=== PATIENT | female | born 1950 | race Caucasian/White ===

== ENCOUNTER 2017-08-22 16:30 | Emergency (ER) | payer MEDICARE, OTHER, SELFPAY ==
[2017-08-22] VITALS (8 sets, daily range): BP systolic 130–193; BP diastolic 72–91; PULSE 68–92; RESP 15–20; TEMP 36.9; O2SAT 98–100; BMI 25.0
--- NOTE | 2017-08-22 17:03 | EKG12_ITS ---
Test Reason : REPEAT Blood Pressure : / mmHG Vent. Rate : 064 BPM Atrial Rate : 064 BPM P-R Int : 148 ms QRS Dur : 086 ms QT Int : 412 ms P-R-T Axes : 031 -45 044 degrees QTc Int : 425 ms Normal sinus rhythm Left axis deviation Low voltage QRS Inferior infarct , age undetermined Abnormal ECG Confirmed by JAIMIE BARRERA ([id number]), managing editor DILEEP LION ([id number]) on 08/26/2017 3:59:19 PM Referred By: COREEN Confirmed By:JAIMIE BARRERA
--- NOTE | 2017-08-22 17:45 | RAD_ITS ---
STUDY: X-RAY CHEST REASON FOR EXAM: Female, 67 years old. Chest tightness TECHNIQUE: Frontal and lateral views of the chest. COMPARISON: 04/15/2006. FINDINGS: There is hyperinflation of the lungs consistent with chronic obstructive lung disease (COPD). No infiltrates or effusions. There is no demonstrated pleural abnormality. Normal size heart. Normal mediastinum and nimo. Normal visualized pulmonary arteries. Normal visualized aortic arch and descending thoracic aorta. Normal visualized thoracic spine. Normal visualized ribs, clavicles, and shoulders. There is no demonstrated abnormality of the visualized soft tissue structures of the upper abdomen. RAD/Chest PA and Lateral IMPRESSION: There are findings consistent with COPD. There is no evidence of acute chest disease. Electronically Signed: Andrew Lucas MD at 18:25 EDT , Service support ,
[2017-08-22 17:58] LABS: Absolute Lymphocyte Count 1.67 X10^3/ul (0.83-4.51); Absolute Neutrophil Count 3.1 X10^3/uL (2.0-7.7); Basophil# 0.02 X10^3/uL; Basophil% 0.4 % (0-1); Eosinophil# 0.05 X10^3/uL; Eosinophils% 0.9 % (0-5); Hematocrit 39.8 % (37-47); Hemoglobin 12.9 g/dl (12.0-15.0); Lymphocyte # 1.67 X10^3/ul (4.0); Lymphocyte % 31.4 % (19-41); Mean Corp Hgb Conc 32.4 g/gl (32-36); Mean Corpuscular Hgb 31.9 pg (27.0-32.0); Mean Corpuscular Volume 98.3 fL (81-99); Mean Platelet Vol. 10.3 fl (6.2-12.0); Monocyte# 0.52 X10^3/uL; Monocyte% 9.8 % (0-10); Neutrophil # 3.05 X10^3/uL (2.7-7.7); Neutrophil % 57.3 % (47-70); Platelet Count 262 K/mm3 (150-450); RBC Distribution Width CV 12.7 % (11.6-14.6); RBC Distribution Width SD 45.9 fl (35.1-43.9); Red Blood Count 4.05 M/mm3 (4.2-5.4); White Blood Count 5.3 K/mm3 (4.4-11.0)
[2017-08-22] MEDS: Aspirin 81 MG TAB.CHEW 324 MG PO (17:59)
[2017-08-22 18:04] LABS: POSITIVE COUNT NO; POSITIVE DIFFERENTIAL NO; POSITIVE MORPHOLOGY NO
[2017-08-22 18:20] LABS: Anion Gap 9 (5-15); BUN 13 mg/dL (7-18); BUN/Creat Ratio 9.7 RATIO (10-20); Chloride 104 mmol/L (98-107); Creatinine, Serum 1.34 mg/dL (0.55-1.02); EST Glomerular Filtration Rate 42 mL/min (>60); Est Glom Filt Rate - Afr Amer 51 mL/min (>60); Estimated Creatinine Clearance 36.16 ml/min; Glucose 192 mg/dL (74-106); Potassium 3.4 mmol/L (3.5-5.1); Sodium Level 136 mmol/L (136-145)
--- NOTE | 2017-08-22 19:10 | EKG12_ITS ---
Test Reason : CHEST PAIN Blood Pressure : / mmHG Vent. Rate : 074 BPM Atrial Rate : 074 BPM P-R Int : 160 ms QRS Dur : 088 ms QT Int : 384 ms P-R-T Axes : 073 -44 059 degrees QTc Int : 426 ms Normal sinus rhythm Left axis deviation Septal infarct , age undetermined Inferior infarct , age undetermined Abnormal ECG Confirmed by JAIMIE BARRERA ([id number]), video editor DILEEP LION ([id number]) on 08/26/2017 3:59:43 PM Referred By: CD Confirmed By:JAIMIE BARRERA
--- NOTE | 2017-08-22 20:29 | ED.DCSUM_ITS ---
- ER Visit Summary Date of Service: 08/22/17 Chief Complaint: Chest pain History of Present Illness: The patient is a 67 F who presents with chest pain that began approximate 1 hour prior to arrival. Patient describes the pain as squeezing. Patient states that her pain is over the lower sternal area. Patient denies any radiation of the pain. Patient admits to some diaphoresis. Patient also admits to some lightheadedness and dizziness. Patient states she was having some palpitations earlier in the day. Patient denies any shortness of breath. Patient denies any nausea or vomiting. Physical Examination: Vital signs are stable. Patient is afebrile. Patient is in no acute distress. Pupils are equal, round, reactive to light bilaterally. Extraocular muscles are intact. Conjunctiva is clear. Oral mucosa is pink and moist. Neck is supple. Trachea is midline. There is no JVD or lymphadenopathy. Heart was regular rate and rhythm. Lungs are clear and equal bilateral. There is good respiratory effort noted. Abdomen is soft nontender. Cranial nerves II through XII are intact. There are no focal motor or sensory deficits noted. Test Results: EKG showed normal sinus rhythm with a rate of 74. There are no acute ST or T-wave changes. Repeat EKG 2 hours later does not show any acute changes. Chest x-ray shows evidence of COPD but no acute cardiopulmonary process. CBC was within normal limits. Basic metabolic profile showed a slightly elevated creatinine of 1.34. Glucose is 192. Troponin was normal at 0.02. Emergency Department Course and Treatment: Patient states her pain has resolved here in the emergency department. A 2 hour delta troponin was obtained since her symptoms only began 1 hour prior to arrival. This repeat troponin and repeat EKG were unchanged. Patient has a HEART score of 3. Patient is low risk for acute cardiac event. Patient was instructed to follow-up with her primary care physician in 5-7 days. Patient understood and was agreeable with the plan. All questions were answered. Disposition: Charge home Impression: Chest pain This note was generated with [employer] dictation software. It may contain incorrect words, spelling, and punctuation that were not noted in review of the chart prior to signing ED Disposition - Plan for ED Patient: Disposition: Home or Assisted Living Chief Complaint: Chest Pain Diagnosis: Chest pain Instructions: ED Chest Pain Atypical Unkn Cause Referrals: Scarlet Deleon DO [Primary Care Provider] -
--- NOTE | 2017-08-22 20:42 | ED.RN ---
REVIEWED D/C INSTRUCTIONS, FOLLOW UP CARE, AND S/S THAT WOULD WARRANT A RETURN TO THE ED WITH PT. PT VERBALIZED AN UNDERSTANDING AND DENIES FURTHER QUESTIONS FOR THIS RN. PT SKIN P/W/D, RESP EVEN AND UNLABORED, PT A&O X 3, NO DISTRESS NOTED. PT AMBULATED OUT OF ED, GAIT STEADY.
== END 2017-08-22 20:45 | disposition home or self-care (01) ==
PROVIDERS: Emergency Provider Emergency Medicine; Family Provider Family Medicine; PCP Family Medicine
DX: R07.89 Other chest pain (principal); R61 Generalized hyperhidrosis; R42 Dizziness and giddiness; R00.2 Palpitations; Z85.828 Personal history of other malignant neoplasm of skin; Z90.710 Acquired absence of both cervix and uterus; Z79.899 Other long term (current) drug therapy
CPT/HCPCS: 71046; 80048; 84484; 85025; 93005; 99285; A4216

== ENCOUNTER → 2017-08-29 07:59 | Outpatient (CLI) | payer MEDICARE, OTHER, SELFPAY ==
[2017-08-29 12:51] LABS: Anion Gap 5 (5-15); BUN 17 mg/dL (7-18); BUN/Creat Ratio 20.4 RATIO (10-20); Calcium,Total 8.8 mg/dL (8.5-10.1); Chloride 108 mmol/L (98-107); Creatinine, Serum 0.83 mg/dL (0.55-1.02); EST Glomerular Filtration Rate 72 mL/min (>60); Est Glom Filt Rate - Afr Amer 88 mL/min (>60); Glucose 89 mg/dL (74-106); Potassium 4.6 mmol/L (3.5-5.1); Sodium Level 141 mmol/L (136-145); Thyroid Stim Hormone (TSH) 1.33 uIU/mL (0.358-3.74)
[2017-09-05 11:27] LABS: Aldosterone, Serum 8.8 ng/dL (0.0-30.0); Renin, Plasma < 0.167 ng/mL/hr (0.167-5.380)
== END ==
PROVIDERS: Family Provider Family Medicine; PCP Family Medicine; Visit Provider Family Medicine
DX: I10 Essential (primary) hypertension (principal)
CPT/HCPCS: 36415; 80048; 82088; 84244; 84443

== ENCOUNTER → 2017-10-09 09:35 | Outpatient (CLI) | payer MEDICARE, OTHER, SELFPAY ==
--- NOTE | 2017-10-09 09:43 | RDU_ITS ---
Reason For Study: HYPERTENSION Right Renal Artery Left Renal Artery Right renal artery ostium Left renal artery ostium 90.3/27.6 119.0/26.4 RSV/EDV. PSV/EDV. Right renal artery proximal Left renal artery proximal PSV/EDV 115.0/30.2 PSV/EDV. 104.0/28.1 . Right renal artery mid 105.0/33.3 Left renal artery mid 95.1/25.2 PSV/EDV. PSV/EDV . Right renal artery distal Left renal artery distal 97.2/35.4 129.0/45.7 PSV/EDV. PSV/EDV. Right Renal Parenchyma Left Renal Parenchyma Upper Pole Medula 42.9/17.3 Left upper pole medulla 42.2/14.1 PSV/EDV. PSV/EDV . Right upper pole medulla EDR .40 . Left upper pole medulla EDR .33 . Right upper pole medulla R.I. .60 . Left upper pole medulla R.I. .67 . Upper [place] Cortx 24.6/7.3 PSV/EDV. UP Cortex 26.3/6.7 PSV/EDV. Right upper pole cortex EDR .30 . Left upper pole cortex EDR .25 . Right upper pole cortex R.I. .70 . Left upper pole cortex R.I. .74 . Right lower Pole medulla 27.5/9.2 Left lower Pole medulla 23.5/7.9 PSV/EDV . PSV/EDV . Right lower pole medulla EDR .33 . Left lower pole medulla EDR .34 . Right lower pole medulla R.I. .67 . Left lower pole medulla R.I. .66 . Lower Pole Cortex 22.9/8.3 PSV/EDV. Lower Pole Cortx 21.4/7.9 PSV/EDV. Right lower pole cortex EDR .36 . Left lower pole cortex EDR .37 . Right lower pole cortex R.I. .64 . Left lower pole cortex R.I. .63 . Right Renal Hilar Left Renal Hilar Right Hilar avg 79.4/25.7 PSV/EDV. LT Hilar avg 47.1/16.2 PSV/EDV . Right hilar acceleration time 51 Left hilar acceleration time 37 m/sec. m/sec. Right Renal Dimensions Left Renal Dimensions Right kidney size 10.8 cm . Left kidney size 10.7 cm . Right cortical dimension 1.5 cm . Left cortical dimension 1.5 cm . Aorta Proximal abdominal aorta 1.7 X 1.7 cm . Distal abdominal aorta 1.5 X 1.5 cm . Proximal abdominal aorta peak systolic velocity is 123.0 cm/sec . Distal abdominal aorta peak systolic velocity is 93.0 cm/sec . Interpretation Summary Dimensions of the intra-abdominal aorta appear normal, without evidence of aneurysmal dilatation. Renal artery velocities are bilaterally normal. Acceleration times are normal bilaterally. There is no evidence of hemodynamically significant renal artery stenosis on either side. Renovascular resistance appears to be bilaterally normal . Cortical dimensions are bilaterally normal. Kidneys appear normal in size bilaterally. Ordering Physician: Scarlet Deleon Referring Physician: Scarlet Deleon Performed By: Aubree Chavira RVT
[2017-10-09 11:03] LABS: Color, Urine Yellow (Yellow); Glucose, Dipstick Normal (Normal); Ketone-Dipstick Negative (Negative); Leukocyte Esterase-Dipstick 100 /ul (Negative); Nitrite-Dipstick Negative (Negative); Occult Blood-Urine 10 /ul (Negative); Protein-Dipstick Negative (Negative); Urine Bilirubin Dipstick Negative (Negative); Urine Clarity Clear (Clear); Urine Urobilinogen Normal (Normal)
[2017-10-09 11:36] LABS: Microalbumin:Creatinine Ratio 11.3 mg/g CRE (<30 mg/g CRE)
== END ==
PROVIDERS: Family Provider Family Medicine; PCP Family Medicine; Visit Provider Family Medicine
DX: I10 Essential (primary) hypertension (principal)
CPT/HCPCS: 81002; 82043; 82570; 93975

== ENCOUNTER → 2017-11-14 17:39 | Outpatient (CLI) | payer MEDICARE, OTHER, SELFPAY ==
--- NOTE | 2017-11-14 11:30 | LES_PTH ---
PATIENT: JS FOX LOC: [facility] U#:[id number] AGE/SX: 74/F ROOM: RE11/14/[address]: Dr. Dave Larios MD : 1950 BED: DIS: SPEC #: [id number] RECD: 11/14/17 17:20 STATUS: CECILIA THOMAS #: [id number] CHRISTINE: 11/14/17 11:[address]: Dave Larios DEPT: SURGICAL PATHOLOGY RECD BY: Vinita Downey ENTERED: 11/17/17 11:47 SP TYPE: Lesion OTHR DR: Dr. Scarlet Deleon, DO Tissues: Skin of eyelid, NOS Procedures: Surgery Specimen Level III HEADER OPERATION: Left lateral canthus lesion PRE-OP DIAGNOSIS: Small, likely inclusion cyst TISSUE SUBMITTED: Left lateral canthus lesion MICROSCOPIC DIAGNOSIS Left lateral canthus lesion, biopsy: Epidermal inclusion cyst. SJ:russell 11/18/17 MICROSCOPIC DESCRIPTION Slides are reviewed. GROSS DESCRIPTION Received in fixative is one container labeled with the patient's name and designated ANN. The specimen consists of one irregular fragment of arauz-white soft tissue measuring 0.1 cm in greatest dimension. The specimen is totally submitted in one cassette. / SJ:russell 11/17/17 TC:5 CPT: 83989
== END ==
PROVIDERS: Family Provider Family Medicine; PCP Family Medicine; Visit Provider Ophthalmology
DX: L72.0 Epidermal cyst (principal)
CPT/HCPCS: 88304; 88305

== ENCOUNTER → 2018-02-25 10:43 | Outpatient (CLI) | payer MEDICARE, OTHER, SELFPAY | PROVIDERS: Family Provider Family Medicine; PCP Family Medicine; Referring Provider Family Medicine; Visit Provider Family Medicine | DX: R07.9 Chest pain, unspecified (principal); R00.2 Palpitations; I34.1 Nonrheumatic mitral (valve) prolapse | CPT/HCPCS: 93225; 93226 ==

== ENCOUNTER → 2018-02-27 15:13 | Outpatient (CLI) | payer MEDICARE, OTHER, SELFPAY ==
--- NOTE | 2018-02-27 15:17 | BI_ITS ---
MAMMOGRAPHY - BILATERAL SCREENING REASON FOR EXAM: Female, 67 years old. Routine annual screening examination. PERTINENT HISTORY: Remote bilateral excisional breast biopsies. TECHNIQUE: Digital bilateral breast annita (3D mammographic acquisition) in the CC and MLO projections. 2-D mediolateral oblique (MLO) and craniocaudad (CC) views of both breasts were obtained. CAD: Full Field Digital Mammography with Computer Added Detection was performed. COMPARISON: Comparison is made with prior study dated January 23, 2017 and January 22, 2016. FINDINGS: Breast Composition: The breasts are heterogeneously dense, which may obscure small masses. There are no dominant masses or suspicious calcifications. There is a stable 4.6 mm densely calcified nodule in the deep upper lateral portion of the left breast. No other significant abnormalities are identified. There has been no significant change since the prior study. BI/SCREENING MAMM (CAD), BILAT IMPRESSION: Stable bilateral screening mammogram. Yearly follow-up mammogram recommended. (A) ASSESSMENT CATEGORY: BIRADS Category 2: Benign. A letter regarding these results will be sent to the patient by the facility within 30 days. Approximately 10% of breast cancers are not detected by mammography. A normal mammogram should not delay biopsy of a clinically suspicious abnormality. [id number] Electronically Signed: Taras Lowery MD at 9:15 EST Tel [phone], Service support ,
== END ==
PROVIDERS: Family Provider Family Medicine; PCP Family Medicine; Referring Provider Family Medicine; Visit Provider Family Medicine
DX: Z12.31 Encounter for screening mammogram for malignant neoplasm of breast (principal)
CPT/HCPCS: 77063; 77067

== ENCOUNTER → 2018-03-02 09:24 | Outpatient (CLI) | payer MEDICARE, OTHER, SELFPAY ==
--- NOTE | 2018-03-02 09:26 | STE_ITS ---
Reason For Study: HTN, Chest Pain Stress Results Protocol: Jonatan Protocol Maximum Predicted HR: 152 bpm Target HR: 129 bpm % Maximum Predicted HR: 116 % Heart Stage Duration Rate BP Comment (mm:ss) (bpm) Baseline 80 128/84No Chest Pain Jonatan Protocol Stage I 3:00 129 130/80No Chest Pain Jonatan Protocol Stage II 3:00 176 140/78No Chest Pain Mild Chest Pressure, Resolved 4 Minutes Into Recovery 93 136/86Recovery Stress Duration: 6:00 mm:ss Maximum Stress HR: 176 bpm METS: 7 Baseline Echocardiogram Findings Stress Echo Wall motion Data Resting WM Intermediate WM Stress WM Resting Wall Motion Wall Motion Stress No regional wall motion No regional wall motion abnormalities noted. abnormalities noted. Ejection Fraction 55 %. Ejection Fraction 65 %. Interpretation Summary Exercise stress echo. Stress protocol: Resting EKG demonstrates normal sinus rhythm with a rate of 72 bpm normal intervals and noted resting blood pressure 128/82 mmHg. The patient exercised according to regular Jonatan protocol for a total duration of 6 minutes. The maximum heart rate attained was 176 bpm which was 115% of maximum predicted heart rate the maximum workload attained was 7 metabolic equivalents. The patient maintained sinus rhythm throughout the recording with occasional premature ventricular complexes noted. 3 episodes of ventricular couplet activity were noted which were asymptomatic. No clinical angina was noted the test was terminated due to fatigue. The resting blood pressure 128/84 with a peak blood pressure of 176/98 mmHg. Stress echocardiogram. Resting echocardiographic images demonstrated an ejection fraction of 55-60%. At peak exercise there was thickening of all reyes and improvement in left ventricular systolic function estimated ejection fraction of 65-70%. No wall motion abnormalities were noted. Conclusion: Normal exercise stress test with no EKG criteria for ischemia at a moderate workload. No clinical angina noted. Normal resting and stress echocardiographic images. Ordering Physician: Scarlet Deleon Referring Physician: Rashad Schmitz Performed By: Brenna Vargas, RDCS, RVT
== END ==
PROVIDERS: Family Provider Family Medicine; PCP Family Medicine; Referring Provider Family Medicine; Visit Provider Family Medicine
DX: R07.9 Chest pain, unspecified (principal); R00.2 Palpitations; I34.1 Nonrheumatic mitral (valve) prolapse
CPT/HCPCS: 93017; 93350

== ENCOUNTER → 2018-03-10 12:35 | Outpatient (CLI) | payer MEDICARE, OTHER, SELFPAY ==
--- NOTE | 2018-03-10 12:45 | RAD_ITS ---
STUDY: X-RAY CHEST REASON FOR EXAM: Female, 67 years old. Chest tightness. Hypertension. TECHNIQUE: PA and lateral views of the chest. COMPARISON: August 22, 2017. FINDINGS: There is hyperinflation of the lungs consistent with chronic obstructive lung disease (COPD). No new mass or infiltrate. There is no demonstrated pleural abnormality. Normal size heart. Normal mediastinum and nimo. Normal visualized pulmonary arteries. Normal visualized aortic arch and descending thoracic aorta. There is demineralization and minimal degenerative changes of the thoracic spine. There is degenerative osteoarthritis of the bilateral shoulders. There is no demonstrated abnormality of the visualized soft tissue structures of the upper abdomen. RAD/Chest PA and Lateral IMPRESSION: COPD without acute cardiopulmonary disease or interval change. Electronically Signed: Mathew Mir DO at 20:58 EST Tel [phone], Service support ,
== END ==
PROVIDERS: Family Provider Family Medicine; PCP Family Medicine; Referring Provider Internal Medicine Cardiovascular Disease; Visit Provider Internal Medicine Cardiovascular Disease
DX: R07.9 Chest pain, unspecified (principal)
CPT/HCPCS: 71046

== ENCOUNTER 2018-03-17 06:48 | Day surgery (SDC) | payer MEDICARE, OTHER, SELFPAY ==
[2018-03-10 11:25] VITALS: BMI 23.7
[2018-03-10 13:37] LABS: Hematocrit 42.5 % (37-47); Hemoglobin 13.7 g/dl (12.0-15.0); Mean Corp Hgb Conc 32.2 g/gl (32-36); Mean Corpuscular Hgb 31.5 pg (27.0-32.0); Mean Corpuscular Volume 97.7 fL (81-99); Mean Platelet Vol. 10.2 fl (6.2-12.0); Platelet Count 303 K/mm3 (150-450); RBC Distribution Width CV 12.6 % (11.6-14.6); RBC Distribution Width SD 45.2 fl (35.1-43.9); Red Blood Count 4.35 M/mm3 (4.2-5.4)
[2018-03-10 13:38] LABS: Scan Indicated on CBC? Y/N NO
[2018-03-10 13:43] LABS: Prothrombin Time (Protime)PT. 12.8 SECONDS (11.7-14.9)
[2018-03-10 13:44] LABS: Partial Thromboplast Time 32.3 Seconds (24.1-36.2)
[2018-03-10 14:07] LABS: Anion Gap 5 (5-15); BUN 17 mg/dL (7-18); BUN/Creat Ratio 19.8 RATIO (10-20); Calcium,Total 9.8 mg/dL (8.5-10.1); Chloride 103 mmol/L (98-107); Creatinine, Serum 0.86 mg/dL (0.55-1.02); EST Glomerular Filtration Rate 70 mL/min (>60); Est Glom Filt Rate - Afr Amer 84 mL/min (>60); Glucose 98 mg/dL (74-106); Potassium 4.2 mmol/L (3.5-5.1); Sodium Level 140 mmol/L (136-145)
[2018-03-11 08:16] LABS: AST(SGOT) 25 U/L (15-37); Alanine Aminotransfer ALT/SGPT 43 U/L (13-56); Alkaline Phosphatase 77 U/L (45-117); Bilirubin, Direct 0.12 mg/dL (0.00-0.30); Cholesterol 244 mg/dL (200); Globulin 4.1 g/dL (2.2-4.2); High Density Lipoprotein 80 mg/dL; Protein, Total 8.1 g/dL (6.4-8.2); Triglycerides 115 mg/dL; Very Low Density Lipoprotein 23 mg/dL (5-40)
[2018-03-16 14:09] VITALS: BMI 23.7
--- NOTE | 2018-03-17 09:33 | CL.I_ITS ---
Patient Name: JS FOX Study Date: 03/17/2018 Performing: Onur Bill MD Ht: 66.14 inches 168 cm : 1950 Wt: 147.71 lbs 67 kg Age: 67 Gender: female BSA: 1.76 PROCEDURE(S) PERFORMED XA32-OIB/COR/LV CLINICAL PROFILE AND CO-MORBIDITIES Indications: New Onset Angina <= 2 months, Suspected CAD, Cardiac Arrythmia Heart Failure: None Stress/Imaging Stress Echocardiogram: Yes Result: Negative Stress Echocardiogram: Negative Angina Classification Anginal Classification w/in 2 Weeks: CCS IV CAD Presentations: Unstable angina. 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 Wire an d guide removed. pt is too thin for Mynx closure. RECOMMENDATIONS Referred for immediate PCI D/c plavix, start IMDUR 30 mg po daily if pt's migraines tolerate, otherwise amlodipine 10mg po qd. 24 hour urine for VMA and metanephrines. Manual sheath removal once ACT<150 sec. Follow up with Dr. Bill DESCRIPTION OF PROCEDURE The patient arrived to the procedure lab. The risks and benefits of the procedure as well as a full d escription of our services here and lack of surgical backup were fully explained to the patient and/o r their significant other prior to the catheterization. The Timeout was completed, verifying the sima ect patient and procedure. The patient's procedural site was prepped and draped in the usual fashion. Local anesthetic was given subcutaneously to right groin region with Lidocaine 2%. Using a modified Seldinger technique, arterial access was obtained via the right femoral artery, a 4Fr sheath was inse rted. Left Coronary Artery selective angiography was performed in multiple views using a 4 Fr. JL5 c atheter. Right Coronary Artery selective angiography was then performed in multiple views using a 4 F r. 3DRC catheter. Left Ventriculography was performed in POWELL projection using a 4 Fr. Pigtail cathete r. LV to AO pullback pressures were then recordedThe images were reviewed and options discussed. A decision was then made to proceed with an Intervention, IVUS or other adjunct procedure. Arterial sheath was exchanged for a 6 Fr Sheath. EBU 3.5 Guide catheter was inserted and engaged into the LCA. BMW Guide wire was advanced to the LAD. Angiogram performed post NTG. The arterial sh eath was sutured in place and capped CORONARY ANGIOGRAPHY DOMINANCE: Right Dominant LEFT HEART ASSESSMENT Left Ventricular Ejection Fraction: by LV Gram 65 % Normal Left Ventricular systolic function Normal LV wall motion LEFT MAIN: Angiographically normal LEFT ANTERIOR DECENDING ARTERY: MID LAD: 75 % Stenosis CIRCUMFLEX ARTERY: Angiographically normal RIGHT CORONARY ARTERY: Angiographically normal INTERVENTION INFORMATION LESION SITE: LAD (Mid) Lesion Complexity: Non-High/Non-C Pre Stenosis: 75 % Pre intervention MIRIAM flow: 3 PROCEDURE: Wire only passed; pt had coronary vasospasm of mid LAD, completely resolved with 2 doses of IC NTG. Post Stenosis: 0 % Post intervention MIRIAM flow: 3 Lesion Devices: [employer] 6 Fr EBU3.5 100cm Guide Catheter Avelar .014 [employer] [place] Straight 190cm COMPLICATIONS No Complications PROCEDURE MEDICATIONS Versed 1 mg IV Oxygen: 2 L/min via nasal cannula Heparin 6000 unit(s) IV 03/17/2018 09:00:37 Nitro 200 mcg IC 03/17/2018 08:50:11 Nitro 200. mcg IC 03/17/2018 09:02:23 SUMMARY OF HEMODYNAMIC DATA Time AIR REST ECG 07:08:32 AO 184/81 (123) SA 08:47:39 LV 175/-26, 6 08:54:56 LV 184/-25, 12 08:55:03 LVp 179/-15, 8 08:55:19 AOp 176/84 (125) 08:55:24 Signed By Onur Bill MD On 03/17/2018 09:32:58 Onur Bill MD
[2018-03-17 11:00] LABS: ACT Activated Clotting Time 191 sec (74-137)
[2018-03-17 11:00] LABS: ACT Activated Clotting Time 186 sec (74-137)
[2018-03-17 11:26] LABS: ACT Activated Clotting Time 158 sec (74-137)
--- NOTE | 2018-03-17 15:30 | NURSING ---
Report received from Anthony Metal Flow Coordinator RN. This RN assuming care at this time for patient.
[2018-03-17 15:36] VITALS: PULSE 76
[2018-03-17 16:20] VITALS: BP 138/82; PULSE 81; RESP 18; TEMP 36.7; O2SAT 97
[2018-03-17 17:20] VITALS: BP 133/71; PULSE 74; RESP 18; O2SAT 97
[2018-03-17 18:20] VITALS: BP 138/94; PULSE 75; RESP 18; O2SAT 98
--- NOTE | 2018-03-17 18:31 | NURSING ---
bedrest complete at this time. VSS. Ambulated pt in hallway. Site remains C/D/I. No hematoma noted. Reviewed d/c paperwork with patient and .
== END 2018-03-17 18:30 | disposition home or self-care (01) ==
LOC: CLSP 06:50 → PCU 15:36
PROVIDERS: Family Provider Family Medicine; PCP Family Medicine; Referring Provider Internal Medicine Cardiovascular Disease; Visit Provider Internal Medicine Cardiovascular Disease
DX: I25.10 Atherosclerotic heart disease of native coronary artery without angina pectoris (principal); I10 Essential (primary) hypertension; E78.5 Hyperlipidemia, unspecified; I34.1 Nonrheumatic mitral (valve) prolapse; G43.909 Migraine, unspecified, not intractable, without status migrainosus; G56.00 Carpal tunnel syndrome, unspecified upper limb; F32.9 Major depressive disorder, single episode, unspecified; M81.0 Age-related osteoporosis without current pathological fracture; Z85.038 Personal history of other malignant neoplasm of large intestine; Z85.820 Personal history of malignant melanoma of skin; Z79.82 Long term (current) use of aspirin; Z79.899 Other long term (current) drug therapy
CPT/HCPCS: 36415; 80048; 80061; 80076; 85027; 85347; 85610; 85730; 93458; 99152; 99153; J7040; C1769; C1887; C1894; Q9967

== ENCOUNTER → 2018-03-21 06:59 | Outpatient (CLI) | payer MEDICARE, OTHER, SELFPAY ==
[2018-03-26 03:06] LABS: Dopamine, UR 185 ug/L (Undefined); Epinephrine, 24Ur 6 ug/24 hr (0-20); Epinephrine, Ur 4 ug/L (Undefined); Norepinephrine, 24Ur 30 ug/24 hr (0-135); Norepinephrine, Ur 22 ug/L (Undefined); VMA, UR 2.5 mg/L (Undefined)
[2018-03-26 08:57] LABS: Dopamine, 24Ur 254 ug/24 hr (0-510); VMA, 24UR 3.4 mg/24 hr (0.0-7.5)
== END ==
PROVIDERS: Visit Provider Internal Medicine Cardiovascular Disease
DX: I10 Essential (primary) hypertension (principal); R00.0 Tachycardia, unspecified
CPT/HCPCS: 81050; 82384; 84585

== ENCOUNTER → 2018-03-23 12:47 | Outpatient (CLI) | payer MEDICARE, OTHER, SELFPAY ==
--- NOTE | 2018-03-23 12:49 | ECHOD_ITS ---
Reason For Study: MVP, HTN Procedure This was a 2D Doppler, Color Flow transthoracic echocardiogram. Exam performed in department. Left Ventricle Normal size and thickness. The estimated ejection fraction is 65 %. Normal diastology for age. No regional wall motion abnormalities noted. Right Ventricle Normal size and thickness. Normal systolic function. Atria Normal left atrium. Normal right atrium. Normal atrial septum. Mitral Valve The mitral valve is structurally normal. No prolapse or stenosis seen. Tricuspid Valve Normal tricuspid valve. Trivial tricuspid valve insufficiency. Right ventricular systolic pressure estimated to be 25 mmHg. Aortic Valve Trisinus/trileaflet aortic valve. Mild diffuse aortic valve thickening. Trivial aortic valve insufficiency. Pulmonic Valve Normal pulmonic valve. Trivial pulmonic valve insufficiency. Great Vessels Normal aortic root. Normal arch. Normal inferior vena cava. Inferior vena cava collapse with sniff. Pericardium/Pleural No pericardial effusion. MMode/2D Measurements & Calculations LVIDd: 4.0 cm IVSd: 0.96 cm Ao root diam: 2.9 cm LVIDs: 2.5 cm LVPWd: 0.98 cm RVDd: 2.7 cm FS: 37.0 % LAV(MOD-bp): 25.4 ml LA A4 area: 11.2 cm2 LA dimension(2D): 2.3 cm LAV(MOD-bp) Indexed: 14.5 ml/m2 LAV(MOD-sp2): 24.6 ml LAV(MOD-sp4): 24.6 ml RA A4 area: 14.6 cm2 Time Measurements MV dec time: 0.29 sec Doppler Measurements & Calculations MV E max wayne: 60.6 cm/sec Lat Peak E' Wayne: 12.5 cm/sec Med Peak E' Wayne: 7.9 cm/sec MV A max wayne: 56.8 cm/sec E/E' lat: 4.9 E/E' med: 7.7 MV E/A: 1.1 Ao V2 max: 125.4 cm/sec AI max wayne: 455.9 cm/sec LV V1 max: 88.9 cm/sec Ao max P.3 mmHg AI max P.2 mmHg LV V1 max P.2 mmHg AI dec slope: 268.2 cm/sec2 AI P1/2t: 497.8 msec PA V2 max: 69.7 cm/sec TR max wayne: 220.0 cm/sec TR max P.4 mmHg Interpretation Summary The estimated ejection fraction is 65 %. Normal diastology for age. Trivial tricuspid valve insufficiency. Right ventricular systolic pressure estimated to be 25 mmHg. Trivial aortic valve insufficiency. There is no comparison study available. Ordering Physician: Onur Bill Referring Physician: Scarlet Deleon Performed By: Sam, Brenna, RDCS, RVT
== END ==
PROVIDERS: Family Provider Family Medicine; PCP Family Medicine; Referring Provider Internal Medicine Cardiovascular Disease; Visit Provider Internal Medicine Cardiovascular Disease
DX: I34.1 Nonrheumatic mitral (valve) prolapse (principal)
CPT/HCPCS: 93306

== ENCOUNTER → 2018-05-12 11:40 | Outpatient (CLI) | payer MEDICARE, OTHER, SELFPAY ==
[2018-04-29 13:16] VITALS: BMI 23.6
--- NOTE | 2018-05-12 12:54 | PCM.CR.HP2 ---
CR - History & Physical - General Arrival date:: 05/12/18 Arrival time:: 12:00 Date of Referral:: 04/29/18 Date of CR Evaluation:: 05/12/18 Referring Physician: Dr. Bill Primary Diagnosis: Angina Pectoris with spasm - History of Present Cardiac Event Onset Date: Enter Onset Date of cardiac illnesses in Comment field below Current stable Angina Pectoris:: Yes - 04/29/2018 Interventions with present event:: left heart cath; prepared to stent and vessel opened up Were there any complications?: none - Medications Home Medications: Ambulatory Orders Medication Instructions Recorded Calcium Carbonate [Calcium] 600 mg PO DAILY 04/14/15 Multivitamin [Daily Multiple 1 ea PO DAILY 04/14/15 Vitamin] [place]-3 Fatty Acids/Fish Oil [Fish 1 ea PO DAILY 04/14/15 Oil 1,000 mg Capsule] albuterol sulfate HFA 90 1 puff INHALATION Q6H PRN 03/09/18 mcg/actuation aerosol inhaler aspirin 81 mg tablet,delayed 81 mg PO DAILY #30 tab 03/10/18 release Diltiazem HCl [Diltiazem 24Hr ER] 240 mg PO DAILY 05/12/18 - Allergies Allergies/Adverse Reactions: Allergies fluoxetine [From Prozac] Adverse Reaction (Intermediate, Verified 04/29/18 13:17) blurred vision - Sleep Disorder Evaluation Hx of Sleep Apnea: No Do you snore loudly (louder than talking or can be heard through closed doors)?: Yes - Sleep Lab and test was negative Do you often feel tired/ fatigued/ sleepy during daytime?: Yes - 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 Has anyone observed you stop breathing during sleep?: No History of Hypertension (for STOP score): Yes - last August 2016 in ER for hypertension STOP Results: Positive Advanced Directives - Advanced Directives Power of Tariff Counsel: No Living Will: No Advance Directives Information Provided: Yes Advance Directives on File: No DNR Order?:: No - MOLST See MOLST form: No Past Medical History - Past Medical Illness Medical History: Past Medical History (Last Updated 03/27/18 @ 15:48 by Aleksandra Castaneda) Coronary vasospasm (Chronic) I20.1 Abnormal EKG (Acute) R94.31 Chest pain (Acute) R07.9 Hyperlipidemia (Chronic) E78.5 History of colon cancer (Chronic) Z85.038 History of melanoma (Chronic) Z85.820 Migraine (Chronic) G43.909 Hypertension (Chronic) I10 Carpal tunnel syndrome G56.00 Depression F32.9 GERD (gastroesophageal reflux disease) K21.9 History of skin cancer Z85.828 Osteoporosis M81.0 Right knee pain M25.561 - Past Surgical History Surgical History: Past Surgical History (Last Reviewed 04/14/18 @ 14:59 by Mone Brooke) History of left heart catheterization (Chronic) Onset Date: 03/17/18 Z98.890 Did for palpitations. Pt states had normal coronaries. 03/17/2018: Had coronary spasm in mid LAD which resolved with nitroglycerin, all other arteries normal per [facility], Dr. Bill. History of bladder repair surgery Z98.890 History of bowel resection Z98.890, Z90.49 History of carpal tunnel release of both wrists Z98.890 History of colonoscopy Onset Date: 05/[address] Orr: repeat q 5 years d/t colon cancer hx History of hysterectomy Z90.710 - Family History Summary Family History: Family History (Last Reviewed 04/14/18 @ 14:59 by Mone Brooke) Mother Diabetes Skin cancer Brother Hypertension Brother Hypertension Sister Hypertension Social History - Smoking History Smoking Status: Never smoker Hx Tobacco Use: No Hx Smoking Exposure: Yes - most of my life been exposed to secondary smoke - Alcohol Use Alcohol Usage: Yes - social drinker but hasn't had anything for two years. - Substance Abuse Hx Substance Use: No - Occupation Occupation (List type of work in comments):: Employed - employed until [employer] closed. 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 Recreational Activities: I am able to engage in most, but not all activities - most but it limited due to shortness of breath Social Environment - Status Marital Status: - Current Living Arrangements Living Environment:: Spouse - Children How many children do you have?: 3 - 9 grandchildren Do any of your children live nearby?: No - Safety Do you feel safe in your surroundings?: Yes - Assistance Do you need any assistance at home?: none Review of Systems - Review of Systems Hints: Right click = Denies (Slash). Left click = Reports ([place]) Review of Present Symptoms: Reports: Shortness of Breath with Exertion, Angina - really tight midsternal chest area associated with the dyspnea., Dizziness/Lightheadedness - When sitting and then getting up from sitting can get dizzy and lightheaded, Appetite - Normal, Appetite - Special Diet - been vewry heathy eater since daughter was diabetic. Alot of fruits and vegetables, low red meats., Sleep - Normal. 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 The left heart cath was being performed by Dr. Bill and was prepared to place stents when the vessels opened up. She was diagnosesd wiht angina pectoris w/spasm of the coronary vessels. Currently they are medically managing and monitoring the patient. - Vital Signs Temperature: 98.7 F Respiratory Rate: 14 Pulse Ox: 96 Blood Pressure: 118/62 - Pulse Pulse Rate: 72 Pulse Rhythm: Regular - Hypertension Blood Pressure Sitting - Left Arm: 118/62 - Stress Stress: Recent - Diabetes Nutrition Referral for Diabetes: No - Obesity Height: 5 ft 6 in Weight:: 146 lb Weight in Pounds: 146.0 lbs Weight Source: Estimated by Patient Body Mass Index (BMI): 23.6 Nutritional Referral for Obesity: No - Physical Inactivity Physical Inactivity: None - Risk Stratification Risk Guidelines: Lowest Risk: Risk Factor for Smoking, Risk Factor for Dyslipidemia, Risk Factor for Diabetes, Risk Factor for Obesity, Risk Factor for Hypertension, Risk Factor for Sedentary Lifestyle, Risk Factor for Depression - For Smoking Smoking Risk Guidelines: Smoking Low Risk: None or quit greater than 6 months ago. Smoking Moderate Risk: Smoker or quit 6 months or less ago. Smoking High Risk: Smoker - For Dyslipidemia Dyslipidemia Risk Guidelines: Low Risk: Moderate Risk: High Risk: 15-25% fat 25.1-29% fat >/= 30% fat. <7% sat fat 7-9% sat fat >9% sat fat. <150 mg chol 150-299 mg chol >/= 300 mg chol. LDL <100 LDL 100-129 LDL >/= 130. Chol/HDL ratio <5.0 Chol/HDL ratio 5.0-6.0 Chol/HDL ratio >6.0. Triglycerides <100 Triglycerides 100-149 Triglycerides >/= 150 - For Diabetes Mellitus Diabetes Risk Guidelines: Diabetes Low Risk: HgA1c <6.5% and/or FBG <120. Diabetes Moderate Risk: HgA1c 6.6-7.9% and/or FBG 120-180. Diabetes High Risk: HgA1c >/= 8% and/or FBG >180 - For Obesity/Overweight Obesity/Overweight Risk Guidelines: Obesity Low Risk: BMI <25.0. Obesity Moderate Risk: BMI 25-29.9. Obesity High Risk: BMI >/= 30.0 - For Hypertension Hypertension Risk Guidelines: Hypertension Low Risk: Systolic <120 and Diastolic <80. Hypertension Moderate Risk: Systolic 120-139 and Diastolic 80-89. Hypertension High Risk: Systolic >/= 140 and Diastolic >/= 90 - For Sedentary Lifestyle Sedentary Lifestyle Risk Guidelines: Sedentary Lifestyle Low Risk: >/= 1,500 kcal/week. Sedentary Lifestyle Moderate Risk: 700-1,499 kcal/week. Sedentary Lifestyle High Risk: < 700 kcal/week - For Depression Depression Risk Guidelines: Depression Low Risk: Not clinically depressed. Depression Moderate Risk: Mildly depressed. Depression High Risk: Clinically depressed - Family History Family History: Family History (Last Reviewed 04/14/18 @ 14:59 by Mone Brooke) Mother Diabetes Skin cancer Brother Hypertension Brother Hypertension Sister Hypertension Motivation - Motivation to Participate On a scale of 1 to 10, how prepared are you to commit to attending program?: 10 - 100% What do you see as barriers to successfully being able to complete the program?: none What do you see as the benefits of succesfully completing the program? In other words, what do you hope to get out of participating in the program?: feel good again, get back to feeling liek I did before Are there issues you are dealing with that will interfere with completing the program?: none Do you have a spouse or signficant other, family or friends who will help support you to complete the program?: yes.
--- NOTE | 2018-05-12 12:59 | CR.HP_ITS ---
CR - History & Physical - General Arrival date:: 05/12/18 Arrival time:: 12:00 Date of Referral:: 04/29/18 Date of CR Evaluation:: 05/12/18 Referring Physician: Dr. Bill Primary Diagnosis: Angina Pectoris with spasm - History of Present Cardiac Event Onset Date: Enter Onset Date of cardiac illnesses in Comment field below Current stable Angina Pectoris:: Yes - 04/29/2018 Interventions with present event:: left heart cath; prepared to stent and vessel opened up Were there any complications?: none - Medications Home Medications: Ambulatory Orders Medication Instructions Recorded Calcium Carbonate [Calcium] 600 mg PO DAILY 04/14/15 Multivitamin [Daily Multiple 1 ea PO DAILY 04/14/15 Vitamin] [place]-3 Fatty Acids/Fish Oil [Fish 1 ea PO DAILY 04/14/15 Oil 1,000 mg Capsule] albuterol sulfate HFA 90 1 puff INHALATION Q6H PRN 03/09/18 mcg/actuation aerosol inhaler aspirin 81 mg tablet,delayed 81 mg PO DAILY #30 tab 03/10/18 release Diltiazem HCl [Diltiazem 24Hr ER] 240 mg PO DAILY 05/12/18 - Allergies Allergies/Adverse Reactions: Allergies fluoxetine [From Prozac] Adverse Reaction (Intermediate, Verified 04/29/18 13:17) blurred vision - Sleep Disorder Evaluation Hx of Sleep Apnea: No Do you snore loudly (louder than talking or can be heard through closed doors)?: Yes - Sleep Lab and test was negative Do you often feel tired/ fatigued/ sleepy during daytime?: Yes - 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 Has anyone observed you stop breathing during sleep?: No History of Hypertension (for STOP score): Yes - last August 2016 in ER for hypertension STOP Results: Positive Advanced Directives - Advanced Directives Power of Pipeline Technician: No Living Will: No Advance Directives Information Provided: Yes Advance Directives on File: No DNR Order?:: No - MOLST See MOLST form: No Past Medical History - Past Medical Illness Medical History: Past Medical History (Last Updated 03/27/18 @ 15:48 by Aleksandra Castaneda) Coronary vasospasm (Chronic) I20.1 Abnormal EKG (Acute) R94.31 Chest pain (Acute) R07.9 Hyperlipidemia (Chronic) E78.5 History of colon cancer (Chronic) Z85.038 History of melanoma (Chronic) Z85.820 Migraine (Chronic) G43.909 Hypertension (Chronic) I10 Carpal tunnel syndrome G56.00 Depression F32.9 GERD (gastroesophageal reflux disease) K21.9 History of skin cancer Z85.828 Osteoporosis M81.0 Right knee pain M25.561 - Past Surgical History Surgical History: Past Surgical History (Last Reviewed 04/14/18 @ 14:59 by Mone Brooke) History of left heart catheterization (Chronic) Onset Date: 03/17/18 Z98.890 Did for palpitations. Pt states had normal coronaries. 03/17/2018: Had coronary spasm in mid LAD which resolved with nitroglycerin, all other arteries normal per [facility], Dr. Bill. History of bladder repair surgery Z98.890 History of bowel resection Z98.890, Z90.49 History of carpal tunnel release of both wrists Z98.890 History of colonoscopy Onset Date: 05/[address] Orr: repeat q 5 years d/t colon cancer hx History of hysterectomy Z90.710 - Family History Summary Family History: Family History (Last Reviewed 04/14/18 @ 14:59 by Mone Brooke) Mother Diabetes Skin cancer Brother Hypertension Brother Hypertension Sister Hypertension Social History - Smoking History Smoking Status: Never smoker Hx Tobacco Use: No Hx Smoking Exposure: Yes - most of my life been exposed to secondary smoke - Alcohol Use Alcohol Usage: Yes - social drinker but hasn't had anything for two years. - Substance Abuse Hx Substance Use: No - Occupation Occupation (List type of work in comments):: Employed - employed until [employer] closed. 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 Recreational Activities: I am able to engage in most, but not all activities - most but it limited due to shortness of breath Social Environment - Status Marital Status: - Current Living Arrangements Living Environment:: Spouse - Children How many children do you have?: 3 - 9 grandchildren Do any of your children live nearby?: No - Safety Do you feel safe in your surroundings?: Yes - Assistance Do you need any assistance at home?: none Review of Systems - Review of Systems Hints: Right click = Denies (Slash). Left click = Reports ([place]) Review of Present Symptoms: Reports: Shortness of Breath with Exertion, Angina - really tight midsternal chest area associated with the dyspnea., Dizziness/Lightheadedness - When sitting and then getting up from sitting can get dizzy and lightheaded, Appetite - Normal, Appetite - Special Diet - been vewry heathy eater since daughter was diabetic. Alot of fruits and vegetables, low red meats., Sleep - Normal. 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 The left heart cath was being performed by Dr. Bill and was prepared to place stents when the vessels opened up. She was diagnosesd wiht angina pectoris w/spasm of the coronary vessels. Currently they are medically managing and monitoring the patient. - Vital Signs Temperature: 98.7 F Respiratory Rate: 14 Pulse Ox: 96 Blood Pressure: 118/62 - Pulse Pulse Rate: 72 Pulse Rhythm: Regular - Hypertension Blood Pressure Sitting - Left Arm: 118/62 - Stress Stress: Recent - Diabetes Nutrition Referral for Diabetes: No - Obesity Height: 5 ft 6 in Weight:: 146 lb Weight in Pounds: 146.0 lbs Weight Source: Estimated by Patient Body Mass Index (BMI): 23.6 Nutritional Referral for Obesity: No - Physical Inactivity Physical Inactivity: None - Risk Stratification Risk Guidelines: Lowest Risk: Risk Factor for Smoking, Risk Factor for Dyslipidemia, Risk Factor for Diabetes, Risk Factor for Obesity, Risk Factor for Hypertension, Risk Factor for Sedentary Lifestyle, Risk Factor for Depression - For Smoking Smoking Risk Guidelines: Smoking Low Risk: None or quit greater than 6 months ago. Smoking Moderate Risk: Smoker or quit 6 months or less ago. Smoking High Risk: Smoker - For Dyslipidemia Dyslipidemia Risk Guidelines: Low Risk: Moderate Risk: High Risk: 15-25% fat 25.1-29% fat >/= 30% fat. <7% sat fat 7-9% sat fat >9% sat fat. <150 mg chol 150-299 mg chol >/= 300 mg chol. LDL <100 LDL 100-129 LDL >/= 130. Chol/HDL ratio <5.0 Chol/HDL ratio 5.0-6.0 Chol/HDL ratio >6.0. Triglycerides <100 Triglycerides 100-149 Triglycerides >/= 150 - For Diabetes Mellitus Diabetes Risk Guidelines: Diabetes Low Risk: HgA1c <6.5% and/or FBG <120. Diabetes Moderate Risk: HgA1c 6.6-7.9% and/or FBG 120-180. Diabetes High Risk: HgA1c >/= 8% and/or FBG >180 - For Obesity/Overweight Obesity/Overweight Risk Guidelines: Obesity Low Risk: BMI <25.0. Obesity Moderate Risk: BMI 25-29.9. Obesity High Risk: BMI >/= 30.0 - For Hypertension Hypertension Risk Guidelines: Hypertension Low Risk: Systolic <120 and Diastolic <80. Hypertension Moderate Risk: Systolic 120-139 and Diastolic 80-89. Hypertension High Risk: Systolic >/= 140 and Diastolic >/= 90 - For Sedentary Lifestyle Sedentary Lifestyle Risk Guidelines: Sedentary Lifestyle Low Risk: >/= 1,500 kcal/week. Sedentary Lifestyle Moderate Risk: 700-1,499 kcal/week. Sedentary Lifestyle High Risk: < 700 kcal/week - For Depression Depression Risk Guidelines: Depression Low Risk: Not clinically depressed. Depression Moderate Risk: Mildly depressed. Depression High Risk: Clinically depressed - Family History Family History: Family History (Last Reviewed 04/14/18 @ 14:59 by Mone Brooke) Mother Diabetes Skin cancer Brother Hypertension Brother Hypertension Sister Hypertension Motivation - Motivation to Participate On a scale of 1 to 10, how prepared are you to commit to attending program?: 10 - 100% What do you see as barriers to successfully being able to complete the program?: none What do you see as the benefits of succesfully completing the program? In other words, what do you hope to get out of participating in the program?: feel good again, get back to feeling liek I did before Are there issues you are dealing with that will interfere with completing the program?: none Do you have a spouse or signficant other, family or friends who will help support you to complete the program?: yes.
[2018-05-12 13:10] VITALS: BP 118/62; PULSE 72; RESP 14; TEMP 37.1; O2SAT 96; BMI 23.6
--- NOTE | 2018-05-12 14:20 | CR.ITP_ITS ---
General Information - General Information Admitting Diagnosis: STABLE ANGINA WITH OTHER FORMS OF ANGINA - Education/Goals Barriers to Learning: None Cardiac Rehabilitation Goals: 1. Maintain the individual as the primary focus of care. 2. To improve the patient's quality of life. 3. Identification of cardiac risk factors and provide cardiac risk factor management. 4. Enhance the psychosocial status of the patient. 5. Reconditioning enough to allow the patient to resume customary activities. 6. Control symptoms of cardiac disease Scale for measuring improvement of personal goals: Enter appropriate number in Comments. 2 = Unchanged. 3 = Slightly Better. 4 = Moderate Improvement. 5 = Met my Goal Personal Goals: Initial Assessment: Improve management of stress and emotions, Improve energy level, Get back to work, or to resume activities faster, Improve knowledge of cardiac disease, Improve muscle strength and endurance, Control risk factors (learn risk factor modification) Exercise - Initial Assessment - Visit Date of Eval: 05/12/18 - START 05/15/2018 Session #:: 0 - Stages of Change Stages of Change:: Action - Exercise Prescription Mode:: Treadmill, Rower, Airdyne Angina with exercise?: No Target Heart Rate:: 113-120 - Hypertension Do any of the following apply?: Yes Resting Blood Pressure:: 118/62 - Intervention Home Exercise/Activity Goal:: Moderate Exercise 30 min/day x 5 days/wk - Education Goals:: Warm-up, RPE JAYESH Scale, S/S, Safe Exercise, Self-Monitoring - Exercise Program Goals Exercise Program Goals: Aerobic Activity >30 min Nutrition - Initial Assessment - Program Goals Nutrition Program Goals: LDL <70. Total Cholesterol <200. HDL >45. Triglycerides <150. HgbA1C <7%. BMI <25 - Visit Date of Assessment:: 05/12/18 - Stages of Change Stages of Change:: Action - Diabetes Diabetes:: No Insulin: No Non-Insulin Dependent?: No Do you monitor your blood sugar at home?: No - Weight Management Height: 5 ft 6 in Weight:: 146 lb Body Fat %:: 23.6 - Intervention Referral to dietitian:: No Referral to Diabetic Clinic:: No Will attend diet classes:: Yes - Education Gave educational materials for:: Healthy eating Tobacco - Initial Assessment - Program Goals Tobacco Program Goals: Complete smoking cessation. Attend education classes. Improve Knowledge Test score - Stage of Change Stages of Change:: Action - Learning Barriers Learning Barriers: Ready to Learn - Family Support Do you have family support?: Yes - Tobacco Use Tobacco Use: Non-smoker Do you use smokeless tobacco?: No - Intervention Smoking Cessation Referral:: No Education Schedule Given:: Yes - Education Gave educational material for:: Coronary artery disease, Risk factors, Sexuality, Medical compliance, Cardiac A&P, Angina signs & symptoms Psychosocial - Initial Assess - Target Goals Target Goals: Assess presence or absence of depression. Using a valid screening tool, maximizes coping skills. Positive support system - Stages of Change Stages of Change:: Action - Psychosocial Test Tool Used:: HANDS Depression Questionnaire - Intervention PS - Interventions: Yes Attend Stress Management Classes, No Referral to Mental Health, No Referral to [facility] Case Management, No Referral to Physician, No Uses Stress Management Skills - Education Gave educational materials for:: Coping techniques, Signs & symptoms of depression, Stress management, Relaxation techniques - Patient/Program Goal Preventative Medication(s):: Aspirin, Statin/lipid - Assistive Devices Assistive Devices:: None Fall Risk Assessed:: Yes Patient Health Questionnaire Initial Assessment 1. Little interest or pleasure in doing things: Several days 2. Feeling down, depressed, or hopeless: Several days 3. Trouble falling or staying asleep, or sleeping too much: More than half the days 4. Feeling tired or having little energy: Several days 5. Poor appetite or overeating: Not at all 6. Feeling bad about yourself -- or that you are a failure or have let yourself or your family down: Not at all 7. Trouble concentrating on things, such as reading the newspaper or watching television: Not at all 8. Moving or speaking so slowly that other people could have noticed. Or the opposite - being so fidgety or restless that you have been moving around a lot more than usual: Not at all 9. Thoughts that you would be better off , or of hurting yourself in some way: Not at all Total Score: 5 TIFF-Q SV Test - Statements CAD is a disease of the arteries in the heart: False Examples of risk factors for heart disease: True Angina is chest pain or discomfort: I Don't Know The benefits of resistance training include: True Eating more meat and dairy products: False Anti-platelet medications such as aspirin are important: True The only effective way to manage stress: False An exercise warm-up slowly increases heart rate: I Don't Know Prepared, processed foods usually have high sodium: True Depression is common after a heart attack: True The statin medications lower cholesterol: True To control blood pressure, lower the amount of sodium: True If someone gets chest discomfort during walking: False Transfats are partially hydrogenated vegetable oils: True Sleep apnea that is not treated increases the risk: False To control cholesterol, one should become a vegetarian: False Someone knows if he/she is exercising at the right level: True Diabetes cannot be prevented with exercise & health eating: True Stress is a large risk for heart attack: True A diet that can help lower blood pressure is rich in: True - Total Score Total Correct Responses: 17 Self-Efficacy Initial Assessment We would like to know how confident you are in doing certain activities. Please select your confidence level for:: Select your confidence level for the following using the scale 1-10 where 1 is not at all confident and 10 is totally confident. Your score is the average of all 6 responses. Fatigue: How confident are you that you can keep the fatigue caused by your disease from interfering with the things you want to do? Select Number: 4 Physical Discomfort or Pain: How confident are you that you can keep the physical discomfort or pain of your disease from interfering with the things you want to do? Select Number: 4 Emotional Distress: How confident are you that you can keep the emotional distress caused by your disease from interfering with the things you want to do? Select Number: 3 Other Symptoms or Health Problems: How confident are you that you can keep other symptoms or health problems from interfering with the things you want to do? Select Number: 4 Different Tasks and Activities: How confident are you that you can do the different tasks and activities needed to manage your health condition so as to reduce your need to see a doctor? Select Number: 8 Medication: How confident are you that you can do things other than just taking medication to reduce how much your illness affects your everyday life? Select Number: 8 Total Score:: 5 Nutrition Survey - Nutrition Survey Instructions Scoring Instructions: Scoring is as follows: Yes = 1 points. No = 0 point. Patient score that is >/=12 is considered to be at potential nutritional risk and could benefit from a referral to a registered dietitian. - Nutrition Survey Initial Have you lost >10 lbs over the past 2 months without trying?: No Are you following a special diet at home for diabetes, low fat, or low salt?: Yes Are you interested in meeting with a dietitian for help understanding your diet ?: No Do you eat less than 3 meals a day?: No Do you eat fatty meats (lagunas, sausage, ribs, etc), fried foods, desserts, large amounts of salad dressings, margarine, butter, or cheese most days?: No Do you have food allergies? [Enter types in comment field]: No Do you eat in restaurants more than 3 times a week?: No Do you season food with salt, seasoning salt, or garlic salt?: No Do you used canned, boxed, frozen meals, or soups, seasoning packets?: No Total Score:: 1
[2018-05-12 14:24] VITALS: BP 118/62
== END ==
PROVIDERS: Family Provider Family Medicine; PCP Family Medicine; Referring Provider Internal Medicine Cardiovascular Disease; Visit Provider Internal Medicine Cardiovascular Disease
DX: I20.1 Angina pectoris with documented spasm (principal); R94.31 Abnormal electrocardiogram [ECG] [EKG]; E78.5 Hyperlipidemia, unspecified; G43.909 Migraine, unspecified, not intractable, without status migrainosus; I10 Essential (primary) hypertension; F32.9 Major depressive disorder, single episode, unspecified; K21.9 Gastro-esophageal reflux disease without esophagitis; M81.0 Age-related osteoporosis without current pathological fracture; Z85.038 Personal history of other malignant neoplasm of large intestine; Z85.820 Personal history of malignant melanoma of skin; Z79.82 Long term (current) use of aspirin; Z79.899 Other long term (current) drug therapy

== ENCOUNTER 2018-05-25 06:30 | Outpatient (RCR) | payer MEDICARE, OTHER, SELFPAY ==
[2018-05-12 13:10] VITALS: BMI 23.6
== END 2018-05-28 23:59 ==
LOC: CR 06:30
PROVIDERS: Family Provider Family Medicine; PCP Family Medicine; Referring Provider Internal Medicine Cardiovascular Disease; Visit Provider Internal Medicine Cardiovascular Disease
DX: I20.1 Angina pectoris with documented spasm (principal); I10 Essential (primary) hypertension; I20.8 Other forms of angina pectoris
CPT/HCPCS: 93798

== ENCOUNTER 2018-06-24 06:30 | Outpatient (RCR) | payer MEDICARE, OTHER, SELFPAY ==
[2018-05-12 13:10] VITALS: BMI 23.6
--- NOTE | 2018-06-10 08:30 | PCM.CR.ITP ---
General Information - General Information Admitting Diagnosis: stable angina pectoris - Education/Goals Cardiac Rehabilitation Goals: 1. Maintain the individual as the primary focus of care. 2. To improve the patient's quality of life. 3. Identification of cardiac risk factors and provide cardiac risk factor management. 4. Enhance the psychosocial status of the patient. 5. Reconditioning enough to allow the patient to resume customary activities. 6. Control symptoms of cardiac disease Scale for measuring improvement of personal goals: Enter appropriate number in Comments. 2 = Unchanged. 3 = Slightly Better. 4 = Moderate Improvement. 5 = Met my Goal Exercise - 30-day Assessment - Visit Date of Eval: 06/10/18 Session #:: 10 - Stages of Change Stages of Change:: Action - Exercise Prescription Mode:: Treadmill, Rower, NuStep Frequency (x/week): 3 Duration:: 30-45 METs - Progression: 0.5-1 MET as tolerated: 5 Target Heart Rate:: 113-120 Max HR 120 - Hypertension Resting Blood Pressure:: 112/60 Peak Exercise Blood Pressure:: 128/62 - Intervention Home Exercise/Activity Goal:: Sitting Time <3 hrs/day - Education Goals:: Warm-up, RPE JAYESH Scale, S/S, Safe Exercise, Self-Monitoring - Exercise Program Goals Exercise Program Goals: Aerobic Activity >30 min, B/P <130/80 Nutrition - Initial Assessment - Program Goals Nutrition Program Goals: LDL <70. Total Cholesterol <200. HDL >45. Triglycerides <150. HgbA1C <7%. BMI <25 - Diabetes Do you monitor your blood sugar at home?: No Nutrition - 30-Day Assessment - Program Goals Nutrition Program Goals: LDL <70. Total Cholesterol <200. HDL >45. Triglycerides <150. HgbA1C <7%. BMI <25 - Visit Date of Eval: 06/10/18 - Stages of Change Stages of Change:: Action - Diabetes Diabetes:: No - Weight Management Weight:: 66.678 kg - Intervention Referral to dietitian:: No Referral to Diabetic Clinic:: No Will attend diet classes:: Yes - Education Attended class for:: Signs & symptoms of hypoglycemia, Signs & symptoms of hyperglycemia, Relate diabetes to coronary artery disease, Healthy eating Tobacco - Initial Assessment - Program Goals Tobacco Program Goals: Complete smoking cessation. Attend education classes. Improve Knowledge Test score - Learning Barriers Learning Barriers: Ready to Learn Tobacco - 30-Day Assessment - Program Goals Tobacco Program Goals: Complete smoking cessation. Attend education classes. Improve Knowledge Test score - Stage of Change Stages of Change:: Action - Learning Barriers Learning Barriers: Participates in education - Family Support Do you have family support?: Yes - Tobacco Use Tobacco Use: Non-smoker Do you use smokeless tobacco?: No - Intervention Smoking Cessation Referral:: No Individual Education/Counseling:: No Education Schedule Given:: Yes - Education Attended class for:: Tobacco triggers, Coronary artery disease, Risk factors, Sexuality, Medical compliance, Cardiac A&P, Angina signs & symptoms Psychosocial - Initial Assess - Target Goals Target Goals: Assess presence or absence of depression. Using a valid screening tool, maximizes coping skills. Positive support system - Psychosocial Test Tool Used:: HANDS Depression Questionnaire - Assistive Devices Fall Risk Assessed:: Yes Psychosocial - 30-Day Assess - Target Goals Target Goals: Assess presence or absence of depression. Using a valid screening tool, maximizes coping skills. Positive support system - Stages of Change Stages of Change:: Action - Psychosocial Test Tool Used:: HANDS Depression Questionnaire - Intervention PS - Interventions: Yes Attend Stress Management Classes, Yes Uses Stress Management Skills, No Referral to Mental Health, No Referral to [facility] Case Management, No Referral to Physician - Education Attended classes for:: Coping techniques, Signs & symptoms of depression, Stress management, Relaxation techniques - Assistive Devices Assistive Devices:: None Fall Risk Assessed:: Yes Patient Health Questionnaire 30-Day Re-eval Assessment 1. Little interest or pleasure in doing things: Several days 2. Feeling down, depressed, or hopeless: Several days 3. Trouble falling or staying asleep, or sleeping too much: More than half the days 4. Feeling tired or having little energy: Several days 5. Poor appetite or overeating: Not at all 6. Feeling bad about yourself -- or that you are a failure or have let yourself or your family down: Not at all 7. Trouble concentrating on things, such as reading the newspaper or watching television: Not at all 8. Moving or speaking so slowly that other people could have noticed. Or the opposite - being so fidgety or restless that you have been moving around a lot more than usual: Not at all 9. Thoughts that you would be better off , or of hurting yourself in some way: Not at all How difficult have these problems made it for you to do your work, take care of things at home, or get along with other people?: Not difficult at all Total Score: 5 Self-Efficacy 30-Day Re-eval Assessment We would like to know how confident you are in doing certain activities. Please select your confidence level for:: Select your confidence level for the following using the scale 1-10 where 1 is not at all confident and 10 is totally confident. Your score is the average of all 6 responses. Fatigue: How confident are you that you can keep the fatigue caused by your disease from interfering with the things you want to do? Select Number: 4 Physical Discomfort or Pain: How confident are you that you can keep the physical discomfort or pain of your disease from interfering with the things you want to do? Select Number: 4 Emotional Distress: How confident are you that you can keep the emotional distress caused by your disease from interfering with the things you want to do? Select Number: 3 Other Symptoms or Health Problems: How confident are you that you can keep other symptoms or health problems from interfering with the things you want to do? Select Number: 4 Different Tasks and Activities: How confident are you that you can do the different tasks and activities needed to manage your health condition so as to reduce your need to see a doctor? Select Number: 8 Medication: How confident are you that you can do things other than just taking medication to reduce how much your illness affects your everyday life? Select Number: 8 Total Score:: 5
[2018-06-10 08:40] VITALS: BP 112/60; BP 128/62
== END 2018-06-25 23:59 ==
LOC: CR 06:30
PROVIDERS: Family Provider Family Medicine; PCP Family Medicine; Referring Provider Internal Medicine Cardiovascular Disease; Visit Provider Internal Medicine Cardiovascular Disease
DX: I20.1 Angina pectoris with documented spasm (principal); I10 Essential (primary) hypertension; I20.8 Other forms of angina pectoris
CPT/HCPCS: 93798

== ENCOUNTER 2018-07-24 06:30 | Outpatient (RCR) | payer MEDICARE, OTHER, SELFPAY ==
[2018-06-10 13:18] VITALS: BMI 23.6
[2018-06-26 01:23] VITALS: BP 112/60; BP 128/62
--- NOTE | 2018-07-08 10:10 | CR.ITP_ITS ---
General Information - General Information Admitting Diagnosis: stable angina pectoris - Education/Goals Barriers to Learning: None Cardiac Rehabilitation Goals: 1. Maintain the individual as the primary focus of care. 2. To improve the patient's quality of life. 3. Identification of cardiac risk factors and provide cardiac risk factor management. 4. Enhance the psychosocial status of the patient. 5. Reconditioning enough to allow the patient to resume customary activities. 6. Control symptoms of cardiac disease Scale for measuring improvement of personal goals: Enter appropriate number in Comments. 2 = Unchanged. 3 = Slightly Better. 4 = Moderate Improvement. 5 = Met my Goal Exercise - 60-Day Assessment - Visit Date of Eval: 07/08/18 Session #:: 22 - Stages of Change Stages of Change:: Action - Physician Prescribed Exercise Modalities: Treadmill, Rower, NuStep Frequency (days/week): 3 Duration (Minutes):: 30-45 Intensity: 60-80% age predicted maximum heart rate reserve METs - Progression: 0.5-1.0 MET, RPE 11-14 WEEK: 5.5 Target Heart Rate:: 113-120 Max HR 117 - Hypertension Resting Blood Pressure:: 106/70 Peak Exercise Blood Pressure:: 142/60 - Intervention Home Exercise/Activity Goal:: Sitting Time <3 hrs/day - Education Goals:: Warm-up, RPE JAYESH Scale, S/S, Safe Exercise, Self-Monitoring - Exercise Program Goals Exercise Program Goals: Aerobic Activity >30 min, B/P <130/80 Nutrition - Initial Assessment - Program Goals Nutrition Program Goals: LDL <70. Total Cholesterol <200. HDL >45. Triglycerides <150. HgbA1C <7%. BMI <25 - Diabetes Do you monitor your blood sugar at home?: No Nutrition - 60-Day Assessment - Program Goals Nutrition Program Goals: LDL <70. Total Cholesterol <200. HDL >45. Triglycerides <150. HgbA1C <7%. BMI <25 - Visit Date of Eval: 07/08/18 - Stages of Change Stages of Change:: Action - Weight Management Weight:: 67.132 kg - Intervention Referral to dietitian:: No Referral to Diabetic Clinic:: No Will attend diet classes:: Yes - Education Attended class for:: Signs & symptoms of hypoglycemia, Signs & symptoms of hyperglycemia, Relate diabetes to coronary artery disease, Healthy eating Tobacco - Initial Assessment - Program Goals Tobacco Program Goals: Complete smoking cessation. Attend education classes. Improve Knowledge Test score - Learning Barriers Learning Barriers: Ready to Learn Tobacco - 60-Day Assessment - Program Goals Tobacco Program Goals: Complete smoking cessation. Attend education classes. Improve Knowledge Test score - Stage of Change Stages of Change:: Action - Learning Barriers Learning Barriers: Participates in education - Family Support Do you have family support?: Yes - Tobacco Use Tobacco Use: Non-smoker Do you use smokeless tobacco?: No - Intervention Smoking Cessation Referral:: No Individual Education/Counseling:: No Education Schedule Given:: Yes - Education Attended class for:: Tobacco triggers, Coronary artery disease, Risk factors, Sexuality, Medical compliance, Cardiac A&P, Angina signs & symptoms Psychosocial - Initial Assess - Target Goals Target Goals: Assess presence or absence of depression. Using a valid screening tool, maximizes coping skills. Positive support system - Psychosocial Test Tool Used:: HANDS Depression Questionnaire - Assistive Devices Fall Risk Assessed:: Yes Psychosocial - 60-Day Assess - Target Goals Target Goals: Assess presence or absence of depression. Using a valid screening tool, maximizes coping skills. Positive support system - Stages of Change Stages of Change:: Action - Psychosocial Test Tool Used:: HANDS Depression Questionnaire - Intervention PS - Interventions: Yes Attend Stress Management Classes, Yes Uses Stress Management Skills, No Referral to Mental Health, No Referral to [facility] Case Management, No Referral to Physician - Education Attended classes for:: Coping techniques, Signs & symptoms of depression, Stress management, Relaxation techniques - Assistive Devices Assistive Devices:: None Fall Risk Assessed:: Yes Patient Health Questionnaire 60-Day Re-eval Assessment 1. Little interest or pleasure in doing things: Several days 2. Feeling down, depressed, or hopeless: Several days 3. Trouble falling or staying asleep, or sleeping too much: More than half the days 4. Feeling tired or having little energy: Several days 5. Poor appetite or overeating: Not at all 6. Feeling bad about yourself -- or that you are a failure or have let yourself or your family down: Not at all 7. Trouble concentrating on things, such as reading the newspaper or watching television: Not at all 8. Moving or speaking so slowly that other people could have noticed. Or the opposite - being so fidgety or restless that you have been moving around a lot more than usual: Not at all 9. Thoughts that you would be better off , or of hurting yourself in some way: Not at all How difficult have these problems made it for you to do your work, take care of things at home, or get along with other people?: Not difficult at all Total Score: 5 Self-Efficacy 60-Day Re-eval Assessment We would like to know how confident you are in doing certain activities. Please select your confidence level for:: Select your confidence level for the following using the scale 1-10 where 1 is not at all confident and 10 is totally confident. Your score is the average of all 6 responses. Fatigue: How confident are you that you can keep the fatigue caused by your disease from interfering with the things you want to do? Select Number: 4 Physical Discomfort or Pain: How confident are you that you can keep the physical discomfort or pain of your disease from interfering with the things you want to do? Select Number: 4 Emotional Distress: How confident are you that you can keep the emotional distress caused by your disease from interfering with the things you want to do? Select Number: 3 Other Symptoms or Health Problems: How confident are you that you can keep other symptoms or health problems from interfering with the things you want to do? Select Number: 4 Different Tasks and Activities: How confident are you that you can do the different tasks and activities needed to manage your health condition so as to reduce your need to see a doctor? Select Number: 8 Medication: How confident are you that you can do things other than just taking medication to reduce how much your illness affects your everyday life? Select Number: 8 Total Score:: 5
[2018-07-08 10:12] VITALS: BP 106/70; BP 142/60
== END 2018-07-26 23:59 ==
LOC: CR 06:30
PROVIDERS: Family Provider Family Medicine; PCP Family Medicine; Referring Provider Internal Medicine Cardiovascular Disease; Visit Provider Internal Medicine Cardiovascular Disease
DX: I20.1 Angina pectoris with documented spasm (principal); I10 Essential (primary) hypertension; I20.8 Other forms of angina pectoris
CPT/HCPCS: 93798

== ENCOUNTER 2018-08-07 06:30 | Outpatient (RCR) | payer MEDICARE, OTHER, SELFPAY ==
[2018-06-10 13:18] VITALS: BMI 23.6
[2018-07-27 01:06] VITALS: BP 106/70; BP 142/60
--- NOTE | 2018-08-07 11:06 | CR.ITP_ITS ---
General Information - General Information Admitting Diagnosis: stable angina pectoris - Education/Goals Cardiac Rehabilitation Goals: 1. Maintain the individual as the primary focus of care. 2. To improve the patient's quality of life. 3. Identification of cardiac risk factors and provide cardiac risk factor management. 4. Enhance the psychosocial status of the patient. 5. Reconditioning enough to allow the patient to resume customary activities. 6. Control symptoms of cardiac disease Scale for measuring improvement of personal goals: Enter appropriate number in Comments. 2 = Unchanged. 3 = Slightly Better. 4 = Moderate Improvement. 5 = Met my Goal Exercise - 90-Day Assessment - Visit Date of Eval: 08/07/18 Session #:: 35 - Stages of Change Stages of Change:: Action - Physician Prescribed Exercise Modalities: Treadmill, Rower, NuStep Intensity: 60-80% age predicted maximum heart rate reserve METs - Progression: 0.5-1.0 MET, RPE 11-14 WEEK: 5.5 Target Heart Rate:: 113-120 Max HR 124 - Hypertension Resting Blood Pressure:: 104/62 Peak Exercise Blood Pressure:: 124/66 - Intervention Home Exercise/Activity Goal:: Sitting Time <3 hrs/day - Education Goals:: Warm-up, RPE JAYESH Scale, S/S, Safe Exercise, Self-Monitoring - Exercise Program Goals Exercise Program Goals: Aerobic Activity >30 min, B/P <130/80 Nutrition - Initial Assessment - Program Goals Nutrition Program Goals: LDL <70. Total Cholesterol <200. HDL >45. Triglycerides <150. HgbA1C <7%. BMI <25 - Diabetes Do you monitor your blood sugar at home?: No Nutrition - 90-Day Assessment - Program Goals Nutrition Program Goals: LDL <70. Total Cholesterol <200. HDL >45. Tr iglycerides <150. HgbA1C <7%. BMI <25 - Visit Date of Eval: 08/07/18 - Stages of Change Stages of Change:: Action - Weight Management Weight:: 67.132 kg - Education Attended class for:: Signs & symptoms of hypoglycemia, Signs & symptoms of hy perglycemia, Relate diabetes to coronary artery disease, Healthy eating Tobacco - Initial Assessment - Program Goals Tobacco Program Goals: Complete smoking cessation. Attend education classes. Improve Knowledge Test score - Learning Barriers Learning Barriers: Ready to Learn Tobacco - 90-Day Assessment - Program Goals Tobacco Program Goals: Complete smoking cessation. Attend education classes. Improve Knowledge Test score - Stage of Change Stages of Change:: Action - Learning Barriers Learning Barriers: Participates in education - Family Support Do you have family support?: Yes - Intervention Smoking Cessation Referral:: No Individual Education/Counseling:: No Education Schedule Given:: Yes - Education Attended class for:: Tobacco triggers, Coronary artery disease, Risk factors, Sexuality, Medical compliance, Cardiac A&P, Angina signs & symptoms Psychosocial - Initial Assess - Target Goals Target Goals: Assess presence or absence of depression. Using a valid screening tool, maximizes coping skills. Positive support system - Psychosocial Test Tool Used:: HANDS Depression Questionnaire - Assistive Devices Fall Risk Assessed:: Yes Psychosocial - 90-Day Assess - Target Goals Target Goals: Assess presence or absence of depression. Using a valid screening tool, maximizes coping skills. Positive support system - Stages of Change Stages of Change:: Action - Psychosocial Test Tool Used:: HANDS Depression Questionnaire - Intervention PS - Interventions: Yes Attend Stress Management Classes, Yes Uses Stress Management Skills, No Referral to Mental Health, No Referral to [facility] Case Management, No Referral to Physician - Education Attended classes for:: Coping techniques, Signs & symptoms of depression, Stress management, Relaxation techniques - Assistive Devices Assistive Devices:: None Fall Risk Assessed:: Yes Patient Health Questionnaire 90-Day Re-eval Assessment 1. Little interest or pleasure in doing things: Several days 2. Feeling down, depressed, or hopeless: Several days 3. Trouble falling or staying asleep, or sleeping too much: Several days 4. Feeling tired or having little energy: Several days 5. Poor appetite or overeating: Not at all 6. Feeling bad about yourself -- or that you are a failure or have let yourself or your family down: Not at all 7. Trouble concentrating on things, such as reading the newspaper or watching television: Several days 8. Moving or speaking so slowly that other people could have noticed. Or the opposite - being so fidgety or restless that you have been moving around a lot more than usual: Not at all 9. Thoughts that you would be better off , or of hurting yourself in some way: Not at all How difficult have these problems made it for you to do your work, take care of things at home, or get along with other people?: Not difficult at all Total Score: 5 Self-Efficacy 90-Day Re-eval Assessment We would like to know how confident you are in doing certain activities. Please select your confidence level for:: Select your confidence level for the following using the scale 1-10 where 1 is not at all confident and 10 is totally confident. Your score is the average of all 6 responses. Fatigue: How confident are you that you can keep the fatigue caused by your disease from interfering with the things you want to do? Select Number: 9 Physical Discomfort or Pain: How confident are you that you can keep the physical discomfort or pain of your disease from interfering with the things you want to do? Select Number: 9 Emotional Distress: How confident are you that you can keep the emotional distress caused by your disease from interfering with the things you want to do? Select Number: 7 Other Symptoms or Health Problems: How confident are you that you can keep other symptoms or health problems from interfering with the things you want to do? Select Number: 8 Different Tasks and Activities: How confident are you that you can do the different tasks and activities needed to manage your health condition so as to reduce your need to see a doctor? Select Number: 10 Medication: How confident are you that you can do things other than just taking medication to reduce how much your illness affects your everyday life? Select Number: 10 Total Score:: 8
[2018-08-07 11:07] VITALS: BP 104/62; BP 124/66
== END 2018-08-25 23:59 ==
LOC: CR 06:30
PROVIDERS: Family Provider Family Medicine; PCP Family Medicine; Referring Provider Internal Medicine Cardiovascular Disease; Visit Provider Internal Medicine Cardiovascular Disease
DX: I20.1 Angina pectoris with documented spasm (principal); I10 Essential (primary) hypertension; I20.8 Other forms of angina pectoris
CPT/HCPCS: 93798

== ENCOUNTER → 2018-09-10 | Outpatient (CLI) | payer MEDICARE, OTHER, SELFPAY ==
[2018-06-10 13:18] VITALS: BMI 23.6
[2018-09-10 07:47] LABS: AST(SGOT) 25 U/L (15-37); Alanine Aminotransfer ALT/SGPT 33 U/L (13-56); Alkaline Phosphatase 92 U/L (45-117); Bilirubin, Direct 0.15 mg/dL (0.00-0.30); Cholesterol 180 mg/dL (200); Globulin 3.8 g/dL (2.2-4.2); High Density Lipoprotein 84 mg/dL; Protein, Total 7.8 g/dL (6.4-8.2); Triglycerides 90 mg/dL; Very Low Density Lipoprotein 18 mg/dL (5-40)
== END | disposition home or self-care (01) ==
LOC: LAB 07:10
PROVIDERS: Family Provider Family Medicine; PCP Family Medicine; Referring Provider Physician Assistant Medical; Visit Provider Physician Assistant Medical
DX: I10 Essential (primary) hypertension (principal); E78.00 Pure hypercholesterolemia, unspecified; I20.1 Angina pectoris with documented spasm
CPT/HCPCS: 36415; 80061; 80076

== ENCOUNTER → 2018-10-02 | Outpatient (CLI) | payer MEDICARE, OTHER, SELFPAY ==
[2018-10-02 13:51] VITALS: BMI 24.0
[2018-10-02 15:29] LABS: Anion Gap 8 (5-15); BUN 18 mg/dL (7-18); BUN/Creat Ratio 22.1 RATIO (10-20); Calcium,Total 9.4 mg/dL (8.5-10.1); Chloride 107 mmol/L (98-107); Creatinine, Serum 0.82 mg/dL (0.55-1.02); EST Glomerular Filtration Rate 74 mL/min (>60); Est Glom Filt Rate - Afr Amer 89 mL/min (>60); Glucose 97 mg/dL (74-106); Magnesium 2.3 mg/dL (1.6-2.6); Potassium 3.8 mmol/L (3.5-5.1); Sodium Level 145 mmol/L (136-145)
== END | disposition home or self-care (01) ==
LOC: LAB 14:36
PROVIDERS: Family Provider Family Medicine; PCP Family Medicine; Referring Provider Physician Assistant Medical; Visit Provider Physician Assistant Medical
DX: R00.2 Palpitations (principal)
CPT/HCPCS: 36415; 80048; 83735

== ENCOUNTER → 2019-03-10 08:09 | Outpatient (CLI) | payer MEDICARE, OTHER, SELFPAY ==
[2018-11-16 10:22] VITALS: BMI 23.8
--- NOTE | 2019-03-10 08:11 | BI_ITS ---
MAMMOGRAPHY - BILATERAL SCREENING REASON FOR EXAM: Female, 68 years old. Routine annual screening examination. PERTINENT HISTORY: Non-contributory. Remote bilateral excisional breast biopsies. TECHNIQUE: Digital bilateral breast nadine (3D mammographic acquisition) in the CC and MLO projections. 2-D mediolateral oblique (MLO) and craniocaudad (CC) views of both breasts were obtained. CAD: Full Field Digital Mammography with Computer Added Detection was performed. COMPARISON: Comparison is made with prior mammogram dated February 27, 2018 and January 23, 2017. FINDINGS: Breast Composition: The breasts are heterogeneously dense, which may obscure small masses. There are no dominant masses or suspicious calcifications. Stable 4.6 mm densely calcified nodule in the deep upper lateral portion of the left breast. No other significant abnormalities are identified. There has been no significant change since the prior study. BI/SCREEN MAMM (CAD) W/NADINE BILAT IMPRESSION: Stable bilateral screening mammogram. Yearly follow-up mammogram recommended. (A) ASSESSMENT CATEGORY: BIRADS Category 2: Benign. A letter regarding these results will be sent to the patient by the facility within 30 days. Approximately 10% of breast cancers are not detected by mammography. A normal mammogram should not delay biopsy of a clinically suspicious abnormality. [id number] Electronically Signed: Taras Lowery, at 9:40 EST , Service support ,
== END ==
PROVIDERS: Family Provider Family Medicine; PCP Family Medicine; Referring Provider Family Medicine; Visit Provider Family Medicine
DX: Z12.31 Encounter for screening mammogram for malignant neoplasm of breast (principal)
CPT/HCPCS: 77063; 77067

== ENCOUNTER → 2019-11-08 07:05 | Outpatient (CLI) | payer MEDICARE, OTHER, SELFPAY ==
[2019-04-08 10:01] VITALS: BMI 23.7
[2019-11-08 08:07] LABS: AST(SGOT) 21 U/L (15-37); Alanine Aminotransfer ALT/SGPT 32 U/L (13-56); Albumin, Serum 3.9 g/dL (3.2-5.0); Alkaline Phosphatase 84 U/L (45-117); Bilirubin, Direct 0.15 mg/dL (0.00-0.30); Cholesterol 185 mg/dL (200); Globulin 3.9 g/dL (2.2-4.2); High Density Lipoprotein 85 mg/dL; Protein, Total 7.8 g/dL (6.4-8.2); Triglycerides 97 mg/dL; Very Low Density Lipoprotein 19 mg/dL (5-40)
== END ==
PROVIDERS: PCP Family Medicine; Referring Provider Internal Medicine Cardiovascular Disease; Visit Provider Internal Medicine Cardiovascular Disease
DX: E78.5 Hyperlipidemia, unspecified (principal)
CPT/HCPCS: 36415; 80061; 80076

== ENCOUNTER → 2020-10-26 06:59 | Outpatient (CLI) | payer MEDICARE, OTHER, SELFPAY ==
[2020-10-24 15:24] VITALS: BMI 24.1
[2020-10-26 08:00] LABS: AST(SGOT) 26 U/L (15-37); Alanine Aminotransfer ALT/SGPT 37 U/L (13-56); Albumin, Serum 4.2 g/dL (3.2-5.0); Alkaline Phosphatase 104 U/L (45-117); Anion Gap 1 (5-15); BUN 16 mg/dL (7-18); BUN/Creat Ratio 18.2 RATIO (10-20); Bilirubin, Direct 0.14 mg/dL (0.00-0.30); Chloride 109 mmol/L (98-107); Cholesterol 200 mg/dL (200); Creatinine, Serum 0.88 mg/dL (0.55-1.02); EST Glomerular Filtration Rate 67 mL/min (>60); Est Glom Filt Rate - Afr Amer 81 mL/min (>60); Globulin 3.8 g/dL (2.2-4.2); Glucose 117 mg/dL (74-106); High Density Lipoprotein 86 mg/dL; Potassium 4.3 mmol/L (3.5-5.1); Sodium Level 141 mmol/L (136-145); Triglycerides 82 mg/dL; Very Low Density Lipoprotein 16 mg/dL (5-40)
[2020-10-26 08:11] LABS: Digoxin Level 0.52 ng/mL (0.80-2.00)
== END ==
PROVIDERS: PCP Family Medicine; Referring Provider Internal Medicine Cardiovascular Disease; Visit Provider Internal Medicine Cardiovascular Disease
DX: E78.00 Pure hypercholesterolemia, unspecified (principal); I10 Essential (primary) hypertension; I20.1 Angina pectoris with documented spasm; I43 Cardiomyopathy in diseases classified elsewhere
CPT/HCPCS: 36415; 80048; 80061; 80076; 80162

== ENCOUNTER → 2020-11-16 15:43 | Outpatient (CLI) | payer MEDICARE, OTHER, SELFPAY ==
[2020-10-24 15:24] VITALS: BMI 24.1
--- NOTE | 2020-11-16 15:45 | BI_ITS ---
MAMMOGRAPHY - BILATERAL SCREENING REASON FOR EXAM: Female, 70 years old. Routine annual screening examination. PERTINENT HISTORY: Non-contributory. History of prior bilateral excisional breast biopsies. TECHNIQUE: Digital bilateral breast nadine (3D mammographic acquisition) in the CC and MLO projections. 2-D mediolateral oblique (MLO) and craniocaudad (CC) views of both breasts were obtained. CAD: Full Field Digital Mammography with Computer Added Detection was performed. COMPARISON: Comparison is made with prior study done 03/10/2019 and 02/27/2018. FINDINGS: Breast Composition: The breasts are heterogeneously dense, which may obscure small masses. There are no dominant masses or suspicious calcifications. Stable 4.6 mm calcified nodule in the deep upper lateral portion of the left breast. No other significant abnormalities are identified. There has been no significant change since the prior study. BI/SCRN MAMM (CAD)W/NADINE BILAT IMPRESSION: Stable bilateral screening mammogram. Yearly follow-up mammogram recommended. (A) ASSESSMENT CATEGORY: BIRADS Category 2: Benign. A letter regarding these results will be sent to the patient by the facility within 30 days. Approximately 10% of breast cancers are not detected by mammography. A normal mammogram should not delay biopsy of a clinically suspicious abnormality. [id number] Electronically Signed: Taras Lowery MD at 8:48 EDT , Service support ,
== END ==
PROVIDERS: PCP Family Medicine; Visit Provider Family Medicine
DX: Z12.31 Encounter for screening mammogram for malignant neoplasm of breast (principal)
CPT/HCPCS: 77063; 77067

== ENCOUNTER → 2020-12-02 08:06 | Outpatient (CLI) | payer MEDICARE, OTHER, SELFPAY ==
[2020-10-24 15:24] VITALS: BMI 24.1
--- NOTE | 2020-12-02 08:11 | MRI_ITS ---
ACR Level 3 findings have been noted. An addendum which confirms receipt of the report will follow. HISTORY: Radiculopathy, left foot numbness. TECHNIQUE: Multiplanar and multisequence MR images of the lumbar spine. IV Contrast dosage and agent: None. # of images incl. paperwork: 124. COMPARISON: CT 11/10/2014. FINDINGS: VERTEBRAE: For the purposes of this report, there are 6 [id number] lumbar vertebral bodies with L6 a transitional lumbosacral vertebra and the lowest intervertebral disc space designated as L6-S1. Vertebral body heights maintained. No significant bone marrow signal abnormality. ALIGNMENT: No significant anterior or posterior subluxation. CONUS: Conus tip at L1-2. 1 cm oval mildly hyperintense intradural lesion distal to the conus at the L2-3 level. SOFT TISSUES: Hepatomegaly. Small renal cyst. INTERVERTEBRAL DISCS: Multilevel degenerative changes with posterior disc bulge osteophyte complexes and facet arthropathy. T12-L1, L1-2: No significant posterior disc herniation, central canal stenosis, or foraminal narrowing based on the sagittal images. L2-3:No significant posterior disc herniation, central canal stenosis, or foraminal narrowing. L3-4, L4-5: Mild disc bulges with facet arthropathy. No significant canal stenosis or foraminal narrowing. L5-6: Mild disc bulge eccentric to the left with mild central canal stenosis, mild left foraminal narrowing, and probable left nerve root impingement. L6-S1: Mild posterior disc bulge osteophyte complex with facet arthropathy. No significant central canal stenosis or foraminal narrowing. MRI/Spine Lumbar (Routine) IMPRESSION: 1 cm lesion in the caudate equina at the L2-3 level, possible ependymoma or other neoplasm. Recommend contrast enhanced MRI. Multilevel degenerative disc disease as described above. at 1028 Reported and signed by: Gloria Hui MD Electronically Signed: Gloria Hui MD at 10:27 EDT Tel , Service support ,
== END ==
PROVIDERS: PCP Family Medicine; Referring Provider Family Medicine; Visit Provider Family Medicine
DX: M54.16 Radiculopathy, lumbar region (principal)
CPT/HCPCS: 72148

== ENCOUNTER → 2020-12-18 08:00 | Outpatient (CLI) | payer MEDICARE, OTHER, SELFPAY ==
[2020-10-24 15:24] VITALS: BMI 24.1
--- NOTE | 2020-12-18 08:11 | MRI_ITS ---
STUDY: MRI LUMBAR SPINE WITH CONTRAST REASON FOR EXAM: Female, 70 years old. ABNORMAL FINDING ON PRIOR MRI TECHNIQUE: Standardized fat and water weighted pulse sequences were obtained in the sagittal and axial following administration of IV 14cc dotarem. COMPARISON: 12/02/2020 FINDINGS: T12-L1: Normal endplates. Normal disc height, hydration and morphology. Normal bilateral facet joints. Normal central canal and bilateral lateral recesses. Normal bilateral intervertebral neural foramina. Normal lumbar lordosis. There is no substantial scoliosis. Normal conus medullaris that terminates at the T12/L1. At L2/L3, the previously described oval intradural mass demonstrates homogeneous contrast enhancement and is located within the center of the spinal canal surrounded by surrounding nerve roots. This likely represents an ependymoma or schwannoma. L1-2: Normal endplates. Normal disc height, hydration and morphology. Normal bilateral facet joints. Normal central canal and bilateral lateral recesses. Normal bilateral intervertebral neural foramina. L2-3: Normal endplates. Normal disc height, hydration and morphology. Normal bilateral facet joints. Normal central canal and bilateral lateral recesses. Normal bilateral intervertebral neural foramina. L3-4: Normal endplates. Normal disc height, hydration and morphology. Normal bilateral facet joints. Normal central canal and bilateral lateral recesses. Normal bilateral intervertebral neural foramina. L4-5: Normal endplates. Normal disc height, hydration and morphology. Normal bilateral facet joints. Normal central canal and bilateral lateral recesses. Normal bilateral intervertebral neural foramina. L5-L6: Mild broad disc protrusion with a central annular tear produces mild spinal stenosis and mild bilateral neural foraminal stenosis. L6-S1: Normal endplates. Normal disc height, hydration and morphology. Normal bilateral facet joints. Normal central canal and bilateral lateral recesses. Normal bilateral intervertebral neural foramina. Normal visualized sacral ala. Normal visualized paraspinous soft tissue structures. MRI/Spine Lumbar WITH Contrast IMPRESSION: Solid enhancement of mass near the conus medullaris most consistent with ependymoma or schwannoma. Electronically Signed: Josiah Meyer MD at 12:11 EDT Tel , Service support ,
[2020-12-18 08:35] LABS: CREATININE FINGERSTICK 0.8 mg/dL (0.55-1.02); EGFR FINGERSTICK > 60.0000 mL/min (>60)
== END ==
PROVIDERS: PCP Family Medicine; Referring Provider Family Medicine; Visit Provider Family Medicine
DX: R90.89 Other abnormal findings on diagnostic imaging of central nervous system (principal)
CPT/HCPCS: 72149; A9575

== ENCOUNTER → 2021-03-20 07:17 | Outpatient (CLI) | payer MEDICARE, OTHER, SELFPAY ==
--- NOTE | 2021-03-20 07:28 | MRI_ITS ---
STUDY: MRI LUMBAR SPINE WITH AND WITHOUT CONTRAST REASON FOR EXAM: Female, 70 years old. SPINAL EPENDYMOMA, POST RESECTION,STAGING TECHNIQUE: Standardized fat and water weighted pulse sequences were obtained in the sagittal and axial planes. IV 13ml Dotarem was administered for the contrast portion of the examination. COMPARISON: None FINDINGS: Preoperative images are not available for comparison and for evaluation of original resected lesion. If dose up provided an addendum can be generated. Lumbar spine intact and aligned with L2 laminectomy. There is surgical site inflammatory change and a 3.6 cm craniocaudad epidural dorsal fluid collection. Inflammation extends along the incision into the posterior epidural space. Intrathecal contents are normal. Conus terminates at T12-L1 with normal cauda equina. Configuration of cauda equina is normal. There are no mass or enhancing lesions. Canal and lateral recesses are patent. There is no moderate or high-grade foraminal stenosis. MRI/Spine Lumbar W/WO Contrast IMPRESSION: 1. Normal intrathecal contents. No intrathecal lesions. 2. L2 laminectomy and 3.6 cm epidural fluid collection, possibly abscess versus seroma. Surgical attention advised. 3. No neural compression. Electronically Signed: Lexie Archuleta MD at 22:26 EST Tel , Service support ,
[2021-03-20 07:46] LABS: CREATININE FINGERSTICK 0.7 mg/dL (0.55-1.02); EGFR FINGERSTICK > 60.0000 mL/min (>60)
== END ==
PROVIDERS: PCP Family Medicine; Referring Provider Neurological Surgery; Visit Provider Neurological Surgery
DX: C71.9 Malignant neoplasm of brain, unspecified (principal)
CPT/HCPCS: 72158; A9575

== ENCOUNTER 2021-04-12 07:00 | Outpatient (RCR) | payer MEDICARE, OTHER, SELFPAY ==
--- NOTE | 2021-03-15 08:26 | HP.PTEVAL ---
Patient's Visit Information JS FOX is a 70 year old F referred to Physical Therapy by Dr. 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 Date of Evaluation: 03/15/21 Physical Therapist: Yolanda Pruitt DPT - Visit Plan Frequency: 3x /Week Duration: 4 Weeks Plan: Focus on core strength/stabilization in neutral spine- PT to call surgeon for restrictions. HEP Given: Posture, TA Contraction, Hip adduction with ball, Hip abduction with GTB, glut sets - Subjective She had surgery on her back Feb 222020 by Dr. Shelley- ependyoma WHO Grade II. He could not get all of the tumor but he was unable to get it all out. She has a oncologist apt Mar 26- and another MRI on March 20. Apr 17 goes back to the surgeon. Limitations from the MD- no reaching over head, gallon milk, bending, twisting. She is still having muscle spasms when she is doing movement- pain is more on the left side. Eases: heat, recliner (more solid). Best: 0/10. Pain is located in the back close to the incision-no radiating pain- the top of her foot is numb- he told her it may come back but he is unsure if it will. Worst: 8/10 Agg: doing activity. Describes the pain in her back as sharp/shooting and the muscle spasm- She is not always in pain. No falls since surgery. She was fully I prior to surgery- dressing, driving, bathing, cooking and cleaning. Feels that she is 25% back to normal activities. Sleep: disturbed- chair or couch- normally a side sleeper- currently sleeping on her back or curling on her side. Wakes her up when she moves. [place]-comes to 3x a week to do TM, rowing machine- not very many weights. No loss or change in bowel or bladder. PMHx/Meds: see list in the cardiology note- no changes except back surgery. - Objective Posture: very rigid- guarded. Gait: no LE deviation- no arm swing or trunk rotation. Sit to Stand: requires UE A- slow to perform movement- guarded. Supine to Sit- log roll technique. Sensation: WNL in bilateral LE gross touch with the exception of dorsum on left foot. Reflex: 2+ patellar. ROM: Lumbar not tested due to unknown restrictions- Hip: left: flexion: 90 degrees then reports discomfort in her spine, Right: Flexion: 120 degrees. Strength: Core: fair minus, Hip: 4/5 throughout, Knee: 5/5, Ankle: 5/5. Flex: HS: left: severe, Right: moderate. Observation: incision healing well. Balance: weight shift but requires UE A. HR/TR: able with UE A - Balance/Special Test Scores Oswestry Low Back Score: 24 - Goals Goal 1:: Patient will be I with HEP and progression Goal Time Frame: 4-6 Weeks Goal 2:: Patient will maintain proper posture t/o tx session to demo increased core s/s Goal Time Frame: 4-6 Weeks Goal 3:: Patient will return to all normal ADL's without pain Goal Time Frame: 4-6 Weeks - Rehabilitation Potential Physical Therapy Diagnosis: Patient presents s/p back surgery with hypomobility- she has decreased ROM, LE and core strength/stabilization, flex and muscular endurance leading to poor posture and increased pain with ADL's. Rehabilitation Potential: Fair - Anticipated Interventions Patient/Client Instruction: Educate patient on: Benefits of Fitness Program Therapeutic Exercise to Include: Strength training, Endurance training, Balance training, Coordination, Agility training, Body mechanics, Postural training, Flexibilty training, Dynamic Lumbar Stabilization, Scapular Strength/Stabilization For the Purpose of:: To improve muscle performance and motor function TENS: Yes Cryotherapy (ice pack, ice massage): Yes Thermo therapy (hot pack): Yes Ultrasound (thermal/non thermal): No Thank you for the opportunity to evaluate your patient. For Medicare and Medicare HMO plans, please review the plan of care and approve it. It will need to be FAXED BACK to us at [phone] for Medicare purposes. For Medicare only, by signing this I certify the plan of care. Please let me know if there are questions or concerns regarding this plan of care. Physician Signature: Date:
--- NOTE | 2021-04-12 07:46 | HP.PTDCSUM ---
It has been my pleasure to treat JS FOX referred by Dr. Randy Hirsch MD, with the diagnosis of Ependymoma WHO Grade II- s/p Laminectomy for a total of 12 visit(s). Discharge Date: Please see the following information for a summary of their discharge status. Subjective: Patient reports that she is 90% better- knows what she can and can't do. She can't sit for long periods or time. She feels pretty sore due to doing more weights today. They plan to do scans at 3 months and 6 months-slow growing cancer- they will do her brain and spinal cord. Plans to come to 3x a week and resume her prior level of activity with slow modifications. LBP Pain Intensity (Out of 10): 2 % Improvement: 90 Objective/Function: Posture: good throughout Gait: no deviation noted- good arm swing and trunk rotation Sit to Stand: does not require UE Supine to Sit- log roll technique. Sensation: WNL in bilateral LE gross touch. Reflex: 2+ patellar. ROM: Lumbar WFL in all planes but guarded- Hip: WFL in all planes. Strength: Core: fair minus, Hip: 4+/5 throughout, Knee: 5/5, Ankle: 5/5. Flex: HS: left: mod, Right: moderate. Observation: incision healing well. Balance: SLS: 5 sec then LOB HR/TR: able with UE A Goal 1:: Patient will be I with HEP and progression Goal Progress: Goal Met Goal 2:: Patient will maintain proper posture t/o tx session to demo increased core s/s Goal Progress: Goal Met Goal 3:: Patient will return to all normal ADL's without pain Goal Progress: Progressing Plan: Discharge to I HEP and return slowly to [facility] If there are questions or concerns regarding this patient's physical therapy, please feel free to call me at [phone]. Thank you for the referral of this patient. Sincerely, Yolanda Pruitt DPT Balance/Gait/Functional tests - Balance/Special Test Scores Oswestry Low Back Score: 15
== END 2021-04-12 19:00 | disposition home or self-care (01) ==
LOC: PT 07:00
PROVIDERS: PCP Family Medicine; Referring Provider Neurological Surgery; Visit Provider Neurological Surgery
DX: C71.9 Malignant neoplasm of brain, unspecified (principal)
CPT/HCPCS: 97110; 97162; 97164

== ENCOUNTER → 2022-08-30 | Outpatient (CLI) | payer MEDICARE, OTHER, SELFPAY ==
[2022-08-30 08:06] LABS: AST(SGOT) 22 U/L (15-37); Alanine Aminotransfer ALT/SGPT 28 U/L (13-56); Albumin, Serum 3.8 g/dL (3.2-5.0); Alkaline Phosphatase 99 U/L (45-117); Bilirubin, Direct 0.15 mg/dL (0.00-0.30); Cholesterol 167 mg/dL (200); Globulin 3.8 g/dL (2.2-4.2); High Density Lipoprotein 87 mg/dL; Protein, Total 7.6 g/dL (6.4-8.2); Triglycerides 75 mg/dL; Very Low Density Lipoprotein 15 mg/dL (5-40)
== END | disposition home or self-care (01) ==
LOC: LAB 06:03
PROVIDERS: PCP Family Medicine; Referring Provider Nurse Practitioner Gerontology; Visit Provider Nurse Practitioner Gerontology
DX: E78.00 Pure hypercholesterolemia, unspecified (principal)
CPT/HCPCS: 36415; 80061; 80076

== ENCOUNTER → 2022-10-17 | Outpatient (CLI) | payer MEDICARE, OTHER, SELFPAY ==
[2022-10-17 10:51] LABS: ALB/GLOB Ratio 1.1 RATIO (0.9-2.4); AST(SGOT) 26 U/L (15-37); Alanine Aminotransfer ALT/SGPT 30 U/L (13-56); Albumin, Serum 3.8 g/dL (3.2-5.0); Alkaline Phosphatase 88 U/L (45-117); Anion Gap 4 (5-15); BUN 15 mg/dL (7-18); Calcium,Total 9.1 mg/dL (8.5-10.1); Chloride 110 mmol/L (98-107); Creatinine, Serum 0.72 mg/dL (0.55-1.02); EST Glomerular Filtration Rate 85 mL/min (>60); Est Glom Filt Rate - Afr Amer 103 mL/min (>60); Globulin 3.4 g/dL (2.2-4.2); Glucose 122 mg/dL (74-106); Potassium 4.3 mmol/L (3.5-5.1); Protein, Total 7.2 g/dL (6.4-8.2); Sodium Level 140 mmol/L (136-145)
== END | disposition home or self-care (01) ==
LOC: MTLAB 07:17
PROVIDERS: PCP Family Medicine; Referring Provider Family Medicine; Visit Provider Family Medicine
DX: Z51.81 Encounter for therapeutic drug level monitoring (principal)
CPT/HCPCS: 36415; 80053

== ENCOUNTER → 2022-11-04 | Outpatient (CLI) | payer MEDICARE, OTHER, SELFPAY ==
--- NOTE | 2022-11-04 07:18 | BI_ITS ---
MAMMOGRAPHY - BILATERAL SCREENING REASON FOR EXAM: Female, 72 years old. Routine annual screening examination. PERTINENT HISTORY: Non-contributory. History of remote bilateral excisional breast biopsies. TECHNIQUE: Digital bilateral breast nadine (3D mammographic acquisition) in the CC and MLO projections. 2-D mediolateral oblique (MLO) and craniocaudad (CC) views of both breasts were obtained. CAD: Full Field Digital Mammography with Computer Added Detection was performed. COMPARISON: Comparison is made with prior study dated November 16, 2020 and March 10, 2019. FINDINGS: Breast Composition: The breasts are heterogeneously dense, which may obscure small masses. There are no dominant masses or suspicious calcifications. Stable densely calcified nodule in the upper deep lateral aspect of the left breast. No other significant abnormalities are identified. There has been no significant change since the prior study. BI/SCRN MAMM (CAD)W/NADINE BILAT IMPRESSION: Stable bilateral screening mammogram. Yearly follow-up mammogram recommended. (A) ASSESSMENT CATEGORY: BIRADS Category 2: Benign. A letter regarding these results will be sent to the patient by the facility within 30 days. Approximately 10% of breast cancers are not detected by mammography. A normal mammogram should not delay biopsy of a clinically suspicious abnormality. [id number] Electronically Signed: Taras Lowery MD at 9:19 EDT ,
== END | disposition home or self-care (01) ==
LOC: OPBI 07:16
PROVIDERS: PCP Family Medicine; Referring Provider Family Medicine; Visit Provider Family Medicine
DX: Z12.31 Encounter for screening mammogram for malignant neoplasm of breast (principal)
CPT/HCPCS: 77063; 77067

== ENCOUNTER 2023-05-17 07:17 | Emergency (ER) | payer MEDICARE, OTHER, SELFPAY ==
[2023-05-17 07:17] VITALS: BP 145/74; PULSE 93; RESP 16; TEMP 35.3; O2SAT 100; BMI 23.1
--- NOTE | 2023-05-17 07:30 | EDS_ITS ---
HPI History of Present Illness Chief Complaint: Abd Pain [facility] Medical History Abnormal EKG Carpal tunnel syndrome Chest pain Coronary vasospasm Depression Essential hypertension GERD (gastroesophageal reflux disease) History of colon cancer History of melanoma History of skin cancer Migraine Osteoporosis Pure hypercholesterolemia Right knee pain Home Medications multivitamin 1 ea PO DAILY 04/14/15 [History Last Taken Unknown] ascorbic acid (vitamin C) 500 mg tablet 500 mg PO DAILY 07/24/20 [History Last Taken Unknown] aspirin 81 mg tablet,delayed release (Adult Aspirin Regimen) 81 mg PO QMWF 07/24/20 [History Last Taken Unknown] calcium carbonate 600 mg calcium (1,500 mg) tablet 1,200 mg PO DAILY 07/24/20 [History Last Taken Unknown] cholecalciferol (vitamin D3) 50 mcg (2,000 unit) tablet 50 mcg PO DAILY 07/24/20 [History Last Taken Unknown] nitroglycerin 0.4 mg sublingual tablet 0.4 mg sublingual Q5-15M PRN chest pain #25 tabs 10/24/20 [Rx Last Taken Unknown] atorvastatin 10 mg tablet (Lipitor) 10 mg PO DAILY #90 tabs 12/02/22 [Rx Last Taken Unknown] amlodipine 5 mg tablet (Norvasc) 5 mg PO DAILY #90 tabs 05/01/23 [Rx Last Taken Unknown] Allergy/AdvReac Type Severity Reaction Status Date / Time No Known Allergies Allergy Unverified 02/27/23 12:57 Family History Mother Skin cancer Brother Hypertension Brother Hypertension Sister Hypertension Daughter Diabetes Surgical History History of back surgery (02/22/21) History of bladder repair surgery History of bowel resection History of carpal tunnel release of both wrists History of colonoscopy (05/2016) History of hysterectomy History of left heart catheterization (03/17/18) Social History Smoking Status: Never smoker alcohol intake: never substance use type: does not use caffeine: Yes Type: coffee Number of servings: 1 EXAM Physical Exam Const Vital Signs: 05/17/23 07:17 Temperature 95.6 F L Temperature Source Temporal Pulse Rate 93 Respiratory Rate 16 Blood Pressure 145/74 H Blood Pressure Mean 97 Pulse Ox 100 Oxygen Delivery Method Room Air [facility] Narrative Medical decision making narrative: HISTORY OF PRESENT ILLNESS: 73 year old female presents with abdominal pain. The patient states she has pain that originates in her right upper quadrant radiates down across abdomen. He states this began 1/2 weeks ago. REVIEW OF SYSTEMS: All other systems reviewed and are negative except as noted in the history of present illness. At least 10 review of systems reviewed and are negative except as noted in history of present illness. PHYSICAL EXAM: Nursing triage notes reviewed, Vital signs reviewed Constitutional: please see [facility] HENT: MMM Eyes: Pupils equal round and reactive to light, Extraocular muscles intact Neck: No stridor, no JVD, full neck ROM Lungs: Clear to auscultation, No wheezing or rales. No increased work of breathing, no conversational dyspnea, no accessory muscle use, no nasal flaring. No respiratory distress noted Heart: Regular rate and rhythm, No murmurs, No rubs and No gallops, 2+ distal pulses (radial, femoral, posterior tibial) in all extremities Abdomen: Soft, no rigidity, rebound or guarding, no obvious peritoneal signs, no palpable pulsatile abdominal masses, no auscultated abdominal bruit : No CVAT Extremities: No edema Neuro: No focal neurological deficits, cranial nerves II through XII intact, 5/5 strength in all extremities. Intact sensation to light touch in all extremities, 2+ reflexes bilateral patella tendons. Normal gait. No ataxia. Skin: No rash or lesions noted MEDICAL DECISION MAKING: Chief Complaint: abdominal pain External records reviewed: Prior imaging reviewed, gallbladder ultrasound from 2015 shows normal right upper quadrant ultrasound, Factors affecting care: history of GERD, hysterectomy, hyperlipidemia, hypertension Social determinants of health:none History obtained from others: The patient's Consults: none [facility] Narrative: Patient was initially hemodynamically stable, afebrile, nontoxic-appearing. Abdominal exam with mild right upper quadrant tenderness, no peritoneal signs. Given the patient's age and location of pain is concerning for major diagnoses as listed below I considered the following differential diagnosis: AAA, small bowel obstruction, abdominal perforation, appendicitis, pancreatitis, hepatobiliary pathology (acute cholecystitis), mesenteric ischemia, abnormalities such as pyelonephritis, nephrolithiasis, ACS, arrhythmia ALL IMAGES (IF OBTAINED) HAVE BEEN PERSONALLY REVIEWED AND INTERPRETED BY CAROLE ORELLANA. CBC without leukocytosis, severe anemia, no thrombocytopenia. EKG with normal sinus rhythm, left axis deviation, normal intervals, no STEMI Urinalysis shows no evidence of urinary inflammation suggestive of UTI High-sensitivity troponin is negative, no evidence of myocardial ischemia Lipase is wnl indicating no pancreatic inflammation. LFTs show no evidence of hepatobiliary pathology. CT scan showed no evidence of mass obstruction or acute surgical pathology Right upper quad ultrasound showed no evidence hepatobiliary obstruction I see nothing that would suggest an acute abdomen at this time. Based on history physical exam, risk factors, I have a low for bowel obstruction, incarcerated hernia, acute pancreatitis, intra-abdominal abscess, perforated viscus, diverticulitis, cholecystitis, appendicitis is very low. There is no evidence of peritonitis sepsis or toxicity at this time. I feel the patient can be managed as an outpatient with follow-up with her primary physician in the next 24 to 48 hours or soon as possible. Instructions have been given for the patient to return to the ED for worsening pain, anorexia, high fevers, intractable vomiting or bleeding. The patient and/or family, caregivers express understanding. The patient and/or family, caregivers agrees with the plan. Total critical care time today provided was at least 0 minutes. This excludes separately billable procedures. Critical care time (if documented) is secondary to the patient having high probability of clinically significant/life threatening deterioration in the patient's condition which required my urgent intervention. Shared decision making: I will have a discussion with the patient and or visitors regarding risk/benefits of further testing or admission. They will be made aware of of the risk/benefits inherent in this decision they will be given the opportunity to voice understanding. Impression: 1. Right Upper quadrant abdominal pain 2. Fatty infiltration of the liver Disposition: Discharge home Jonathan Santiago DO Lab Data Labs: Laboratory Results - last 24 hr 05/17/23 05/17/23 07:55 08:10 WBC 4.6 RBC 4.04 L Hgb 13.3 Hct 39.3 MCV 97.3 MCH 32.9 H MCHC 33.8 RDW Std Deviation 44.0 H RDW Coeff of Ace 12.3 Plt Count 282 MPV 9.9 Immature Gran % (Auto) 0.200 Neut % (Auto) 69.9 Lymph % (Auto) 20.7 [place] % (Auto) 7.6 Eos % (Auto) 0.7 Baso % (Auto) 0.9 Absolute Neuts (auto) 3.2 Absolute Lymphs (auto) 0.95 Nucleated RBC % 0 Sodium 140 Potassium 4.5 Chloride 110 H Carbon Dioxide 27.0 Anion Gap 3 L BUN 14 Creatinine 0.70 Estim Creat Clear Calc 57.76 Est GFR (MDRD) Af Amer 105 Est GFR (MDRD) Non-Af 87 BUN/Creatinine Ratio 20.0 Glucose 122 H Calcium 9.6 Total Bilirubin 0.50 Direct Bilirubin 0.16 AST 20 ALT 31 Alkaline Phosphatase 87 Troponin I High Sens 5 Total Protein 7.3 Albumin 3.6 Globulin 3.7 Lipase 47 Urine Color Yellow Urine Clarity Clear Urine pH 7.0 Ur Specific [place] 1.005 Urine Protein Negative Urine Glucose (UA) Normal Urine Ketones Negative Urine Occult Blood 10 H Urine Nitrite Negative Urine Bilirubin Negative Urine Urobilinogen Normal Ur Leukocyte Esterase Negative Urine RBC 0 SEEN Urine WBC 0 SEEN Ur Squamous Epith Cells 0 SEEN Urine Bacteria 0 SEEN Urine Mucus 0 SEEN Radiography Diagnostic Testing: Clinical Impression(s) from Imaging Studies Abdomen/Pelvis CT 05/17/23 07:44 IMPRESSION: No mass or obstruction. Hepatomegaly. No biliary dilatation. Electronically Signed: Len Barajas MD at 9:11 EST , Gallbladder Ultrasound 05/17/23 07:44 IMPRESSION: Fatty infiltration of the liver. Mild prominence of the common bile duct. No gallstones. Electronically Signed: Len Barajas MD at 9:16 EST , Discharge Plan Triage Chief Complaint: Abd Pain ED Provider: Jonathan Santiago Dx/Rx/DC Orders Clinical Impression: Abdominal pain Instructions: NAFLD Prescriptions: No Action aspirin [Adult Aspirin Regimen] 81 mg tablet,delayed release (DR/EC) 81 mg PO QMWF cholecalciferol (vitamin D3) 50 mcg (2,000 unit) tablet 50 mcg PO DAILY ascorbic acid (vitamin C) 500 mg tablet 500 mg PO DAILY nitroglycerin 0.4 mg tablet, sublingual 0.4 mg SUBLINGUAL Q5-15M PRN (Reason: chest pain) Qty: 25 3RF Rx Instructions: until response; do not exceed 3 doses per episode multivitamin 1 EACH tablet 1 ea PO DAILY Patient Comments: supplement calcium carbonate 600 mg calcium (1,500 mg) tablet 1,200 mg PO DAILY Patient Comments: supplement atorvastatin [Lipitor] 10 mg tablet 10 mg PO DAILY Qty: 90 3RF amlodipine [Norvasc] 5 mg tablet 5 mg PO DAILY Qty: 90 3RF Primary Care Provider: Scarlet Deleon Referrals: Scarlet Deleon DO [Primary Care Provider] - Odell Dykes DO [Med Staff - Active Staff] - Activity Restrictions/Additional Instructions: Thank you for trusting us with your care today! Please take Tylenol (2 pills, 650 mg), ibuprofen (2 pills, 400 mg) every 6 hours as needed for pain and fever control. Please return to the emergency department if your symptoms change or worsen. Please follow with your primary care physician for further outpatient evaluation and management. Please also follow-up with outpatient Gastroenterology Dr. Dykes Disposition Disposition: Home, Self Care
--- NOTE | 2023-05-17 07:44 | CT_ITS ---
STUDY: CT ABDOMEN AND PELVIS WITH CONTRAST REASON FOR EXAM: Female, 73 years old. Upper abdominal pain hx of gastric ulcer RADIATION DOSAGE (If Supplied By Facility): CTDIvol = ( 10.71 ) mGy, DLP = ( 413.78 ) mGycm TECHNIQUE: Transaxial images were obtained from the dome of the diaphragm to the symphysis pubis without oral contrast. IV 100mL Isovue-370 was administered. Sagittal and coronal images were reconstructed. Individualized dose optimization techniques were used for this CT. COMPARISON: November 10, 2014 FINDINGS: The visualized lung bases are unremarkable. The visualized portions of the heart are within normal limits. There is hepatomegaly with diffuse hepatic enlargement. Normal gallbladder and extrahepatic biliary system. Normal spleen. Normal pancreas. Normal bilateral adrenal glands. Normal right kidney. Normal left kidney. Normal visualized stomach. Normal small intestine. There is postoperative change at the right colon. There is moderate stool. There is non-visualization of the appendix. There is atherosclerotic calcification of the abdominal aorta, without a demonstrated aneurysm. Normal inferior vena cava. Normal retroperitoneum. Normal urinary bladder. There is absence of the uterus consistent with a prior hysterectomy. There is no free fluid in the abdomen or pelvis. Normal abdominal wall. Normal osseous structures. CT/Abdomen/Pelvis W IV Cont ONLY IMPRESSION: No mass or obstruction. Hepatomegaly. No biliary dilatation. Electronically Signed: Len Barajas MD at 9:11 EST ,
--- NOTE | 2023-05-17 07:44 | US_ITS ---
STUDY: ABDOMINAL ULTRASOUND - RIGHT UPPER QUADRANT REASON FOR VISIT: Female, 73 years old RUQ pain, TTP r/o acute cholecystitis TECHNIQUE: Ultrasound evaluation of the right upper quadrant was performed with real-time and static keyes-scale imaging. TECHNICAL QUALITY: Adequate. COMPARISON: None. FINDINGS: Liver: The liver measures 18.0 cm. There is increased echogenicity consistent with fatty infiltration. The bile ducts are within normal limits. There is hepatic color flow. The direction of portal flow is hepatopetal. There is no demonstrated mass lesion. Gallbladder: Normal distended gallbladder. The gallbladder wall measures 2 mm. There is a negative sonographic Heredia''s sign. There is no pericholecystic fluid. There are no gallstones. Common Bile Duct (C.B.D.): The common bile duct measures 7 mm. Pancreas: Normal size of the head, body and tail of the pancreas. There is normal echogenicity of the pancreas. There is no demonstrated pancreatic mass or cyst. Right Kidney: Normal size of the right kidney. The right kidney measures 12.4 cm. Normal renal cortex. The right cortex measures 1.4 cm. There is no demonstrated renal mass or cyst. There is no right hydronephrosis. US/Gallbladder IMPRESSION: Fatty infiltration of the liver. Mild prominence of the common bile duct. No gallstones. Electronically Signed: Len Barajas MD at 9:16 EST ,
--- OUTSIDE RECORDS SUMMARY | 2023-05-17 08:01 | XMS RPT_ITS | CCD ---
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 Name Role Phone Malys DO, Scarlet A Primary Care Provider Rip ELENA MD, Lucina Unavailable ADI, FRANKIE Referring Unavailable MALYS, SCARLET A Primary Care Unavailable ADI I, FRANKIE Referring Unavailable MALYS, SCARLET A Primary Care Unavailable ADI I, FRANKIE Attending Unavailable MALYS, SCARLET A Referring Unavailable MALYS, SCARLET A Primary Care Unavailable ADI I, FRANKIE Attending Unavailable MALYS, SCARLET A Referring Unavailable MALYS, SCARLET A Primary Care Unavailable Malys DO, Scarlet A Primary Care Provider Rip ELENA MD, Lucina Unavailable Medications Current Medications Medication Drug Class(es) Dates Sig (Normalized) Sig (Original) iv contrast (will be provided with radiology test) (7 sources) Start: 02-11-2023 End: 02-12-2023 iv contrast (will be provided with radiology test) Indications: Schwannoma MRI LSP Inject, intravenously, once for 1 dose. No IV access, insert saline lock prior to the beginning of sedation, infusion, injection of imaging exam. Discontinue saline lock post exam. If Pt. has a central line or IVAD, may access for administration according to line specific nursing protocol. Once exam is complete flush line and de-access according to line specific nursing protocol in the MR contrast administration guidelines link. 1 Each 0 02/11/2023 02/12/2023 Active Completed/Discontinued Medications Medication Drug Class(es) Dates Sig (Normalized) Sig (Original) ascorbic acid 500 mg oral tablet (9 sources) Vitamin C Start: 07-24-2020 ascorbic acid, vitamin C, (VITAMIN C) 500 mg tablet Take by mouth. 0 07/24/2020 Active Problems Active Problems Problem Classification Problem Date Documented Da te Episodic/Chronic Cancer of brain and nervous system (20 sources) Ependymoma ; Translations: [Malignant neoplasm of brain, unspecified] Onset: 04-02-2021 Chronic Cardiac dysrhythmias (10 sources) Irregular heart beat; Translations: [Cardiac arrhythmia, unspecified] 02-08-2021 Chronic Coronary atherosclerosis and other heart disease (10 sources) Coronary artery spasm; Translations: [Angina pectoris with documented spasm] 02-08-2021 Chronic Neoplasms of unspecified nature or uncertain behavior (1 source) 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; 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 Other and unspecified benign neoplasm (9 sources) Schwannoma; Translations: [Benign neoplasm of peripheral nerves and autonomic nervous system, unspecified] Onset: 02-13-2022 Episodic Other connective tissue disease (1 source) Pain in left foot; Translations: [Pain in left foot] Episodic Residual codes; unclassified (1 source) History of operative procedure on lumbar spinal structure; Translations: [Other specified postprocedural states] Episodic Past or Other Problems Problem Classification Problem Date Documented Da te Episodic/Chronic Neoplasms of unspecified nature or uncertain behavior (10 sources) 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; Translations: [Neoplasm of unspecified behavior of endocrine glands and other parts of nervous system] Onset: 02-22-2021 02-22-2021 Episodic Other and unspecified benign neoplasm (10 sources) Polyp of colon; Translations: [Polyp of colon] Onset: 03-27-2015 03-27-2015 Episodic Other and unspecified benign neoplasm (1 source) Benign neoplasm of peripheral nerves and autonomic nervous system, unspecified; Translations: [Schwannoma] Onset: 02-13-2022 Episodic Results Test Name Value Interpretation Reference Range Facil ity Vital Signs Date Time Vital Sign Value Performing Clinician Dotty galloway 02-13-2022 08:32-0400 Body height 167.6 cm Frankie Reno MD Work Phone: [facility] 02-13-2022 08:32-0400 Body temperature 97.2 [degF] Frankie Reno MD Work Phone: [facility] 02-13-2022 08:32-0400 Body weight 69.9 kg Frankie Reno MD Work Phone: [facility] 02-13-2022 08:32-0400 Diastolic blood pressure 70 mm[Hg] Frankie Reno MD Work Phone: [facility] 02-13-2022 08:32-0400 Heart rate 80 /min Frankie Reno MD Work Phone: [facility] 02-13-2022 08:32-0400 SaO2% (BldA) [Mass fraction] 98 % Frankie Reno MD Work Phone: [facility] 02-13-2022 08:32-0400 Systolic blood pressure 107 mm[Hg] Frankie Reno MD Work Phone: [facility] 01-09-2022 08:33-0400 Body height 167.6 cm Frankie Reno MD Work Phone: [facility] 01-09-2022 08:33-0400 Body weight 68.9 kg Frankie Reno MD Work Phone: [facility] 01-09-2022 08:33-0400 Diastolic blood pressure 82 mm[Hg] Frankie Reno MD Work Phone: [facility] 01-09-2022 08:33-0400 Heart rate 74 /min Frankie Reno MD Work Phone: [facility] 01-09-2022 08:33-0400 SaO2% (BldA) [Mass fraction] 98 % Frankie Reno MD Work Phone: [facility] 01-09-2022 08:33-0400 Systolic blood pressure 136 mm[Hg] Frankie Reno MD Work Phone: [facility] 11-06-2021 09:04-0400 Body height 167.6 cm Sai Ruiz DO Work Phone: [facility] 11-06-2021 09:04-0400 Body temperature 98.1 [degF] Sai Joseph DO Work Phone: [facility] 11-06-2021 09:04-0400 Body weight 68.2 kg Sai Joseph DO Work Phone: [facility] 11-06-2021 09:04-0400 Diastolic blood pressure 68 mm[Hg] Sai Joseph DO Work Phone: [facility] 11-06-2021 09:04-0400 Heart rate 69 /min Sai Joseph DO Work Phone: [facility] 11-06-2021 09:04-0400 SaO2% (BldA) [Mass fraction] 99 % Sai Joseph DO Work Phone: [facility] 11-06-2021 09:04-0400 Systolic blood pressure 110 mm[Hg] Sai Joseph DO Work Phone: [facility] 08-16-2021 08:58-0400 Body height 167.6 cm Robin Bhatia MD Work Phone: [facility] 08-16-2021 08:58-0400 Body weight 68.49 kg Robin Bhatia MD Work Phone: [facility] 08-16-2021 08:58-0400 Diastolic blood pressure 68 mm[Hg] Robin Bhatia MD Work Phone: [facility] 08-16-2021 08:58-0400 Heart rate 72 /min Robin Bhatia MD Work Phone: [facility] 08-16-2021 08:58-0400 SaO2% (BldA) [Mass fraction] 98 % Robin Bhatia MD Work Phone: [facility] 08-16-2021 08:58-0400 Systolic blood pressure 128 mm[Hg] Robin Bhatia MD Work Phone: [facility] Encounters Encounter Date Encounter Type Care Provider Facility Start: 02-11-2023 Orders Only Frankie Lynn MD Work Phone: [facility] Procedures Date Procedure Procedure Detail Performing Clinician Start: 01-23-2023 Mri spinal canal lum bar w/o & w/contr matrl Frankie Lynn MD Work Phone: Start: 01-25-2022 Mri spinal canal lum bar w/o & w/contr matrl Frankie Lynn MD Work Phone: Start: 03-13-2015 Colonoscopy Robin lozano MD Work Phone: Plan of Treatment Date Care Activity Detail Author Start: 02-09-2024 DIABETES SCREEN DIABETES SCREEN [facility] Start: 02-09-2024 Diabetes Screening Diabetes Screening [facility] Start: 12-27-2022 Influenza vaccination Influenza Vaccine (#1) [facility] Start: 04-28-2022 ADVANCE DIRECTIVE DISCUSSION ADVANCE DIRECTIVE DISCUSSION [facility] Start: 04-28-2022 DEPRESSION ASSESSMENT DEPRESSION ASSESSMENT [facility] Start: 12-27-2021 Influenza vaccination [facility] Start: 04-28-2021 ADVANCE DIRECTIVE DISCUSSION ADVANCE DIRECTIVE DISCUSSION [facility] Start: 04-28-2021 DEPRESSION ASSESSMENT DEPRESSION ASSESSMENT [facility] Start: 03-13-2016 Colonoscopy COLONOSCOPY [facility] Start: 03-13-2016 COLORECTAL CANCER SCREENING COLORECTAL CANCER SCREENING [facility] Start: 2014 BONE DENSITY BONE DENSITY [facility] Start: 2014 Bone Density Screening Bone Density Screening [facility] Start: 2014 Pneumococcal Vaccine: 65+ (1 - PCV) Pneumococcal Vaccine: 65+ (1 - PCV) [facility] Start: 2014 PNEUMOCOCCAL: 65+ (1 - PCV) PNEUMOCOCCAL: 65+ (1 - PCV) [facility] Start: 2014 PNEUMOVAX AGE 65 AND OVER WITH 5YR LOOKBACK (#1) PNEUMOVAX AGE 65 AND OVER WITH 5YR LOOKBACK (#1) [facility] Start: 2009 RSV Vaccine (1 - 1-dose 60+ series) RSV Vaccine (1 - 1-dose 60+ series) [facility] Start: 1999 SHINGRIX VACCINE (1 of 2) SHINGRIX VACCINE (1 of 2) [facility] Start: 1994 COLOGUARD (FIT-DNA) COLOGUARD (FIT-DNA) [facility] Start: [address] COLONOGRAPHY [facility] Start: 1994 FECAL OCCULT BLOOD FECAL OCCULT BLOOD [facility] Start: 1994 Lipid 1996 panel - Serum or Plasma Lipid Screening [facility] Start: 1994 LIPID SCREEN LIPID SCREEN [facility] Start: 1994 SIGMOIDOSCOPY SIGMOIDOSCOPY [facility] Start: 1989 Mammography [facility] Start: 1968 Urine microalbumin profile [facility] Start: 1967 HEPATITIS C SCREENING HEPATITIS C SCREENING [facility] Start: 1961 Adult depression screening assessment DEPRESSION SCREENING [facility] Start: 1954 COVID-19 VACCINE (1) COVID-19 VACCINE (1) [facility] Start: 1949 COVID-19 VACCINE (#1) COVID-19 VACCINE (#1) [facility] End: 09-15-2022 Mri spinal canal lumbar w/o & w/contr matrl MRI LUMBAR SPINE WO/W IVCON Radiology Routine 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 Occurrences starting 08/16/2021 until 09/15/2022 [facility] Work Phone: Payers Date Payer Category Payer Medicare MEDICARE MEDICAR E A AND B [id number] 2015-Present [phone] [place] [address] Medicare [id number] 2015 Medicare MEDICARE MEDICAR E A AND B [id number] 2015-Present [phone] [place] [address] Medicare [id number] 2015 Medicare [id number] 2015 Medicare [id number] 2015 Private Health Insurance HUMANA HUMANA MEDICARE SUPPLEMENT [id number] 2015-Present [phone] [address] [address] [place] [address] Indemnity [id number] 2015 Private Health Insurance HUMANA HUMANA MEDICARE SUPPLEMENT [id number] 2015-Present [phone] [address] [address] [place] [address] Indemnity [id number] Social History Date Type Detail Facility Start: 03-27-2015 End: 01-09-2022 Tobacco smoking status NHIS Never smoked tobacco [facility] Start: 03-27-2015 End: 01-09-2022 Tobacco use and exposure Smokeless tobacco non-user [facility] Start: 08-16-2021 End: 02-13-2022 Alcohol intake Current drinker of alcohol (finding) [facility] Start: 02-07-2021 History SDOH Alcohol Comment rare [facility] Start: 1950 Sex Assigned At Not on file C [facility] Start: 08-06-2021 End: 02-13-2022 Exposure to SARS-CoV-2 (event) Not sure [facility] Start: 05-22-2022 End: 02-10-2023 History of Social function [facility] Start: 05-22-2022 End: 02-10-2023 Tobacco use panel [facility] National Score (1-10 0), lower number is lower risk 57 [facility] Clinical Notes 08-16-2021 to 02-10-2023 Scarlet Flaherty RT(R) - 01/23/2023 8:40 AM EDTTelephone Encounter - Kellie Cook RN - 06/26/2022 3:31 PM ESTTelephone Encounter - Ariana Mejia - 02/14/2022 8:38 AM EDT Note Date & Type Note Facility 02-10-2023 Note HNO ID: [id number] Author: Frankie Lynn I, MD Service: ? Author Type: Physician Type: Progress Notes Filed: 02/10/2023 9:47 AM Note Text: NEUROSURGERY FOLLOW UP OFFICE NOTE Chair, Clinical Neurosciences Director, Spinal Neurosurgery [facility] Date of visit: February 10, 2023 Patient Name: Ms.JoAnn Eric Ortega Date of : 1950 Current Age: [age] year old Sex: female MRN/E# [id number] Last Office Visit: Visit date not found Chief Complaint: Patient presents with: Established Patient Past Medical/Surgical History: Surgery: Lumbar 2-3 laminectomy with intradural exploration and microdissection for resection of tumor 02/22/[address] 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 Hirsch and Joseph on 02/22/2021. She followed up with rad/onc who recommended surveillance and MRI brain but no radiation treatments or chemotherapy. She denies smoking and rarely drinks alcohol. She is referred by Dr. Ruiz for neurosurgical evaluation. Smoking: no Alcohol Use: rare HISTORY OF PRESENT ILLNESS : Patient presented to the office on 05/22/[address] Ruiz for a 3 month post op visit. Overall she was doing great since surgery. Her pain in her left lower extremity had decreased. She still had some persistent numbness in the left lower extremity which was explained may continue to persist. She denied any fevers or drainage from the incision. It was recommended that she follow-up with neurosurgery due to the persistent numbness of the left lower extremity. The patient presented to the office 08/07/[address] Bhatia for a follow up visit. She followed up with rad/onc who recommended surveillance and MRI brain but no radiation treatments or chemotherapy. Her post op course was uncomplicated with an incisional seroma, since resolved, w/ continued numbness along the dorsum of her right foot. MRI of the lumbar spine showed normal intrathecal contents. No intrathecal lesions. L2 laminectomy and 3.6 cm epidural fluid collection, possibly abscess versus seroma. Surgical attention advised. No neural compression. She presented to the office 08/16/[address] Bhatia. She stated her symptoms were unchanged since her last visit. She noted numbness to her left foot. She described this as a sharp in nature that was exacerbated with physical activity. She noted low back pain that was localized. She denied any headaches, nausea, vomiting, or visual disturbances. She denied any bowel or bladder dysfunction. She denied any saddle paresthesia. MRI brain from 05/2021 demonstrated no intracranial pathologies or FLAIR signal changes concerning for primary source of ependymoma. MRI lumbar spine wwo from 05/2021 demonstrated lordotic lumbar spine, no recurrent or progressive ependymoma in lumbar spine or around L2/3. She presented 11/06/2021 for a follow up visit with Dr. Ruiz and noted she was still experiencing numbness to the top ofher left foot that radiated up the anterior aspect of her haddad stopping at her knee. She noted sharp pains at times. She noted her weakness to her left lower extremity had increased slightly. She denied any falls. She denied any bowel or bladder dysfunction. She completed a course of physical therapy, but continued with home exercises three times a week. Dr. Ruiz recommended follow-up with neurosurgery for further neurosurgical evaluation. She presented to the office 01/09/2022 for follow up and to establish care. She stated that her symptoms were unchanged. She continued with numbness in the dorsal aspect of left foot that was traveling into the inner aspect of left foot. She did note worsening pain in the foot. She denied any other symptoms. She denied any injury. She had participated in PT postoperatively that improved her back pain. In summary this lady was 1 year following her resection of a grade 2 ependymoma. She presented with worsening pain in the lower extremities. It was in an L4 type distribution. It did not sound dysesthetic but she described lightning shocks in the foot as well as persistent numbness there. The numbness had been there since surgery. The new electrical sensations started within the last couple months and were getting worse. She found them quite debilitating when she changed position from sitting to standing in particular. I was going to order a repeat MRI with her history of a tumor to ensure there had been no recurrence. That said I thought it was extremely unlikely that there would be at this point. We also planned to order some x-rays at her next visit. I recommended we start her on gabapenti (more content not included)... [facility] 09-28-2023 Note HNO ID: [id number] Author: Scarlet Flaherty RT(Alirio) Service: ? Author Type: Technologist Type: Progress Notes Filed: 01/23/2023 8:43 AM Note Text: Radiology Service Progress Note DATE OF SERVICE: January 23, 2023 TIME: 8:42 AM PATIENT IDENTITY VERIFICATION COMPLETED USING TWO (2) STANDARD IDENTIFIERS: Name and Date of confirmed by patient verbally. FALL SCREENING: Has the patient had 2 falls in the last year or 1 fall with injury or currently using an Ambulatory Assistive Device (Walker, Cane, Wheelchair, Crutches, etc.)? No PATIENT GENDER DATA: Female. status: : No status: NO. PATIENT RELEVANT IMPLANT DATA REVIEWED: Yes ALLERGIES: Reviewed and unchanged CONTRAST ALLERGY: NO. EXAM: MRI - CONTRAST TYPE: GROUP II PERIPHERAL IV DATA: Ambulatory: A peripheral IV was started in the Left antecubital site with a Angio cath: 22 gauge. RADIOLOGY DEPARTMENT: MR; Exam(s) Completed: Spine: Lumbar spine SIGNATURE: RT Octaviano(Alirio) PATIENT NAME: Beronica Ortega DATE: January 23, 2023 TIME: 8:42 AM [facility] 01-23-2023 History of Presen t illness Narrative Radiology Service Progress Note DATE OF SERVICE: January 23, 2023 TIME: 8:42 AM PATIENT IDENTITY VERIFICATION COMPLETED USING TWO (2) STANDARD IDENTIFIERS: Name and Date of confirmed by patient verbally. FALL SCREENING: Has the patient had 2 falls in the last year or 1 fall with injury or currently using an Ambulatory Assistive Device (Walker, Cane, Wheelchair, Crutches, etc.)? No PATIENT GENDER DATA: Female. status: : No status: NO. PATIENT RELEVANT IMPLANT DATA REVIEWED: Yes ALLERGIES: Reviewed and unchanged CONTRAST ALLERGY: NO. EXAM: MRI - CONTRAST TYPE: GROUP II PERIPHERAL IV DATA: Ambulatory: A peripheral IV was started in the Left antecubital site with a Angio cath: 22 gauge. RADIOLOGY DEPARTMENT: MR; Exam(s) Completed: Spine: Lumbar spine SIGNATURE: RT Octaviano(Alirio) PATIENT NAME: Beronica Ortega DATE: January 23, 2023 TIME: 8:42 AM documented in this encounter [facility] 06-26-2022 Miscellaneous Notes Called patient to clarify the reason for her visit in July. The patient was last seen by Dr. Lynn in January 2022 and was asked to follow up in 1 year with MRI imaging. The patient stated that she was not having any new symptoms. She did not know she was supposed to wait a year to see Dr. Lynn. I let her know this and let her know we could get her rescheduled to be seen closer to a year out. Patient was agreeable and appreciative. I let her know that if she were to begin experiencing any new symptoms such as new pain, weakness, incontinence, etc she should call our office to notify us. Patient verbalized understanding. Kellie Cook RN documented in this encounter [facility] 02-14-2022 Miscellaneous Notes Received a referral from Dr Lynn for patient to be seen for Left foot pain/ history of lumbar surgery Please call and get patient scheduled Ariana Mejia Business [facility] [address] [address] P: [phone] F: [phone] [email or web address] documented in this encounter [facility] 02-13-2022 Note HNO ID: [id number] Author: Frankie Lynn I, MD Service: ? Author Type: Physician Type: Progress Notes Filed: 02/13/2022 8:59 AM Note Text: NEUROSURGERY FOLLOW UP OFFICE NOTE Chair, Clinical Neurosciences Director, Spinal Neurosurgery [facility] Date of visit: February 13, 2022 Patient Name: Ms.JoAnn Eric Ortega Date of : 1950 Current Age: [age] year old Sex: female MRN/E# [id number] Last Office Visit: 01/09/2022 Chief Complaint: Patient presents with: Established Patient Past Medical/Surgical History: Surgery: Lumbar 2-3 laminectomy with intradural exploration and microdissection for resection of tumor 02/22/[address] 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 Hirsch and Joseph on 02/22/2021. She followed up with rad/onc who recommended surveillance and MRI brain but no radiation treatments or chemotherapy. She denies smoking and rarely drinks alcohol. She is referred by Dr. Ruiz for neurosurgical evaluation. Smoking: no Alcohol Use: rare HISTORY OF PRESENT ILLNESS : Patient presented to the office on 05/22/[address] Ruiz for a 3 month post op visit. Overall she was doing great since surgery. Her pain in her left lower extremity had decreased. She still had some persistent numbness in the left lower extremity which was explained may continue to persist. She denied any fevers or drainage from the incision. It was recommended that she follow-up with neurosurgery due to the persistent numbness of the left lower extremity. The patient presented to the office 08/07/[address] Bhatia for a follow up visit. She followed up with rad/onc who recommended surveillance and MRI brain but no radiation treatments or chemotherapy. Her post op course was uncomplicated with an incisional seroma, since resolved, w/ continued numbness along the dorsum of her right foot. MRI of the lumbar spine showed normal intrathecal contents. No intrathecal lesions. L2 laminectomy and 3.6 cm epidural fluid collection, possibly abscess versus seroma. Surgical attention advised. No neural compression. She presented to the office 08/16/[address] Bhatia. She stated her symptoms were unchanged since her last visit. She noted numbness to her left foot. She described this as a sharp in nature that was exacerbated with physical activity. She noted low back pain that was localized. She denied any headaches, nausea, vomiting, or visual disturbances. She denied any bowel or bladder dysfunction. She denied any saddle paresthesia. MRI brain from 05/2021 demonstrated no intracranial pathologies or FLAIR signal changes concerning for primary source of ependymoma. MRI lumbar spine wwo from 05/2021 demonstrated lordotic lumbar spine, no recurrent or progressive ependymoma in lumbar spine or around L2/3. She presented 11/06/2021 for a follow up visit with Dr. Ruiz and noted she was still experiencing numbness to the top ofher left foot that radiated up the anterior aspect of her haddad stopping at her knee. She noted sharp pains at times. She noted her weakness to her left lower extremity had increased slightly. She denied any falls. She denied any bowel or bladder dysfunction. She completed a course of physical therapy, but continued with home exercises three times a week. Dr. Ruiz recommended follow-up with neurosurgery for further neurosurgical evaluation. She presented to the office 01/09/2022 for follow up and to establish care. She stated that her symptoms were unchanged. She continued with numbness in the dorsal aspect of left foot that was traveling into the inner aspect of left foot. She did note worsening pain in the foot. She denied any other symptoms. She denied any injury. She had participated in PT postoperatively that improved her back pain. In summary this lady was 1 year following her resection of a grade 2 ependymoma. She presented with worsening pain in the lower extremities. It was in an L4 type distribution. It did not sound dysesthetic but she described lightning shocks in the foot as well as persistent numbness there. The numbness had been there since surgery. The new electrical sensations started within the last couple months and were getting worse. She found them quite debilitating when she changed position from sitting to standing in particular. I was going to order a repeat MRI with her history of a tumor to ensure there had been no recurrence. That said I thought it was extremely unlikely that there would be at this point. We also planned to order some x-rays at her next visit. I recommended we start her on gabapentin to help wit (more content not included)... [facility] 02-13-2022 History of Presen t illness Narrative NEUROSURGERY FOLLOW UP OFFICE NOTE Chair, Clinical Neurosciences Director, Spinal Neurosurgery [facility] Date of visit: February 13, 2022 Patient Name: Ms.JoAnn Eric Ortega Date of : 1950 Current Age: [age] year old Sex: female MRN/E# [id number] Last Office Visit: 01/09/2022 Chief Complaint: Patient presents with: Established Patient Past Medical/Surgical History: Surgery: Lumbar 2-3 laminectomy with intradural exploration and microdissection for resection of tumor 02/22/[address] 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 Hirsch and Joseph on 02/22/2021. She followed up with rad/onc who recommended surveillance and MRI brain but no radiation treatments or chemotherapy. She denies smoking and rarely drinks alcohol. She is referred by Dr. Ruiz for neurosurgical evaluation. Smoking: no Alcohol Use: rare HISTORY OF PRESENT ILLNESS : Patient presented to the office on 05/22/[address] Ruiz for a 3 month post op visit. Overall she was doing great since surgery. Her pain in her left lower extremity had decreased. She still had some persistent numbness in the left lower extremity which was explained may continue to persist. She denied any fevers or drainage from the incision. It was recommended that she follow-up with neurosurgery due to the persistent numbness of the left lower extremity. The patient presented to the office 08/07/[address] Bhatia for a follow up visit. She followed up with rad/onc who recommended surveillance and MRI brain but no radiation treatments or chemotherapy. Her post op course was uncomplicated with an incisional seroma, since resolved, w/ continued numbness along the dorsum of her right foot. MRI of the lumbar spine showed normal intrathecal contents. No intrathecal lesions. L2 laminectomy and 3.6 cm epidural fluid collection, possibly abscess versus seroma. Surgical attention advised. No neural compression. She presented to the office 08/16/[address] Bhatia. She stated her symptoms were unchanged since her last visit. She noted numbness to her left foot. She described this as a sharp in nature that was exacerbated with physical activity. She noted low back pain that was localized. She denied any headaches, nausea, vomiting, or visual disturbances. She denied any bowel or bladder dysfunction. She denied any saddle paresthesia. MRI brain from 05/2021 demonstrated no intracranial pathologies or FLAIR signal changes concerning for primary source of ependymoma. MRI lumbar spine wwo from 05/2021 demonstrated lordotic lumbar spine, no recurrent or progressive ependymoma in lumbar spine or around L2/3. She presented 11/06/2021 for a follow up visit with Dr. Ruiz and noted she was still experiencing numbness to the top ofher left foot that radiated up the anterior aspect of her haddad stopping at her knee. She noted sharp pains at times. She noted her weakness to her left lower extremity had increased slightly. She denied any falls. She denied any bowel or bladder dysfunction. She completed a course of physical therapy, but continued with home exercises three times a week. Dr. Ruiz recommended follow-up with neurosurgery for further neurosurgical evaluation. She presented to the office 01/09/2022 for follow up and to establish care. She stated that her symptoms were unchanged. She continued with numbness in the dorsal aspect of left foot that was traveling into the inner aspect of left foot. She did note worsening pain in the foot. She denied any other symptoms. She denied any injury. She had participated in PT postoperatively that improved her back pain. In summary this lady was 1 year following her resection of a grade 2 ependymoma. She presented with worsening pain in the lower extremities. It was in an L4 type distribution. It did not sound dysesthetic but she described lightning shocks in the foot as well as persistent numbness there. The numbness had been there since surgery. The new electrical sensations started within the last couple months and were getting worse. She found them quite debilitating when she changed position from sitting to standing in particular. I was going to order a repeat MRI with her history of a tumor to ensure there had been no recurrence. That said I thought it was extremely unlikely that there would be at this point. We also planned to order some x-rays at her next visit. I recommended we start her on gabapentin to help with some of the electrical sensations. I planned to start her on 300 mg in the evening and taper up from there. I planned to see her back with a new imaging. She presents to the office today for follow up and image review. She states that her symptoms have persisted since last visit and thinks that the numbness has spread throughout the entire foot as well as pain. She feels it is starting to extend into her ankle and mid left anterior haddad. She denies any back pain. She did not feel the gabapentin were helpful and had been taking 3 times a day. She presents for image review, evaluation and plan of care. Symptoms: numbness in the dorsal aspect of left foot that is now traveling into the inner aspect of left foot PREVIOUS CONSERVATIVE TREATMENTS: PT postoperatively PREVIOUS SURGERY: Lumbar 2-3 laminectomy with intradural exploration and microdissection for resection of tumor SURGICAL PATHOLOGY: Ependymoma, WHO grade 2 PAIN EVALUATION 02/13/2022 0831 Pain Level: 6 Pain Location: Back-Lower Description: Aching;Numbness;Shooting Duration Units: Months Frequency: Continuous Intervention/Comfort measure: Medication;Therapeutic techniques-CPRP PAST MEDICAL HISTORY Diagnosis Date Asthma Coronary artery vasospasm (HCC) Essential hypertension High cholesterol Irregular heart beat PONV (postoperative nausea and vomiting) Schwannoma of spinal cord (HCC) PAST SURGICAL HISTORY Procedure Laterality Date BIOPSY BREAST Bilateral 04/28/1969 benign CARPAL TUNNEL Bilateral COLONOSCOPY 03/13/2015 HYSTERECTOMY HX 04/28/1994 LAPAROSCOPY COLECTOMY PARTIAL W/ANASTOMOSIS 04/19/2015 right LOW BACK DISK SURGERY 02/22/2021 Lumbar 2-3 Laminectomy REMV CATARACT EXTRACAP,INSERT LENS 2019 SKIN LESION BIOPSY 04/28/2009 cancerous SLING OPER STRES INCONTINENCE 04/28/2009 FAMILY HISTORY Problem Relation Age of Onset Hypertension Mother Alcohol/Drug Father Hypertension Sister Hypertension Brother Hypertension Brother Kidney Disease Maternal Grandmother Heart Attack Paternal Grandfather Cancer Son testicular/thyroid ALLERGIES No Known Allergies Current Outpatient Medications Medication Sig Dispense Refill gabapentin (NEURONTIN) 300 mg capsule Take 1 capsule by mouth daily at bedtime for 7 days, THEN 1 capsule twice daily for 7 days, THEN 1 capsule three times daily for 30 days. 111 capsule 0 ascorbic acid, vitamin C, (VITAMIN C) 500 mg tablet Take by mouth. cholecalciferol (VITAMIN D3) 50 mcg (2,000 unit) tablet Take by mouth. dilTIAZem CD (CARDIZEM CD, CARTIA XT) 180 mg 24 hr capsule Take 180 mg by mouth twice daily. aspirin 81 mg cap Take 81 mg by mouth every other day. atorvastatin (LIPITOR) 10 mg tablet Take 10 mg by mouth once daily. digoxin (LANOXIN) 125 mcg (0.125 mg) tablet Take 125 mcg by mouth once daily. dilTIAZem CR (TIAZAC, TAZTIA XT) 180 mg 24 hr capsule Take 180 mg by mouth twice daily. (Patient not taking: Reported on 11/06/2021 ) No current facility-administered medications for this visit. REVIEW OF SYSTEMS Review of Systems Constitutional: Negative for chills, fatigue and fever. HENT: Negative for congestion, ear discharge and trouble swallowing. Eyes: Negative for discharge, itching and visual disturbance. Respiratory: Negative for cough, shortness of breath and wheezing. Cardiovascular: Negative for chest pain, palpitations and leg swelling. Gastrointestinal: Negative for constipation, diarrhea, nausea and vomiting. Endocrine: Negative for cold intolerance and heat intolerance. Genitourinary: Negative for difficulty urinating, frequency and urgency. Musculoskeletal: Positive for gait problem. Negative for back pain and neck pain. Skin: Negative for rash and wound. Allergic/Immunologic: Negative for environmental allergies and food allergies. Neurological: Positive for numbness. Negative for dizziness and weakness. Hematological: Does not bruise/bleed easily. Psychiatric/Behavioral: Negative for agitation. The patient is not nervous/anxious. OBJECTIVE: BP 107/70 Pulse 80 Temp (Src) 97.2 (Temporal) Ht 5' 6 (1.68m) Wt 154 lb 1.6 oz (69.9kg) SpO2 98% BMI 24.88 kg/(m^2). On examination today in clinic she remains neurologically intact. Data Review IMAGING STUDIES: In clinic today I did review an MRI taken the patient's lumbar spine. She has normal lumbar lordosis. There is no evidence of recurrent tumor at the L2 level. She does have evidence of mild multilevel degeneration that is worse at L4-5. This does result in some mild to moderate left-sided L4-5 foraminal stenosis although there is still the presence of epidural fat on lumbar imaging. I also reviewed upright flexion-extension films. There is no evidence of spinal listhesis. Assessment & Plan: In summary this lady presents status post ependymoma resection. There is no evidence of tumor recurrence although she is having worsening difficulties with her left foot and some pain and numbness that is predominantly in L4 distribution. There is some mild foraminal stenosis at that level but nothing that I would consider amenable to surgical intervention. We did try her on gabapentin with limited relief. We discussed referring her to our pain management team both to help with potential medical pain management as well as consideration for interventions. I would suggest a transforaminal injection on the left at L4-5 to see if it gives her some symptomatic relief. She would like to see one of our practitioners in [place]. We will place referral. From a tumor perspective I like to see her back in 1 years time with repeat lumbar MRI imaging with and without contrast to follow-up. The following portions of the patient's history were reviewed, confirmed, and updated as necessary: allergies, current medications, past family history, past medical history, past social history, past surgical history, problem list, HPI, and ROS obtained by others. Some elements may be copied from a previous office note and have been reviewed/updated where appropriate. All portions reflect current medical decision making from today. The clinical and radiographic findings as well as the risks, benefits and alternatives of treatment have been reviewed in detail with the patient. Advised to call the office if symptoms worsen or new symptoms develop. Patient expressed understanding and is in agreement with plan. Frankie Lynn MD Chair, Clinical Neurosciences Director, Spinal Neurosurgery [facility] This note was partially generated using [email or web address] voice recognition system, and there may be some incorrect words, spellings, and punctuation that were not noted in checking the note before saving. documented in this encounter [facility] 01-25-2022 History of Presen t illness Narrative Radiology Service Progress Note DATE OF SERVICE: January 25, 2022 TIME: 1:11 PM PATIENT IDENTITY VERIFICATION COMPLETED USING TWO (2) STANDARD IDENTIFIERS: Name and Date of confirmed by patient verbally. FALL SCREENING: Has the patient had 2 falls in the last year or 1 fall with injury or currently using an Ambulatory Assistive Device (Walker, Cane, Wheelchair, Crutches, etc.)? No PATIENT GENDER DATA: Female. status: : No status: NO. PATIENT RELEVANT IMPLANT DATA REVIEWED: Yes ALLERGIES: Reviewed and unchanged CONTRAST ALLERGY: NO. EXAM: MRI - CONTRAST TYPE: GROUP II PERIPHERAL IV DATA: Ambulatory: A peripheral IV was started in the Left antecubital site with a Angio cath: 22 gauge. RADIOLOGY DEPARTMENT: MR; Exam(s) Completed: Spine: Lumbar spine SIGNATURE: RT Octaviano(R) PATIENT NAME: Beronica Ortega DATE: January 25, 2022 TIME: 1:11 PM documented in this encounter [facility] 01-09-2022 History of Presen t illness Narrative NEUROSURGERY CONSULT NOTE Frankie Lynn MD Chair, Clinical Neurosciences Director, Spinal Neurosurgery [facility] Date of visit: January 09, 2022 Patient Name: Ms.Jo Anyi Ortega Date of : 1950 Current Age: [age] year old Sex: female MRN/E# [id number] Last Office Visit: 08/16/2021 Chief Complaint: Patient presents with: Established Patient Past Medical/Surgical History: Surgery: Lumbar 2-3 laminectomy with intradural exploration and microdissection for resection of tumor 02/22/[address] 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 Hirsch and Joseph on 02/22/2021. She followed up with rad/onc who recommended surveillance and MRI brain but no radiation treatments or chemotherapy. She denies smoking and rarely drinks alcohol. She is referred by Dr. Ruiz for neurosurgical evaluation. Smoking: no Alcohol Use: rare HISTORY OF PRESENT ILLNESS : Patient presented to the office on 05/22/[address] Ruiz for a 3 month post op visit. Overall she was doing great since surgery. Her pain in her left lower extremity had decreased. She still had some persistent numbness in the left lower extremity which was explained may continue to persist. She denied any fevers or drainage from the incision. It was recommended that she follow-up with neurosurgery due to the persistent numbness of the left lower extremity. The patient presented to the office 08/07/[address] Bhatia for a follow up visit. She followed up with rad/onc who recommended surveillance and MRI brain but no radiation treatments or chemotherapy. Her post op course was uncomplicated with an incisional seroma, since resolved, w/ continued numbness along the dorsum of her right foot. MRI of the lumbar spine showed normal intrathecal contents. No intrathecal lesions. L2 laminectomy and 3.6 cm epidural fluid collection, possibly abscess versus seroma. Surgical attention advised. No neural compression. She presented to the office 08/16/[address] Bhatia. She stated her symptoms were unchanged since her last visit. She noted numbness to her left foot. She described this as a sharp in nature that was exacerbated with physical activity. She noted low back pain that was localized. She denied any headaches, nausea, vomiting, or visual disturbances. She denied any bowel or bladder dysfunction. She denied any saddle paresthesia. MRI brain from 05/2021 demonstrated no intracranial pathologies or FLAIR signal changes concerning for primary source of ependymoma. MRI lumbar spine wwo from 05/2021 demonstrated lordotic lumbar spine, no recurrent or progressive ependymoma in lumbar spine or around L2/3. She presented 11/06/2021 for a follow up visit with Dr. Ruiz and noted she was still experiencing numbness to the top ofher left foot that radiated up the anterior aspect of her haddad stopping at her knee. She noted sharp pains at times. She noted her weakness to her left lower extremity had increased slightly. She denied any falls. She denied any bowel or bladder dysfunction. She completed a course of physical therapy, but continued with home exercises three times a week. Dr. Ruiz recommended follow-up with neurosurgery for further neurosurgical evaluation. She presents to the office for follow up and to establish care. She states that her symptoms are unchanged. She continues with numbness in the dorsal aspect of left foot that is now traveling into the inner aspect of left foot. She does note worsening pain in the foot. She denies any other symptoms. She denies any injury. She has participated in PT postoperatively that improved her back pain. She presents for evaluation and plan of care. Symptoms: numbness in the dorsal aspect of left foot that is now traveling into the inner aspect of left foot PREVIOUS CONSERVATIVE TREATMENTS: PT postoperatively PREVIOUS SURGERY: Lumbar 2-3 laminectomy with intradural exploration and microdissection for resection of tumor SURGICAL PATHOLOGY: Ependymoma, WHO grade 2 PAIN EVALUATION 01/09/2022 0832 Pain Level: 2 Pain Location: Foot-Left Description: Numbness;Tingling;Aching Duration Units: Years Frequency: Intermittent PAST MEDICAL HISTORY Diagnosis Date Asthma Coronary artery vasospasm (HCC) Essential hypertension High cholesterol Irregular heart beat PONV (postoperative nausea and vomiting) Schwannoma of spinal cord (HCC) PAST SURGICAL HISTORY Procedure Laterality Date BIOPSY BREAST Bilateral 04/28/1969 benign CARPAL TUNNEL Bilateral COLONOSCOPY 03/13/2015 HYSTERECTOMY HX 04/28/1994 LAPAROSCOPY COLECTOMY PARTIAL W/ANASTOMOSIS 04/19/2015 right LOW BACK DISK SURGERY 02/22/2021 Lumbar 2-3 Laminectomy REMV CATARACT EXTRACAP,INSERT LENS 2019 SKIN LESION BIOPSY 04/28/2009 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 cholecalciferol (VITAMIN D3) 50 mcg (2,000 unit) tablet Take by mouth. dilTIAZem CD (CARDIZEM CD, CARTIA XT) 180 mg 24 hr capsule Take 180 mg by mouth twice daily. aspirin 81 mg cap Take 81 mg by mouth every other day. digoxin (LANOXIN) 125 mcg (0.125 mg) tablet Take 125 mcg by mouth once daily. atorvastatin (LIPITOR) 10 mg tablet Take 10 mg by mouth once daily. dilTIAZem CR (TIAZAC, TAZTIA XT) 180 mg 24 hr capsule Take 180 mg by mouth twice daily. (Patient not taking: Reported on 11/06/2021 ) No current facility-administered medications for this visit. REVIEW OF SYSTEMS Review of Systems Constitutional: Negative for chills, fatigue and fever. HENT: Negative for congestion, ear discharge and trouble swallowing. Eyes: Negative for discharge, itching and visual disturbance. Respiratory: Negative for cough, shortness of breath and wheezing. Cardiovascular: Negative for chest pain, palpitations and leg swelling. Gastrointestinal: Negative for constipation, diarrhea, nausea and vomiting. Endocrine: Negative for cold intolerance and heat intolerance. Genitourinary: Negative for difficulty urinating, frequency and urgency. Musculoskeletal: Negative for back pain, gait problem and neck pain. Skin: Negative for rash and wound. Allergic/Immunologic: Negative for environmental allergies and food allergies. Neurological: Positive for numbness. Negative for dizziness and weakness. Hematological: Does not bruise/bleed easily. Psychiatric/Behavioral: Negative for agitation. The patient is not nervous/anxious. OBJECTIVE: BP 136/82 Pulse 74 Ht 5' 6 (1.68m) Wt 151 lb 14.4 oz (68.9kg) SpO2 98% BMI 24.53 kg/(m^2). On examination today in clinic she is neurologically intact with 5 out of 5 power throughout the lower extremities. She complains of some subjective numbness in an L4 type distribution at the foot. Data Review IMAGING STUDIES: She has no recent imaging. I did review her prior MRI lumbar spine taken in May which shows no evidence of recurrence of lesion. She does have a normal lumbar lordosis with multilevel degeneration. Despite that no evidence of significant central canal or foraminal stenosis. Assessment & Plan: In summary this lady is now 1 year following her resection of a grade 2 ependymoma. She is presenting with worsening pain in the lower extremities. It really is an L4 type distribution. It does not sound dysesthetic but she describes lightning shocks in the foot as well as persistent numbness there. The numbness has been there since surgery. The new electrical sensations started within the last couple months and are getting worse. She finds them quite debilitating when she changes position from sitting to standing in particular. I am going to order a repeat MRI with her history of a tumor to ensure there has been no recurrence. That said I think it is extremely unlikely that there would be at this point. We will also order some x-rays at her next visit. I recommended we start her on gabapentin to help with some of the electrical sensations. I will start her on 300 mg in the evening and taper up from there. I will see her back with a new imaging. The following portions of the patient's history were reviewed, confirmed, and updated as necessary: allergies, current medications, past family history, past medical history, past social history, past surgical history, problem list, HPI, and ROS obtained by others. Some elements may be copied from a previous office note and have been reviewed/updated where appropriate. All portions reflect current medical decision making from today. The clinical and radiographic findings as well as the risks, benefits and alternatives of treatment have been reviewed in detail with the patient. Advised to call the office if symptoms worsen or new symptoms develop. Patient expressed understanding and is in agreement with plan. Frankie Lynn MD Chair, Clinical Neurosciences Director, Spinal Neurosurgery [facility] This note was partially generated using [email or web address] voice recognition system, and there may be some incorrect words, spellings, and punctuation that were not noted in checking the note before saving. documented in this encounter [facility] 11-06-2021 History of Presen t illness Narrative Images from the original note were not included. Sai Ruiz DO [facility] Orthopedics - Orthopedic Spine Surgeon [address], [facility] [address] [place] [id number] Phone: [phone] FAX: [phone] SPINE SURGERY OUTPATIENT CONSULT SERVICE DATE: 11/06/2021 Last Office Visit: 07/03/2021 REFERRING PROVIDER: Scarlet Deleon DO [address] [place] [address] [place] [address] CHIEF COMPLAINT: Left leg numbness HISTORY OF PRESENT ILLNESS Magi Ortega is a 71 year old female presenting alone. She was last seen on 07/03/2021 status post lumbar 2-3 laminectomy with intradural exploration and microdissection for resection of tumor by Dr. Hirsch on 02/22/2021. At her last visit she stated overall she was doing well. She noted a pressure in the lumbar region when she was siting back into a chair. She also noted continues numbness in the left foot involving the top of the foot and great toe. She noted difficulty with sitting and standing for periods of time. She continued an at home exercise program. Recommendation was to work with physical therapy, continue to follow-up with Dr. Bhatia for her intradural tumor. On 08/16/2021 she was seen by doctor Bhatia for follow -up where he noted imaging of brain or lumbar spine was not concerning for new or recurrent ependymoma. She was asked to follow-up with MRI imaging in 1 year for continued surveillance. Today, she notes she is still experiencing numbness to the top ofher left foot that radiates up the anterior aspect of her haddad stopping at her knee. She notes sharp pains at times. She notes her weakness to her left lower extremity has increased slightly. She denies any falls. She denies any bowel or bladder dysfunction. She has completed a course of physical therapy, but continues with home exercises three times a week. She is here for image review, evaluation and plan of care. SYMPTOMS: low back pain, left foot numbness PREVIOUS CONSERVATIVE TREATMENTS: Home exercise program Tylenol as needed PREVIOUS SURGERY: None SURGERY DATE: 02/22/2021 SURGERY: Lumbar 2-3 laminectomy with intradural exploration and microdissection for resection of tumor by Dr. 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 PAST MEDICAL HISTORY Diagnosis Date Asthma Coronary artery vasospasm (HCC) Essential hypertension High cholesterol Irregular heart beat PONV (postoperative nausea and vomiting) Schwannoma of spinal cord (HCC) PAST SURGICAL HISTORY Procedure Laterality Date BIOPSY BREAST Bilateral 04/28/1969 benign CARPAL TUNNEL Bilateral COLONOSCOPY 03/13/2015 HYSTERECTOMY HX 04/28/1994 LAPAROSCOPY COLECTOMY PARTIAL W/ANASTOMOSIS 04/19/2015 right LOW BACK DISK SURGERY 02/22/2021 Lumbar 2-3 Laminectomy REMV CATARACT EXTRACAP,INSERT LENS 2019 SKIN LESION BIOPSY 04/28/2009 cancerous SLING OPER STRES INCONTINENCE 04/28/2009 FAMILY HISTORY Problem Relation Age of Onset Hypertension Mother Alcohol/Drug Father Hypertension Sister Hypertension Brother Hypertension Brother Kidney Disease Maternal Grandmother Heart Attack Paternal Grandfather Cancer Son testicular/thyroid Social History Tobacco Use Smoking status: Never Smoker Smokeless tobacco: Never Used Vaping Use Vaping Use: Never used Substance Use Topics Alcohol use: Yes Comment: rare Drug use: Never ALLERGIES No Known Allergies MEDICATIONS: ascorbic acid, vitamin C, (VITAMIN C) 500 mg tablet Take by mouth. cholecalciferol (VITAMIN D3) 50 mcg (2,000 unit) tablet Take by mouth. dilTIAZem CD (CARDIZEM CD, CARTIA XT) 180 mg 24 hr capsule aspirin 81 mg cap Take 81 mg by mouth every other day. digoxin (LANOXIN) 125 mcg (0.125 mg) tablet Take 125 mcg by mouth once daily. atorvastatin (LIPITOR) 10 mg tablet Take 10 mg by mouth once daily. dilTIAZem CR (TIAZAC, TAZTIA XT) 180 mg 24 hr capsule Take 180 mg by mouth twice daily. REVIEW OF SYSTEMS Review of Systems Constitutional: Negative for chills, fatigue and fever. HENT: Negative for congestion and sore throat. Eyes: Negative for discharge, itching and visual disturbance. Respiratory: Negative for cough and shortness of breath. Cardiovascular: Negative for chest pain and palpitations. Gastrointestinal: Negative for constipation, diarrhea, nausea and vomiting. Endocrine: Negative for cold intolerance and heat intolerance. Genitourinary: Negative for difficulty urinating, frequency and urgency. Musculoskeletal: Positive for gait problem. Negative for back pain, neck pain and neck stiffness. Skin: Negative for rash and wound. Allergic/Immunologic: Negative for environmental allergies and food allergies. Neurological: Positive for weakness. Negative for dizziness, light-headedness, numbness and headaches. Hematological: Does not bruise/bleed easily. Psychiatric/Behavioral: Negative for agitation. The patient is not nervous/anxious. OBJECTIVE: BP 110/68 (BP Site: Left Arm, BP Position: Sitting, BP Cuff Size: Large Adult) Pulse 69 Temp 36.7 C (98.1 F) Ht 5' 6 (1.676 m) Wt 150 lb 5.7 oz (68.2 kg) SpO2 99% BMI 24.27 kg/m PHYSICAL EXAM GENERAL APPEARANCE: Well nourished, well developed, and no apparent distress. NEURO PSYCH: Patient oriented to person, place, and time. Mood pleasant. Benign affect. CARDIOVASCULAR: Palpable pulses. No edema noted. No varicosities. SKIN: Head, neck, trunk, and extremities dry, intact and without lesions. LYMPHATICS: No palpable nodes in cervical or axillae areas. Groin exam deferred MUSCULOSKELETAL PALPATION: SPINOUS PROCESS: No pain. PARASPINALS: No pain. MUSCLE TONE and BULK: Symmetrical in the upper & lower extremities. MOTOR: Upper Extremity Left Right Deltoids 5/5 5/5 Biceps 5/5 5/5 Triceps 5/5 5/5 Pharmacy Resident 5/5 5/5 Interossei 5/5 5/5 Lower Extremity Hip Flexors 5/5 5/5 Quadriceps 5/5 5/5 Dorsiflexion 5/5 5/5 EHL/EDC 5/5 5/5 Plantar Flexion 5/5 5/5 SENSORY: Sensation intact to light touch C5-T1, L1-S1 GAIT: Able to perform toe and heel walk. Able to perform tandem gait. LONG TRACT SIGNS: No clonus. No Hoffmanns. REFLEXES: symmetric non-brisk DATA REVIEW No recent imaging ASSESSMENT/PLAN Magi Ortega is a 71-year-old female status post L2-3 laminectomy and ependymoma removal. -Patient is doing good since her surgery. She states today that she feels like her legs are getting little bit weaker. On my exam I do not see any weakness. States that the numbness is starting to ascend to the anterior haddad but does not go past the knee. Recommend follow-up with my partner Dr. Lynn for further neurosurgical evaluation. The following portions of the patient's history were reviewed, confirmed, and updated as necessary: allergies, current medications, past family history, past medical history, past social history, past surgical history, problem list, HPI, and ROS obtained by others. Some elements may be copied from a previous office note and have been reviewed/updated where appropriate. All portions reflect current medical decision making from today. The clinical and radiographic findings as well as the risks, benefits and alternatives of treatment have been reviewed in detail with the patient. Advised to call the office if symptoms worsen or new symptoms develop. Patient expressed understanding and is in agreement with plan. Sai Ruiz DO documented in this encounter [facility] 08-16-2021 History of Presen t illness Narrative Images from the original note were not included. 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 Hirsch and Joseph on 02/22/21 who followed up w/ rad/onc who recommended surveillance and MRI brain but no radiation treatments or chemotherapy. Her post op course was uncomplicated w/ an incisional seroma, since resolved, w/ continued numbness along the dorsum of her right foot. Denies weakness, new or worsening pain symptoms. Denies headaches, nausea, vomiting, confusion, vision changes, hearing loss, lethargy, vertigo, lightheadedness, dysmetria, gait instability. States she continues to do home pt, and is at baseline state of health. At her last visit on 05/24/2021, the patient was recommended to obtain an MRI brain with and without contrast. She was to also obtain an MRI of lumbar spine. She was to follow up in 3 months, prompting her visit today. Today she states her symptoms are unchanged since her last visit. She notes numbness to her left foot. She describes this as a sharp in nature that is exacerbated with physical activity. She notes low back pain that is localized. She denies any headaches, nausea, vomiting, or visual disturbances. She denies any bowel or bladder dysfunction. She denies any saddle paresthesia. MRI brain from 05/2021 demonstrated no intracranial pathologies or FLAIR signal changes concerning for primary source of ependymoma MRI lumbar spine wwo from 05/2021 demonstrated lordotic lumbar spine, no recurrent or progressive ependymoma in lumbar spine or around L2/3 PREVIOUS CONSERVATIVE TREATMENTS: None PREVIOUS SURGERY: Lumbar 2-3 laminectomy with intradural exploration and microdissection for resection of tumor by Dr. Hirsch Pathology Ependymoma, WHO grade 2 02/22/2021 PAIN EVALUATION 08/16/2021 0857 Pain Level: 2 Pain Location: Back-Lower left foot Description: Aching;Dull Duration Units: Months Frequency: Intermittent PAST MEDICAL HISTORY Diagnosis Date Asthma Coronary artery vasospasm (HCC) Essential hypertension High cholesterol Irregular heart beat PONV (postoperative nausea and vomiting) Schwannoma of spinal cord (HCC) PAST SURGICAL HISTORY Procedure Laterality Date BIOPSY BREAST Bilateral 04/28/1969 benign CARPAL TUNNEL Bilateral COLONOSCOPY 03/13/2015 HYSTERECTOMY HX 04/28/1994 LAPAROSCOPY COLECTOMY PARTIAL W/ANASTOMOSIS 04/19/2015 right LOW BACK DISK SURGERY 02/22/2021 Lumbar 2-3 Laminectomy REMV CATARACT EXTRACAP,INSERT LENS 2019 SKIN LESION BIOPSY 04/28/2009 cancerous SLING OPER STRES INCONTINENCE 04/28/2009 FAMILY HISTORY Problem Relation Age of Onset Hypertension Mother Alcohol/Drug Father Hypertension Sister Hypertension Brother Hypertension Brother Kidney Disease Maternal Grandmother Heart Attack Paternal Grandfather Cancer Son testicular/thyroid ALLERGIES No Known Allergies Current Outpatient Medications Medication Sig Dispense Refill aspirin 81 mg cap Take 81 mg by mouth every other day. digoxin (LANOXIN) 125 mcg (0.125 mg) tablet Take 125 mcg by mouth once daily. atorvastatin (LIPITOR) 10 mg tablet Take 10 mg by mouth once daily. dilTIAZem CR (TIAZAC, TAZTIA XT) 180 mg 24 hr capsule Take 180 mg by mouth twice daily. No current facility-administered medications for this visit. REVIEW OF SYSTEMS Review of Systems Constitutional: Negative for chills, fatigue and fever. HENT: Negative for congestion and sore throat. Eyes: Negative for discharge, itching and visual disturbance. Respiratory: Negative for cough and shortness of breath. Cardiovascular: Negative for chest pain and palpitations. Gastrointestinal: Negative for constipation, diarrhea, nausea and vomiting. Endocrine: Negative for cold intolerance and heat intolerance. Genitourinary: Negative for difficulty urinating, frequency and urgency. Musculoskeletal: Positive for back pain. Negative for gait problem, neck pain and neck stiffness. Skin: Negative for rash and wound. Allergic/Immunologic: Negative for environmental allergies and food allergies. Neurological: Negative for dizziness, weakness, light-headedness, numbness and headaches. Hematological: Does not bruise/bleed easily. Psychiatric/Behavioral: Negative for agitation. The patient is not nervous/anxious. OBJECTIVE: BP 128/68 Pulse 72 Ht 5' 6 (1.68m) Wt 151 lb (68.5kg) SpO2 98% BMI 24.38 kg/(m^2). Aaox3, nad, follows commands Naming, repetition intact PERRL, EOMI Sensation intact in V1/V2/V3 dermatomes FS, palate rise symmetric, hearing intact to finger rub bilaterally, TM No drift Strength 5/5 BUE/BLE SILT Incision healed Data Review IMAGING STUDIES: MRI brain from 05/2021 demonstrated no intracranial pathologies or FLAIR signal changes concerning for primary source of ependymoma MRI lumbar spine wwo from 05/2021 demonstrated lordotic lumbar spine, no recurrent or progressive ependymoma in lumbar spine or around L2/3 71 year old RHF w/ asthma, skin cancer, coronary artery vasospasms, HTN, HCL, irregular heart beat, PONV, 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 - no emergent neurosurgical intervention required - patient's imaging of brain or lumbar spine is not concerning for new or recurrent ependymoma - patient to follow up in 1 year for continued surveillance - will obtain MRI lumbar spine with and without contrast in 1 year prior to clinic visit to evaluate continued surveillance of resection and possible recurrent of disease - all questions answered The following portions of the patient's history were reviewed, confirmed, and updated as necessary: allergies, current medications, past family history, past medical history, past social history, past surgical history, problem list, HPI, and ROS obtained by others. Some elements may be copied from a previous office note and have been reviewed/updated where appropriate. All portions reflect current medical decision making from today. The clinical and radiographic findings as well as the risks, benefits and alternatives of treatment have been reviewed in detail with the patient. Advised to call the office if symptoms worsen or new symptoms develop. Patient expressed understanding and is in agreement with plan. Robin Bhatia MD, PhD Neurosurgery Pager: [phone] August 16, 2021 11:11 AM documented in this encounter [facility] Diagnosis Ependymoma of spinal cord (HCC)- Primary Malignant neoplasm of [facility] Diagnosis Ependymoma, WHO grade II (HCC)- Primary [facility]* Diagnosis Ependymoma, WHO grade II (HCC) [facility] Diagnosis Pain in left foot- Primary Pain in limb History of lumbar surgery Schwannoma Other benign neoplasm of connective and other soft tissue of unspecified site Ependymoma, WHO grade II (HCC) [facility] Diagnosis Schwannoma- Primary Other benign neoplasm of connective and other soft tissue of unspecified site [facility] Diagnosis Schwannoma Other benign neoplasm of connective and other soft tissue of unspecified site Ependymoma, WHO grade II (HCC) [facility] Diagnostic Procedure Only (Routine) - Pending Review Specialty Diagnoses / Procedures Referred By Contac t Referred To Contact XR IMAGING Diagnoses Ependymoma, WHO grade II (HCC) Procedures XR LUMBAR MOTION 4V AP/LAT/ FLEX/EXT RADEX SPINE LUMBOSACRAL MINIMUM 4 VIEWS Frankie Lynn I, MD [address] [place] [address] Xr Imaging Referral ID Status Reason Start Date Expiration Date Visits Requested Visits Authorized [id number] Pending Review Auto-Generat ed Referral 01/09/2022 02/08/2023 1 1 * MRI/CT (Routine) - Authorized Specialty Diagnoses / Procedures Referred By Contac t Referred To Contact MR IMAGING Diagnoses Ependymoma, WHO grade II (HCC) Procedures MRI LUMBAR SPINE WO/W IVCON MRI SPINAL CANAL LUMBAR W/O & W/CONTR MATRL Frankie Lynn I, MD [address] [place], [place] [address] [address] Mr Imaging Referral ID Status Reason Start Date Expiration Date Visits Requested Visits Authorized [id number] Authorized Auto-Generat ed Referral 01/09/2022 02/08/2023 1 1 * Diagnostic Procedure Only (Routine) - Authorized Specialty Diagnoses / Procedures Referred By Contac t Referred To Contact XR IMAGING Diagnoses Schwannoma of spinal cord (HCC) Procedures XR LUMBAR MOTION 4V AP/LAT/ FLEX/EXT RADEX SPINE LUMBOSACRAL MINIMUM 4 VIEWS Frankie Lynn I, MD [address] [place] [address] Xr Imaging Referral ID Status Reason Start Date Expiration Date Visits Requested Visits Authorized [id number] Authorized Auto-Generat ed Referral 12/20/2021 01/19/2023 1 1 [facility] for referral (narrative)* Diagnostic Procedure Only (Routine) - Closed Specialty Diagnoses / Procedures Referred By Contac t Referred To Contact XR IMAGING Diagnoses Schwannoma of spinal cord (HCC) Procedures XR LUMBAR MOTION 4V AP/LAT/ FLEX/EXT RADEX SPINE LUMBOSACRAL MINIMUM 4 VIEWS Frankie Lynn I, MD [address] [place] [address] Xr Imaging Referral ID Status Reason Start Date Expiration Date V isits Requested Visits Authorized [id number] Closed Auto-Generate d Referral 12/20/2021 01/19/2023 1 1 [facility] for visit Narrative* Diagnostic Procedure Only (Routine) - Closed Specialty Diagnoses / Procedures Referred By Contac t Referred To Contact XR IMAGING Diagnoses Schwannoma of spinal cord (HCC) Procedures XR LUMBAR MOTION 4V AP/LAT/ FLEX/EXT RADEX SPINE LUMBOSACRAL MINIMUM 4 VIEWS Frankie Lynn I, MD [address] [place] [address] Xr Imaging Referral ID Status Reason Start Date Expiration Date V isits Requested Visits Authorized [id number] Closed Auto-Generate d Referral 12/20/2021 01/19/2023 1 1 [facility] Reason for Referral Specialty Diagnoses / Procedures Referred By Contac t Referred To Contact MR IMAGING Diagnoses 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) Procedures MRI LUMBAR SPINE WO/W IVCON MRI SPINAL CANAL LUMBAR W/O & W/CONTR Robin Coronel MD [address] [place] [address] Mr Imaging Referral ID Status Reason Start Date Expiration Date Visits Requested Visits Authorized [id number] Pending Review Auto-Generat ed Referral 08/16/2021 09/15/2022 1 1 Specialty Diagnoses / Procedures Referred By Contac t Referred To Contact MR IMAGING Diagnoses Ependymoma, WHO grade II (HCC) Procedures MRI LUMBAR SPINE WO/W IVCON MRI SPINAL CANAL LUMBAR W/O & W/CONTR Frankie Buckley I, MD [address] [place] [address] Mr Imaging Referral ID Status Reason Start Date Expiration Date V isits Requested Visits Authorized [id number] Closed Auto-Generate d Referral 01/09/2022 02/08/2023 1 1 Specialty Diagnoses / Procedures Referred By Contac t Referred To Contact MR IMAGING Diagnoses Schwannoma Ependymoma, WHO grade II (HCC) Procedures MRI LUMBAR SPINE WO/W IVCON MRI SPINAL CANAL LUMBAR W/O & W/CONTR Frankie Buckley I, MD [address] [place] [address] Mr Imaging Referral ID Status Reason Start Date Expiration Date Visits Requested Visits Authorized [id number] Pending Review Auto-Generat ed Referral 2 03/15/2023 1 1 Specialty Diagnoses / Procedures Referred By Contac t Referred To Contact Pain Management Diagnoses Pain in left foot History of lumbar surgery Procedures CONSULT TO PAIN MGT Frankie Lynn I, MD [address] [place] [address] Referral ID Status Reason Start Date Expiration Date Visits Requested Visits Authorized [id number] Ref Not Required PCP Requested Referral 2 02/13/2023 1 1 Specialty Diagnoses / Procedures Referred By Contac t Referred To Contact MR IMAGING Diagnoses Schwannoma Procedures MRI LUMBAR SPINE WO/W IVCON MRI LUMBAR SPINE WO/W IVCON MRI SPINAL CANAL LUMBAR W/O & W/CONTR Frankie Buckley I, MD [address] [place] [address] [place] [address] Referral ID Status Reason Start Date Expiration Date Visits Requested Visits Authorized [id number] Pending Review Auto-Generat ed Referral 3 03/12/2024 1 1 Specialty Diagnoses / Procedures Referred By Contac t Referred To Contact MR IMAGING Diagnoses Schwannoma Ependymoma, WHO grade II (HCC) Procedures MRI LUMBAR SPINE WO/W IVCON MRI SPINAL CANAL LUMBAR W/O & W/CONTR Frankie Buckley I, MD [address] [place] [address] [place] [address] Referral ID Status Reason Start Date Expiration Date V isits Requested Visits Authorized [id number] Closed Auto-Generate d Referral 02/13/2022 03/15/2023 1 1 Advance Directives Documents on File Type Date Recorded 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 Advance Directive(s) 02/22/2021 8:22 AM Documents on File Type Date Recorded 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 Advance Directive(s) 02/22/2021 8:22 AM Summary Purpose Family History No Family History Records FoundNo Family History Records Found Additional Source Comments Source Comments (unrecognize d section and content) In the event this informatio n is protected by the Federal Confidentiality of Alcohol and Drug Abuse Patient Records regulations: The Federal rules restrict any use of the information to criminally investigate or prosecute any alcohol or drug abuse patient.[facility] the event this information is protected by the Federal Confidentiality of Alcohol and Drug Abuse Patient Records regulations: The Federal rules restrict any use of the information to criminally investigate or prosecute any alcohol or drug abuse patient.[facility] the event this information is protected by the Federal Confidentiality of Alcohol and Drug Abuse Patient Records regulations: The Federal rules restrict any use of the information to criminally investigate or prosecute any alcohol or drug abuse patient.[facility] the event this information is protected by the Federal Confidentiality of Alcohol and Drug Abuse Patient Records regulations: The Federal rules restrict any use of the information to criminally investigate or prosecute any alcohol or drug abuse patient.[facility] the event this information is protected by the Federal Confidentiality of Alcohol and Drug Abuse Patient Records regulations: The Federal rules restrict any use of the information to criminally investigate or prosecute any alcohol or drug abuse patient.[facility] the event this information is protected by the Federal Confidentiality of Alcohol and Drug Abuse Patient Records regulations: The Federal rules restrict any use of the information to criminally investigate or prosecute any alcohol or drug abuse patient.[facility] the event this information is protected by the Federal Confidentiality of Alcohol and Drug Abuse Patient Records regulations: The Federal rules restrict any use of the information to criminally investigate or prosecute any alcohol or drug abuse patient.[facility] the event this information is protected by the Federal Confidentiality of Alcohol and Drug Abuse Patient Records regulations: The Federal rules restrict any use of the information to criminally investigate or prosecute any alcohol or drug abuse patient.[facility] the event this information is protected by the Federal Confidentiality of Alcohol and Drug Abuse Patient Records regulations: The Federal rules restrict any use of the information to criminally investigate or prosecute any alcohol or drug abuse patient.[facility] the event this information is protected by the Federal Confidentiality of Alcohol and Drug Abuse Patient Records regulations: The Federal rules restrict any use of the information to criminally investigate or prosecute any alcohol or drug abuse patient.[facility] Reason for Visit (unrecogniz ed section and content) Reason Comments Established Patient Reason Comments Established Patient Specialty Diagnoses / Procedures Referred By Contac t Referred To Contact MR IMAGING Diagnoses Ependymoma, WHO grade II (HCC) Procedures MRI LUMBAR SPINE WO/W IVCON MRI SPINAL CANAL LUMBAR W/O & W/CONTR Frankie Buckley I, MD [address] [place] [address] Mr Imaging Referral ID Status Reason Start Date Expiration Date V isits Requested Visits Authorized [id number] Closed Auto-Generate d Referral 01/09/2022 02/08/2023 1 1 Reason Comments Established Patient Reason Comments New Patient Reason Comments Appointment Patient Question Specialty Diagnoses / Procedures Referred By Contac t Referred To Contact MR IMAGING Diagnoses Schwannoma Ependymoma, WHO grade II (HCC) Procedures MRI LUMBAR SPINE WO/W IVCON MRI SPINAL CANAL LUMBAR W/O & W/CONTR Frankie Buckley I, MD [address] [place] [address] [place] [address] Referral ID Status Reason Start Date Expiration Date V isits Requested Visits Authorized [id number] Closed Auto-Generate d Referral 02/13/2022 03/15/2023 1 1 Care Teams (unrecognized sec tion and content) Ball Thread Machine Tender Relationship Specialty Start Date End Date Scarlet Deleon DO [address] [place] [address] PCP - General Family Practice 12/20/20 Lucina Erwin MD, MD [address] [place], [place] [id number] Physician Radiation Oncology 04/02/21 Ball Thread Machine Tender Relationship Specialty Start Date End Date Scarlet Deleon DO [address] [place], [place] [id number] PCP - General Family Practice 12/20/20 Lucina Erwin MD, [address] [place] [address] Physician Radiation Oncology 04/02/21 Ball Thread Machine Tender Relationship Specialty Start Date End Date Scarlet Deleon DO [address] [place] [address] PCP - General Family Medicine 12/20/20 Lucina Erwin MD, [address] [place] [address] Physician Radiation Oncology 04/02/21 Ball Thread Machine Tender Relationship Specialty Start Date End Date Scarlet Deleon DO [address] [place] [address] PCP - General Family Medicine 12/20/20 Lucina Erwin MD, [address] [place] [address] Physician Radiation Oncology 04/02/21 Ball Thread Machine Tender Relationship Specialty Start Date End Date Scarlet Deleon DO [address] [place] [address] PCP - General Family Medicine 12/20/20 Lucina Erwin MD, [address] [place] [address] Physician Radiation Oncology 04/02/21 Ball Thread Machine Tender Relationship Specialty Start Date End Date Scarlet Deleon DO [address] [place] [address] PCP - General Family Medicine 12/20/20 Lucina Erwin MD, [address] [place] [address] Physician Radiation Oncology 04/02/21 Ball Thread Machine Tender Relationship Specialty Start Date End Date Scarlet Deleon DO [address] [place] [address] PCP - General Family Medicine 12/20/20 Lucina Erwin MD, [address] [place] [address] Physician Radiation Oncology 04/02/21 Ball Thread Machine Tender Relationship Specialty Start Date End Date Scarlet Deleon [address] [place] [address] PCP - General Family Medicine 12/20/20 Lucina Erwin MD, [address] [place] [address] Physician Radiation Oncology 04/02/21 INFORMATION SOURCE (unrecogn ized section and content) DATE CREATED AUTHOR AUTHOR'S WENDY ATION 02/10/2023 [facility] FOR RECORDS PERTAINING TO PATIENTS WHO ARE OR HAVE BEEN ENROLLED IN A CHEMICAL DEPENDENCY/SUBSTANCEABUSE PROGRAM, SOME INFORMATION MAY BE OMITTED. This clinical summary was aggregated from multiple sources. Caution should be exercised in using it in the provision of clinical care. This summary normalizes information from multiple sources, and as a consequence, information in this document may materially change the coding, format and clinical context of patient data. In addition, data may be omitted in some cases. CLINICAL DECISIONS SHOULD BE BASED ON THE PRIMARY CLINICAL RECORDS. [email or web address] provides no warranty or guarantee of the accuracy or completeness of information in this document.
[2023-05-17 08:09] LABS: Absolute Lymphocyte Count 0.95 X10^3/uL (0.83-4.51); Absolute Neutrophil Count 3.2 X10^3/uL (2.0-7.7); Basophil# 0.04 X10^3/uL; Basophil% 0.9 % (0-1); Eosinophil# 0.03 X10^3/uL; Eosinophils% 0.7 % (0-5); Hematocrit 39.3 % (37-47); Hemoglobin 13.3 g/dL (12.0-15.0); Lymphocyte # 0.95 X10^3/ul (0.83-4.51); Lymphocyte % 20.7 % (19-41); Mean Corp Hgb Conc 33.8 g/dL (32-36); Mean Corpuscular Hgb 32.9 pg (27.0-32.0); Mean Corpuscular Volume 97.3 fL (81-99); Mean Platelet Vol. 9.9 fl (6.2-12.0); Monocyte# 0.35 X10^3/uL; Monocyte% 7.6 % (0-10); NRBC Flagged by Analyzer 0 % (0-5); Neutrophil % 69.9 % (47-70); Platelet Count 282 K/mm3 (150-450); RBC Distribution Width CV 12.3 % (11.6-14.6); Red Blood Count 4.04 M/mm3 (4.2-5.4); White Blood Count 4.6 K/mm3 (4.4-11.0)
[2023-05-17 08:17] LABS: Bacteria 0 SEEN /hpf (None Seen); Mucous, Urine 0 SEEN /hpf (<or=2+); Red Blood Cells-Urine 0 SEEN /hpf (0-5); Squamous Epithelial Cells - UA 0 SEEN /hpf (5-10); White Blood Cells 0 SEEN /hpf (0-5)
[2023-05-17 08:26] LABS: Color, Urine Yellow (Yellow); Glucose, Dipstick Normal (Normal); Ketone-Dipstick Negative (Negative); Leukocyte Esterase-Dipstick Negative /ul (Negative); Nitrite-Dipstick Negative (Negative); Occult Blood-Urine 10 /ul (Negative); Protein-Dipstick Negative (Negative); Specific Gravity, Urine 1.005 (1.002-1.030); Urine Bilirubin Dipstick Negative (Negative); Urine Clarity Clear (Clear); Urine Urobilinogen Normal (Normal)
[2023-05-17 08:26] LABS: AST(SGOT) 20 U/L (15-37); Alanine Aminotransfer ALT/SGPT 31 U/L (13-56); Albumin, Serum 3.6 g/dL (3.2-5.0); Alkaline Phosphatase 87 U/L (45-117); Anion Gap 3 (5-15); BUN 14 mg/dL (7-18); Bilirubin, Direct 0.16 mg/dL (0.00-0.30); Calcium,Total 9.6 mg/dL (8.5-10.1); Chloride 110 mmol/L (98-107); EST Glomerular Filtration Rate 87 mL/min (>60); Est Glom Filt Rate - Afr Amer 105 mL/min (>60); Estimated Creatinine Clearance 57.76 ml/min; Globulin 3.7 g/dL (2.2-4.2); Glucose 122 mg/dL (74-106); Lipase 47 U/L (13-75); Potassium 4.5 mmol/L (3.5-5.1); Protein, Total 7.3 g/dL (6.4-8.2); Sodium Level 140 mmol/L (136-145); Troponin-I HS 5 pg/mL (3.0-54.0)
[2023-05-17 10:06] VITALS: BP 123/84; PULSE 76; RESP 14; O2SAT 99
== END 2023-05-17 10:20 | disposition home or self-care (01) ==
PROVIDERS: Emergency Provider Emergency Medicine; PCP Family Medicine; Visit Provider Emergency Medicine
DX: R10.11 Right upper quadrant pain (principal); E78.5 Hyperlipidemia, unspecified; I10 Essential (primary) hypertension; K76.0 Fatty (change of) liver, not elsewhere classified; Z85.038 Personal history of other malignant neoplasm of large intestine; Z85.828 Personal history of other malignant neoplasm of skin; Z79.82 Long term (current) use of aspirin; Z79.899 Other long term (current) drug therapy; Z90.710 Acquired absence of both cervix and uterus
CPT/HCPCS: 74177; 76705; 80048; 80076; 81001; 83690; 84484; 85025; 93005; 99283; Q9967; A4216

== ENCOUNTER → 2023-06-04 | Outpatient (CLI) | payer MEDICARE, OTHER, SELFPAY ==
--- OUTSIDE RECORDS SUMMARY | 2023-06-04 07:56 | XMS RPT_ITS | CCD ---
Author Name Unknown Address [address] [place] [address] Organization [facility] Care Team Providers Care Sports Doctor Name Role Phone Malys DO, Scarlet A [...] Care Provider Rip ELENA MD, Lucina Unavailable [phone] Medications Current Medications Medication Drug Class(es) Dates [...] 167.6 cm Frankie Reno MD Work Phone: [facility] 02-13-2022 08:32-0400 Body temperature 97.2 [degF] Frankie Reno MD Work Phone: [facility] 02-13-2022 08:32-0400 Body weight 69.9 kg Frankie Reno MD Work Phone: [facility] 02-13-2022 08:32-0400 Diastolic blood pressure 70 mm[Hg] Frankie Reno MD Work Phone: [facility] 02-13-2022 08:32-0400 Heart rate 80 /min Frankie Reno MD Work Phone: [facility] 02-13-2022 08:32-0400 SaO2% (BldA) [Mass fraction] 98 % Frankie Reno MD Work Phone: [facility] 02-13-2022 08:32-0400 Systolic blood pressure 107 mm[Hg] Frankie Reno MD Work Phone: [facility] 01-09-2022 08:33-0400 Body height 167.6 cm Frankie Reno MD Work Phone: [facility] 01-09-2022 08:33-0400 Body weight 68.9 kg Frankie Reno MD Work Phone: [facility] 01-09-2022 08:33-0400 Diastolic blood pressure 82 mm[Hg] Frankie Reno MD Work Phone: [facility] 01-09-2022 08:33-0400 Heart rate 74 /min Frankie Reno MD Work Phone: [facility] 01-09-2022 08:33-0400 SaO2% (BldA) [Mass fraction] 98 % Frankie Reno MD Work Phone: [facility] 01-09-2022 08:33-0400 Systolic blood pressure 136 mm[Hg] Frankie Reno MD Work Phone: [facility] 11-06-2021 09:04-0400 Body height 167.6 cm Sai Ruiz DO Work Phone: [facility] 11-06-2021 09:04-0400 Body temperature 98.1 [degF] Sai Joseph DO Work Phone: [facility] 11-06-2021 09:04-0400 Body weight 68.2 kg Sai Joseph DO Work Phone: [facility] 11-06-2021 09:04-0400 Diastolic blood pressure 68 mm[Hg] Sai Joseph DO Work Phone: [facility] 11-06-2021 09:04-0400 Heart rate 69 /min Sai Joseph DO Work Phone: [facility] 11-06-2021 09:04-0400 SaO2% (BldA) [Mass fraction] 99 % Sai Joseph DO Work Phone: [facility] 11-06-2021 09:04-0400 Systolic blood pressure 110 mm[Hg] Sai Joseph DO Work Phone: [facility] 08-16-2021 08:58-0400 Body height 167.6 cm Robin Bhatia MD Work Phone: [facility] 08-16-2021 08:58-0400 Body weight 68.49 kg Robin Bhatia MD Work Phone: [facility] 08-16-2021 08:58-0400 Diastolic blood pressure 68 mm[Hg] Robin Bhatia MD Work Phone: [facility] 08-16-2021 08:58-0400 Heart rate 72 /min Robin Bhatia MD Work Phone: [facility] 08-16-2021 08:58-0400 SaO2% (BldA) [Mass fraction] 98 % Robin Bhatia MD Work Phone: [facility] 08-16-2021 08:58-0400 Systolic blood pressure 128 mm[Hg] Robin Bhatia MD Work Phone: [facility] Encounters Encounter Date Encounter Type Care Provider Facility Start: 02-11-2023 Orders Only Frankie Lynn MD Work Phone: [facility] Procedures Date Procedure Procedure Detail Performing Clinician Start: 01-23-2023 Mri spinal canal lum bar w/o & w/contr matrl Frankie Lynn MD Work Phone: Start: 01-25-2022 Mri spinal canal lum bar w/o & w/contr matrl Frankie Lynn MD Work Phone: Start: 03-13-2015 Colonoscopy Robin lozano MD Work Phone: Plan of Treatment Date Care Activity Detail Author Start: 02-09-2024 DIABETES SCREEN DIABETES SCREEN [facility] Start: 02-09-2024 Diabetes Screening Diabetes Screening [facility] Start: 12-27-2022 Influenza vaccination Influenza Vaccine (#1) [facility] Start: 04-28-2022 ADVANCE DIRECTIVE DISCUSSION ADVANCE DIRECTIVE DISCUSSION [facility] Start: 04-28-2022 DEPRESSION ASSESSMENT DEPRESSION ASSESSMENT [facility] Start: 12-27-2021 Influenza vaccination [facility] Start: 04-28-2021 ADVANCE DIRECTIVE DISCUSSION ADVANCE DIRECTIVE DISCUSSION [facility] Start: 04-28-2021 DEPRESSION ASSESSMENT DEPRESSION ASSESSMENT [facility] Start: 03-13-2016 Colonoscopy COLONOSCOPY [facility] Start: 03-13-2016 COLORECTAL CANCER SCREENING COLORECTAL CANCER SCREENING [facility] Start: 2014 BONE DENSITY BONE DENSITY [facility] Start: 2014 Bone Density Screening Bone Density Screening [facility] Start: 2014 Pneumococcal Vaccine: 65+ (1 - PCV) Pneumococcal Vaccine: 65+ (1 - PCV) [facility] Start: 2014 PNEUMOCOCCAL: 65+ (1 - PCV) PNEUMOCOCCAL: 65+ (1 - PCV) [facility] Start: 2014 PNEUMOVAX AGE 65 AND OVER WITH 5YR LOOKBACK (#1) PNEUMOVAX AGE 65 AND OVER WITH 5YR LOOKBACK (#1) [facility] Start: 2009 RSV Vaccine (1 - 1-dose 60+ series) RSV Vaccine (1 - 1-dose 60+ series) [facility] Start: 1999 SHINGRIX VACCINE (1 of 2) SHINGRIX VACCINE (1 of 2) [facility] Start: 1994 COLOGUARD (FIT-DNA) COLOGUARD (FIT-DNA) [facility] Start: [address] COLONOGRAPHY [facility] Start: 1994 FECAL OCCULT BLOOD FECAL OCCULT BLOOD [facility] Start: 1994 Lipid 1996 panel - Serum or Plasma Lipid Screening [facility] Start: 1994 LIPID SCREEN LIPID SCREEN [facility] Start: 1994 SIGMOIDOSCOPY SIGMOIDOSCOPY [facility] Start: 1989 Mammography [facility] Start: 1968 Urine microalbumin profile [facility] Start: 1967 HEPATITIS C SCREENING HEPATITIS C SCREENING [facility] Start: 1961 Adult depression screening assessment DEPRESSION SCREENING [facility] Start: 1954 COVID-19 VACCINE (1) COVID-19 VACCINE (1) [facility] Start: 1949 COVID-19 VACCINE (#1) COVID-19 VACCINE (#1) [facility] End: 09-15-2022 Mri spinal canal lumbar w/o & w/contr matrl MRI LUMBAR SPINE WO/W IVCON Radiology Routine 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 Occurrences starting 08/16/2021 until 09/15/2022 [facility] Work Phone: Payers Date Payer Category Payer Medicare MEDICARE MEDICAR E A AND B [id number] 2015-Present [phone] [place] [address] Medicare [id number] 2015 Medicare MEDICARE MEDICAR E A AND B [id number] 2015-Present [phone] [place] [address] Medicare [id number] 2015 Medicare [id number] 2015 Medicare [id number] 2015 Private Health Insurance HUMANA HUMANA MEDICARE SUPPLEMENT [id number] 2015-Present [phone] [address] [address] [place] [address] Indemnity [id number] 2015 Private Health Insurance HUMANA HUMANA MEDICARE SUPPLEMENT [id number] 2015-Present [phone] [address] [address] [place] [address] Indemnity [id number] Social History Date Type Detail Facility Start: 03-27-2015 End: 01-09-2022 Tobacco smoking status NHIS Never smoked tobacco [facility] Start: 03-27-2015 End: 01-09-2022 Tobacco use and exposure Smokeless tobacco non-user [facility] Start: 08-16-2021 End: 02-13-2022 Alcohol intake Current drinker of alcohol (finding) [facility] Start: 02-07-2021 History SDOH Alcohol Comment rare [facility] Start: 1950 Sex Assigned At Not on file C [facility] Start: 08-06-2021 End: 02-13-2022 Exposure to SARS-CoV-2 (event) Not sure [facility] Start: 05-22-2022 End: 02-10-2023 History of Social function [facility] Start: 05-22-2022 End: 02-10-2023 Tobacco use panel [facility] National Score (1-10 0), lower number is lower risk 57 [facility] Clinical Notes 08-16-2021 to 02-10-2023 Scarlet Flaherty RT(R) - 01/23/2023 8:40 AM EDTTelephone Encounter - Kellie Cook RN - 06/26/2022 3:31 PM ESTTelephone Encounter - Ariana Mejia - 02/14/2022 8:38 AM EDT Note Date & Type Note Facility 02-10-2023 Note HNO ID: [id number] Author: Frankie Lynn I, MD Service: ? Author Type: Physician Type: Progress Notes Filed: 02/10/2023 9:47 AM Note Text: NEUROSURGERY FOLLOW UP OFFICE NOTE Chair, Clinical Neurosciences Director, Spinal Neurosurgery [facility] Date of visit: February 10, 2023 Patient Name: Ms.JoAnn Eric Ortega Date of : 1950 Current Age: [age] year old Sex: female MRN/E# [id number] Last Office Visit: Visit date not found [...] her on gabapenti (more content not included)... [facility] 09-28-2023 Note HNO ID: [id number] Author: Scarlet Flaherty RT(Alirio) Service: ? Author [...] DATE: January 23, 2023 TIME: 8:42 AM [facility] 01-23-2023 History of Presen t illness [...] TIME: 8:42 AM documented in this encounter [facility] 06-26-2022 Miscellaneous Notes Called patient to [...] Kellie Cook RN documented in this encounter [facility] 02-14-2022 Miscellaneous Notes Received a referral from Dr Lynn for patient to be seen for Left foot pain/ history of lumbar surgery Please call and get patient scheduled Ariana Mejia [facility] [address] [address] P: [phone] F: [phone] [email or web address] documented in this encounter [facility] 02-13-2022 Note HNO ID: [id number] Author: Frankie Lynn I, MD Service: ? Author Type: Physician Type: Progress Notes Filed: 02/13/2022 8:59 AM Note Text: NEUROSURGERY FOLLOW UP OFFICE NOTE Chair, Clinical Neurosciences Director, Spinal Neurosurgery [facility] Date of visit: February 13, 2022 Patient Name: Ms.JoAnn Eric Ortega Date of : 1950 Current Age: [age] year old Sex: female MRN/E# [id number] Last Office Visit: 01/09/2022 Chief Complaint: Patient [...] to help wit (more content not included)... [facility] 02-13-2022 History of Presen t illness Narrative NEUROSURGERY FOLLOW UP OFFICE NOTE Chair, Clinical Neurosciences Director, Spinal Neurosurgery [facility] Date of visit: February 13, 2022 Patient Name: Ms.JoAnn Eric Ortega Date of : 1950 Current Age: [age] year old Sex: female MRN/E# [id number] Last Office Visit: 01/09/2022 Chief Complaint: Patient [...] to see one of our practitioners in [place]. We will place referral. From a tumor [...] MD Chair, Clinical Neurosciences Director, Spinal Neurosurgery [facility] This note was partially generated using [employer] Point voice recognition system, and there may be some incorrect words, spellings, and punctuation that were not noted in checking the note before saving. documented in this encounter [facility] 01-25-2022 History of Presen t illness [...] TIME: 1:11 PM documented in this encounter [facility] 01-09-2022 History of Presen t illness Narrative NEUROSURGERY CONSULT NOTE Frankie Lynn MD Chair, Clinical Neurosciences Director, Spinal Neurosurgery [facility] Date of visit: January 09, 2022 Patient Name: Ms.Jo Anyi Ortega Date of : 1950 Current Age: [age] year old Sex: female MRN/E# [id number] Last Office Visit: 08/16/2021 Chief Complaint: Patient [...] MD Chair, Clinical Neurosciences Director, Spinal Neurosurgery [facility] This note was partially generated using [employer] Point voice recognition system, and there may be some incorrect words, spellings, and punctuation that were not noted in checking the note before saving. documented in this encounter [facility] 11-06-2021 History of Presen t illness Narrative Images from the original note were not included. Sai Ruiz DO [facility] Orthopedics - Orthopedic Spine Surgeon [address], [facility] [address] [place] [address] Phone: [phone] ([phone] FAX: [phone] SPINE SURGERY OUTPATIENT CONSULT SERVICE DATE: 11/06/2021 Last Office Visit: 07/03/2021 REFERRING [place]: [place] [address] [place] [address] [place] [address] CHIEF COMPLAINT: Left leg numbness HISTORY OF [...] 5/5 Biceps 5/5 5/5 Triceps 5/5 5/5 Switchman 5/5 5/5 Interossei 5/5 5/5 Lower Extremity [...] Sai Ruiz DO documented in this encounter [facility] 08-16-2021 History of Presen t illness Narrative Images from the original note were not included. NEUROSURGERY FOLLOW UP OFFICE NOTE Robin Bhatia MD PhD Date of visit: August 16, 2021 Patient Name: Ms.Jo Anyi Ortega Date of : 1950 Current Age: [age] year old Sex: female MRN/E# [id number] Last Office Visit: 07/05/2021 Chief Complaint: Patient [...] complaints This note was partially generated using [employer] Point voice recognition system, and there may be [...] plan. 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 [facility] Ependymoma, WHO grade II (HCC)- Primary [facility] Diagnosis Ependymoma, WHO grade II (HCC) [facility] Diagnosis Pain in left foot- Primary Pain in limb History of lumbar surgery Schwannoma Other benign neoplasm of connective and other soft tissue of unspecified site Ependymoma, WHO grade II (HCC) [facility] Diagnosis Schwannoma- Primary Other benign neoplasm of connective and other soft tissue of unspecified site [facility] Diagnosis Schwannoma Other benign neoplasm of connective and other soft tissue of unspecified site Ependymoma, WHO grade II (HCC) [facility] (narrative)* Diagnostic Procedure Only (Routine) - Pending Review Specialty Diagnoses / Procedures Referred By Contac t Referred To Contact XR IMAGING Diagnoses Ependymoma, WHO grade II (HCC) Procedures XR LUMBAR MOTION 4V AP/LAT/ FLEX/EXT RADEX SPINE LUMBOSACRAL MINIMUM 4 VIEWS Frankie Lynn I, MD [address] [facility] [facility] [place] [address] Xr Imaging Referral ID Status Reason Start Date Expiration Date Visits Requested Visits Authorized [id number] Pending Review Auto-Generat ed Referral 01/09/2022 02/08/2023 1 1 * MRI/CT (Routine) - Authorized Specialty Diagnoses / Procedures Referred By Contac t Referred To Contact MR IMAGING Diagnoses Ependymoma, WHO grade II (HCC) Procedures MRI LUMBAR SPINE WO/W IVCON MRI SPINAL CANAL LUMBAR W/O & W/CONTR MATRL Frankie Lynn I, MD [address] [place], [place] [address] [address] Mr Imaging Referral ID Status Reason Start Date Expiration Date Visits Requested Visits Authorized [id number] Authorized Auto-Generat ed Referral 01/09/2022 02/08/2023 1 1 * Diagnostic Procedure Only (Routine) - Authorized Specialty Diagnoses / Procedures Referred By Contac t Referred To Contact XR IMAGING Diagnoses Schwannoma of spinal cord (HCC) Procedures XR LUMBAR MOTION 4V AP/LAT/ FLEX/EXT RADEX SPINE LUMBOSACRAL MINIMUM 4 VIEWS Frankie Lynn I, MD [address] [facility] [place] [address] Xr Imaging Referral ID Status Reason Start Date Expiration Date Visits Requested Visits Authorized [id number] Authorized Auto-Generat ed Referral 12/20/2021 01/19/2023 1 1 [facility] for referral (narrative)* Diagnostic Procedure Only (Routine) - Closed Specialty Diagnoses / Procedures Referred By Contac t Referred To Contact XR IMAGING Diagnoses Schwannoma of spinal cord (HCC) Procedures XR LUMBAR MOTION 4V AP/LAT/ FLEX/EXT RADEX SPINE LUMBOSACRAL MINIMUM 4 VIEWS Frankie Lynn I, MD [address] [place] [address] Xr Imaging Referral ID Status Reason Start Date Expiration Date V isits Requested Visits Authorized [id number] Closed Auto-Generate d Referral 12/20/2021 01/19/2023 1 1 [facility] for visit Narrative* Diagnostic Procedure Only (Routine) - Closed Specialty Diagnoses / Procedures Referred By Contac t Referred To Contact XR IMAGING Diagnoses Schwannoma of spinal cord (HCC) Procedures XR LUMBAR MOTION 4V AP/LAT/ FLEX/EXT RADEX SPINE LUMBOSACRAL MINIMUM 4 VIEWS Frankie Lynn I, MD [address] [place] [address] Xr Imaging Referral ID Status Reason Start Date Expiration Date V isits Requested Visits Authorized [id number] Closed Auto-Generate d Referral 12/20/2021 01/19/2023 1 1 [facility] Reason for Referral Specialty Diagnoses / Procedures Referred By Contac t Referred To Contact MR IMAGING Diagnoses 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 [facility] [place] [address] Mr Imaging Referral ID Status Reason Start Date Expiration Date Visits Requested Visits Authorized [id number] Pending Review Auto-Generat ed Referral 08/16/2021 09/15/2022 1 1 Specialty Diagnoses / Procedures Referred By Contac t Referred To Contact MR IMAGING Diagnoses Ependymoma, WHO grade II (HCC) Procedures MRI LUMBAR SPINE WO/W IVCON MRI SPINAL CANAL LUMBAR W/O & W/CONTR Frankie Buckley I, MD [address] [facility] [facility] [place] [address] Mr Imaging Referral ID Status Reason Start Date Expiration Date V isits Requested Visits Authorized [id number] Closed Auto-Generate d Referral 01/09/2022 02/08/2023 1 1 Specialty Diagnoses / Procedures Referred By Contac t Referred To Contact MR IMAGING Diagnoses Schwannoma Ependymoma, WHO grade II (HCC) Procedures MRI LUMBAR SPINE WO/W IVCON MRI SPINAL CANAL LUMBAR W/O & W/CONTR Frankie Buckley I, MD [address] [facility] [facility] [place] [address] Mr Imaging Referral ID Status Reason Start Date Expiration Date Visits Requested Visits Authorized [id number] Pending Review Auto-Generat ed Referral 2 03/15/2023 1 1 Specialty Diagnoses / Procedures Referred By Contac t Referred To Contact Pain Management Diagnoses Pain in left foot History of lumbar surgery Procedures CONSULT TO PAIN MGT Frankie Lynn I, MD [address] [facility] [place] [address] Referral ID Status Reason Start Date Expiration Date Visits Requested Visits Authorized [id number] Ref Not Required PCP Requested Referral 2 02/13/2023 1 1 Specialty Diagnoses / Procedures Referred By Contac t Referred To Contact MR IMAGING Diagnoses Schwannoma Procedures MRI LUMBAR SPINE WO/W IVCON MRI LUMBAR SPINE WO/W IVCON MRI SPINAL CANAL LUMBAR W/O & W/CONTR Frankie Buckley I, MD [address] [place] [address] [place] [address] Referral ID Status Reason Start Date Expiration Date Visits Requested Visits Authorized [id number] Pending Review Auto-Generat ed Referral 3 03/12/2024 1 1 Specialty Diagnoses / Procedures Referred By Contac t Referred To Contact MR IMAGING Diagnoses Schwannoma Ependymoma, WHO grade II (HCC) Procedures MRI LUMBAR SPINE WO/W IVCON MRI SPINAL CANAL LUMBAR W/O & W/CONTR Frankie Buckley I, MD [address] [place] [address] [place] [address] Referral ID Status Reason Start Date Expiration Date V isits Requested Visits Authorized [id number] Closed Auto-Generate d Referral 02/13/2022 03/15/2023 1 1 Advance Directives Documents on File Type Date Recorded 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 Advance Directive(s) 02/22/2021 8:22 AM Documents on File Type Date Recorded 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 Advance Directive(s) 02/22/2021 8:22 AM [...] or prosecute any alcohol or drug abuse patient.[facility] the event this information is protected by the Federal Confidentiality of Alcohol and Drug Abuse Patient Records regulations: The Federal rules restrict any use of the information to criminally investigate or prosecute any alcohol or drug abuse patient.[facility] the event this information is protected by the Federal Confidentiality of Alcohol and Drug Abuse Patient Records regulations: The Federal rules restrict any use of the information to criminally investigate or prosecute any alcohol or drug abuse patient.[facility] the event this information is protected by the Federal Confidentiality of Alcohol and Drug Abuse Patient Records regulations: The Federal rules restrict any use of the information to criminally investigate or prosecute any alcohol or drug abuse patient.[facility] the event this information is protected by the Federal Confidentiality of Alcohol and Drug Abuse Patient Records regulations: The Federal rules restrict any use of the information to criminally investigate or prosecute any alcohol or drug abuse patient.[facility] the event this information is protected by the Federal Confidentiality of Alcohol and Drug Abuse Patient Records regulations: The Federal rules restrict any use of the information to criminally investigate or prosecute any alcohol or drug abuse patient.[facility] the event this information is protected by the Federal Confidentiality of Alcohol and Drug Abuse Patient Records regulations: The Federal rules restrict any use of the information to criminally investigate or prosecute any alcohol or drug abuse patient.[facility] the event this information is protected by the Federal Confidentiality of Alcohol and Drug Abuse Patient Records regulations: The Federal rules restrict any use of the information to criminally investigate or prosecute any alcohol or drug abuse patient.[facility] the event this information is protected by the Federal Confidentiality of Alcohol and Drug Abuse Patient Records regulations: The Federal rules restrict any use of the information to criminally investigate or prosecute any alcohol or drug abuse patient.[facility] the event this information is protected by the Federal Confidentiality of Alcohol and Drug Abuse Patient Records regulations: The Federal rules restrict any use of the information to criminally investigate or prosecute any alcohol or drug abuse patient.[facility] Reason for Visit (unrecogniz ed section and content) Reason Comments Established Patient Reason Comments Established Patient Specialty Diagnoses / Procedures Referred By Contac t Referred To Contact MR IMAGING Diagnoses Ependymoma, WHO grade II (HCC) Procedures MRI LUMBAR SPINE WO/W IVCON MRI SPINAL CANAL LUMBAR W/O & W/CONTR Frankie Buckley I, MD [address] [facility] [address] Mr Imaging Referral ID Status Reason Start Date Expiration Date V isits Requested Visits Authorized [id number] Closed Auto-Generate d Referral 01/09/2022 02/08/2023 1 1 Reason Comments Established Patient Reason Comments New Patient Reason Comments Appointment Patient Question Specialty Diagnoses / Procedures Referred By Contac t Referred To Contact MR IMAGING Diagnoses Schwannoma Ependymoma, WHO grade II (HCC) Procedures MRI LUMBAR SPINE WO/W IVCON MRI SPINAL CANAL LUMBAR W/O & W/CONTR Frankie Buckley I, MD [address] [facility] [place] [address] [place] [address] Referral ID Status Reason Start Date Expiration Date V isits Requested Visits Authorized [id number] Closed Auto-Generate d Referral 02/13/2022 03/15/2023 1 1 Care Teams (unrecognized sec tion and content) Sports Doctor Relationship Specialty Start Date End Date Scarlet Deleon DO [address] [place] [address] PCP - General Family Practice 12/20/20 Lucina Erwin MD, MD [address] [place], [place] [id number] Physician Radiation Oncology 04/02/21 Sports Doctor Relationship Specialty Start Date End Date Scarlet Deleon DO [address] [place], [place] [id number] PCP - General Family Practice 12/20/20 Lucina Erwin MD, [address] [place] [address] Physician Radiation Oncology 04/02/21 Sports Doctor Relationship Specialty Start Date End Date Scarlet Deleon DO [address] [place] [address] PCP - General Family Medicine 12/20/20 Lucina Erwin MD, [address] [place] [address] Physician Radiation Oncology 04/02/21 Sports Doctor Relationship Specialty Start Date End Date Scarlet Deleon DO [address] [place] [address] PCP - General Family Medicine 12/20/20 Lucina Erwin MD, [address] [place] [address] Physician Radiation Oncology 04/02/21 Sports Doctor Relationship Specialty Start Date End Date Scarlet Deleon DO [address] [place] [address] PCP - General Family Medicine 12/20/20 Lucina Erwin MD, [address] [place] [address] Physician Radiation Oncology 04/02/21 Sports Doctor Relationship Specialty Start Date End Date Scarlet Deleon DO [address] [place] [address] PCP - General Family Medicine 12/20/20 Lucina Erwin MD, [address] [place] [address] Physician Radiation Oncology 04/02/21 Sports Doctor Relationship Specialty Start Date End Date Scarlet Deleon DO [address] [place] [address] PCP - General Family Medicine 12/20/20 Lucina Erwin MD, [address] [place] [address] Physician Radiation Oncology 04/02/21 Sports Doctor Relationship Specialty Start Date End Date Scarlet Deleon [address] [place] [address] PCP - General Family Medicine 12/20/20 Lucina Erwin MD, [address] [place] [address] Physician Radiation Oncology 04/02/21 INFORMATION SOURCE (unrecogn ized section and content) DATE CREATED AUTHOR AUTHOR'S WENDY ATION 02/10/2023 [facility] FOR RECORDS PERTAINING TO PATIENTS WHO ARE [...] BE BASED ON THE PRIMARY CLINICAL RECORDS. [employer] provides no warranty or guarantee of the accuracy or completeness of information in this document.
[2023-06-05 08:12] LABS: AFP, Tumor Marker 3.6 ng/mL (0.0-9.2); Alpha Antitrypsin Serum 90 mg/dL (101-187)
== END | disposition home or self-care (01) ==
PROVIDERS: PCP Family Medicine; Referring Provider Family Medicine; Visit Provider Family Medicine
DX: K76.0 Fatty (change of) liver, not elsewhere classified (principal); K74.00 Hepatic fibrosis, unspecified
CPT/HCPCS: 36415; 82103; 82105

== ENCOUNTER → 2023-10-20 | Outpatient (CLI) | payer MEDICARE, OTHER, SELFPAY ==
[2023-10-20 12:15] LABS: Absolute Lymphocyte Count 1.35 X10^3/uL (0.83-4.51); Absolute Neutrophil Count 3.3 X10^3/uL (2.0-7.7); Basophil# 0.03 X10^3/uL; Basophil% 0.6 % (0-1); Eosinophil# 0.05 X10^3/uL; Hematocrit 39.8 % (37-47); Hemoglobin 13.1 g/dL (12.0-15.0); Lymphocyte # 1.35 X10^3/ul (0.83-4.51); Lymphocyte % 25.8 % (19-41); Mean Corp Hgb Conc 32.9 g/dL (32-36); Mean Corpuscular Hgb 32.6 pg (27.0-32.0); Mean Platelet Vol. 10.5 fl (6.2-12.0); Monocyte# 0.49 X10^3/uL; Monocyte% 9.4 % (0-10); NRBC Flagged by Analyzer 0 % (0-5); Platelet Count 294 K/mm3 (150-450); RBC Distribution Width CV 12.6 % (11.6-14.6); Red Blood Count 4.02 M/mm3 (4.2-5.4); White Blood Count 5.2 K/mm3 (4.4-11.0)
[2023-10-20 13:01] LABS: AST(SGOT) 30 U/L (15-37); Alanine Aminotransfer ALT/SGPT 35 U/L (13-56); Albumin, Serum 3.8 g/dL (3.2-5.0); Alkaline Phosphatase 82 U/L (45-117); Anion Gap 4 (5-15); BUN 17 mg/dL (7-18); BUN/Creat Ratio 21.6 RATIO (10-20); Calcium,Total 9.5 mg/dL (8.5-10.1); Chloride 108 mmol/L (98-107); Creatinine, Serum 0.79 mg/dL (0.55-1.02); EST Glomerular Filtration Rate 76 mL/min (>60); Est Glom Filt Rate - Afr Amer 92 mL/min (>60); Globulin 3.7 g/dL (2.2-4.2); Glucose 98 mg/dL (74-106); Potassium 4.6 mmol/L (3.5-5.1); Protein, Total 7.5 g/dL (6.4-8.2); Sodium Level 140 mmol/L (136-145)
== END | disposition home or self-care (01) ==
LOC: BFHLAB 09:58
PROVIDERS: PCP Family Medicine; Referring Provider Family Medicine; Visit Provider Family Medicine
DX: Z51.81 Encounter for therapeutic drug level monitoring (principal); K76.0 Fatty (change of) liver, not elsewhere classified
CPT/HCPCS: 36415; 80053; 85025

== ENCOUNTER → 2023-11-06 | Outpatient (CLI) | payer MEDICARE, OTHER, SELFPAY ==
--- NOTE | 2023-11-06 09:51 | RAD_ITS ---
STUDY: X-RAY - LUMBAR SPINE REASON FOR EXAM: Female, 73 years old. Right lumbar radiculopathy. TECHNIQUE: 4 view(s) of the lumbar spine, including lateral flexion and extension views, were obtained. COMPARISON: None FINDINGS: Osteopenia. Normal lordosis. No substantial scoliosis. Normal vertebral alignment. Diffuse mild lower thoracic and lumbosacral facet sclerosis. Limited flexion and extension with no abnormal motion. Diffuse mild intervertebral disc space narrowing with small osteophytes. Vascular calcification. RAD/L/S Spine Bending Flex/Ext IMPRESSION: Osteopenia with limited flexion and extension with no abnormal motion. Diffuse mild lower thoracic and lumbosacral spondylosis. Electronically Signed: Everette Madera MD at 12:37 EDT ,
--- NOTE | 2023-11-06 10:11 | RAD_ITS ---
STUDY: X-RAY - PELVIS AND RIGHT HIP REASON FOR EXAM: Female, 73 years old. Pain. TECHNIQUE: 3 views of the pelvis and hip. COMPARISON: None. FINDINGS: Normal bowel gas pattern with air seen to the rectum. Moderate amount of feces in the colon. Normal bilateral iliac wings, sacroiliac joints and visualized sacrum. Normal bilateral superior and inferior pubic rami. Normal pubic symphysis. Normal bilateral ischial tuberosities. Mild arthrosis of both hips. RAD/HIP, UNI W/ Pelvis 2-3 Views IMPRESSION: Osteopenia with mild arthrosis of both hips. No other abnormality. Electronically Signed: Everette Madera MD at 12:38 EDT ,
== END | disposition home or self-care (01) ==
LOC: MTRAD 09:50
PROVIDERS: PCP Family Medicine; Referring Provider Family Medicine; Visit Provider Family Medicine
DX: M54.16 Radiculopathy, lumbar region (principal); M70.61 Trochanteric bursitis, right hip
CPT/HCPCS: 72120; 73502

== ENCOUNTER → 2023-11-24 | Outpatient (CLI) | payer MEDICARE, OTHER, SELFPAY ==
--- NOTE | 2023-11-24 06:47 | MRI_ITS ---
STUDY: MRI LUMBAR SPINE WITH AND WITHOUT CONTRAST REASON FOR EXAM: Female, 73 years old. RADICULOPATHY TECHNIQUE: Standardized fat and water weighted pulse sequences were obtained in the sagittal and axial planes. 13 CC IV CLARISCAN was administered for the contrast portion of the examination. COMPARISON: 03/20/2021 FINDINGS: T12-L1: Normal endplates. Normal disc height, hydration and morphology. Normal bilateral facet joints. Normal central canal and bilateral lateral recesses. Normal bilateral intervertebral neural foramina. Normal lumbar lordosis. There is no substantial scoliosis. Normal conus medullaris that terminates at the T12/L1. L1-2: Status post posterior decompression with anatomic alignment with no spinal stenosis or neural foraminal stenosis. L2-3: Status post posterior decompression with anatomic alignment. No change in the mild bilobed disc protrusion produces mild spinal stenosis relieved by the posterior decompression and mild bilateral neural foraminal stenosis. L3-4: No change in the mild bilobed disc protrusion produces mild spinal stenosis and mild bilateral neural foraminal stenosis. L4-5: No change in the moderate broad disc protrusion which produces moderate spinal stenosis and mild bilateral neural foraminal stenosis. L5-S1: Normal endplates. Normal disc height, hydration and morphology. Normal bilateral facet joints. Normal central canal and bilateral lateral recesses. Normal bilateral intervertebral neural foramina. Normal visualized sacral ala. Normal visualized paraspinous soft tissue structures. There is no demonstrated abnormal enhancement. MRI/Spine Lumbar W/WO Contrast IMPRESSION: No change from 03/20/2021. Electronically Signed: Josiah Meyer MD at 13:54 EDT ,
== END | disposition home or self-care (01) ==
LOC: MRI 06:34
PROVIDERS: PCP Family Medicine; Referring Provider Family Medicine; Visit Provider Family Medicine
DX: M54.16 Radiculopathy, lumbar region (principal); C72.0 Malignant neoplasm of spinal cord
CPT/HCPCS: 72158; A9575

== ENCOUNTER → 2023-11-25 | Outpatient (CLI) | payer MEDICARE, OTHER, SELFPAY ==
--- NOTE | 2023-11-25 10:21 | BI_ITS ---
MAMMOGRAPHY - BILATERAL SCREENING REASON FOR EXAM: Female, 73 years old. Routine annual screening examination. PERTINENT HISTORY: Non-contributory. History of prior bilateral excisional breast biopsies. TECHNIQUE: Digital bilateral breast nadine (3D mammographic acquisition) in the CC and MLO projections. 2-D mediolateral oblique (MLO) and craniocaudad (CC) views of both breasts were obtained. CAD: Full Field Digital Mammography with Computer Added Detection was performed. COMPARISON: Comparison is made with prior study dated November 04, 2022 and November 16, 2020. FINDINGS: Breast Composition: The breasts are heterogeneously dense, which may obscure small masses. There are no dominant masses or suspicious calcifications. Stable calcified nodule in the deep upper lateral aspect of the left breast. No other significant abnormalities are identified. There has been no significant change since the prior study. BI/SCRN MAMM (CAD)W/NADINE BILAT IMPRESSION: Stable bilateral screening mammogram. Yearly follow-up mammogram recommended. (A) ASSESSMENT CATEGORY: BIRADS Category 2: Benign. A letter regarding these results will be sent to the patient by the facility within 30 days. Approximately 10% of breast cancers are not detected by mammography. A normal mammogram should not delay biopsy of a clinically suspicious abnormality. [id number] Electronically Signed: Taras Lowery MD at 11:18 EDT ,
--- NOTE | 2023-11-25 10:26 | BD_ITS ---
STUDY: DUAL ENERGY X-RAY ABSORPTIOMETRY / DXA REASON FOR EXAM: Female, 73 years old. M810 TECHNIQUE: Bone Mineral Density (BMD) measurements of lumbar spine and bilateral hips were obtained. COMPARISON: Comparison is made with prior study January 23, 2017. FINDINGS: Lumbar Spine (L1-L4): g/cm2 (0.642) / T-score (-3.7) / Z-score (-1.3) Findings are suggestive of osteoporosis with a high fracture risk. Left Femur Total: g/cm2 (0.625) / T-score (-2.6) / Z-score (-0.8) Left Femoral Neck: g/cm2 (0.566) / T-score (-2.6) / Z-score (-0.5) Right Femur Total: g/cm2 (0.681) / T-score (-2.1) / Z-score (-0.4) Right Femoral Neck: g/cm2 (0.616) / T-score (-2.1) / Z-score (0.0) The T-Scores on the most recent prior examination were: Lumbar Spine (L1-L4): There has been worsening of bone density since the previous examination. Left Femur Total: which represents a worsening of 6.7%. Right Femur Total: which represents an improvement of 2.2%. BD/Dexa Bone Density Study IMPRESSION: The patient is considered osteoporotic as outlined below according to World [place] Organization (WHO) criteria with a high fracture risk. There has been worsening of bone density since the previous examination. Reference Information: The T-score is the number of standard deviations above or below the standard which is normal for young adults at their peak bone mineral density. The World Health Organization (WHO) interprets the T-scores as follows: Above -1 Normal bone density Between -1 and -2.5 Osteopenia Equal to / or below -2.5 Osteoporosis As a practical clinical guideline, osteopenia may be graded as follows: Mild -1 through -1.5 Moderate -1.6 through -2.0 Severe -2.1 through -2.4 The Z-score is the number of standard deviations above or below age-matched controls. A Z-score of less than -1.5 would be considered abnormal. References: 1. NIH Osteoporosis and Related Bone Diseases www osteo.org 2. International Society for Clinical Densitometry www iscd.org 3. National Osteoporosis Foundation www nof.org Electronically Signed: Taras Lowery MD at 13:31 EDT ,
== END | disposition home or self-care (01) ==
LOC: OPBD 10:19
PROVIDERS: PCP Family Medicine; Referring Provider Family Medicine; Visit Provider Family Medicine
DX: M81.0 Age-related osteoporosis without current pathological fracture (principal); Z12.31 Encounter for screening mammogram for malignant neoplasm of breast
CPT/HCPCS: 77063; 77067; 77080

== ENCOUNTER → 2024-04-07 | Outpatient (CLI) | payer MEDICARE, OTHER, SELFPAY ==
[2024-04-07 10:29] LABS: AST(SGOT) 26 U/L (15-37); Alanine Aminotransfer ALT/SGPT 33 U/L (13-56); Alkaline Phosphatase 57 U/L (45-117); Bilirubin, Direct 0.22 mg/dL (0.00-0.30); Cholesterol 184 mg/dL (200); Globulin 3.4 g/dL (2.2-4.2); High Density Lipoprotein 92 mg/dL; Protein, Total 7.4 g/dL (6.4-8.2); Triglycerides 62 mg/dL; Very Low Density Lipoprotein 12 mg/dL (5-40)
== END | disposition home or self-care (01) ==
LOC: MTLAB 07:11
PROVIDERS: PCP Family Medicine; Referring Provider Nurse Practitioner Family; Visit Provider Nurse Practitioner Family
DX: E78.00 Pure hypercholesterolemia, unspecified (principal)
CPT/HCPCS: 36415; 80061; 80076

== ENCOUNTER → 2024-05-27 | Outpatient (CLI) | payer MEDICARE, OTHER, SELFPAY ==
--- NOTE | 2024-05-27 13:46 | ECHOD_ITS ---
Reason For Study: DYSPNEA Procedure This was a 2D Doppler, Color Flow transthoracic echocardiogram. Exam performed in department. Left Ventricle Normal LV size. Left ventricular systolic function is normal. The left ventricular ejection fraction is 55 %. No regional wall motion abnormalities noted. Right Ventricle Normal RV size. Normal systolic function. Atria Normal left atrium. Normal right atrium. Mitral Valve Normal mitral valve. Tricuspid Valve Normal tricuspid valve. Mild tricuspid valve insufficiency. Pulmonary artery systolic pressure is 32 mmHg. Aortic Valve Trisinus/trileaflet aortic valve. Mild (1+) aortic valve insufficiency. Pulmonic Valve Normal pulmonic valve. Great Vessels Normal aortic root. The pulmonary artery is normal size. Inferior vena cava collapse with respiration. Pericardium/Pleural No pericardial effusion. MMode/2D Measurements & Calculations LVIDd: 4.1 cm IVSd: 0.94 cm LAV(MOD- sp4): 20.3 ml LVIDs: 2.6 cm LVPWd: 0.86 cm RVDd: 3.7 cm FS: 36.7 % _ LVAd ap4: 21.8 cm2 SV(MOD-sp4): 23.8 ml SV(sp4-el): 26.4 ml LVLd ap4: 7.9 cm SI(MOD-sp4): 14.0 ml/m2 EDV(MOD-sp4): 49.5 ml EDV(sp4-el): 51.4 ml LVAs ap4: 14.4 cm2 LVLs ap4: 7.1 cm ESV(MOD-sp4): 25.7 ml ESV(sp4-el): 25.1 ml EF(MOD-sp4): 48.0 % EF(sp4-el): 51.3 % _ LA A4 area: 10.3 cm2 RA A4 area: 13.5 cm2 Time Measurements MV dec time: 0.21 sec Doppler Measurements & Calculations MV E max wayne: 77.6 cm/sec Lat Peak E' Wayne: 13.3 cm/sec Med Peak E' Wayne: 5.3 cm/sec MV A max wayne: 65.1 cm/sec E/E' lat: 5.8 E/E' med: 14.5 MV E/A: 1.2 _ MV V2 max: 76.2 cm/sec Ao V2 max: 109.0 cm/sec MV max P.3 mmHg MV dec slope: 362.1 cm/sec2 Ao max P.8 mmHg MV V2 mean: 46.9 cm/sec Ao V2 mean: 79.2 cm/sec MV mean P.0 mmHg Ao mean P.8 mmHg MV V2 VTI: 18.3 cm Ao V2 VTI: 21.3 cm AV (velocity ratio): 1.0 _ AI max wayne: 486.2 cm/sec LV V1 max: 105.8 cm/sec PA V2 max: 73.1 cm/sec AI max P.6 mmHg LV V1 max P.5 mmHg PA V2 mean: 61.7 cm/sec AI dec slope: 269.2 cm/sec2 LV V1 mean P.5 mmHg AI P1/2t: 529.0 msec LV V1 mean: 74.4 cm/sec LV V1 VTI: 22.3 cm _ TR max wayne: 264.6 cm/sec TR max P.0 mmHg ECHO/Echo Complete Interpretation Summary Normal LV size. Left ventricular systolic function is normal. The left ventricular ejection fraction is 55 %. Mild (1+) aortic valve insufficiency. Pulmonary artery systolic pressure is 32 mmHg. Ordering Physician: Renuka Holloway Referring Physician: Renuka Holloway Performed By: Cecile Sen RCS
== END | disposition home or self-care (01) ==
LOC: CVS 13:46
PROVIDERS: PCP Family Medicine; Referring Provider Physician Assistant Medical; Visit Provider Physician Assistant Medical
DX: R06.09 Other forms of dyspnea (principal)
CPT/HCPCS: 93306

== ENCOUNTER → 2024-10-25 | Outpatient (CLI) | payer MEDICARE, OTHER, SELFPAY ==
[2024-10-25 13:24] LABS: ALB/GLOB Ratio 1.6 RATIO (0.9-2.4); AST(SGOT) 35 U/L (<=31); Alanine Aminotransfer ALT/SGPT 36 U/L (<=34); Albumin, Serum 4.5 g/dL (3.4-4.8); Alkaline Phosphatase 64 U/L (35-104); Anion Gap 9 (5-15); BUN 18 mg/dL (4-19); BUN/Creat Ratio 26.3 RATIO (10-20); Calcium,Total 10.1 mg/dL (7.6-11.0); Carbon Dioxide 27.6 mmol/L (21.0-32.0); Chloride 104 mmol/L (98-108); Creatinine, Serum 0.69 mg/dL (0.70-1.20); EST Glomerular Filtration Rate 91 (>60); Ferritin 154 ng/mL (22-378); Globulin 2.8 g/dL (2.2-4.2); Glucose 103 mg/dL (70-99); Iron 109 ug/dL (50-170); Magnesium 2.5 mg/dL (1.5-2.2); Potassium 4.6 mmol/L (3.3-5.1); Protein, Total 7.3 g/dL (5.9-8.4); Sodium Level 140 mmol/L (133-145); Total Bilirubin 0.47 mg/dL (0.00-1.30); Vitamin B12 690 pg/mL (180-914)
== END | disposition home or self-care (01) ==
LOC: BFHLAB 10:50
PROVIDERS: PCP Family Medicine; Visit Provider Family Medicine
DX: E53.8 Deficiency of other specified B group vitamins (principal); E83.42 Hypomagnesemia; D64.9 Anemia, unspecified; R25.2 Cramp and spasm
CPT/HCPCS: 36415; 80053; 82607; 82728; 83540; 83735

== ENCOUNTER → 2024-12-29 | Outpatient (CLI) | payer MEDICARE, OTHER, SELFPAY ==
--- NOTE | 2024-12-29 08:16 | BI_ITS ---
EXAM: SCRN MAMM (CAD)W/NADINE BILAT DATE: 12/29/2024 CLINICAL HISTORY: F, Age 74 y/o , SCREENING No family history. History of prior bilateral excisional breast biopsies. TECHNIQUE: Procedure Code: [id number] Modality: MG Procedure: SCRN MAMM (CAD)W/NADINE BILAT COMPARISON: Prior exam(s) dated November 25, 2023.. FINDINGS: TISSUE DENSITY: The breasts are heterogeneously dense, which may obscure small masses. Bilateral Breast Mammographic Findings: No significant masses, calcifications or other abnormalities are identified. Stable calcified nodule in the deep upper lateral aspect of the left breast. No suspicious masses, areas of developing architectural distortion, or suspicious calcifications. There has been no significant interval change. BI/SCRN MAMM (CAD)W/NADINE BILAT IMPRESSION: Stable bilateral screening mammogram. OVERALL FINAL ASSESSMENT BI-RADS 2: BENIGN RECOMMENDATION: Routine annual follow-up in 1 Year A letter with findings and recommendations will be mailed to the patient. Reading Location: [place] [id number]
--- NOTE | 2024-12-29 11:06 | MRI_ITS ---
PROCEDURE: SPINE LUMBAR W/WO CONTRAST 12/29/2024 REASON FOR EXAM: H/O EPENDYMOMA LUMBAR SPINE, RADICULOPATHY RIGHT LEG TECHNIQUE: Procedure Code: [id number] Modality: MR Procedure: SPINE LUMBAR W/WO CONTRAST Multiplanar and multisequence images were obtained without and with intravenous gadolinium-based contrast administration. CONTRAST: Monet scan VOLUME: 14 mL COMPARISON: 11/24/2023 FINDINGS: There is normal lumbar vertebral body height and alignment. There is no subluxation or compression deformity. No intramedullary or extramedullary masses are identified. There is no enhancement after the administration of gadolinium. Dorsal decompression at L1-2 and L2-3 for prior resection. No retroperitoneal or paravertebral mass. Mild canal narrowing at L4-5. Facet and ligamentous hypertrophy present. MRI/Spine Lumbar W/WO Contrast IMPRESSION: Mild degenerative changes. No recurrent tumor Reading Location: [id number]
== END | disposition home or self-care (01) ==
PROVIDERS: PCP Family Medicine; Referring Provider Family Medicine; Visit Provider Family Medicine
DX: Z12.31 Encounter for screening mammogram for malignant neoplasm of breast (principal); M54.10 Radiculopathy, site unspecified
CPT/HCPCS: 72158; 77063; 77067; A9575; A4216

== ENCOUNTER 2025-02-14 11:57 | Emergency (ER) | payer MEDICARE, OTHER, SELFPAY ==
[2025-02-14 11:58] VITALS: BP 180/94; PULSE 92; RESP 18; TEMP 36.6; O2SAT 100; BMI 22.4
[2025-02-14 12:41] LABS: Hematocrit 39.5 % (37-47); Hemoglobin 13.2 g/dL (12.0-15.0); Immature Granulocytes Count 0.020 X10^3/uL (0.0-0.0); Mean Corp Hgb Conc 33.4 g/dL (32-36); Mean Corpuscular Volume 95.9 fL (81-99); Mean Platelet Vol. 9.3 fl (6.2-12.0); NRBC Flagged by Analyzer 0 % (0-5); Platelet Count 306 K/mm3 (150-450); RBC Distribution Width CV 12.3 % (11.6-14.6); RBC Distribution Width SD 43.8 fl (35.1-43.9); Red Blood Count 4.12 M/mm3 (4.2-5.4); White Blood Count 7.8 K/mm3 (4.4-11.0)
[2025-02-14 13:04] VITALS: BP 129/85; PULSE 80; RESP 20; O2SAT 100
[2025-02-14 13:09] LABS: Anion Gap 13 (5-15); BUN 13 mg/dL (4-19); BUN/Creat Ratio 19.4 RATIO (10-20); Calcium,Total 9.7 mg/dL (7.6-11.0); Carbon Dioxide 23.1 mmol/L (21.0-32.0); Chloride 102 mmol/L (98-108); Estimated Creatinine Clearance 56.88 ml/min (50-250); Glucose 113 mg/dL (70-99); Potassium 4.1 mmol/L (3.3-5.1); Troponin T High Sensitivity 6 ng/L (<=14)
[2025-02-14 14:00] VITALS: BP 133/79; PULSE 73; RESP 14; O2SAT 98
[2025-02-14 14:55] LABS: Troponin T High Sens 2 HR 12 ng/L (<=14)
[2025-02-14 15:00] VITALS: BP 154/83; PULSE 69; RESP 17; O2SAT 100
[2025-02-14 15:22] VITALS: BP 140/79; PULSE 73; RESP 16; TEMP 36.7; O2SAT 99
== END 2025-02-14 15:22 | disposition home or self-care (01) ==
PROVIDERS: Emergency Provider Emergency Medicine; PCP Family Medicine; Visit Provider Emergency Medicine
DX: I10 Essential (primary) hypertension (principal); R07.89 Other chest pain; R51.9 Headache, unspecified; E78.00 Pure hypercholesterolemia, unspecified; R42 Dizziness and giddiness; R29.898 Other symptoms and signs involving the musculoskeletal system; Z79.82 Long term (current) use of aspirin; Z79.899 Other long term (current) drug therapy
CPT/HCPCS: 71045; 80048; 84484; 85025; 93005; 99285; A4216

== ENCOUNTER → 2025-02-25 | Outpatient (CLI) | payer MEDICARE, OTHER, SELFPAY ==
--- NOTE | 2025-02-25 08:00 | MRI_ITS ---
PROCEDURE: MRI/Brain W/WO Contrast
== END | disposition home or self-care (01) ==
LOC: MRI 07:58
PROVIDERS: PCP Family Medicine; Referring Provider Family Medicine; Visit Provider Family Medicine
DX: C72.0 Malignant neoplasm of spinal cord (principal); R51.9 Headache, unspecified
CPT/HCPCS: 70553

== ENCOUNTER → 2025-03-17 | Outpatient (CLI) | payer MEDICARE, OTHER, SELFPAY ==
--- OUTSIDE RECORDS SUMMARY | 2025-03-17 07:04 | XMS RPT_ITS | CCD ---
Author Organization [facility] Care Team Providers Care Supervisor Properties Name Role Phone Scarlet Deleon DO Primary Care Provider Rip ELENA MD, Daesung Unavailable Dr. Scarlet Deleon Primary Care Provider [phone] Dr. Scarlet Deleon Referring Provider Aris BLOOD BANK CREDIT CLERK, BLOOD BANK CREDIT CLERK-C Shanta Attending Provider ADI, DONNA Referring Unavailable MALYS, SCARLET A Primary Care Unavailable ADI I, DONNA Referring Unavailable MALYS, SCARLET A Primary Care Unavailable ADI I, DONNA Attending Unavailable MALYS, SCARLET A Referring Unavailable MALYS, SCARLET A Primary Care Unavailable ADI I, DONNA Attending Unavailable MALYS, SCARLET A Referring Unavailable MALYS, SCARLET A Primary Care Unavailable Rosendoys DOScarlet Primary Care Provider [phone] Rip ELENA MD, Daesung Unavailable [phone] Scarlet Deleon Primary Care Provider [phone] Dr. Scarlet Deleon Referring Provider Antoinette BLOOD BANK CREDIT CLERK, BLOOD BANK CREDIT CLERK-Shaq Schilling Attending Provider Dr. Rashad Schmitz Attending Provider [phone] Antoinette BLOOD BANK CREDIT CLERK, BLOOD BANK CREDIT CLERK-C Zhou Schilling Referring Provider Dr. Scarlet Deleon DO Primary Care Provider Dr. Scarlet Deleon DO Attending Provider Dr. Scarlet Deleon DO Referring Provider [phone] Dr. Scarlet Deleon DO Primary Care Physician Adrienne MARLEY, Dr. Novak Attending Physician Adrienne MARLEY, Dr. Novak Referring Provider Brandyn ELENA, Dr. Harrington Attending Physician [phone] Brandyn ELENA, Dr. Harrington Emergency Department Phys ician Roof BLOOD BANK CREDIT CLERK-C, Zhou Schilling Attending Physician [phone] Malys, Scarlet Referring Unavailable Malys, Scarlet Primary Care Unavailable Malys, Scarlet Attending Unavailable Malys, Scarlet Referring Unavailable Malys, Scarlet Primary Care Unavailable Malys, Scarlet Attending Unavailable Malys, Scarlet Primary Care Unavailable Roof BLOOD BANK CREDIT CLERK, Zhou H Attending Unavailable Roof BLOOD BANK CREDIT CLERK, Zhou H Referring Unavailable mAie PA, Renuka M Attending Unavail able Amie PA, Renuka M Referring Unavail able Malys, Scarlet Primary Care Unavailable Len Ahumada Attending Unavailable Malys, Scarlet Primary Care Unavailable Malys, Scarlet Primary Care Unavailable Roof BLOOD BANK CREDIT CLERK, Zhou H Attending Unavailable Roof BLOOD BANK CREDIT CLERK, Zhou H Referring Unavailable Malys, Scarlet Referring Unavailable Malys, Scarlet Primary Care Unavailable Malys, Scarlet Attending Unavailable Malys, Scarlet Primary Care Unavailable Roof BLOOD BANK CREDIT CLERK, Zhou H Attending Unavailable Malys, Scarlet Referring Unavailable Amie PA, Renuka Reyes Attending Unavail able Malys, Scarlet Referring Unavailable Malys, Scarlet Primary Care Unavailable NadirFuadRashad Attending Unavailable Malys, Scarlet Primary Care Unavailable Malys, Scarlet Primary Care Unavailable Malys, Scarlet Attending Unavailable Medications Current Medications Medication Drug Class(es) Dates Sig (Normalized) Sig (Original) amLODIPine 5 mg oral tablet (20 sources) Dihydropyridine Calcium Channel Robyn Start: 04-03-2023 End: 02-07-2025 take 1 tablet by mouth once daily Start: 03-19-2023 End: 04-03-2023 take 1 tablet by mouth twice daily Amlodipine (Norvasc ) 5 mg tablet Discontinued 5 mg PO TWICE A DAY 60 March 19, 2023 2:27pm April 03, 2023 4:58pm Start: 03-13-2023 End: 03-19-2023 take 1 tablet by mouth once daily Amlodipine (Norvasc) 5 mg tablet Discontinued 5 mg PO DAILY 30 March 13, 2023 12:00am March 19, 2023 2:28pm Start: 03-27-2018 End: 03-31-2018 take 1 tablet by mouth once daily for hypertension Amlodipine 5 mg tablet Discontinued 5 mg PO DAILY 27 03March 27, 2018 12:00am March 31, 2018 10:31am for coronary vasospasm/hypertension aspirin 81 mg delayed release oral tablet (20 sources) Platelet Aggregation Inhibitor, Nonsteroidal Anti-inflammatory Drug Start: 07-24-2020 take 1 tablet by mouth once Start: 12-24-2018 End: 07-24-2020 take 1 tablet by mouth every other day Aspirin (Adult Aspirin Regimen) 81 mg tablet,delayed release (DR/EC) Discontinued 81 mg PO .qod 27 03December 24, 2018 3:14pm July 24, 2020 8:09am Start: 03-10-2018 End: 12-24-2018 take 1 tablet by mouth once daily Aspirin (Adult Aspirin Regimen) 81 mg tablet,delayed release (DR/EC) Discontinued 81 mg PO DAILY 27 03March 10, 2018 12:30pm December 24, 2018 3:14pm take 1 capsule by [facility] every other day aspirin 81 mg cap Take 81 mg by mouth every other day. 0 Active Comment on above: Take 81 mg by mouth every other day. calcium carbonate 1500 mg oral tablet (17 sources) Start: 02-21-2025 take 1 tablet by mouth once daily Start: 07-24-2020 End: 02-14-2025 take 1 tablet by mouth once daily Calcium Carbonate 600 mg calcium (1,500 mg) tablet Discontinued 1200 mg PO DAILY July 24, 2020 8:07am February 14, 2025 11:36am Start: 04-14-2015 End: 07-24-2020 take 1 tablet by mouth once daily Calcium Carbonate 600 MG tablet Discontinued 600 mg PO DAILY April 14, 2015 12:00am July 24, 2020 8:09am cholecalciferol 0.05 mg oral tablet (17 sources) Vitamin D Start: 07-24-2020 take 1 tablet by mouth once daily Comment on above: Take by mouth. 1 ml denosumab 60 mg/ml prefilled syringe (3 sources) RANK Ligand Inhibitor Start: 05-21-2024 iv contrast (will be provided with radiology [...] link. 1 Each 0 02/11/2023 02/12/2023 Active Start: 02-11-2023 End: 02-11-2023 iv contrast (will be provide d with radiology test) Indications: Schwannoma MRI LSP [...] administration guidelines link. 1 Each 0 02/11/2023 02/11/2023 Discontinued Start: 02-13-2022 End: 02-14-2022 iv contrast (will be provide d with radiology test) Indications: Ependymoma, WHO grade II (HCC) MRI LSP Inject, intravenously, once for 1 [...] contrast administration guidelines link. 1 Each 0 02/13/2022 02/14/2022 Active Start: 01-09-2022 End: 01-10-2022 iv contrast (will be provide d with radiology test) Indications: Ependymoma, WHO grade II (HCC) MRI LSP Inject, intravenously, once for 1 [...] contrast administration guidelines link. 1 Each 0 01/09/2022 01/10/2022 Active Start: 08-16-2021 End: 08-17-2021 iv contrast (will be provide d with radiology test) MRI LSP Inject, intravenously, once for 1 [...] contrast administration guidelines link. 1 Each 0 08/16/2021 08/17/2021 Active Comment on above: MRI LSP Inject, intr avenously, once for 1 dose. No IV access, [...] in the MR contrast administration guidelines link. Magnesium (1 source) Start: 02-14-2025 take 1 tablet by mouth at bedtime Multivitamin 1 EACH tablet (3 sources) Start: 04-14-2015 Start: 04-14-2015 Multivitamin 1 EACH tablet Active 1 NMA PO DAILY April 14, 2015 1:00am Multivitamin preparation (5 sources) Start: 04-14-2015 Multivitamin A ctive 1 EACH PO DAILY April 14, 2015 12:00am Start: 04-14-2015 Multivitamin A ctive 1 EACH PO DAILY April 14, 2015 1:00am Completed/Discontinued Medications Medication Drug Class(es) Dates Sig (Normalized) Sig (Original) [id number] actuat albuterol 0.09 mg/actuat metered dose inhaler (7 sources) beta2-Adrenergic Agonist Start: 03-09-2018 End: 11-16-2018 Albuterol Sulfate (Proair Hfa) 90 mcg/actuation HFA aerosol inhaler Discontinued 1 NMA INHALATION EVERY 6 HOURS as needed for Shortness Of Breath March 09, 2018 1:00am November 16, 2018 10:24am Start: 03-09-2018 End: 11-16-2018 take 1 puff(s) by inhalation every six hours Albuterol Sulfate (Proair Hfa) 90 mcg/actuation HFA aerosol inhaler Discontinued 1 PUFF INHALATION EVERY 6 HOURS March 09, 2018 12:00am November 16, 2018 9:24am Albuterol Sulfate (Proair Hfa) 90 mcg/actuation HFA aerosol inhaler (1 source) Start: 03-09-2018 End: 11-16-2018 Albuterol Sulfate (Proair Hfa) 90 mcg/actuation HFA aerosol inhaler Discontinued 1 NMA INHALATION EVERY 6 HOURS as needed for Shortness Of Breath March 09, 2018 12:00am November 16, 2018 9:24am ascorbic acid 500 mg oral tablet (17 sources) Vitamin C Start: 07-24-2020 End: 03-04-2024 take 1 tablet by mouth once daily Ascorbic Acid (Vitamin C) 500 mg tablet Discontinued 500 mg PO DAILY July 23, 2020 11:00pm March 04, 2024 8:23am Comment on above: Take by mouth. atorvastatin 10 mg oral tablet (20 sources) HMG-CoA Reductase Inhibitor Start: 06-10-2018 End: 09-22-2024 take 1 tablet by mouth once daily Atorvastatin 10 mg tablet Discontinued 10 mg PO DAILY December 03, 2023 7:00am September 22, 2024 7:06am Comment on above: Take 10 mg by mouth once daily. 24 hr buPROPion hydrochloride 150 mg extended release oral tablet (8 sources) Aminoketone Start: 08-22-2017 End: 03-31-2018 take 1 tablet by mouth once daily Bupropion Hcl 150 MG tablet extended release 24 hr Discontinued 150 mg PO DAILY August 21, 2017 11:00pm March 31, 2018 9:59am carvedilol 3.125 mg oral tablet (16 sources) alpha-Adrenergic Robyn, beta-Adrenergic Robyn Start: 03-10-2018 End: 03-27-2018 take 1 tablet by mouth twice daily at mealtime Carvedilol (Coreg) 3.125 mg tablet Discontinued 3.125 mg PO TWICE A DAY 60 March 10, 2018 12:31pm March 27, 2018 4:06pm give with food (meal/snack) clopidogrel 75 mg oral tablet (16 sources) [id number] Platelet Inhibitor Start: 03-10-2018 End: 03-17-2018 take 1 tablet by mouth once daily Clopidogrel (Plavix) 75 mg tablet Discontinued 75 mg PO DAILY 30 March 10, 2018 12:31pm March 17, 2018 9:27am digoxin 0.125 mg oral tablet (20 sources) Cardiac Glycoside Start: 09-17-2018 End: 02-10-2023 take 1 tablet by mouth once daily Digoxin 125 mcg (0.125 mg) tablet Discontinued 125 ug PO DAILY 90 3 November 09, 2021 7:22am January 16, 2022 12:23pm Comment on above: Take 125 mcg by mout h once daily. 24 hr dilTIAZem hydrochloride 180 mg extended release oral capsule (20 sources) Calcium Channel Robyn Start: 10-05-2021 dilTIAZem CD (CARDIZEM CD, CARTIA XT) 180 mg 24 hr capsule Start: 11-16-2018 End: 11-16-2018 take 1 capsule by mouth once daily, then take 1 capsule by mouth every twenty-four hours Diltiazem Hcl (Cartia Xt) 180 mg capsule,extended release 24hr Discontinued 180 mg PO DAILY November 15, 2018 11:00pm November 16, 2018 9:45am Start: 06-10-2018 End: 03-13-2023 take 1 capsule by mouth twice daily Diltiazem Hcl 180 mg capsule,extended release 24hr Discontinued 180 mg PO TWICE A DAY 180 October 16, 2022 7:32am March 13, 2023 8:29am Start: 05-12-2018 End: 06-10-2018 take 1 capsule by mouth once daily Diltiazem Hcl 240 MG capsule,extended release 24hr Discontinued 240 mg PO DAILY May 12, 2018 12:56pm June 10, 2018 5:02pm Start: 04-29-2018 End: 05-12-2018 take 1 capsule by mouth twice daily Diltiazem Hcl 240 mg capsule,extended release 24hr Discontinued 240 mg PO TWICE A DAY 30 April 29, 2018 2:02pm May 12, 2018 12:56pm Start: 04-14-2018 End: 04-29-2018 take 1 capsule by mouth twice daily Diltiazem Hcl 120 mg capsule,extended release 24hr Discontinued 120 mg PO TWICE A DAY 60 April 14, 2018 3:18pm April 29, 2018 2:03pm Start: 03-31-2018 End: 04-14-2018 take 1 capsule by mouth once daily Diltiazem Hcl 120 mg capsule,extended release 24hr Discontinued 120 mg PO DAILY 30 March 31, 2018 12:00am April 14, 2018 3:19pm Comment on above: Take 180 mg by mouth twice daily. FLUoxetine 10 mg oral tablet (1 source) Serotonin Reuptake Inhibitor Start: 02-14-2025 End: 02-14-2025 take 1 tablet by mouth once daily Fluoxetine 10 mg tablet Discontinued 10 mg PO DAILY February 13, 2025 11:00pm February 14, 2025 11:35am Mometasone-Formotero l (8 sources) Corticosteroid, beta2-Adrenergic Agonist Start: 04-14-2015 End: 03-10-2018 Mometasone-Formoterol 8.8 GM HFA aerosol inhaler Discontinued 13 g IH TWICE A DAY April 14, 2015 12:00am March 10, 2018 11:30am Start: 04-14-2015 End: 03-10-2018 Mometasone-Formoterol 8.8 GM HFA aerosol inhaler Discontinued 13 g IH TWICE A DAY April 14, 2015 1:00am March 10, 2018 12:30pm Start: 04-14-2015 End: 03-10-2018 take 13 g by inhalation twice daily Mometasone-Formoterol Discontinued 13 GM IH TWICE A DAY April 14, 2015 12:00am March 10, 2018 11:30am Start: 04-14-2015 End: 03-10-2018 take 13 g by inhalation twice daily Mometasone-Formoterol Discontinued 13 GM IH TWICE A DAY April 14, 2015 1:00am March 10, 2018 12:30pm gabapentin 300 mg oral capsule (7 sources) Anti-epileptic Agent Start: 01-09-2022 End: 02-10-2023 take 1 capsule by mouth once daily at bedtime, then take 1 capsule by mouth twice daily, then take 1 capsule by mouth three times daily gabapentin (NEURONTIN) 300 mg capsule Take 1 capsule by mouth daily at bedtime for 7 days, THEN 1 capsule twice daily for 7 days, THEN 1 capsule three times daily for 30 days. 111 capsule 0 01/09/2022 02/10/2023 Discontinued Comment on above: Take 1 capsule by [facility] daily at bedtime for 7 days, THEN 1 capsule twice daily for 7 days, THEN 1 capsule three times daily for 30 days. hydroCHLOROthiazide 25 mg oral tablet (8 sources) Thiazide Diuretic Start: 03-09-2018 End: 03-10-2018 Hydrochlorothiazide 25 mg tablet Discontinued 12.5 mg PO DAILY March 09, 2018 12:00am March 10, 2018 11:29am Start: 03-09-2018 End: 03-10-2018 take 12.5 mg by mouth once daily Hydrochlorothiazide Discontinued 12.5 MG PO DAILY March 09, 2018 12:00am March 10, 2018 11:29am 24 hr isosorbide mononitrate 30 mg extended release oral tablet (16 sources) Nitrate Vasodilator Start: 03-25-2018 End: 03-27-2018 take 0.5 tablet by mouth once daily Isosorbide Mononitrate 30 mg tablet extended release 24 hr Discontinued 30 mg PO .COMPLEX 0 March 25, 2018 5:56pm March 27, 2018 3:47pm 30 mg PO 0.5 tablet by mouth daily; Start: 03-17-2018 End: 03-25-2018 take 1 tablet by mouth once daily, then take 1 tablet by mouth every twenty-four hours Isosorbide Mononitrate 30 mg tablet extended release 24 hr Discontinued 30 mg PO DAILY 30 March 17, 2018 12:00am March 25, 2018 5:56pm lisinopril 20 mg oral tablet (20 sources) Angiotensin Converting Enzyme Inhibitor Start: 03-17-2018 End: 04-29-2018 take 1 tablet by mouth once daily Lisinopril 20 mg tablet Discontinued 20 mg PO DAILY 30 March 17, 2018 12:00am April 29, 2018 1:17pm Start: 03-10-2018 End: 03-17-2018 take 1 tablet by mouth once daily Lisinopril 10 mg tablet Discontinued 10 mg PO DAILY March 10, 2018 12:00am March 17, 2018 9:27am Start: 03-09-2018 End: 03-10-2018 take 1 tablet by mouth once daily Lisinopril 2.5 mg tablet Discontinued 2.5 mg PO DAILY March 09, 2018 12:00am March 10, 2018 11:29am mecobalamin 5 mg oral lozenge (6 sources) Start: 07-24-2020 End: 10-24-2020 take 5000 ug by mouth once daily Mecobalamin (Vitamin B12) 5,000 mcg lozenge Discontinued 5000 ug PO DAILY July 24, 2020 12:00am October 24, 2020 3:29pm allow to dissolve in mouth OR may chew lightly before swallowing Mecobalamin (Vitamin B12) 5,000 mcg lozenge (2 sources) Start: 07-24-2020 End: 10-24-2020 take 5000 ug by mouth once daily Mecobalamin (Vitamin B12) 5,000 mcg lozenge Discontinued 5000 ug PO DAILY July 23, 2020 11:00pm October 24, 2020 2:29pm allow to dissolve in mouth OR may chew lightly before swallowing Start: 07-24-2020 End: 10-24-2020 take 5000 ug by mouth once daily Mecobalamin (Vitamin B12) 5,000 mcg lozenge Discontinued 5000 ug PO DAILY July 24, 2020 12:00am October 24, 2020 3:29pm allow to dissolve in mouth OR may chew lightly before swallowing nitroglycerin 0.4 mg sublingual tablet (19 sources) Nitrate Vasodilator Start: 06-10-2018 End: 03-04-2024 Nitroglycerin 0.4 mg tablet, sublingual Discontinued 0.4 mg SL every 5 to 15 minutes as needed for chest pain 20 07October 24, 2020 2:30pm March 04, 2024 8:55am until response; do not exceed 3 doses per episode Start: 06-10-2018 End: 10-24-2020 Nitroglycerin Active 0.4 MG SL every 5 to 15 minutes October 24, 2020 2:30pm until response; do not exceed 3 doses per episode Waldron-3 Fatty Acids-Fish Oil (5 sources) Start: 04-14-2015 End: 10-24-2020 Waldron-3 Fatty Acids-Fish Oil Discontinued 1 EACH PO DAILY April 14, 2015 12:00am October 24, 2020 2:30pm Start: 04-14-2015 End: 10-24-2020 Waldron-3 Fatty Acids-Fish Oil Discontinued 1 EACH PO DAILY April 14, 2015 1:00am October 24, 2020 3:30pm Waldron-3 Fatty Acids-Fish Oil 1 EACH capsule (3 sources) Start: 04-14-2015 End: 10-24-2020 Waldron-3 Fatty Acids-Fish Oil 1 EACH capsule Discontinued 1 NMA PO DAILY April 14, 2015 12:00am October 24, 2020 2:30pm Start: 04-14-2015 End: 10-24-2020 Waldron-3 Fatty Acids-Fish Oil 1 EACH capsule Discontinued 1 NMA PO DAILY April 14, 2015 1:00am October 24, 2020 3:30pm SUMAtriptan 50 mg oral tablet (8 sources) Serotonin-1b and Serotonin-1d Receptor Agonist Start: 03-09-2018 End: 03-10-2018 take 1 tablet by mouth once daily Sumatriptan Succinate 50 mg tablet Discontinued 50 mg PO .COMPLEX March 09, 2018 12:00am March 10, 2018 11:30am 50 mg PO once daily at onset of headache, may repeat in 2 hours if no improvement; Problems Active Problems Problem Classification Problem Date Documented Date Episodic/Chronic Abdominal pain (5 sources) Abdominal pain; Translations: [Unspecified abdominal pain] 05-17-2023 Episodic Anxiety disorders (8 sources) Anxiety; Translations: [Anxiety disorder, unspecified] 06-20-2021 Chronic Cancer of brain and nervous system (20 sources) Ependymoma ; Translations: [Malignant neoplasm of brain, unspecified] Onset: Chronic Cancer of colon (8 sources) History of malignant neoplasm of colon; Translations: [Personal history of other malignant neoplasm of large intestine] 10-11-2020 Episodic Cardiac dysrhythmias (10 sources) Irregular heart beat; Translations: [Cardiac arrhythmia, unspecified] 02-08-2021 Chronic Coronary atherosclerosis and other heart disease (20 sources) Coronary artery spasm; Translations: [Angina pectoris with documented spasm] 02-08-2021 Chronic Disorders of lipid metabolism (15 sources) Pure hypercholesterolemia; Translations: [Pure hypercholesterolemia, unspecified] Onset: 06-20-2021 Chronic Essential hypertension (15 sources) Essential hypertension; Translations: [Essential (primary) hypertension] 01-11-2022 Chronic Headache; including migraine (8 sources) Migraine; Translations: [Migraine, unspecified, not intractable, without status migrainosus] 03-09-2018 Chronic Melanomas of skin (8 sources) H/O Malignant melanoma; Translations: [Personal history of malignant melanoma of skin] 10-11-2020 Episodic Neoplasms of unspecified nature or uncertain behavior (1 source) 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; 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 Nonspecific chest pain (20 sources) Chest pain; Translations: [Chest pain, unspecified] Onset: 5 07-24-2020 Episodic Other and unspecified benign neoplasm (9 sources) Schwannoma; Translations: [Benign neoplasm of peripheral nerves and autonomic nervous system, unspecified] Onset: 2 Episodic Other circulatory disease (1 source) H/O: cardiovascular disease; Translations: [Personal history of other diseases of the circulatory system] 02-22-2025 Episodic Other connective tissue disease (1 source) Pain in left foot; Translations: [Pain in left foot] Episodic Other screening for suspected conditions (not mental disorders or infectious disease) (9 sources) Electrocardiogram abnormal; Translations: [Abnormal electrocardiogram [ECG] [EKG]] Onset: 5 07-24-2020 Episodic Residual codes; unclassified (1 source) History of operative procedure on lumbar spinal structure; Translations: [Other specified postprocedural states] Episodic Spondylosis; intervertebral disc disorders; other back problems (1 source) Radiculopathy, lumbar region; Translations: [Radiculopathy, lumbar region] Onset: 5 Episodic Unclassified (1 source) or your personal injury law specialist Past or Other Problems Problem Classification Problem Date Documented Date Episodic/Chronic Cardiac dysrhythmias (15 sources) Palpitations; Translations: [Palpitations] Onset: 05-21-2024 01-11-2022 Episodic Neoplasms of unspecified nature or uncertain behavior (10 sources) 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; Translations: [Neoplasm of unspecified behavior of endocrine glands and other parts of nervous system] Onset: 02-22-2021 02-22-2021 Episodic Nutritional deficiencies (1 source) Deficiency of other specified B group vitamins; Translations: [Deficiency of other specified B group vitamins] Onset: 10-28-2024 Episodic Other and unspecified benign neoplasm (10 sources) Polyp of colon; Translations: [Polyp of colon] Onset: 03-27-2015 03-27-2015 Episodic Other and unspecified benign neoplasm (1 source) Benign neoplasm of peripheral nerves and autonomic nervous system, unspecified; Translations: [Schwannoma] Onset: 02-13-2022 Episodic Other lower respiratory disease (1 source) Other forms of dyspnea; Translations: [Other forms of dyspnea] Onset: 06-09-2024 Episodic Residual codes; unclassified (8 sources) History of cardiac catheterization; Translations: [Other specified postprocedural states] Onset: 03-17-2018 10-11-2020 Episodic Comment on above: Did for palpitations . Pt states had normal coronaries. 03/17/2018: Had coronary spasm in mid LAD which resolved with nitroglycerin, all other arteries normal per [facility], Dr. Bill. Results Test Name Value Interpretation Reference Range Facility Brain W/WO Contraston 2024 Brain W/WO Contrast [facility] Imaging Services [address] [place] [address] [id number] Brain W/WO Contrast MR#: [id number] Acct: [id number] Name: ANGELINA ORTEGA Rep #: [id number] : 1950 F 74 From: Delfin Wu MD PCP: Dr. Scarlet Deleon DO Status: REG CLI Study: Brain W/WO Contrast Date of Exam: 02/25/25 Exam# [id number] Ordering Dr: Scarlet Deleon DO PROCEDURE: BRAIN W/WO CONTRAST 02/25/2025 REASON FOR EXAM: HISTORY OF EPENDYMOMA The technologist worksheet states pressure in head for 2 months. TECHNIQUE: Procedure Code: [id number] Modality: MR Procedure: BRAIN W/WO CONTRAST Multiplanar and multisequence images were obtained. CONTRAST: Clariscan VOLUME: 20 mL COMPARISON: None FINDINGS: There is a cystic lesion along the medial aspect of the right temporal lobe on image 12, series 8 which measures 0.9 cm. This is nonspecific. It does not enhance. Periventricular white matter disease is noted bilaterally, most likely small-vessel ischemic change. There mildly dilated CSF spaces in the basal ganglia, [id number]-[id number], which likely reflect Virchow Frankie spaces. There is no abnormal enhancement intracranially. Ventricles and cortical sulci are grossly unremarkable. There is no evidence of diffusion restriction. No evidence of intracranial hemorrhage. The orbits are unremarkable. The paranasal sinuses and mastoid air cells are clear aside from a very small mucous retention cyst in the right maxillary antrum on image 3, series 9.. Intracranial vascular flow voids are grossly unremarkable. Calvarium is grossly intact. MRI/Brain W/WO Contrast IMPRESSION: Minimal nonenhancing cystic area in the medial aspect of the right temporal lobe measuring up to 0.9 cm. This is of doubtful significance. Consider comparison with any older outside studies. No diffusion restriction or evidence of significant intracranial mass effect. Senescent and small-vessel ischemic change as above. Reading Location: [facility] CC: Dr. Scarlet Deleon DO Special Skills Officer: Signed Normal [facility] Cardiology Visit Reporton Cardiology Visit Report [facility] [place] [id number] [place] [address] OFFICE VISIT Date of Service: 02/21/25 MR#: [id number] Acct: [id number] Name: ANGELINA ORTEGA Rep #: [id number] : 1950 Provider: ROMERO young Age/Sex: 74/F Location: [facility] [place] Status: Signed HPI HPI History of Present Illness Details: Angelina Ortega is a 74-year-old white female with a history of underlying coronary artery vasospasm, hyperlipidemia, and hypertension. She was seen in the emergency department on 02/14/2025 for chest pain. Her workup was negative and she was discharged outpatient follow-up. Since ER evaluation, she continues to have intermittent chest pain and headache. This occurs mostly at rest. She also notes that her blood pressure has been higher than usual with systolic 140s. When this occurs, she notes change in her breathing. She denies edema or claudication. She denies shortness breath with activity, cough, or orthopnea. She denies near-syncope or syncope. She acknowledges dizziness, lightheadedness, and palpitations. 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 Is patient in pain?: No Allergies No Known Allergies Allergy (Verified 02/21/25 09:59) Medications ???Medication ???Instructions ???Recorded ???Confirmed ???Type multivitamin 1 ea PO DAILY 04/14/15 02/21/25 Hi story aspirin 81 mg tablet,delayed 81 mg PO QMWF 07/24/20 02/21/25 Hi story release (Adult Aspirin Regimen) cholecalciferol (vitamin D3) 50 50 mcg PO DAILY 07/24/20 02/21/25 History mcg (2,000 unit) tablet nitroglycerin 0.4 mg sublingual 0.4 mg sublingual Q5-15M PRN chest 03/04/24 02/21/25 Rx tablet pain #25 tabs denosumab 60 mg/mL subcutaneous 60 mg subcut [id number] 05/21/24 History syringe (Prolia) atorvastatin 10 mg tablet 10 mg PO DAILY #90 TABLETS 5 02/21/25 Rx amlodipine 5 mg tablet (Norvasc) 5 mg PO DAILY #90 tabs 02/07/25 Rx magnesium 250 mg tablet 250 mg PO QHS 02/14/25 02/21/25 Hi story calcium carbonate 600 mg PO QDAY 02/21/25 02/21/25 H istory Ejection fraction %: 55 Have you fallen in the past year?: No PFSH Medical History Pure hypercholesterolemia Essential hypertension Coronary vasospasm Abnormal EKG Chest pain Carpal tunnel syndrome Right knee pain Depression History of colon cancer History of melanoma History of skin cancer Osteoporosis Migraine GERD (gastroesophageal reflux disease) Surgical History Basal cell carcinoma (BCC) in situ of skin History of back surgery (02/22/21) History of left heart catheterization (03/17/18) History of colonoscopy (05/2023) History of bowel resection History of bladder repair surgery History of carpal tunnel release of both wrists History of hysterectomy Family History Mother Skin cancer Brother Hypertension Brother Hypertension Sister Hypertension Daughter Diabetes Social History Smoking Status: Never smoker alcohol intake: never substance use type: does not use caffeine: Yes Type: coffee Number of servings: 1 ROS Const Const: Negative for fatigue or weakness Eyes Eyes: Negative for change in vision ENT ENT: Positive for dizziness; Negative for balance problems Cardio Chest Pain: Yes Frequency: daily (All but one of the episodes were mild) Character: tightness Onset: at rest Location: mid sternal Duration: minutes and hours Palpitations: Yes feels like its: fast Edema: None Muscle aches with walking: None Resp Respiratory: Positive for SOB at rest (With episodes of hypertension); Negative for SOB with activity or SOB orthopnea SOB lying down GI GI: Positive for nausea; Negative heartburn : Negative for hematuria or frequent nighttime urination/ nocturia Musc Musc: Positive for muscle weakness; Negative for balance problems Skin Skin: Negative non-healing lesions or rash Neuro Neuro: Positive for dizziness and lightheadedness; Negative for near syncope, syncope or weakness Endo Endo: Negative for fatigue Allergy Allergy/Immunology: Negative for rash Cardiology Exam Const Appearance: cooperative, healthy appearing, comfortable and no acute distress Nutritional Appearance: average body habitus and well nourished Orientation: alert, awake and oriented x3 Head Head: normal to inspection Ears: hearin (more content not included)... Normal [facility] 12 Lead EKGon 02-14-2025 12 Lead EKG [facility] Cardiovascular Services [address] [place] [address] 12 Lead EKG 02/14/25 1207 MR#: [id number] Acct: [id number] Name: ANGLEINA ORTEGA Eric Rep #: [id number] : 1950 74 From: Keshawn Bloom MD Attending Dr: Status: DEP ER Ordering Dr: Len Ahumada MD Date: 02/14/25 Location: ED Sex: F C Admitted: Test Reason : CHEST PRESSURE Blood Pressure : */* mmHG Vent. Rate : 83 BPM Atrial Rate : 83 BPM P-R Int : 132 ms QRS Dur : 86 ms QT Int : 382 ms P-R-T Axes : 69 -62 44 degrees QTcB Int : 448 ms Sinus rhythm with marked sinus arrhythmia Left axis deviation Inferior infarct (cited on or before 22-Aug-2017) Abnormal ECG Confirmed by Keshawn Bloom ([id number]), editor & co founder SAVI BARRAZA ([id number]) on 02/15/2025 11:08:44 AM Referred By: BB/UG Confirmed By: Keshawn Bloom 02/15/25 1108 Date Keshawn Bloom MD CC: Dr. Len Ahumada MD; Dr. Scarlet Deleon DO Signed Normal [facility] Absolute lymphocyte countOrd ered By: Len Ahumada on 02-14-2025 Lymphocytes Auto (Unsp spec) [#/Vol] 1.94 10*3/uL 0.83-4.51 [facility] Absolute neutrophil countOrd ered By: Len Ahumada on 02-14-2025 Neutrophils (Bld) [#/Vol] 5.1 10*3/uL 2.0-7.7 [facility] Anion gap in Serum or Plasma Ordered By: Len Ahumada on 02-14-2025 Anion gap [Moles/Vol] 13 mmol/L 09-09 [facility] Automated lymphocyte count a s percentage of total leukocytesOrdered By: Len Ahumada on 02-14-2025 Lymphocytes/100 WBC Auto (Unsp spec) 25.0 % [facility] BUN/creatinine ratioOrdered By: Len Ahumada on 02-14-2025 Urea nitrogen/Creatinine [Mass ratio] 19.4 mg/mg 02-14 [facility] Basic Metabolic Profile (BMP )on 02-14-2025 BUN/CRE 19.4 RATIO Normal 02-14 [facility] Comment on above: Performed By: #### L 100.0100, L501.4021, L500.2500 ####[facility] [address] [place], [place], [address] Calcium [Mass/Vol] 9.7 mg/dL Normal 7.6-11.0 [facility] Comment on above: Performed By: #### L 100.0100, L501.4021, L500.2500 ####[facility] [address] [place], [address] Chloride [Moles/Vol] 102 mmol/L Normal 98-108 [facility] Comment on above: Performed By: #### L 100.0100, L501.4021, L500.2500 ####[facility] [address] [place], [address] CO2 [Moles/Vol] 23.1 mmol/L Normal 21.0-32.0 [facility] Comment on above: Performed By: #### L 100.0100, L501.4021, L500.2500 ####[facility] [address] [place], [address] Creatinine [Mass/Vol] 0.66 mg/dL Low 0.70-1.20 [facility] Comment on above: Performed By: #### L 100.0100, L501.4021, L500.2500 ####[facility] [address] [place], [address] ECRCL 56.88 ml/min Normal 50-250 [facility] Comment on above: Performed By: #### L 100.0100, L501.4021, L500.2500 ####[facility] [address] [place], [address] GAP 13 Normal 5-15 [facility] Comment on above: Performed By: #### L 100.0100, L501.4021, L500.2500 ####[facility] [address] [place], [address] GFR/1.73 sq M.predicted among non-blacks MDRD (S/P/Bld) [Vol rate/Area] 91 mL/min/{1.73_m2} Normal >60 [facility] Comment on above: Result Comment: mL/m in/1.73m2 CKD-EPI Creatinine Equation (2020) Performed By: #### L 100.0100, L501.4021, L500.2500 ####[facility] [address] [place], [address] Glucose [Mass/Vol] 113 mg/dL High 70-99 [facility] Comment on above: Performed By: #### L 100.0100, L501.4021, L500.2500 ####[facility] [address] [place], [address] Potassium [Moles/Vol] 4.1 mmol/L Normal 3.3-5.1 [facility] Comment on above: Performed By: #### L 100.0100, L501.4021, L500.2500 ####[facility] [address] [place], [address] Sodium [Moles/Vol] 138 mmol/L Normal 133-145 [facility] Comment on above: Performed By: #### L 100.0100, L501.4021, L500.2500 ####[facility] [address] [place], [address] Urea nitrogen [Mass/Vol] 13 mg/dL Normal 4-19 [facility] Comment on above: Performed By: #### L 100.0100, L501.4021, L500.2500 ####[facility] [address] [place], [address] Basophil percentageOrdered B y: Len Ahumada on 02-14-2025 Basophils/100 WBC (Bld) 0.6 % 0-1 [facility] CBC W/Diff, Automatedon 10-2 0 Absolute Lymph 1.94 X10 3/uL Normal 0.83-4.51 [facility] Comment on above: Performed By: #### L 100.0100, L501.4021, L500.2500 ####[facility] [address] [place], [address] Absolute Neut 5.1 X10 3/uL Normal 2.0-7.7 [facility] Comment on above: Performed By: #### L 100.0100, L501.4021, L500.2500 ####[facility] [address] [place], [address] Basophils/100 WBC (Bld) 0.6 % Normal 0-1 [facility] Comment on above: Performed By: #### L 100.0100, L501.4021, L500.2500 ####[facility] [address] [place], [address] Eosinophils/100 WBC (Bld) 1.3 % Normal 0-5 [facility] Comment on above: Performed By: #### L 100.0100, L501.4021, L500.2500 ####[facility] [address] [place], [address] Erythrocyte distribution width (RBC) [Ratio] 12.3 % Normal 11.6-14.6 [facility] Comment on above: Performed By: #### L 100.0100, L501.4021, L500.2500 ####[facility] [address] [place], [address] Hematocrit (Bld) [Volume fraction] 39.5 % Normal 37-47 [facility] Comment on above: Performed By: #### L 100.0100, L501.4021, L500.2500 ####[facility] [address] [place], [address] Hemoglobin (Bld) [Mass/Vol] 13.2 g/dL Normal 12.0-15.0 [facility] Comment on above: Performed By: #### L 100.0100, L501.4021, L500.2500 ####[facility] [address] [place], [address] IG% 0.300 Normal 0.0-0.9 [facility] Comment on above: Result Comment: IG% - Immature Granulocytes (promyelocytes, myelocytes and metamyelocytes) > 1% indicates that a LEFT SHIFT is Present. Performed By: #### L 100.0100, L501.4021, L500.2500 ####[facility] [address] [place], [address] Lymphocytes/100 WBC (Bld) 25.0 % Normal 19-41 [facility] Comment on above: Performed By: #### L 100.0100, L501.4021, L500.2500 ####[facility] [address] [place], [address] MCH (RBC) [Entitic mass] 32.0 pg Normal 27.0-32.0 [facility] Comment on above: Performed By: #### L 100.0100, L501.4021, L500.2500 ####[facility] [address] [place], [address] MCHC (RBC) [Mass/Vol] 33.4 g/dL Normal 32-36 [facility] Comment on above: Performed By: #### L 100.0100, L501.4021, L500.2500 ####[facility] [address] [place], [address] MCV (RBC) [Entitic vol] 95.9 fL Normal 81-99 [facility] Comment on above: Performed By: #### L 100.0100, L501.4021, L500.2500 ####[facility] [address] [place], [address] Monocytes/100 WBC (Bld) 7.5 % Normal 0-10 [facility] Comment on above: Performed By: #### L 100.0100, L501.4021, L500.2500 ####[facility] [address] [place], [address] Neutrophils/100 WBC (Bld) 65.3 % Normal 47-70 [facility] Comment on above: Performed By: #### L 100.0100, L501.4021, L500.2500 ####[facility] [address] [place], [address] Nucleated RBC (Bld) [#/Vol] 0 10*3/uL Normal 0-5 [facility] Comment on above: Performed By: #### L 100.0100, L501.4021, L500.2500 ####[facility] [address] [place], [address] Platelet mean volume (Bld) [Entitic vol] 9.3 fL Normal 6.2-12.0 [facility] Comment on above: Performed By: #### L 100.0100, L501.4021, L500.2500 ####[facility] [address] [place], [address] Platelets (Bld) [#/Vol] 306 10*3/uL Normal 150-450 [facility] Comment on above: Performed By: #### L 100.0100, L501.4021, L500.2500 ####[facility] [address] [place], [address] RBC (Bld) [#/Vol] 4.12 10*6/uL Low 4.2-5.4 [facility] Comment on above: Performed By: #### L 100.0100, L501.4021, L500.2500 ####[facility] [address] [place], [address] RDW SD 43.8 fl Normal 35.1-43.9 [facility] Comment on above: Performed By: #### L 100.0100, L501.4021, L500.2500 ####[facility] [address] [place], [address] WBC (Bld) [#/Vol] 7.8 10*3/uL Normal 4.4-11.0 [facility] Comment on above: Performed By: #### L 100.0100, L501.4021, L500.2500 ####[facility] [address] [place], [place], [address] Carbon dioxide, total [Moles /volume] in Central venous bloodOrdered By: Len Ahumada on 02-14-2025 CO2 [Moles/Vol] 23.1 mmol/L 21.0-32.0 [facility] Chest 1 View (Portable)on Chest 1 View (Portable) [facility] Imaging Services [address] [place] [address] Chest 1 View (Portable) MR#: [id number] Acct: [id number] Name: ANGELINA ORTEGA Rep #: [id number] : 1950 F 74 From: Taras rojas MD PCP: Dr. Scarlet Deleon DO Status: REG ER Study: Chest 1 View (Portable) Date of Exam: 02/14/25 Exam# [id number] Ordering Dr: Len Ahumada MD PROCEDURE: CHEST 1 VIEW (PORTABLE) 02/14/2025 REASON FOR EXAM: CHEST PAIN TECHNIQUE: Frontal view of the chest. COMPARISON: None FINDINGS: Hardware: EKG electrodes are seen. Heart: The heart is nonenlarged. Lungs: Hyperinflation. The lungs are clear. Bones: The bones are unremarkable. RAD/Chest 1 View (Portable) IMPRESSION: No Acute Findings. Reading Location: [facility] CC: Dr. Len Ahumada MD; Dr. Scarlet Deleon DO Special Skills Officer: Signed Normal [facility] Chloride assayOrdered By: Brayan Ahumada on 02-14-2025 Chloride [Moles/Vol] 102 mmol/L 98-108 [facility] Electrocardiogram reportOrde red By: Keshawn Bloom on 02-14-2025 EKG study [facility] Cardi[facility] Services [address] [place] [address] 12 Lead EKG 02/14/25 1207 MR#: [id number] Acct: [id number] Name: ANGELINA ORTEGA Rep #:[id number] : 1950 74 From: Keshawn johnson MD Attending Dr: Status: DEP E R Ordering Dr: Len Ahumada MD Date: 02/14/25 Location: ED Sex: F C Admitted: Test Reason : CHEST PRESSURE Blood Pressure : */* mmHG Vent. Rate : 83 BPM Atrial Rate : 83 BPM P-R Int : 132 ms QRS Dur : 86 ms QT Int : 382 ms P-R-T Axes : 69 -62 44 degrees QTcB Int : 448 ms Sinus rhythm with marked sinus arrhythmia Left axis deviation Inferior infarct (cited on or before 22-Aug-2017) Abnormal ECG Confirmed by Keshawn Bloom ([id number]), editor & co founder SAVI BARRAZA ([id number]) on 1:08:44 AM Referred By: BB/DAQUAN Confirmed By: Keshawn Bloom 02/15/25 1108 Date _ Keshawn Bloom MD CC: Dr. Len Ahumada MD; Dr. Scarlet Deleon DO ~ Signed [facility] Other Phone: Emergency Department Summary on 02-14-2025 Emergency Department Summary [facility] Medical Records Department [address] [place] [address] Emergency Department Summary 02/14/25 MR#: [id number] Acct: [id number] Name: ANGELINA ORTEGA Rep #: [id number] : 1950 74 From: Len Ahumada MD PCP: Dr. Scarlet Deleon DO Status:REG ER Location: ED HPI History of Present Illness Chief Complaint: Chest Pain Informant: patient Narrative Narrative: Patient is a 74-year-old female with a history of coronary vasospasm presenting with elevated blood pressure, chest tightness, leg weakness, and cephalic pressure. Patient is accompanied by family, who is supplementing history. - Reports sudden onset of symptoms while sitting at home, prompting her to check her blood pressure. - Initial BP reading was 134 mmHg; later readings increased to 154/95 mmHg and 180/91 mmHg upon arrival to the ED. - Usual BP is around 110 mmHg or lower due to coronary vasospasm management. - Describes chest discomfort as a choking feeling, which she has experienced since her coronary vasospasm diagnosis in 2017. - Associated symptoms include dizziness, leg weakness, and a funny feeling in her head. - Sister reports patient also experienced dyspnea and cough during the episode. - Denies current dyspnea, abdominal pain, or emesis; reports mild nausea. - Symptoms began at 1055 and lasted approximately one hour. - Denies recent changes in antihypertensive medication; missed one dose the night before last but took her medication last night. [facility] Medical History Pure hypercholesterolemia Essential hypertension Coronary vasospasm Abnormal EKG Chest pain Carpal tunnel syndrome Right knee pain Depression History of colon cancer History of melanoma History of skin cancer Osteoporosis Migraine GERD (gastroesophageal reflux disease) Home Medications ???Medication ???Instructions ???Recorded ???Last Taken ???Type multivitamin 1 ea PO DAILY 04/14/15 02/14/25 Hi story aspirin 81 mg tablet,delayed 81 mg PO QMWF 07/24/20 02/14/25 Hi story release (Adult Aspirin Regimen) cholecalciferol (vitamin D3) 50 50 mcg PO DAILY 07/24/20 02/13/25 History mcg (2,000 unit) tablet nitroglycerin 0.4 mg sublingual 0.4 mg sublingual Q5-15M PRN chest 03/04/24 Unknown Rx tablet pain #25 tabs denosumab 60 mg/mL subcutaneous 60 mg subcut [id number] 05/21/24 History syringe (Prolia) atorvastatin 10 mg tablet 10 mg PO DAILY #90 TABLETS 09/22/ 5 02/14/25 Rx amlodipine 5 mg tablet (Norvasc) 5 mg PO DAILY #90 tabs 02/07/25 Rx magnesium 250 mg tablet 250 mg PO QHS 02/14/25 02/13/25 Hi story Allergy/AdvReac Type Severity Reaction Status Date / Time No Known Allergies Allergy Verified 02/14/25 11:58 Family History Mother Skin cancer Brother Hypertension Brother Hypertension Sister Hypertension Daughter Diabetes Surgical History History of back surgery (02/22/21) History of left heart catheterization (03/17/18) History of colonoscopy (05/2023) History of bowel resection History of bladder repair surgery History of carpal tunnel release of both wrists History of hysterectomy Social History Smoking Status: Never smoker alcohol intake: never substance use type: does not use caffeine: Yes Type: coffee Number of servings: 1 ROS ROS ED Constitutional Constitutional ED: Denies chills or fever(s) Eyes Eyes: Denies change in vision or diplopia ENT ENT ED: Denies rhinorrhea or sore throat Cardiovascular Cardiovascular: Reports as per HPI and chest pain; Denies palpitations Respiratory/Chest Respiratory/Chest: Reports dyspnea; Denies cough Gastrointestinal Gastrointestinal: Reports nausea; Denies abdominal pain, diarrhea or vomiting Genitourinary Genitourinary ED: Denies dysuria or hematuria Musculoskeletal Musculoskeletal: Denies back pain or neck pain Integumentary Denies abscess or rash Neurologic Neurologic: Reports as per HPI; Denies abnormal gait, headache(s), paresthesias, syncope or weakness Psychiatric Psychiatric: Denies suicidal thoughts EXAM Physical Exam Const Vital Signs: 02/14/25 11:58 02/14/25 12:16 02/14/25 12:16 Temperature 97.8 F Temperature Source Oral Pulse Rate 92 Respiratory Rate 18 Respiratory Effort Normal Normal Respiratory Pattern Normal Blood Pressure 180/94 H Blood Pressure Mean 122 Pulse Ox 100 Oxygen Delivery Method Room Air 02/14/25 13:04 02/14/25 14:00 02/14/25 15:00 Temperature Temperature Source Pulse Rate 80 73 69 Respiratory Rate 20 H 14 17 Respiratory Effort Respiratory Pa (more content not included)... Normal [facility] Eosinophil percentageOrdered By: Len Ahumada on 02-14-2025 Eosinophils/100 WBC (Bld) 1.3 % 0-5 [facility] Erythrocyte distribution wid th ratioOrdered By: Len Ahumada on 02-14-2025 Erythrocyte distribution width (RBC) [Ratio] 12.3 % 11.6-14.6 [facility] Erythrocyte distribution wid th standard deviationOrdered By: Len Ahumada on 02-14-2025 Erythrocyte distribution width (RBC) [Ratio] 43.8 fl 35.1-43.9 [facility] Glomerular filtration rate ( GFR) estimation/1.73 sq m using serum, plasma, or whole bOrdered By: Len Ahumada on 02-14-2025 GFR/1.73 sq M.predicted among non-blacks MDRD (S/P/Bld) [Vol rate/Area] 91 mL/min/{1.73_m2} >60 [facility] Comment on above: mL/min/1.73m2 CKD-EP I Creatinine Equation (2020) Hematocrit Auto (Bld) [Volum e fraction]Ordered By: Len Ahumada on 02-14-2025 Hematocrit (Bld) [Volume fraction] 39.5 % 37-47 [facility] Hemoglobin measurementOrdere d By: Len Ahumada on 02-14-2025 Hemoglobin (Bld) [Mass/Vol] 13.2 g/dL 12.0-15.0 [facility] Immature granulocytes/100 WB C Auto (Bld)Ordered By: Len Ahumada on 02-14-2025 Immature granulocytes/100 WBC (Bld) 0.300 % 0.0-0.9 [facility] Comment on above: IG% - Immature Granu locytes (promyelocytes, myelocytes and metamyelocytes) > 1% indicates that a LEFT SHIFT is Present. L501.4021on 02-14-2025 Trop T High Sen 6 ng/L Normal <=14 [facility] Comment on above: Performed By: #### L 100.0100, L501.4021, L500.2500 ####[facility] [address] [place], [place], [id number] MCV (mean corpuscular volume ) determinationOrdered By: Len Ahumada on 02-14-2025 MCV (RBC) [Entitic vol] 95.9 fL 81-99 [facility] Mean corpuscular hemoglobin (MCH) determinationOrdered By: Len Ahumada on 02-14-2025 MCH (RBC) [Entitic mass] 32.0 pg 27.0-32.0 [facility] Mean corpuscular hemoglobin concentration (MCHC) determinationOrdered By: Len Ahumada on 02-14-2025 MCHC (RBC) [Mass/Vol] 33.4 g/dL 32-36 [facility] Mean platelet volume determi nationOrdered By: Len Ahumada on 02-14-2025 Platelet mean volume (Bld) [Entitic vol] 9.3 fL 6.2-12.0 [facility] Monocyte percentageOrdered B y: Len Ahumada on 02-14-2025 Monocytes/100 WBC (Bld) 7.5 % 0-10 [facility] Neutrophil percentageOrdered By: Len Ahumada on 02-14-2025 Neutrophils/100 WBC (Bld) 65.3 % 47-70 [facility] Nucleated red blood cell per centageOrdered By: Len Ahumada on 02-14-2025 Nucleated RBC/100 WBC (Bld) [Ratio] 0 % 0-5 [facility] Platelet countOrdered By: Brayan Ahumada on 02-14-2025 Platelets (Bld) [#/Vol] 306 10*3/uL 150-450 [facility] Potassium measurement (mass/ volume)Ordered By: Len Ahumada on 02-14-2025 Potassium (Unsp spec) [Mass/Vol] 4.1 mmol/L 3.3-5.1 [facility] RBC Auto (Bld) [#/Vol]Ordere d By: Len Ahumada on 02-14-2025 RBC (Bld) [#/Vol] 4.12 10*6/uL Low 4.2-5.4 [facility] Serum creatinine measurement (mass/volume)Ordered By: Len Ahumada on 02-14-2025 Creatinine [Mass/Vol] 0.66 mg/dL Low 0.70-1.20 [facility] Serum glucose measurement (m ass/volume)Ordered By: Len Ahumada on 02-14-2025 Glucose [Mass/Vol] 113 mg/dL High 70-99 [facility] Serum or plasma calcium venita urement (mass/volume)Ordered By: Len Ahumada on 02-14-2025 Calcium [Mass/Vol] 9.7 mg/dL 7.6-11.0 [facility] Serum or plasma urea nitroge n measurement (mass/volume)Ordered By: Len Ahumada on 02-14-2025 Urea nitrogen [Mass/Vol] 13 mg/dL 4-19 [facility] Sodium levelOrdered By: Abraham Ahumada on 02-14-2025 Sodium [Moles/Vol] 138 mmol/L 133-145 [facility] Troponin T HS 2 HRon 025 Trop T High Sen 12 ng/L Normal <=14 [facility] Comment on above: Performed By: #### L 499.0042 #### [facility] [address] [place], [place], [address] Troponin T HS 4 HRon 025 Trop T High Sen Normal <=14 [facility] Comment on above: Result Comment: Canc elled via OM: Order cancelled - Patient discharged Performed By: #### L 499.0043 #### [facility] [address] [place], [place], [address] Troponin T.cardiac [Mass/vol ume] in Serum or Plasma by High sensitivity methodOrdered By: Len Ahumada on 02-14-2025 Troponin T.cardiac High sensitivity method [Mass/Vol] 12 ng/L <14 [facility] Troponin T.cardiac High sensitivity method [Mass/Vol] 6 ng/L <14 [facility] White blood cell (WBC) count Ordered By: Len Ahumada on 02-14-2025 WBC (Bld) [#/Vol] 7.8 10*3/uL 4.4-11.0 [facility] Magnetic resonance imaging r eportOrdered By: Jarod Hogan on 12-30-2024 Study report [facility] [address] [place], [place] [address] Spine Lumbar W/WO Contrast MR#: [id number] Acct: [id number] Name: ANGELINA ORTEGA Rep #: [id number] : 1950 F 74 From: Gonzalo Hogan MD PCP: Dr. Scarlet Deleon, DO Status: REG CLI Study:Spine Lumbar W/WO Contrast Date of Exa m: 12/29/24 Exam# [id number] Ordering Dr: Eva Deleon sa, DO PROCEDURE: SPINE LUMBAR W/WO CONTRAST 12/29/2024 REASON FOR EXAM: H/O EPENDYMOMA LUMBAR SPINE, RADICULOPATHY RIGHT LEG TECHNIQUE: Procedure Code: MRISPLWW Modality: MR Procedure: SPINE LUMBAR W/WO CONTRAST Multiplanar and multisequence images were obtained without and with intravenous gadolinium-based contrast administration. CONTRAST: Monet scan VOLUME: 14 mL COMPARISON: 11/24/2023 FINDINGS: There is normal lumbar vertebral body height and alignment. There is no subluxation or compression deformity. No intramedullary or extramedullary masses are identified. There is no enhancement after the administration of gadolinium. Dorsal decompression at L1-2 and L2-3 for prior resection. No retroperitoneal or paravertebral mass. Mild canal narrowing at L4-5. Facet and ligamentous hypertrophy present. MRI/Spine Lumbar W/WO Contrast IMPRESSION: Mild degenerative changes. No recurrent tumor Reading Location: [id number] CC: Dr. Scarlet Deleon DO ~ Special Skills Officer: Signed [facility] Breast imaging reportOrdered By: Taras Lowery on 12-29-2024 Study report [facility] [address] [place], [place] [id number] SCRN MAMM (CAD)W/NADINE BILAT MR#: [id number] Acct: [id number] Name: ANGELINA ORTEGA Rep #: [id number] : 1950 F 74 From: Avinash Lowery MD PCP: Dr. Scarlet Deleon DO Status: REG CLI Study:SCRN MAMM (CAD)W/NADINE BILAT Date of Exa m: 12/29/24 Exam# [id number] Ordering Dr: Eva Deleon sa, DO EXAM: SCRN MAMM (CAD)W/NADINE BILAT DATE: 12/29/2024 CLINICAL HISTORY: F, Age 74 y/o , SCREENING No family history. History of prior bilateral excisional breast biopsies. TECHNIQUE: Procedure Code: BISMWCADBTOM Modality: MG Procedure: SCRN MAMM (CAD)W/NADINE BILAT COMPARISON: Prior exam(s) dated November 25, 2023.. FINDINGS: TISSUE DENSITY: The breasts are heterogeneously dense, which may obscure small masses. Bilateral Breast Mammographic Findings: No significant masses, calcifications or other abnormalities are identified. Stable calcified nodule in the deep upper lateral aspect of the left breast. No suspicious masses, areas of developing architectural distortion, or suspicious calcifications. There has been no significant interval change. BI/SCRN MAMM (CAD)W/NADINE BILAT IMPRESSION: Stable bilateral screening mammogram. OVERALL FINAL ASSESSMENT BI-RADS 2: BENIGN RECOMMENDATION: Routine annual follow-up in 1 Year A letter with findings and recommendations will be mailed to the patient. Reading Location: [place] [address] CC: Dr. Scarlet Deleon DO ~ Special Skills Officer: Signed [facility] SCRN MAMM (CAD)W/NADINE BILATo n 12-29-2024 SCRN MAMM (CAD)W/NADINE BILAT [facility] [address] [place] [address] SCRN MAMM (CAD)W/NADINE BILAT MR#: [id number] Acct: [id number] Name: ANGELINA ORTEGA Rep #: [id number] : 1950 F 74 From: Taras rojas MD PCP: Dr. Scarlet Deleon DO Status: [facility] Study: SCRN MAMM (CAD)W/NADINE BILAT Date of Exam: 07/20 Exam# [id number] Ordering Dr: Scarlet Deleon DO EXAM: SCRN MAMM (CAD)W/NADINE BILAT DATE: 12/29/2024 CLINICAL HISTORY: F, Age 74 y/o , SCREENING No family history. History of prior bilateral excisional breast biopsies. TECHNIQUE: Procedure Code: BISMWCADBTOM Modality: MG Procedure: SCRN MAMM (CAD)W/NADINE BILAT COMPARISON: Prior exam(s) dated November 25, 2023.. FINDINGS: TISSUE DENSITY: The breasts are heterogeneously dense, which may obscure small masses. Bilateral Breast Mammographic Findings: No significant masses, calcifications or other abnormalities are identified. Stable calcified nodule in the deep upper lateral aspect of the left breast. No suspicious masses, areas of developing architectural distortion, or suspicious calcifications. There has been no significant interval change. BI/SCRN MAMM (CAD)W/NADINE BILAT IMPRESSION: Stable bilateral screening mammogram. OVERALL FINAL ASSESSMENT BI-RADS 2: BENIGN RECOMMENDATION: Routine annual follow-up in 1 Year A letter with findings and recommendations will be mailed to the patient. Reading Location: [place] [address] CC: Dr. Scarlet Deleon DO Special Skills Officer: Signed Normal [facility] Spine Lumbar W/WO Contraston 12-29-2024 Spine Lumbar W/WO Contrast [facility] [address] [place] [id number] Spine Lumbar W/WO Contrast MR#: [id number] Acct: [id number] Name: ANGELINA ORTEGA Rep #: [id number] : 1950 F 74 From: Jarod Hogan MD PCP: Dr. Scarlet Deleon DO Status: REG CLI Study: Spine Lumbar W/WO Contrast Date of Exam: 07/20 Exam# [id number] Ordering Dr: Scarlet Deleon DO PROCEDURE: SPINE LUMBAR W/WO CONTRAST 12/29/2024 REASON FOR EXAM: H/O EPENDYMOMA LUMBAR SPINE, RADICULOPATHY RIGHT LEG TECHNIQUE: Procedure Code: MRISPLWW Modality: MR Procedure: SPINE LUMBAR W/WO CONTRAST Multiplanar and multisequence images were obtained without and with intravenous gadolinium-based contrast administration. CONTRAST: Monet scan VOLUME: 14 mL COMPARISON: 11/24/2023 FINDINGS: There is normal lumbar vertebral body height and alignment. There is no subluxation or compression deformity. No intramedullary or extramedullary masses are identified. There is no enhancement after the administration of gadolinium. Dorsal decompression at L1-2 and L2-3 for prior resection. No retroperitoneal or paravertebral mass. Mild canal narrowing at L4-5. Facet and ligamentous hypertrophy present. MRI/Spine Lumbar W/WO Contrast IMPRESSION: Mild degenerative changes. No recurrent tumor Reading Location: [id number] CC: Dr. Scarlet Deleon, Special Skills Officer: Signed Normal [facility] Anion gap in Serum or Plasma Ordered By: Scarlet Deleon on 10-25-2024 Anion gap [Moles/Vol] 9 mmol/L 5-15 [facility] BUN/creatinine ratioOrdered By: Scarlet Deleon on 10-25-2024 Urea nitrogen/Creatinine [Mass ratio] 26.3 mg/mg High 10-20 [facility] Bilirubin, totalOrdered By: Scarlet Deleon on 10-25-2024 Bilirubin [Mass/Vol] 0.47 mg/dL 0.00-1.30 [facility] Carbon dioxide, total [Moles /volume] in Central venous bloodOrdered By: Scarlet Deleon on 10-25-2024 CO2 [Moles/Vol] 27.6 mmol/L 21.0-32.0 [facility] Chloride assayOrdered By: Eva Deleon on 10-25-2024 Chloride [Moles/Vol] 104 mmol/L 98-108 [facility] Comprehensive Metabolic Prof ilon 10-25-2024 Albumin [Mass/Vol] 4.5 g/dL Normal 3.4-4.8 [facility] Comment on above: Performed By: #### L 503.6150, L503.0106, L501.5200, L503.6550, L500.4050 #### [facility] [address] [place], [address] Albumin/Globulin [Mass ratio] 1.6 {ratio} Normal 0.9-2.4 [facility] Comment on above: Performed By: #### L 503.6150, L503.0106, L501.5200, L503.6550, L500.4050 #### [facility] [address] [place], [address] ALK PHOS 64 U/L Normal 35-104 [facility] Comment on above: Performed By: #### L 503.6150, L503.0106, L501.5200, L503.6550, L500.4050 #### [facility] [address] [place], [address] ALT [Catalytic activity/Vol] 36 U/L High <=34 [facility] Comment on above: Performed By: #### L 503.6150, L503.0106, L501.5200, L503.6550, L500.4050 #### [facility] [address] [place], [address] AST [Catalytic activity/Vol] 35 U/L High <=31 [facility] Comment on above: Performed By: #### L 503.6150, L503.0106, L501.5200, L503.6550, L500.4050 #### [facility] [address] [place], [address] Bilirubin [Mass/Vol] 0.47 mg/dL Normal 0.00-1.30 [facility] Comment on above: Performed By: #### L 503.6150, L503.0106, L501.5200, L503.6550, L500.4050 #### [facility] [address] [place], [address] BUN/CRE 26.3 RATIO High 10-20 [facility] Comment on above: Performed By: #### L 503.6150, L503.0106, L501.5200, L503.6550, L500.4050 #### [facility] [address] [place], [address] Calcium [Mass/Vol] 10.1 mg/dL Normal 7.6-11.0 [facility] Comment on above: Performed By: #### L 503.6150, L503.0106, L501.5200, L503.6550, L500.4050 #### [facility] [address] [place], [address] Chloride [Moles/Vol] 104 mmol/L Normal 98-108 [facility] Comment on above: Performed By: #### L 503.6150, L503.0106, L501.5200, L503.6550, L500.4050 #### [facility] [address] [place], [address] CO2 [Moles/Vol] 27.6 mmol/L Normal 21.0-32.0 [facility] Comment on above: Performed By: #### L 503.6150, L503.0106, L501.5200, L503.6550, L500.4050 #### [facility] [address] [place], [address] Creatinine [Mass/Vol] 0.69 mg/dL Low 0.70-1.20 [facility] Comment on above: Performed By: #### L 503.6150, L503.0106, L501.5200, L503.6550, L500.4050 #### [facility] [address] [place], [address] GAP 9 Normal 5-15 [facility] Comment on above: Performed By: #### L 503.6150, L503.0106, L501.5200, L503.6550, L500.4050 #### [facility] [address] [place], [address] GFR/1.73 sq M.predicted among non-blacks MDRD (S/P/Bld) [Vol rate/Area] 91 mL/min/{1.73_m2} Normal >60 [facility] Comment on above: Result Comment: mL/m in/1.73m2 CKD-EPI Creatinine Equation (2020) Performed By: #### L 503.6150, L503.0106, L501.5200, L503.6550, L500.4050 #### [facility] [address] [place], [address] Globulin (S) [Mass/Vol] 2.8 g/dL Normal 2.2-4.2 [facility] Comment on above: Performed By: #### L 503.6150, L503.0106, L501.5200, L503.6550, L500.4050 #### [facility] [address] [place], [address] Glucose [Mass/Vol] 103 mg/dL High 70-99 [facility] Comment on above: Performed By: #### L 503.6150, L503.0106, L501.5200, L503.6550, L500.4050 #### [facility] [address] [place], [address] Potassium [Moles/Vol] 4.6 mmol/L Normal 3.3-5.1 [facility] Comment on above: Performed By: #### L 503.6150, L503.0106, L501.5200, L503.6550, L500.4050 #### [facility] [address] [place], [address] Sodium [Moles/Vol] 140 mmol/L Normal 133-145 [facility] Comment on above: Performed By: #### L 503.6150, L503.0106, L501.5200, L503.6550, L500.4050 #### [facility] [address] [place], [address] T PROT 7.3 g/dL Normal 5.9-8.4 [facility] Comment on above: Performed By: #### L 503.6150, L503.0106, L501.5200, L503.6550, L500.4050 #### [facility] [address] [place], [address] Urea nitrogen [Mass/Vol] 18 mg/dL Normal 4-19 [facility] Comment on above: Performed By: #### L 503.6150, L503.0106, L501.5200, L503.6550, L500.4050 #### [facility] [address] [place], [address] Ferritinon 10-25-2024 Ferritin [Mass/Vol] 154 ng/mL Normal 22-378 [facility] Comment on above: Performed By: #### L 503.6150, L503.0106, L501.5200, L503.6550, L500.4050 ####[facility] [address] [place], [address] Glomerular filtration rate ( GFR) estimation/1.73 sq m using serum, plasma, or whole bOrdered By: Scarlet Deleon on 10-25-2024 GFR/1.73 sq M.predicted among non-blacks MDRD (S/P/Bld) [Vol rate/Area] 91 mL/min/{1.73_m2} >60 [facility] Comment on above: mL/min/1.73m2 CKD-EP I Creatinine Equation (2020) Ironon 10-25-2024 Iron [Mass/Vol] 109 ug/dL Normal 50-170 [facility] Comment on above: Performed By: #### L 503.6150, L503.0106, L501.5200, L503.6550, L500.4050 ####[facility] [address] [place], [place], [address] Iron measurement (mass/mass) Ordered By: Scarlet Deleon on 10-25-2024 Iron (Unsp spec) [Mass/Mass] 109 ug/dL 50-170 [facility] - Chemistry and C hemistry - challengeOrdered By: Scarlet Deleon on 10-25-2024 AST [Catalytic activity/Vol] 35 U/L High <32 [facility] Magnesiumon 10-25-2024 Magnesium [Mass/Vol] 2.5 mg/dL High 1.5-2.2 [facility] Comment on above: Performed By: #### L 503.6150, L503.0106, L501.5200, L503.6550, L500.4050 #### [facility] [address] [place], [address] Magnesium measurement (mass/ volume)Ordered By: Scarlet Deleon on 10-25-2024 Magnesium (Unsp spec) [Mass/Vol] 2.5 mg/dL High 1.5-2.2 [facility] Potassium measurement (mass/ volume)Ordered By: Scarlet Deleon on 10-25-2024 Potassium (Unsp spec) [Mass/Vol] 4.6 mmol/L 3.3-5.1 [facility] Serum creatinine measurement (mass/volume)Ordered By: Scarlet Deleon on 10-25-2024 Creatinine [Mass/Vol] 0.69 mg/dL Low 0.70-1.20 [facility] Serum globulin measurementOr dered By: Scarlet Deleon on 10-25-2024 Globulin (S) [Mass/Vol] 2.8 g/dL 2.2-4.2 [facility] Serum glucose measurement (m ass/volume)Ordered By: Scarlet Deleon on 10-25-2024 Glucose [Mass/Vol] 103 mg/dL High 70-99 [facility] Serum or plasma alanine russell otransferase (ALT) measurementOrdered By: Scarlet Deleon on 10-25-2024 ALT [Catalytic activity/Vol] 36 U/L High <35 [facility] Serum or plasma albumin evnita urement (mass/volume)Ordered By: Scarlet Deleon on 10-25-2024 Albumin [Mass/Vol] 4.5 g/dL 3.4-4.8 [facility] Serum or plasma albumin/glob ulin mass ratioOrdered By: Scarlet Deleon on 10-25-2024 Albumin/Globulin [Mass ratio] 1.6 {ratio} 0.9-2.4 [facility] Serum or plasma alkaline raul sphatase measurementOrdered By: Scarlet Deleon on 10-25-2024 ALP [Catalytic activity/Vol] 64 U/L 35-104 [facility] Serum or plasma calcium venita urement (mass/volume)Ordered By: Scarlet Deleon on 10-25-2024 Calcium [Mass/Vol] 10.1 mg/dL 7.6-11.0 [facility] Serum or plasma ferritin surjit surement (mass/volume)Ordered By: Scarlet Deleon on 10-25-2024 Ferritin [Mass/Vol] 154 ng/mL 22-378 [facility] Serum or plasma urea nitroge n measurement (mass/volume)Ordered By: Scarlet Deleon on 10-25-2024 Urea nitrogen [Mass/Vol] 18 mg/dL 4-19 [facility] Sodium levelOrdered By: Scarlet Robbinsduane on 10-25-2024 Sodium [Moles/Vol] 140 mmol/L 133-145 [facility] Total proteinOrdered By: Marta Deleon on 10-25-2024 Protein [Mass/Vol] 7.3 g/dL 5.9-8.4 [facility] Vitamin B12on 10-25-2024 Cobalamin (Vitamin B12) [Mass/Vol] 690 pg/mL Normal 180-914 [facility] Comment on above: Performed By: #### L 503.6150, L503.0106, L501.5200, L503.6550, L500.4050 #### [facility] [address] [place], [address] Vitamin B12 ser/plasOrdered By: Scarlet Robbinsduane on 10-25-2024 Cobalamin (Vitamin B12) [Mass/Vol] 690 pg/mL 180-914 [facility] Echo Completeon 05-27-2024 Echo Complete [facility] [address] [place] [address] Echo Complete 05/27/24 1355 MR#: [id number] Acct: [id number] Name: ANGELINA ORTEGA Rep #: [id number] : 1950 74 From: Rashad Schmitz MD Attending Dr: OLIVER Ramos Status: REG CLI Ordering Dr: Renuka Holloway Date: 04/30 Location: CVS Sex: F C Admitted: Reason For Study: DYSPNEA Procedure This was a 2D Doppler, Color Flow transthoracic echocardiogram. Exam performed in department. Left Ventricle Normal LV size. Left ventricular systolic function is normal. The left ventricular ejection fraction is 55 %. No regional wall motion abnormalities noted. Right Ventricle Normal RV size. Normal systolic function. Atria Normal left atrium. Normal right atrium. Mitral Valve Normal mitral valve. Tricuspid Valve Normal tricuspid valve. Mild tricuspid valve insufficiency. Pulmonary artery systolic pressure is 32 mmHg. Aortic Valve Trisinus/trileaflet aortic valve. Mild (1+) aortic valve insufficiency. Pulmonic Valve Normal pulmonic valve. Great Vessels Normal aortic root. The pulmonary artery is normal size. Inferior vena cava collapse with respiration. Pericardium/Pleural No pericardial effusion. MMode/2D Measurements Calculations LVIDd: 4.1 cm IVSd: 0.94 cm LAV(MOD-sp4): 20.3 ml LVIDs: 2.6 cm LVPWd: 0.86 cm RVDd: 3.7 cm FS: 36.7 % ___ LVAd ap4: 21.8 cm2 SV(MOD-sp4): 23.8 ml SV(sp4-el): 26.4 ml LVLd ap4: 7.9 cm SI(MOD-sp4): 14.0 ml/m2 EDV(MOD-sp4): 49.5 ml EDV(sp4-el): 51.4 ml LVAs ap4: 14.4 cm2 LVLs ap4: 7.1 cm ESV(MOD-sp4): 25.7 ml ESV(sp4-el): 25.1 ml EF(MOD-sp4): 48.0 % EF(sp4-el): 51.3 % ___ LA A4 area: 10.3 cm2 RA A4 area: 13.5 cm2 Time Measurements MV dec time: 0.21 sec Doppler Measurements Calculations MV E max porter: 77.6 cm/sec Lat Peak E' Porter: 13.3 cm/sec Med Peak E' Porter: 5.3 cm/sec MV A max porter: 65.1 cm/sec E/E' lat: 5.8 E/E' med: 14.5 MV E/A: 1.2 ___ MV V2 max: 76.2 cm/sec Ao V2 max: 109.0 cm/sec MV max P.3 mmHg MV dec slope: 362.1 cm/sec2 Ao max P.8 mmHg MV V2 mean: 46.9 cm/sec Ao V2 mean: 79.2 cm/sec MV mean P.0 mmHg Ao mean P.8 mmHg MV V2 VTI: 18.3 cm Ao V2 VTI: 21.3 cm AV (velocity ratio): 1.0 ___ AI max porter: 486.2 cm/sec LV V1 max: 105.8 cm/sec PA V2 max: 73.1 cm/sec AI max P.6 mmHg LV V1 max P.5 mmHg PA V2 mean: 61.7 cm/sec AI dec slope: 269.2 cm/sec2 LV V1 mean P.5 mmHg AI P1/2t: 529.0 msec LV V1 mean: 74.4 cm/sec LV V1 VTI: 22.3 cm ___ TR max porter: 264.6 cm/sec TR max P.0 mmHg ECHO/Echo Complete Interpretation Summary Normal LV size. Left ventricular systolic function is normal. The left ventricular ejection fraction is 55 %. Mild (1+) aortic valve insufficiency. Pulmonary artery systolic pressure is 32 mmHg. Ordering Physician: Renuka Holloway Referring Physician: Renuka Holloway Performed By: Cecile Sen RCS 05/27/24 1520 Date Rashad Schmitz MD CC: Dr. Scarlet Deleon DO; OLIVER Ramos Date Dictated: 05/27/24 1355 Date Transcribed: 05/27/24 1520 Special Skills Officer: Signed Normal [facility] 12 Lead EKG performed by [facility] on 05-21-2024 12 Lead EKG performed by [facility] [address] [place] [address] 12 Lead EKG performed by [facility] 05/21/24 1101 MR#: [id number] Acct: [id number] Name: ANGELINA ORTEGA Rep #: [id number] : 1950 74 From: Renuka Ambrosio Attending Dr: OLIVER Ramos Status: DEP AMB Ordering Dr: Renuka Holloway Date: 04/29 08/20 Location: [facility] Sex: F C Admitted: BMS/12 Lead EKG performed by [facility] ECG Report Interpretation Sinus Rhythm Low voltage in limb leads. 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 ABNORMAL Electronically signed on 05/25/2024 at 09:57 by Rashad Schmitzwood Software Version [id number] 05/25/24 1000 Date Renuka BOYD CC: Dr. Scarlet Deleon, Date Dictated: 05/21/24 1101 Date Transcribed: 05/21/241100 Special Skills Officer: YEFRI Signed Normal [facility] Cardiology Visit Reporton Cardiology Visit Report [facility] [address] [place], [place] [address] OFFICE VISIT Date of Service: 05/21/24 MR#: [id number] Acct: [id number] Name: ANGELINA ORTEGA Rep #: [id number] : 1950 Provider: OLIVER Alford Age/Sex: 74/F Location: [facility] Status: Signed HPI HPI History of Present Illness Details: Angelina Ortega is a 74-year-old white female with a history of underlying coronary artery vasospasm, hyperlipidemia, and hypertension. She is here for an urgent visit. Her unexpectedly last week. Since then she has been noticing her heart is racing, she feels that she has a choking sensation in her throat. She is also having lightheadedness, shortness of breath and weakness at times. She is very concerned about her heart. EKG today demonstrates sinus rhythm. 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: No Is patient in pain?: No Allergies No Known Allergies Allergy (Unverified 05/21/24 11:09) Medications ???Medication ???Instructions ???Recorded ???Confirmed ???Type multivitamin 1 ea PO DAILY 04/14/15 05/21/24 History aspirin 81 mg tablet,delayed 81 mg PO QMWF 07/24/20 05/21/24 History release (Adult Aspirin Regimen) calcium carbonate 1,200 mg PO DAILY 07/24/20 05/21/24 History cholecalciferol (vitamin D3) 50 50 mcg PO DAILY 07/24/20 05/21/24 History mcg (2,000 unit) tablet atorvastatin 10 mg tablet 10 mg PO DAILY #90 TABLETS 12/03/23 05/21/24 Rx nitroglycerin 0.4 mg sublingual 0.4 mg sublingual Q5-15M PRN chest 03/04/24 05/21/24 Rx tablet pain #25 tabs amlodipine 5 mg tablet (Norvasc) 5 mg PO DAILY #90 tabs 04/19/24 05/21/24 Rx denosumab 60 mg/mL subcutaneous 60 mg subcut [id number] 05/21/24 05/21/24 History syringe (Prolia) Ejection fraction %: 65 Have you fallen in the past year?: No PFSH Medical History Pure hypercholesterolemia Essential hypertension Coronary vasospasm Abnormal EKG Chest pain Carpal tunnel syndrome Right knee pain Depression History of colon cancer History of melanoma History of skin cancer Osteoporosis Migraine GERD (gastroesophageal reflux disease) Surgical History History of back surgery (02/22/21) History of left heart catheterization (03/17/18) History of colonoscopy (05/2023) History of bowel resection History of bladder repair surgery History of carpal tunnel release of both wrists History of hysterectomy Family History Mother Skin cancer Brother Hypertension Brother Hypertension Sister Hypertension Daughter Diabetes Social History Smoking Status: Never smoker alcohol intake: never substance use type: does not use caffeine: Yes Type: coffee Number of servings: 1 ROS Const Const: Positive for fatigue; Negative for weakness Eyes Eyes: Negative for change in vision ENT ENT: Negative for dizziness or balance problems Cardio Chest Pain: No Palpitations: Yes Edema: None Resp Respiratory: Positive for SOB with activity; Negative for SOB at rest or SOB orthopnea SOB lying down GI GI: Negative nausea or heartburn Musc Musc: Negative for balance problems Neuro Neuro: Negative for dizziness, lightheadedness, near syncope, syncope or weakness Endo Endo: Positive for fatigue Cardiology Exam Const Appearance: cooperative, healthy appearing, comfortable and no acute distress Nutritional Appearance: average body habitus and well nourished Orientation: alert, awake and oriented x3 Head Head: normal to inspection Ears: hearing grossly normal bilaterally Nose: external nose normal Face and Sinus: face symmetric Mouth: moist mucous membranes Eyes General: appearance normal, both eyes and all related structures Eyelids: eyelids normal EOM: EOM intact bilaterally Neck Neck: normal visual inspection and no JVD Carotids: normal carotid upstroke Chest Chest inspection: normal inspection of the chest, symmetric chest movement and normal respiratory effort; Negative cough Auscultation: Bilateral: Clear to Auscultation Cardio Rate: regular rate Rhythm: regular rhythm Heart sounds: S1 normal and S2 normal; Negative rub, gallop or murmur GI GI: normal to inspection Neuro General: patient alert, patient awake, patient oriented x3 and CN's II-XI intact bilaterally Skin Skin: no rashes or lesions noted Extremities Pulses: Normal: Right Posterio (more content not included)... Normal [facility] Lipid Profileon 04-07-2024 Cholesterol [Mass/Vol] 184 mg/dL Normal 200 [facility] Comment on above: Result Comment: <200 mg/dL Desirable 200-240 mg/dL Borderline >240 mg/dL High Risk Performed By: #### L 500.4020, L500.3400 #### [facility] [place], [address] Cholesterol in HDL [Mass/Vol] 92 mg/dL Normal [facility] Comment on above: Result Comment: The drugs N-Acetylcysteine and Metamizole may falsely depress this assay. Reference Range HDL <40 mg/dL Low HDL Cholesterol HDL >or= 60 mg/dL High HDL Cholesterol Performed By: #### L 500.4100, L500.3400 #### [facility] [address] [place], [address] Cholesterol in LDL [Mass/Vol] 80 mg/dL Normal 0-130 [facility] Comment on above: Performed By: #### L 500.4100, L500.3400 #### [facility] [address] [place], [address] Cholesterol in VLDL [Mass/Vol] 12 mg/dL Normal 5-40 [facility] Comment on above: Performed By: #### L 500.4100, L500.3400 #### [facility] [address] [place], [address] Triglyceride [Mass/Vol] 62 mg/dL Normal [facility] Comment on above: Result Comment: The drugs N-Acetylcysteine and Metamizole may falsely depress this assay. Serum Triglycerides Reference Interval Normal <150 mg/dL Borderline high 150 - 199 mg/dL High 200 - 499 mg/dL Very High > or = 500 mg/dL Performed By: #### L 500.4100, L500.3400 #### [facility] [address] [place], [address] Liver Profileon 04-07-2024 Albumin [Mass/Vol] 4.0 g/dL Normal 3.2-5.0 [facility] Comment on above: Performed By: #### L 500.4100, L500.3400 #### [facility] [address] [place], [address] ALK P 57 U/L Normal 45-117 [facility] Comment on above: Performed By: #### L 500.4100, L500.3400 #### [facility] [address] [place], [address] ALT [Catalytic activity/Vol] 33 U/L Normal 13-56 [facility] Comment on above: Performed By: #### L 500.4100, L500.3400 #### [facility] [address] [place], [address] AST [Catalytic activity/Vol] 26 U/L Normal 15-37 [facility] Comment on above: Performed By: #### L 500.4100, L500.3400 #### [facility] [address] [place], [address] Bilirubin [Mass/Vol] 0.60 mg/dL Normal 0.20-1.00 [facility] Comment on above: Result Comment: For patients on eltrombopag therapy, use of Dimension [place] TBIL is not recommended. Performed By: #### L 500.4100, L500.3400 #### [facility] [address] [place], [address] Bilirubin.direct [Mass/Vol] 0.22 mg/dL Normal 0.00-0.30 [facility] Comment on above: Performed By: #### L 500.4100, L500.3400 #### [facility] [address] [place], [address] Globulin (S) [Mass/Vol] 3.4 g/dL Normal 2.2-4.2 [facility] Comment on above: Performed By: #### L 500.4100, L500.3400 #### [facility] [address] [place], [address] T PROT 7.4 g/dL Normal 6.4-8.2 [facility] Comment on above: Performed By: #### L 500.4100, L500.3400 #### [facility] [address] [place], [address] No Panel InformationOrdered By: Scarlet Deleon on 06-04-2023 Tumor Marker Alpha Fetoprotein 3.6 ng/mL 0.0-9.2 [facility] Comment on above: [facility] El ectrochemiluminescence Immunoassay(ECLIA)Values obtained with different assay methods or kits cannotbe used interchangeably. Results cannot be interpreted asabsolute evidence of the presence or absence of malignantdisease.This test is not interpretable in females.Performed at: [facility] [address] [id number] Director: Zac Christianson PhD, Phone: [phone] Serum [id number] me asurementOrdered By: Scarlet Deleon on 06-04-2023 Alpha 1 antitrypsin [Mass/Vol] 90 mg/dL 101-187 [facility] Comment on above: Performed at: [facility] [address] [id number] Director: Zac Christianson PhD, Phone: [phone] Absolute lymphocyte countOrd ered By: Jonathan Santiago on 05-17-2023 Lymphocytes Auto (Unsp spec) [#/Vol] 0.95 10*3/uL 0.83-4.51 [facility] Automated lymphocyte count a s percentage of total leukocytesOrdered By: Jonathan Santiago on 05-17-2023 Lymphocytes/100 WBC Auto (Unsp spec) 20.7 % 19-41 [facility] Basophil percentageOrdered B y: Jonathan Santiago on 05-17-2023 Basophil percentage 0 SEEN /hpf 0-5 [facility] Basophils/100 WBC (Bld) 0.9 % 0-1 [facility] Bilirubin [Mass/Vol] 0.50 mg/dL 0.20-1.00 [facility] Comment on above: For patients on eltr ombopag therapy, use of Dimension [place] TBIL is not recommended. Chloride [Moles/Vol] 110 mmol/L 98-107 [facility] Eosinophils/100 WBC (Bld) 0.7 % 0-5 [facility] Glucose [Mass/Vol] 122 mg/dL 74-106 [facility] Comment on above: Fasting Glucose resu lt from 100 to 125 mg/dL suggests IMPAIRED HOMEOSTASIS per A.D.A. criteria. Hemoglobin (Bld) [Mass/Vol] 13.3 g/dL 12.0-15.0 [facility] Monocytes/100 WBC (Bld) 7.6 % 0-10 [facility] Neutrophils (Bld) [#/Vol] 3.2 10*3/uL 2.0-7.7 [facility] Neutrophils/100 WBC (Bld) 69.9 % 47-70 [facility] Potassium [Moles/Vol] 4.5 mmol/L 3.5-5.1 [facility] Protein [Mass/Vol] 7.3 g/dL 6.4-8.2 [facility] Sodium [Moles/Vol] 140 mmol/L 136-145 [facility] WBC (Bld) [#/Vol] 4.6 10*3/uL 4.4-11.0 [facility] Bilirubin Test strip Ql (U)O rdered By: Jonathan Santiago on 05-17-2023 Bilirubin Ql (U) Negative Negative [facility] Determination of erythrocyte mean corpuscular volume (MCV)Ordered By: Jonathan Santiago on 05-17-2023 MCV (RBC) [Entitic vol] 97.3 fL 81-99 [facility] Direct bilirubinOrdered By: Jonathan Santiago on 05-17-2023 Bilirubin.direct [Mass/Vol] 0.16 mg/dL 0.00-0.30 [facility] Erythrocyte distribution wid th ratioOrdered By: Jonathan Santiago on 05-17-2023 Erythrocyte distribution width (RBC) [Ratio] 12.3 % 11.6-14.6 [facility] Erythrocyte distribution wid th standard deviationOrdered By: Jonathan Santiago on 05-17-2023 Erythrocyte distribution width (RBC) [Entitic vol] 44.0 fL 35.1-43.9 [facility] Hematocrit Auto (Bld) [Volum e fraction]Ordered By: Jonathan Santiago on 05-17-2023 Hematocrit (Bld) [Volume fraction] 39.3 % 37-47 [facility] Immature granulocytes/100 WB C Auto (Bld)Ordered By: Jonathan Santiago on 05-17-2023 Immature granulocytes/100 WBC (Bld) 0.200 % 0.0-0.9 [facility] Comment on above: IG% - Immature Granu locytes (promyelocytes, myelocytes and metamyelocytes) > 1% indicates that a LEFT SHIFT is Present. Ketones Test strip Ql (U)Ord ered By: Jonathan Santiago on 05-17-2023 Ketones Ql (U) Negative Negative [facility] - Chemistry and C hemistry - challengeOrdered By: Jonathan Santiago on 05-17-2023 ALP [Catalytic activity/Vol] 87 U/L 45-117 [facility] ALT [Catalytic activity/Vol] 31 U/L 13-56 [facility] CO2 [Moles/Vol] 27.0 mmol/L 21.0-32.0 [facility] Globulin (S) [Mass/Vol] 3.7 g/dL 2.2-4.2 [facility] Lipase [Catalytic activity/Vol] 47 U/L 13-75 [facility] Comment on above: Please note:LIPASE r evised reference range effective 22. New Lipase methodology. Expected to produce lower values than the previous assay method. NEW Reference Range: 13 - 75 U/L Urea nitrogen/Creatinine [Mass ratio] 20.0 mg/mg 10-20 [facility] - Hematology and Cell countsOrdered By: Jonathan Santiago on 05-17-2023 MCH (RBC) [Entitic mass] 32.9 pg 27.0-32.0 [facility] MCHC (RBC) [Mass/Vol] 33.8 g/dL 32-36 [facility] Nucleated RBC/100 WBC (Bld) [Ratio] 0 % 0-5 [facility] Platelets (Bld) [#/Vol] 282 10*3/uL 150-450 [facility] Mucus LM Ql (Urine sed)Order ed By: Jonathan Santiago on 05-17-2023 Mucus Ql (Urine sed) 0 SEEN /hpf [facility] Nitrite Test strip Ql (U)Ord ered By: Jonathan Santiago on 05-17-2023 Nitrite Ql (U) Negative Negative [facility] No Panel InformationOrdered By: Jonathan Santiago on 05-17-2023 Urine RBC 0 SEEN /hpf 0-5 [facility] Estimated Creatinine Clearance Calc 57.76 ml/min [facility] Estimated GFR (MDRD) Amer 105 mL/min >60 [facility] Comment on above: GFR Calc Estimated GFR (MDRD) Non-Af Amer 87 mL/min >60 [facility] Comment on above: Non- GFR Calc Troponin I High Sensitivity 5 pg/mL 3.0-54.0 [facility] Comment on above: Please Note: New Kyara t Units and Gender Specific Reference Ranges. For more information see Policy Stat Procedure [place] High Sensitivity Troponin (TNIH) and attachments. Platelet mean volume Chip-Ec ker (Bld) [Entitic vol]Ordered By: Jonathan Santiago on 05-17-2023 Platelet mean volume (Bld) [Entitic vol] 9.9 fL 6.2-12.0 [facility] Protein Test strip Ql (U)Ord ered By: Jonathan Santiago on 05-17-2023 Protein Ql (U) Negative Negative [facility] RBC Auto (Bld) [#/Vol]Ordere d By: Jonathan Santiago on 05-17-2023 RBC (Bld) [#/Vol] 4.04 10*6/uL 4.2-5.4 [facility] Serum or plasma calcium venita urement (mass/volume)Ordered By: Jonathan Santiago on 05-17-2023 Calcium [Mass/Vol] 9.6 mg/dL 8.5-10.1 [facility] Serum or plasma creatinine m easurement (mass/volume)Ordered By: Jonathan Santiago on 05-17-2023 Creatinine [Mass/Vol] 0.70 mg/dL 0.55-1.02 [facility] Comment on above: The validity of the calculated GFR & GFRAA in patients over 70 years has not been determined. Clinical correlation is essential. Serum or plasma urea nitroge n measurement (mass/volume)Ordered By: Jonathan Santiago on 05-17-2023 Urea nitrogen [Mass/Vol] 14 mg/dL 7-18 [facility] Squamous epithelial cells de tection in urine sediment by light microscopyOrdered By: Jonathan Santiago on 05-17-2023 Epithelial cells.squamous LM Ql (Urine sed) 0 SEEN /hpf 5-10 [facility] Thin prep Papanicolaou smear with manual screeningOrdered By: Jonathan Santiago on 05-17-2023 Thin prep Papanicolaou smear with manual screening 3.6 g/dL 3.2-5.0 [facility] Thin prep Papanicolaou smear with manual screening 20 U/L 15-37 [facility] Thin prep Papanicolaou smear with manual screening 3 5-15 [facility] Urine blood detectionOrdered By: Jonathan Santiago on 05-17-2023 RBC Ql (U) 10 /ul Negative [facility] Urine clarityOrdered By: Bernardo Santiago on 05-17-2023 Clarity (U) Clear Clear [facility] Urine color determinationOrd ered By: Jonathan Santiago on 05-17-2023 Color (U) Yellow Yellow [facility] Urine glucose detectionOrder ed By: Jonathan Santiago on 05-17-2023 Glucose Ql (U) Normal mg/dl Normal [facility] Urine leukocyte esterase det ection by dipstickOrdered By: Jonathan Santiago on 05-17-2023 Leukocyte esterase Test strip Ql (U) Negative Negative [facility] Urine pHOrdered By: Jonathan champion on 05-17-2023 pH (U) 7.0 [pH] 5.0 - 8.0 [facility] Urine sediment bacteria coun t by microscopy (number/high power field)Ordered By: Jonathan Santiago on 05-17-2023 Bacteria LM.HPF (Urine sed) [#/Area] 0 /[HPF] None Seen [facility] Urine specific gravity measu rementOrdered By: Jonathan Santiago on 05-17-2023 Specific gravity (U) [Rel density] 1.005 1.002-1.030 [facility] Urine urobilinogen measureme ntOrdered By: Jonathan Santiago on 05-17-2023 Urobilinogen Ql (U) Normal mg/dl Normal [facility] CNOVon 02-10-2023 CNOV Office Visit (NEAGCL M) -- ANGELINA ORTEGA ([id number]) 1950 F Date Time Provider Department 02/10/23 9:30 AM DONNA LYNN I NEAGCLM During your visit today, we recorded the following information about you: Pulse Respiration Blood pressure Weight 83/minute 16/minute 112/68 65.2 kg Height 1.676 m Donna Lynn I, MD 02/10/2023 9:47 AM Signed NEUROSURGERY FOLLOW UP OFFICE NOTE Chair, Clinical Neurosciences Director, Spinal Neurosurgery [facility] Date of visit: February 10, 2023 Patient Name: Ms.JoAnn Eric Ortega Date of : 1950 Current Age: [age] year old Sex: female MRN/E# [id number] Last Office Visit: Visit date not found [...] changed position from sitting to standing in particular (more content not included)... Normal [facility] MRI LUMBAR SPINE WO/W IVCONo n 01-23-2023 MRI LUMBAR SPINE WO/W IVCON * * *Final Report* * * DATE OF EXAM: Jan 23 2023 9:10AM [facility] [id number] - MRI LUMBAR SPINE WO/W IVCON / PROCEDURE REASON: multiple diagnoses * * * * Physician Interpretation * * * * EXAMINATION: MRI LUMBAR SPINE WO/W IVCON CLINICAL HISTORY: Schwannoma Ependymoma, WHO grade II (HCC) TECHNIQUE: Routine lumbosacral spine MR protocol without and with intravenous gadolinium. 14 cc of intravenous Dotarem. MQ: [id number] COMPARISON: MRI lumbar spine dated 01/25/2022 and 12/02/2020. RESULT: Counting reference: Lumbosacral junction. For the purposes of this report, L4-5 is considered the level of the iliac crest and assume there are 5 lumbar-type vertebrae. Anatomic variant: None. Localizer images: RIGHT adnexal cyst, measuring 1.3 cm maximum diameter, unchanged from prior MR imaging. Alignment: Alignment is anatomic. Bone marrow signal/fracture: No evidence of pathologic marrow infiltration. No evidence of prior fracture. L1 and L2 laminectomy. Posterior elements are otherwise intact. No abnormal enhancement following contrast administration. No residual or recurrent mass lesion identified. Mild multilevel degenerative changes appear stable as when compared with the prior exam. Conus: The conus is within normal limits of signal intensity and morphology. Paraspinal soft tissues: Paraspinal soft tissues are within normal limits. Sacrum and iliac wings: The visualized sacrum and iliac wings are within normal limits. IMPRESSION: Stable postoperative changes centered at L1 and L2 as detailed above with no residual or recurrent disease. Overall, stable exam. Anatomic Lumbar Variant: None. L4-5 is considered the level of the iliac crest and assume there are 5 lumbar-type vertebrae. Special Skills Officer: ISABELLE Transcribe Date/Time: Jan 23 2023 9:46A Dictated by : JM HWANG MD This examination was interpreted and the report reviewed and electronically signed by: JM HWANG MD on Jan 23 2023 10:17AM EST [id number] Normal [facility] Basophil percentageOrdered B y: Dr. Deleon on 10-17-2022 Bilirubin [Mass/Vol] 0.50 mg/dL 0.20-1.00 [facility] Comment on above: For patients on eltr ombopag therapy, use of Dimension [place] TBIL is not recommended. Chloride [Moles/Vol] 110 mmol/L 98-107 [facility] Glucose [Mass/Vol] 122 mg/dL 74-106 [facility] Comment on above: Fasting Glucose resu lt from 100 to 125 mg/dL suggests IMPAIRED HOMEOSTASIS per A.D.A. criteria. Potassium [Moles/Vol] 4.3 mmol/L 3.5-5.1 [facility] Protein [Mass/Vol] 7.2 g/dL 6.4-8.2 [facility] Sodium [Moles/Vol] 140 mmol/L 136-145 [facility] - Chemistry and C hemistry - challengeOrdered By: Dr. Deleon on 10-17-2022 ALP [Catalytic activity/Vol] 88 U/L 45-117 [facility] ALT [Catalytic activity/Vol] 30 U/L 13-56 [facility] CO2 [Moles/Vol] 26.0 mmol/L 21.0-32.0 [facility] Globulin (S) [Mass/Vol] 3.4 g/dL 2.2-4.2 [facility] Urea nitrogen/Creatinine [Mass ratio] 21.0 mg/mg 10-20 [facility] No Panel InformationOrdered By: Dr. Deleon on 10-17-2022 Estimated GFR (MDRD) Amer 103 mL/min >60 [facility] Comment on above: GFR Calc Estimated GFR (MDRD) Non-Af Amer 85 mL/min >60 [facility] Comment on above: Non- GFR Calc Serum or plasma albumin venita urement (mass/volume)Ordered By: Dr. Deleon on 10-17-2022 Albumin [Mass/Vol] 3.8 g/dL 3.2-5.0 [facility] Serum or plasma albumin/glob ulin mass ratioOrdered By: Dr. Deleon on 10-17-2022 Albumin/Globulin [Mass ratio] 1.1 {ratio} 0.9-2.4 [facility] Serum or plasma calcium venita urement (mass/volume)Ordered By: Dr. Deleon on 10-17-2022 Calcium [Mass/Vol] 9.1 mg/dL 8.5-10.1 [facility] Serum or plasma creatinine m easurement (mass/volume)Ordered By: Dr. Deleon on 10-17-2022 Creatinine [Mass/Vol] 0.72 mg/dL 0.55-1.02 [facility] Comment on above: The validity of the calculated GFR & GFRAA in patients over 70 years has not been determined. Clinical correlation is essential. Serum or plasma urea nitroge n measurement (mass/volume)Ordered By: Dr. Deleon on 10-17-2022 Urea nitrogen [Mass/Vol] 15 mg/dL 7-18 [facility] Thin prep Papanicolaou smear with manual screeningOrdered By: Dr. Deleon on 10-17-2022 Thin prep Papanicolaou smear with manual screening 26 U/L 15-37 [facility] Thin prep Papanicolaou smear with manual screening 4 5-15 [facility] Basophil percentageOrdered B y: Shanta Hurst on 08-30-2022 Bilirubin [Mass/Vol] 0.40 mg/dL 0.20-1.00 [facility] Comment on above: For patients on eltr ombopag therapy, use of Dimension [place] TBIL is not recommended. Cholesterol [Mass/Vol] 167 mg/dL <200 [facility] Comment on above: <200 mg/dL Desirable 200-240 mg/dL Borderline >240 mg/dL High Risk Protein [Mass/Vol] 7.6 g/dL 6.4-8.2 [facility] Triglyceride [Mass/Vol] 75 mg/dL <199 [facility] Comment on above: The drugs N-Acetylcy steine and Metamizole may falsely depress this assay.Serum Triglycerides Reference Interval Normal <150 mg/dL Borderline high 150 - 199 mg/dL High 200 - 499 mg/dL Very High > or = 500 mg/dL Direct bilirubinOrdered By: Shanta Hurst on 08-30-2022 Bilirubin.direct [Mass/Vol] 0.15 mg/dL 0.00-0.30 [facility] - Chemistry and C hemistry - challengeOrdered By: Shanta Hurst on 08-30-2022 ALP [Catalytic activity/Vol] 99 U/L 45-117 [facility] ALT [Catalytic activity/Vol] 28 U/L 13-56 [facility] Globulin (S) [Mass/Vol] 3.8 g/dL 2.2-4.2 [facility] Serum or plasma albumin venita urement (mass/volume)Ordered By: Shanta Hurst on 08-30-2022 Albumin [Mass/Vol] 3.8 g/dL 3.2-5.0 [facility] Serum or plasma cholesterol in HDL measurement (mass/volume)Ordered By: Shanta Hurst on 08-30-2022 Cholesterol in HDL [Mass/Vol] 87 mg/dL >40 [facility] Comment on above: The drugs N-Acetylcy steine and Metamizole may falsely depress this assay. Reference Range HDL <40 mg/dL Low HDL Cholesterol HDL >or= 60 mg/dL High HDL Cholesterol Serum or plasma cholesterol in VLDL measurement (mass/volume)Ordered By: Shanta Hurst on 08-30-2022 Cholesterol in VLDL [Mass/Vol] 15 mg/dL 5-40 [facility] Serum or plasma low density lipoprotein (LDL) cholesterol measurement (mass/volume)Ordered By: Shanta Hurst on 08-30-2022 Cholesterol in LDL [Mass/Vol] 65 mg/dL 0-130 [facility] Thin prep Papanicolaou smear with manual screeningOrdered By: Shanta Hurst on 08-30-2022 Thin prep Papanicolaou smear with manual screening 22 U/L 15-37 [facility] CNPNon 06-26-2022 CNPN Telephone (NEAGCLM) -- ANGELINA ORTEGA ([id number]) 1950 Date Time Provider Department 06/26/22 DONNA LYNN I NEAGCLM During your visit today, we recorded the following information about you: Tyler Landeros RN 06/26/2022 3:41 PM Signed Called patient to clarify the reason for [...] office to notify us. Patient verbalized understanding. Tyler Landeros RN Allergies As of Date: 06/26/2022 (No Known Allergies) Date Reviewed: 02/13/2022 Reviewed by: Margarita Flannery Ma - Fully Assessed Reason for Visit: Appointment [186] Patient Question [6787] Prescriptions as of 06/26/2022 - gabapentin (NEURONTIN) 300 mg capsule Take 1 capsule by mouth daily at bedtime for 7 days, THEN 1 capsule twice daily for 7 days, THEN 1 capsule three times daily for 30 days. - ascorbic acid, vitamin C, (VITAMIN C) 500 mg tablet Take by mouth. - cholecalciferol (VITAMIN D3) 50 mcg (2,000 unit) tablet Take by mouth. - dilTIAZem CD (CARDIZEM CD, CARTIA XT) 180 mg 24 hr capsule Take 180 mg by mouth twice daily. - aspirin 81 mg cap Take 81 mg by mouth every other day. - digoxin (LANOXIN) 125 mcg (0.125 mg) tablet Take 125 mcg by mouth once daily. - atorvastatin (LIPITOR) 10 mg tablet Take 10 mg by mouth once daily. - dilTIAZem CR (TIAZAC, TAZTIA XT) 180 mg 24 hr capsule Take 180 mg by mouth twice daily. 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, WHO grade II (HCC) [C71.9] 01/09/2022 Schwannoma [D36.10] 02/13/2022 Encounter Status:Closed by TYLER LANDEROS on 06/26/22 [facility] CNPNon 02-14-2022 CNPN Telephone (AGSPINE3) -- ANGELINA ORTEGA ([id number]) 1950 F Date Time Provider Department 02/14/22 TERRY LOZANO AGSPINE3 During your visit today, we recorded the following information about you: Viola Altamirano 02/14/2022 8:41 AM Signed Received a referral from Dr Lynn for patient to be seen for Left foot pain/ history of lumbar surgery Please call and get patient scheduled Viola Altamirano Director Of [facility] [address] [address] P: [phone] F: [phone] [email or web address] Tania Tapia 02/14/2022 2:31 PM Signed LVM for patient to schedule new patient appointment. Tania Rubioy [place] 02/19/2022 8:23 AM Signed Lvm for patient to call back to schedule. Viola [place] Director Of [facility] [address] [place] [address] P: [phone] F: [phone] [email or web address] Allergies As of Date: 02/14/2022 (No Known Allergies) Date Reviewed: 02/13/2022 Reviewed by: Margarita Flannery Ma - Fully Assessed Reason for Visit: New Patient [172] Prescriptions as of 02/19/2022 - gabapentin (NEURONTIN) 300 mg capsule Take 1 capsule by mouth daily at bedtime for 7 days, THEN 1 capsule twice daily for 7 days, THEN 1 capsule three times daily for 30 days. - ascorbic acid, vitamin C, (VITAMIN C) 500 mg tablet Take by mouth. - cholecalciferol (VITAMIN D3) 50 mcg (2,000 unit) tablet Take by mouth. - dilTIAZem CD (CARDIZEM CD, CARTIA XT) 180 mg 24 hr capsule Take 180 mg by mouth twice daily. - aspirin 81 mg cap Take 81 mg by mouth every other day. - digoxin (LANOXIN) 125 mcg (0.125 mg) tablet Take 125 mcg by mouth once daily. - atorvastatin (LIPITOR) 10 mg tablet Take 10 mg by mouth once daily. - dilTIAZem CR (TIAZAC, TAZTIA XT) 180 mg 24 hr capsule Take 180 mg by mouth twice daily. 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, WHO grade II (HCC) [C71.9] 01/09/2022 Schwannoma [D36.10] 02/13/2022 Encounter Status:Closed by VIOLA [facility]IRANO [facility] (NEAGCL M[facility] -- ANGELINA ORTEGA ([id number]) 1950 F Date Time Provider Department 02/13/22 8:45 AM DONNA LYNNAGCLM During your visit today, we recorded the following information about you: Temperature Pulse Blood pressure Weight 97.2 degrees 80/minute 107/70 69.9 kg Height 1.676 m Donna Lynn MD 02/13/2022 8:59 AM Signed NEUROSURGERY FOLLOW UP OFFICE NOTE Chair, Clinical Neurosciences Director, Spinal Neurosurgery [facility] Date of visit: February 13, 2022 Patient Name: Ms.JoAnn Eric Ortega Date of : 1950 Current Age: [age] year old Sex: female MRN/E# [id number] Last Office Visit: 01/09/2022 Chief Complaint: Patient [...] sitting to standing in particular. I was (more content not included)... Normal [facility] XR LUMBAR 4V AP/LAT/ FLEX/EX Ton 02-13-2022 XR LUMBAR 4V AP/LAT/ FLEX/EXT * * *Final Report* * * DATE OF EXAM: Feb 13 2022 8:28AM [id number] - XR LUMBAR 4V AP/LAT/ FLEX/EXT / PROCEDURE REASON: * * * * Physician Interpretation * * * * TECHNIQUE: XR LUMBAR 4V AP/LAT/ FLEX/EXT EXAM DATE: 02/13/2022 8:28 AM COMPARISON STUDIES: MRI 01/25/2022 CLINICAL HISTORY: Pain and numbness RESULT: Counting reference: Lumbosacral junction. For the purposes of this report, L4-5 is considered the level of the iliac crest. L1, L2 laminectomy Alignment maintained No instability on flexion extension films Vertebral body heights maintained Mild disc space narrowing L4/5, L5/S1 Multilevel endplate osteophytes Mid to lower lumbar predominant facet degenerative change Osteopenia IMPRESSION: Postsurgical and degenerative findings Special Skills Officer: ISABELLE Transcribe Date/Time: Feb 14 2022 12:45P Dictated by : NOEMI STACY MD This examination was interpreted and the report reviewed and electronically signed by: NOEMI STACY MD on Feb 14 2022 12:51PM EST [id number] Normal [facility] MRI LUMBAR SPINE WO/W IVCONo n 01-25-2022 [facility] Vital Signs Date Time Vital Sign Value Performing Clinician Dotty galloway 02-21-2025 10:07-0400 Body height 167.[address] Scarlet Deleon DO Work Phone: [facility] 02-21-2025 10:07-0400 Body mass index (BMI) [Ratio] 23.1 kg/m2 Dr. Scarlet Deleon DO Work Phone: [facility] 02-21-2025 10:07-0400 Body weight 64.[address] Scarlet Deleon DO Work Phone: [facility] 02-21-2025 10:07-0400 Diastolic blood pressure 75 mm[Hg] Dr. Scarlet Deleon DO Work Phone: [facility] 02-21-2025 10:07-0400 Heart rate 70 /min Dr. Scarlet Deleon DO Work Phone: [facility] 02-21-2025 10:07-0400 Respiratory rate 16 /min Dr. Scarlet Deleon DO Work Phone: [facility] 02-21-2025 10:07-0400 Systolic blood pressure 130 mm[Hg] Dr. Scarlet Deleon DO Work Phone: [facility] 02-14-2025 15:22-0400 Body temperature 98 [degF] Dr. Scarlet Deleon DO Work Phone: [facility] 02-14-2025 15:22-0400 Diastolic blood pressure 79 mm[Hg] Dr. Scarlet Deleon DO Work Phone: [facility] 02-14-2025 15:22-0400 Heart rate 73 /min Dr. Scarlet Deleon DO Work Phone: [facility] 02-14-2025 15:22-0400 Respiratory rate 16 /min Dr. Scarlet Deleon DO Work Phone: [facility] 02-14-2025 15:22-0400 SaO2% (BldA) [Mass fraction] 99 % Dr. Scarlet Deleon DO Work Phone: [facility] 02-14-2025 15:22-0400 Systolic blood pressure 140 mm[Hg] Dr. Scarlet Deleon DO Work Phone: [facility] 02-14-2025 11:58-0400 Body mass index (BMI) [Ratio] 22.4 kg/m2 Dr. Scarlet Deleon DO Work Phone: [facility] 02-14-2025 11:58-0400 Body weight 63.[address] Scarlet Deleon DO Work Phone: [facility] 05-17-2023 10:06-0500 Diastolic blood pressure 84 mm[Hg] Dr. Scarlet Deleon Work Phone: [facility] 05-17-2023 10:06-0500 Heart rate 76 /min Dr. Scarlet Deleon Work Phone: [facility] 05-17-2023 10:06-0500 Respiratory rate 14 /min Dr. Scarlet Deleon Work Phone: [facility] 05-17-2023 10:06-0500 SaO2% (BldA) [Mass fraction] 99 % Dr. Scarlet Deleon Work Phone: [facility] 05-17-2023 10:06-0500 Systolic blood pressure 123 mm[Hg] Dr. Scarlet Deleon Work Phone: [facility] 05-17-2023 07:17-0500 Body height 167.[address] Scarlet Deleon Work Phone: [facility] 05-17-2023 07:17-0500 Body mass index (BMI) [Ratio] 23.1 kg/m2 Dr. Scarlet Deleon Work Phone: [facility] 05-17-2023 07:17-0500 Body temperature 95.6 [degF] Dr. Scarlet Deleon Work Phone: [facility] 05-17-2023 07:17-0500 Body weight 65.[address] Scarlet Deleon Work Phone: [facility] 02-27-2023 12:51-0400 Body mass index (BMI) [Ratio] 23.3 kg/m2 Dr. Scarlet Deleon Work Phone: [facility] 02-27-2023 12:51-0400 Body weight 65.[address] Scarlet Deleon Work Phone: [facility] 02-27-2023 12:51-0400 Diastolic blood pressure 71 mm[Hg] Dr. Scarlet Deleon Work Phone: [facility] 02-27-2023 12:51-0400 Heart rate 71 /min Dr. Scarlet Deleon Work Phone: [facility] 02-27-2023 12:51-0400 Respiratory rate 16 /min Dr. Scarlet Deleon Work Phone: [facility] 02-27-2023 12:51-0400 Systolic blood pressure 127 mm[Hg] Dr. Scarlet Deleon Work Phone: [facility] 08-27-2022 08:55-0400 Body height 167.[address] Scarlet Deleon Work Phone: [facility] 08-27-2022 08:55-0400 Body mass index (BMI) [Ratio] 24.5 kg/m2 Dr. Scarlet Deleon Work Phone: [facility] 08-27-2022 08:55-0400 Body weight 68.[address] Scarlet Deleon Work Phone: [facility] 08-27-2022 08:55-0400 Diastolic blood pressure 74 mm[Hg] Dr. Scarlet Deleon Work Phone: [facility] 08-27-2022 08:55-0400 Heart rate 84 /min Dr. Scarlet Deleon Work Phone: [facility] 08-27-2022 08:55-0400 Respiratory rate 18 /min Dr. Scarlet Deleon Work Phone: [facility] 08-27-2022 08:55-0400 SaO2% (BldA) [Mass fraction] 97 % Dr. Scarlet Deleon Work Phone: [facility] 08-27-2022 08:55-0400 Systolic blood pressure 112 mm[Hg] Dr. Scarlet Deleon Work Phone: [facility] 02-13-2022 08:32-0400 Body height 167.6 cm Donna Reno MD Work Phone: [facility] 02-13-2022 08:32-0400 Body temperature 97.2 [degF] Donna Reno MD Work Phone: [facility] 02-13-2022 08:32-0400 Body weight 69.9 kg Donna Reno MD Work Phone: [facility] 02-13-2022 08:32-0400 Diastolic blood pressure 70 mm[Hg] Donna Reno MD Work Phone: [facility] 02-13-2022 08:32-0400 Heart rate 80 /min Donna Reno MD Work Phone: [facility] 02-13-2022 08:32-0400 SaO2% (BldA) [Mass fraction] 98 % Donna Reno MD Work Phone: [facility] 02-13-2022 08:32-0400 Systolic blood pressure 107 mm[Hg] Donna Reno MD Work Phone: [facility] 01-09-2022 08:33-0400 Body height 167.6 cm Donna Reno MD Work Phone: [facility] 01-09-2022 08:33-0400 Body weight 68.9 kg Donna Reno MD Work Phone: [facility] 01-09-2022 08:33-0400 Diastolic blood pressure 82 mm[Hg] Donna Reno MD Work Phone: [facility] 01-09-2022 08:33-0400 Heart rate 74 /min Donna Reno MD Work Phone: [facility] 01-09-2022 08:33-0400 SaO2% (BldA) [Mass fraction] 98 % Donna Reno MD Work Phone: [facility] 01-09-2022 08:33-0400 Systolic blood pressure 136 mm[Hg] Donna Reno MD Work Phone: [facility] 11-06-2021 09:04-0400 Body height 167.6 cm Sai Ruiz DO Work Phone: [facility] 11-06-2021 09:04-0400 Body temperature 98.1 [degF] Sai Joseph DO Work Phone: [facility] 11-06-2021 09:04-0400 Body weight 68.2 kg Sai Joseph DO Work Phone: [facility] 11-06-2021 09:04-0400 Diastolic blood pressure 68 mm[Hg] Sai Joseph DO Work Phone: [facility] 11-06-2021 09:04-0400 Heart rate 69 /min Sai Joseph DO Work Phone: [facility] 11-06-2021 09:04-0400 SaO2% (BldA) [Mass fraction] 99 % Sai Joseph DO Work Phone: [facility] 11-06-2021 09:04-0400 Systolic blood pressure 110 mm[Hg] Sai Joseph DO Work Phone: [facility] 08-16-2021 08:58-0400 Body height 167.6 cm Robin Bhatia MD Work Phone: [facility] 08-16-2021 08:58-0400 Body weight 68.49 kg Robin Bhatia MD Work Phone: [facility] 08-16-2021 08:58-0400 Diastolic blood pressure 68 mm[Hg] Robin Bhtaia MD Work Phone: [facility] 08-16-2021 08:58-0400 Heart rate 72 /min Robin Bhatia MD Work Phone: [facility] 08-16-2021 08:58-0400 SaO2% (BldA) [Mass fraction] 98 % Robin Bhatia MD Work Phone: [facility] 08-16-2021 08:58-0400 Systolic blood pressure 128 mm[Hg] Robin Bhatia MD Work Phone: [facility] Encounters Encounter Date Encounter Type Care Provider Facility Start: 03-10-2025 ambulatory Scarletleona Deleon Facility:[facility] Start: 02-25-2025 End: 02-25-[facility] Start: 02-21-2025 End: 02-21-2025 ambulatory Scarlet Adrienne Facility:[facility] Start: 02-14-2025 End: 02-14-2025 Emergency department patient visit Dr. Len Ahumada MD -Emergency Department Work Phone: Start: 12-29-2024 ambulatory Scarlet Deleon Facility:[facility] Start: 12-29-2024 End: 12-29-[address] Scarlet Deleon DO Work Phone: -Outpatient Breast Imaging Start: 12-29-2024 End: 12-29-[address] Scarlet Deleon DO -Outpatient Breast Imaging Work Phone: Start: 12-29-2024 End: 12-29-2024 ambulatory Scarlet Deleon Facility:[facility] Start: 10-25-2024 End: 10-25-[address] Scarlet Deleon DO Work Phone: -[facility]atory [facility] Start: 10-25-2024 End: 10-25-[address] Scarlet Deleon DO -Laboratory [facility] Start: 10-25-2024 End: 10-25-2024 ambulatory Scarlet Deleon Facility:[facility] Start: 05-27-2024 ambulatory Rashad Schmitz Facility:[facility] Start: 05-27-2024 End: 05-27-2024 ambulatory Renuka BOYD Facility:[facility] Start: 05-21-2024 End: 05-21-2024 ambulatory Renuka BOYD Facility:[facility] Start: 04-07-2024 End: 04-07-2024 ambulatory Scarlet Deleon Facility:[facility] Start: 06-04-2023 End: 06-04-[address] Scarlet Deleon Work Phone: [facility] Work Phone: Start: 06-04-2023 End: 06-04-[address] Scarlet Deleon Work Phone: [facility] Work Phone: Start: 05-17-2023 End: 05-17-2023 Emergency department patient visit Dr. Scarlet Deleon Work Phone: [facility]-Emergency Department Work Phone: Start: 03-04-[address] [facility] Start: 03-04-2023 End: 03-04-2023 Non-patient / Non-visit Dr. Scarlet Deleon Work Phone: [facility] Work Phone: Start: 02-27-2023 End: 02-27-[address] Scarlet Deleon Work Phone: [facility] Work Phone: Start: 02-11-2023 Orders Only Donna Lynn MD Work Phone: [facility] Comment on above: Schwannoma (Primary Dx) Start: 02-10-2023 End: 02-10-2023 ambulatory DONNA LYNN Facility:[facility] Start: 01-23-2023 End: 01-23-2023 ambulatory DONNA LYNN Facility:[facility] Start: 01-23-2023 End: 01-23-2023 Subsequent hospital visit by physician Mri Radio [facility] (I-Stat/1.5t) Work Phone: Radiology Comment on above: Schwannoma [D36.10] Start: 11-04-2022 End: 11-04-[address] Scarlte Deleon Work Phone: [facility] Work Phone: Start: 11-04-2022 End: 11-04-[address] Scarlet Deleon Work Phone: [facility]-Outpatient Breast Imaging Work Phone: Start: 10-17-2022 End: 10-17-[address] Scarlet Deleon Work Phone: [facility] Work Phone: Start: 10-17-2022 End: 10-17-[address] Scarlet Deleon Work Phone: [facility]-Laboratory, [place] Start: 08-30-2022 End: 08-30-[address] Scarlet Deleon Work Phone: [facility] Work Phone: Start: 08-30-2022 End: 08-30-[address] Scarlet Deleon Work Phone: [facility]-Laboratory Start: 08-27-2022 End: 08-27-[address] Scarlet Deleon Work Phone: [facility] Start: 06-26-2022 Telephone encounter Donna horan MD Work Phone: [facility] Comment on above: Appointment; Patient Question Start: 02-14-2022 Telephone encounter Terry Lozano MD Work Phone: [facility] Comment on above: New Patient Start: 02-13-2022 End: 02-13-2022 ambulatory DONNA LYNN I Facility:[facility] Start: 02-13-2022 End: 02-13-2022 Patient encounter procedure Donna Lynn MD Work Phone: [facility] Comment on above: Pain in left foot (P rimary Dx); History of lumbar surgery; Schwannoma; Ependymoma, WHO grade II (HCC) Start: 02-13-2022 End: 02-13-2022 Subsequent hospital visit by physician Xr [employer] Start: 01-25-2022 End: 01-25-2022 Subsequent hospital visit by physician Mri Radio [facility] (I-Stat/1.5t) Work Phone: Radiology Comment on above: Ependymoma, WHO grad e II (HCC) [C71.9] Start: 01-09-2022 End: 01-09-2022 Patient encounter procedure Donna Lynn MD Work Phone: [facility] Comment on above: Ependymoma, WHO grad e II (HCC) (Primary Dx) Start: 11-06-2021 End: 11-06-2021 Patient encounter procedure Sai Ruiz DO Work Phone: [facility] Comment on above: Ependymoma of spinal cord (HCC) (Primary Dx) Start: 08-16-2021 End: 08-16-2021 Patient encounter procedure Robin Bhatia MD Work Phone: [facility] Comment on above: Ependymoma, WHO grad e II (HCC) (Primary Dx); 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 Maxi Deleon DO Work Phone: Start: 02-14-[address] Scarlet Deleon DO Work Phone: Start: 12-29-2024 MRI of lumbar spine with contrast Dr. Scarlet Deleon DO Work Phone: Start: 12-29-2024 Screening mammography Chika Deleon DO Work Phone: Start: 05-17-2023 Computed tomography of abdomen and pelvis with intravenous contrast Dr. Scarlet Deleon Work Phone: Start: 05-17-2023 US scan of gallbladder Dr. Scarlet Deleon Work Phone: Start: 01-23-2023 Mri spinal canal lum bar w/o & w/contr matrl Donna Lynn MD Work Phone: Start: 11-04-2022 Screening mammography D maxine Deleon Work Phone: Start: 01-25-2022 Mri spinal canal lum bar w/o & w/contr matrl Donna Lynn MD Work Phone: Start: 03-13-2015 Colonoscopy Robin lozano MD Work Phone: Plan of Treatment Date Care Activity Detail Author Start: 02-25-2025 MRI of brain with contrast Brain W/WO Contrast [facility] Start: 02-25-2025 Patient encounter procedure Registered Clinical -MRI - [facility] Work Phone: Start: 02-21-2025 Radionuclide imaging of perfusion of myocardium under exercise stress [facility] Start: 02-21-2025 End: 02-21-2025 Patient encounter procedure Coronary vasospasm -[facility] Work Phone: Start: 02-14-2025 [facility] Start: 02-14-2025 [facility] Start: 02-09-2024 DIABETES SCREEN DIABETES SCREEN [facility] Start: 02-09-2024 Diabetes Screening Diabetes Screenin g [facility] Start: 06-04-2023 Procedure [facility] Start: 05-17-2023 [facility] Start: 12-27-2022 Influenza vaccination Influenza Vacc ine (#1) [facility] Start: 04-28-2022 ADVANCE DIRECTIVE DISCUSSION ADVANCE DIRECTIVE DISCUSSION [facility] Start: 04-28-2022 [facility] Start: 12-27-2021 Influenza vaccination C [facility] Start: 04-28-2021 ADVANCE DIRECTIVE DISCUSSION ADVANCE DIRECTIVE DISCUSSION [facility] Start: 04-28-2021 DEPRESSION ASSESSMENT DEPRESSION ASS ESSMENT [facility] Start: 03-13-2016 Colonoscopy COLONOSCOPY [facility] Start: 03-13-2016 COLORECTAL CANCER SCREENING COLORECTAL CANCER SCREENING [facility] Start: 2014 BONE DENSITY BONE DENSITY [facility] Start: 2014 Bone Density Screening Bone Density Screening [facility] Start: 2014 Pneumococcal Vaccine : 65+ (1 - PCV) Pneumococcal Vaccine: 65+ (1 - PCV) [facility] Start: 2014 PNEUMOCOCCAL: 65+ (1 - PCV) PNEUMOCOCCAL: 65+ (1 - PCV) [facility] Start: 2014 PNEUMOVAX AGE 65 AND OVER WITH 5YR LOOKBACK (#1) PNEUMOVAX AGE 65 AND OVER WITH 5YR LOOKBACK (#1) [facility] Start: 2009 RSV Vaccine (1 - 1-d ose 60+ series) RSV Vaccine (1 - 1-dose 60+ series) [facility] Start: 1999 SHINGRIX VACCINE (1 of 2) SHINGRIX VACCINE (1 of 2) [facility] Start: 1994 COLOGUARD (FIT-DNA) COLOGUARD (FIT-D NA) [facility] Start: [address] COLONOGRAPHY [facility] Start: 1994 FECAL OCCULT BLOOD FECAL OCCULT BLOO D [facility] Start: 1994 Lipid 1996 panel - S yazmin or Plasma Lipid Screening [facility] Start: 1994 LIPID SCREEN LIPID SCREEN [facility] Start: 1994 SIGMOIDOSCOPY SIGMOIDOSCOPY [facility] Start: 1989 Mammography [facility] Start: 1968 Urine microalbumin profile [facility] Start: 1967 HEPATITIS C SCREENING HEPATITIS C SC REENING [facility] Start: 1961 Adult depression screening assessment DEPRESSION SCREENING [facility] Start: 1954 COVID-19 VACCINE (1) COVID-19 VACCIN E (1) [facility] Start: 1949 COVID-19 VACCINE (#1) COVID-19 VACCI NE (#1) [facility] End: 09-15-2022 Mri spinal canal lumbar w/o & w/contr matrl MRI LUMBAR SPINE WO/W IVCON Radiology Routine 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 Occurrences starting 08/16/2021 until 09/15/2022 [facility] Work Phone: Comment on above: 1 Occurrences starti ng 08/16/2021 until 09/15/2022 End: 02-08-2023 Mri spinal canal lumbar w/o & w/contr matrl MRI LUMBAR SPINE WO/W IVCON Radiology Routine Ependymoma, WHO grade II (HCC) 1 Occurrences starting 01/09/2022 until 02/08/2023 [facility] Work Phone: Comment on above: 1 Occurrences starti ng 01/09/2022 until 02/08/2023 End: 03-15-2023 Mri spinal canal lumbar w/o & w/contr matrl MRI LUMBAR SPINE WO/W IVCON Radiology Routine Schwannoma Ependymoma, WHO grade II (HCC) 1 Occurrences starting 02/13/2022 until 03/15/2023 [facility] Work Phone: Comment on above: 1 Occurrences starti ng 02/13/2022 until 03/15/2023 End: 03-12-2024 Mri spinal canal lumbar w/o & w/contr matrl MRI LUMBAR SPINE WO/W IVCON Radiology Routine Schwannoma 1 Occurrences starting 02/11/2023 until 03/12/2024 [facility] Work Phone: Comment on above: 1 Occurrences starti ng 02/11/2023 until 03/12/2024 Patient Education [facility] Work Phone: Patient referral [facility] Work Phone: End: 01-19-2023 Radex spine lumbosacral minimum 4 views XR LUMBAR MOTION 4V AP/LAT/ FLEX/EXT Radiology Routine 1 Occurrences starting 12/20/2021 until 01/19/2023 [facility] Work Phone: Comment on above: 1 Occurrences starti ng 12/20/2021 until 01/19/2023 End: 02-08-2023 Radex spine lumbosacral minimum 4 views XR LUMBAR MOTION 4V AP/LAT/ FLEX/EXT Radiology Routine Ependymoma, WHO grade II (HCC) 1 Occurrences starting 01/09/2022 until 02/08/2023 [facility] Work Phone: Comment on above: 1 Occurrences starti ng 01/09/2022 until 02/08/2023 End: 02-13-2022 Radex spine lumbosacral minimum 4 views [facility] Work Phone: Comment on above: 1 Occurrences starti ng 02/13/2022 until 02/13/2022 [facility] Payers Date Payer Category Payer Self-pay [id number] 2015 Medicare MEDICARE MEDICAR E A AND B [id number] 2015-Present [phone] [place] [address] Medicare [id number] 2015 Medicare MEDICARE MEDICAR E A AND B [id number] 2015-Present [phone] [place] [address] Medicare [id number] 2015 Medicare [id number] 2015 Private Health Insurance HUMANA HUMANA MEDICARE SUPPLEMENT [id number] 2015-Present [phone] [address] [address] [place] [address] Indemnity [id number] 2015 Private Health Insurance HUMANA HUMANA MEDICARE SUPPLEMENT [id number] 2015-Present [phone] [address] [address] [place] [address] Indemnity [id number] 2015 Private Health Insurance [id number] Unknown [id number] Unknown [id number] Unknown [id number] Unknown [id number] Unknown [id number] Unknown [id number] Unknown [id number] Unknown [id number] Unknown [id number] Unknown [id number] Unknown [id number] Social History Date Type Detail Facility Start: 03-27-2015 End: 02-14-2025 Tobacco smoking status NHIS Never smoked tobacco [facility] Start: 03-27-2015 End: 01-09-2022 Tobacco use and exposure Smokeless tobacco non-user [facility] Start: 08-16-2021 End: 02-13-2022 Alcohol intake Current drinker of alcohol (finding) [facility] Start: 02-07-2021 History SDOH Alcohol Comment rare [facility] Start: 1950 Sex Assigned At Not on file C [facility] Start: 08-06-2021 End: 02-13-2022 Exposure to SARS-CoV-2 (event) Not sure [facility] [facility] Start: 08-27-2022 End: 05-17-2023 Tobacco smoking status NMIS Unknown if ever smoked [facility] Start: 1950 Sex Assigned At Female [facility] Start: 05-22-2022 End: 02-10-2023 History of Social function [facility] Start: 05-22-2022 End: 02-10-2023 Tobacco use panel [facility] National Score (1-100), lower number is lower risk 57 [facility] Mental Status Date Assessment Result Facility 02-14-2025 Cognitive function Voice/Name [facility] Work Phone: Clinical Notes 08-16-2021 to 02-14-2025 Note Date & Type Note Facility 02-14-2025 Discharge summary [facility] 02-14-2025 Radiology Diagnostic study note [facility] Imaging Services [address] [place] [place] [id number] Chest 1 View (Portable) MR#: [id number] Acct: [id number] Name: ANGELINA ORTEGA Rep #: [id number] : 1950 F 74 From: Avinash Lowery MD PCP: Dr. Scarlet Deleon DO Status: REG ER Study:Chest 1 View (Portable) Date of Exam: 02/14/25 Exam# [id number] Ordering Dr: Marilee Ahumada MD PROCEDURE: CHEST 1 VIEW (PORTABLE) 02/14/2025 REASON FOR EXAM: CHEST PAIN TECHNIQUE: Frontal view of the chest. COMPARISON: None FINDINGS: Hardware: EKG electrodes are seen. Heart: The heart is nonenlarged. Lungs: Hyperinflation. The lungs are clear. Bones: The bones are unremarkable. RAD/Chest 1 View (Portable) IMPRESSION: No Acute Findings. Reading Location: [place] [address] CC: Dr. Len Ahumada MD; Dr. Scarlet Deleon DO ~ Special Skills Officer: Signed [facility] 02-14-2025 Discharge summary Note Date/Time February 14, 2025 4:12pm [facility] Medical Records Department [address] [place] [address] Emergency Department Summary 02/14/25 MR#: [id number] Acct: [id number] Name: ANGELINA ORTEGA Rep #:[id number] : 1950 74 From: Len Ahumada MD PCP: Dr. Scarlet Deleon DO Status:REG ER Location: ED HPI History of Present Illness Chief Complaint: Chest Pain Informant: patient Narrative Narrative: Patient is a 74-year-old female with a history of coronary vasospasm presenting with elevated blood pressure, chest tightness, leg weakness, and cephalic pressure. Patient is accompanied by family, who is supplementing history. - Reports sudden onset of symptoms while sitting at home, prompting her to checkher blood pressure. - Initial BP reading was 134 mmHg; later readings increased to 154/95 mmHg and 180/91 mmHg upon arrival to the ED. - Usual BP is around 110 mmHg or lower due to coronary vasospasm management. - Describes chest discomfort as a choking feeling, which she has experienced since her coronary vasospasm diagnosis in 2017. - Associated symptoms include dizziness, leg weakness, and a funny feeling in her head. - Sister reports patient also experienced dyspnea and cough during the episode. - Denies current dyspnea, abdominal pain, or emesis; reports mild nausea. - Symptoms began at 1055 and lasted approximately one hour. - Denies recent changes in antihypertensive medication; missed one dose the night before last but took her medication last night. [facility] Medical History Pure hypercholesterolemia Essential hypertension Coronary vasospasm Abnormal EKG Chest pain Carpal tunnel syndrome Right knee pain Depression History of colon cancer History of melanoma History of skin cancer Osteoporosis Migraine GERD (gastroesophageal reflux disease) Home Medications ?Medication ?Instructions ?Recorded ?Last Taken ?Type multivitamin 1 ea PO DAILY 04/14/1502/14 History aspirin 81 mg tablet,delayed 81 mg PO QMWF 07/24/20 History release (Adult Aspirin Regimen) cholecalciferol (vitamin D3) 50 50 mcg PO DAILY 02/13/25 History mcg (2,000 unit) tablet nitroglycerin 0.4 mg sublingual 0.4 mg sublingual Q5-1 5M PRN chest 03/04/24 Unknown Rx tablet pain #25 tabs denosumab 60 mg/mL subcutaneous 60 mg subcut [id number] 05/21/24 12/09/24 History syringe (Prolia) atorvastatin 10 mg tablet 10 mg PO DAILY #90 TABLETS 0 09/22/24 02/14/25 Rx amlodipine 5 mg tablet (Norvasc) 5 mg PO DAILY #90 tab s 02/07/25 02/13/25 Rx magnesium 250 mg tablet 250 mg PO QHS 02/14/2502/13 History Allergy/AdvReac Type Severity Reaction Status Date / Time No Known Allergies Allergy Verified 02/14/25 11:58 Family History Mother Skin cancer Brother Hypertension Brother Hypertension Sister Hypertension Daughter Diabetes Surgical History History of back surgery (02/22/21) History of left heart catheterization (03/17/18) History of colonoscopy (05/2023) History of bowel resection History of bladder repair surgery History of carpal tunnel release of both wrists History of hysterectomy Social History Smoking Status: Never smoker alcohol intake: never substance use type: does not use caffeine: Yes Type: coffee Number of servings: 1 ROS ROS ED Constitutional Constitutional ED: Denies chills or fever(s) Eyes Eyes: Denies change in vision or diplopia ENT ENT ED: Denies rhinorrhea or sore throat Cardiovascular Cardiovascular: Reports as per HPI and chest pain; Denies palpitations Respiratory/Chest Respiratory/Chest: Reports dyspnea; Denies cough Gastrointestinal Gastrointestinal: Reports nausea; Denies abdominal pain, diarrhea or vomiting Genitourinary Genitourinary ED: Denies dysuria or hematuria Musculoskeletal Musculoskeletal: Denies back pain or neck pain Integumentary Denies abscess or rash Neurologic Neurologic: Reports as per HPI; Denies abnormal gait, headache(s), paresthesias,syncope or weakness Psychiatric Psychiatric: Denies suicidal thoughts EXAM Physical Exam Const Vital Signs: 02/14/25 11:58 02/14/25 12:16 02/14/25 12:16 Temperature 97.8 F Temperature Source Oral Pulse Rate 92 Respiratory Rate 18 Respiratory Effort Normal Normal Respiratory Pattern Normal Blood Pressure 180/94 H Blood Pressure Mean 122 Pulse Ox 100 Oxygen Delivery Method Room Air 02/14/25 13:04 02/14/25 14:00 02/14/25 15:00 Temperature Temperature Source Pulse Rate 80 73 69 Respiratory Rate 20 H 14 17 Respiratory Effort Respiratory Pattern Blood Pressure 129/85 H 133/79 H 154/83 H Blood Pressure Mean 99 97 106 Pulse Ox 100 98 100 Oxygen Delivery Method Room Air Room Air Room Air Positive well nourished and well developed General Appearance ED: well developed and NAD HEENT Reports moist mucous membranes normocephalic and atraumatic Eyes PERRL and EOMs intact bilaterally Neck full ROM, supple and no JVD Resp normal respiratory effort and clear to auscultation bilaterally Resp Narrative: Converses in full sentences Cardio regular rate, regular rhythm and no murmurs GI non-tender and non-distended Auscultation: normoactive bowel sounds Palpation: soft Back/Spine no CVA tenderness General Back: other FROM Extremity normal to inspection General Extremety ED: Negative for edema, pulses abnormal or tenderness General Extremity: Negative for edema or pulses abnormal Neuro oriented x3, CN's II-XII intact bilaterally and no sensory deficits noted Sensorium / Orientation: awake and alert Motor Exam: strength 5/5 throughout Skin no rashes or lesions noted and no wounds Heart Score History: Moderately Suspicious ECG: Normal Age: >/= 65 years Risk Factors: 1 or 2 Risk Factors Score: 4 MDM MDM MDM Narrative Medical decision making narrative: Assessment: The patient is a 74-year-old female with PMH of coronary vasospasm presenting for chest pressure, headache, light-headedness, leg weakness, and markedly elevated blood pressure. Symptoms resolved with observation as her pressures declined from 180/94 to 129/85 without medication. Two serial troponins remained within normal limits, EKG was normal, and chest X-ray showed no acute process. Given normalized vitals, negative cardiac biomarkers, and reassuring studies, today?s episode is most consistent with accelerated hypertension without evidence of acute coronary syndrome; precordial pain has resolved. Plan: - Monitored in ED; blood pressure trended down spontaneously. - No antihypertensive or analgesic medications required. - Provided reassurance and discussed condition, missed doses, and importance of adherence. - Discharged home in stable condition with instructions for close outpatient follow-up with cardiology for possible repeat stress testing. - Reviewed return precautions; patient verbalized understanding and agreement with plan. Diagnostics: - EKG interpreted: normal tracing with no ischemic changes. Independently interpreted by me, Len Ahumada. - Troponin I ?2: both within normal limits; second value slightly higher but remained in reference range. - Chest X-ray 1 view: flattened diaphragms; no acute pulmonary or cardiac abnormalities noted. Radiology concurred. - Comprehensive metabolic panel and CBC: within normal limits. Reevaluations: - Blood pressure recheck 145/91 with symptom improvement. - Final reassessment: chest discomfort resolved; BP 129/85; patient asymptomaticand ready for discharge. PROBLEMS ADDRESSED - [x] Patient presents with a problem that potentially represents a highly morbid condition with a possible threat to life or bodily function: Accelerated hypertension; Precordial pain; Coronary vasospasm DATA REVIEWED AND ANALYZED Category 1 - Additional history was required and obtained from: - Prior external documentation reviewed: [x] Other: old records reviewed including a 2018 echocardiogram (with trivial aortic insufficiency), a negative stress echo, and a heart cath demonstrating single vessel disease that resolved with intracoronary nitroglycerin. - Prior test results reviewed: - [x] Tests were ordered and the results were independently reviewed by me: Chest x-ray (1 view) - [x] Tests considered but not ordered: Repeat stress test to further evaluate coronary perfusion, not indicated emergently given symptom resolution. Category 2 - [x] Tests were independently interpreted by me: - Chest x?ray demonstrates flattened diaphragms without any acute abnormalities; Radiology was in agreement. Independently interpreted by Len hackett. - EKG was normal appearing in the context of chest discomfort. Independently interpreted by , Len Ahumada. Category 3 - Discussion of management with another professional: - [ ] Black Leather Trimmer - [ ] Admitting service - [ ] Clinical Pharmacy - [ ] Radiology - [ ] Behavioral Health PATIENT MANAGEMENT - [x] Considered hospitalization or emergent surgery/procedure: Admission was considered given the markedly elevated blood pressure and chest discomfort; however, with observation the patient?s symptoms resolved and vital signs normalized, so discharge with close outpatient follow-up was deemed appropriate. - [ ] Controlled parenteral medications or medications requiring intensive monitoring were administered - [ ] Patient received controlled parenteral medications by EMS that required continued intensive monitoring in the emergency department Lab Data Attestation: I reviewed the patient's lab results. Labs: Laboratory Results - last 24 hr 02/14/25 02/14/25 12:15 14:25 WBC 7.8 RBC 4.12 L Hgb 13.2 Hct 39.5 MCV 95.9 MCH 32.0 MCHC 33.4 RDW Std Deviation 43.8 RDW Coeff of Ace 12.3 Plt Count 306 MPV 9.3 Immature Gran % (Auto) 0.300 Neut % (Auto) 65.3 Lymph % (Auto) 25.0 Grayson % (Auto) 7.5 Eos % (Auto) 1.3 Baso % (Auto) 0.6 Absolute Neuts (auto) 5.1 Absolute Lymphs (auto) 1.94 Nucleated RBC % 0 Sodium 138 Potassium 4.1 Chloride 102 Carbon Dioxide 23.1 Anion Gap 13 BUN 13 Creatinine 0.66 L Estim Creat Clear Calc 56.88 Est GFR (MDRD) Non-Af 91 BUN/Creatinine Ratio 19.4 Glucose 113 H Calcium 9.7 Troponin T High Sens 6 Troponin T Hi Sens 2 Hr 12 Radiography Diagnostic Testing: Clinical Impression(s) from Imaging Studies Chest X-Ray 02/14/25 12:40 IMPRESSION: No Acute Findings. Reading Location: [place] [address] Rhythm Strip Rhythm Strip: Sinus Rhythm Rate: 90 Ectopy: None EKG Initial EKG: Attestation: I personally reviewed and interpreted this EKG as follows: Interpretation: Sinus Rhythm, No Acute Injury Pattern and LAFB Comments: Nml intervals; left axis; otherwise nml EKG Prior EKG tracings: available for review Prior: Unchanged Discharge Plan Triage Chief Complaint: Chest Pain Other Complaint: Hypertension ED Provider: Len Ahumada Dx/Rx/DC Orders Clinical Impression: Accelerated hypertension, Chest pain, unspecified, History of coronary vasospasm Instructions: ED Chest Pain, Uncertain Cause, ED High Blood Pressure Hypertension Prescriptions: No Action aspirin [Adult Aspirin Regimen] 81 mg tablet,delayed release (DR/EC) 81 mg PO QMWF cholecalciferol (vitamin D3) 50 mcg (2,000 unit) tablet 50 mcg PO DAILY nitroglycerin 0.4 mg tablet, sublingual 0.4 mg SUBLINGUAL Q5-15M PRN (Reason: chest pain) Qty: 25 3RF Rx Instructions: until response; do not exceed 3 doses per episode Prolia 60 mg/mL syringe 60 mg subcut [id number] multivitamin 1 EACH tablet 1 ea PO DAILY Patient Comments: supplement magnesium 250 mg tablet 250 mg PO QHS atorvastatin 10 mg tablet 10 mg PO DAILY Qty: 90 3RF amlodipine [Norvasc] 5 mg tablet 5 mg PO DAILY Qty: 90 3RF Primary Care Provider: Scarlet Deleon Referrals: Scarlet Deleon DO [Primary Care Provider, Family Practice] - As soon as possible Referral Note: or your personal injury law specialist Activity Restrictions/Additional Instructions: - Continue taking your prescribed nighttime blood pressure medicine as directed and avoid missing doses. - Monitor and record your blood pressure at home; if your readings stay high or you have chest pressure, dizziness, weakness, or shortness of breath again, contact your doctor or seek prompt care in ER. - Follow up with your primary care doctor and/or Side Stitching Machine Operator for ongoing management of your blood pressure and coronary artery spasm (which may or may not have been related to your chest pain today). - Schedule an outpatient cardiology appointment for re-evaluation and discuss whether a repeat stress test is desired. - No new medications or immediate tests are required today, as your ECG, blood tests (including troponins), and chest X-ray were normal and your blood pressurehas returned to baseline. Print Language: Tristanian Disposition Disposition: Home, Self Care What to do if you have Problems For any increased pain, shortness of breath, bleeding, nausea or vomiting, chestpain, or any unexpected problems, contact your Primary Care Provider. Call [facility] ([phone]) or report to the closest Emergency Room. Call 911 if necessary. 02/14/25 1512 <Electronically signed by Len Ahumada MD> Cosigner Signature (if applicable): CC: Dr. Scarlet Deleon, ~ Signed [facility] Work Phone: 1(560) 906-714301-20-2024 Discharge summary Author Jonathan Santiago [facility] May 17, 2023 9:52am Note Date/Time May 17, 2023 7 :32am [facility] Medical Records Department [address] [place] [id number] Emergency Department Summary 05/17/23 MR#: [id number] Acct: [id number] Name: ANGELINA ORTEGA Rep #:[id number] : 1950 73 From: Jonathan Cosme PCP: Dr. Scarlet Deleon, Status:REG ER Location: ED HPI History of Present Illness Chief Complaint: Abd Pain [facility] Medical History Abnormal EKG Carpal tunnel syndrome Chest pain Coronary vasospasm Depression Essential hypertension GERD (gastroesophageal reflux disease) History of colon cancer History of melanoma History of skin cancer Migraine Osteoporosis Pure hypercholesterolemia Right knee pain Home Medications multivitamin 1 ea PO DAILY 04/14/15 [History Last Taken Unknown] ascorbic acid (vitamin C) 500 mg tablet 500 mg PO DAILY 07/24/20 [History Last Taken Unknown] aspirin 81 mg tablet,delayed release (Adult Aspirin Regimen) 81 mg PO QMWF 07/24/20 [History Last Taken Unknown] calcium carbonate 600 mg calcium (1,500 mg) tablet 1,200 mg PO DAILY 07/24/20 [History Last Taken Unknown] cholecalciferol (vitamin D3) 50 mcg (2,000 unit) tablet 50 mcg PO DAILY 07/24/20[History Last Taken Unknown] nitroglycerin 0.4 mg sublingual tablet 0.4 mg sublingual Q5-15M PRN chest pain #25 tabs 10/24/20 [Rx Last Taken Unknown] atorvastatin 10 mg tablet (Lipitor) 10 mg PO DAILY #90 tabs 12/02/22 [Rx Last Taken Unknown] amlodipine 5 mg tablet (Norvasc) 5 mg PO DAILY #90 tabs 05/01/23 [Rx Last Taken Unknown] Allergy/AdvReac Type Severity Reaction Status Date / Time No Known Allergies Allergy Unverified 02/27/23 12:57 Family History Mother Skin cancer Brother Hypertension Brother Hypertension Sister Hypertension Daughter Diabetes Surgical History History of back surgery (02/22/21) History of bladder repair surgery History of bowel resection History of carpal tunnel release of both wrists History of colonoscopy (05/2016) History of hysterectomy History of left heart catheterization (03/17/18) Social History Smoking Status: Never smoker alcohol intake: never substance use type: does not use caffeine: Yes Type: coffee Number of servings: 1 EXAM Physical Exam Const Vital Signs: 05/17/23 07:17 Temperature 95.6 F L Temperature Source Temporal Pulse Rate 93 Respiratory Rate 16 Blood Pressure 145/74 H Blood Pressure Mean 97 Pulse Ox 100 Oxygen Delivery Method Room Air MDM MDM MDM Narrative Medical decision making narrative: HISTORY OF PRESENT ILLNESS: 73 year old female presents with abdominal pain. The patient states she has pain that originates in her right upper quadrant radiates down across abdomen. He states this began 1/2 weeks ago. REVIEW OF SYSTEMS: All other systems reviewed and are negative except as noted in the history of present illness. At least 10 review of systems reviewed and are negative except as noted in history of present illness. PHYSICAL EXAM: Nursing triage notes reviewed, Vital signs reviewed Constitutional: please see mdm HENT: MMM Eyes: Pupils equal round and reactive to light, Extraocular muscles intact Neck: No stridor, no JVD, full neck ROM Lungs: Clear to auscultation, No wheezing or rales. No increased work of breathing, no conversational dyspnea, no accessory muscle use, no nasal flaring.No respiratory distress noted Heart: Regular rate and rhythm, No murmurs, No rubs and No gallops, 2+ distal pulses (radial, femoral, posterior tibial) in all extremities Abdomen: Soft, no rigidity, rebound or guarding, no obvious peritoneal signs, nopalpable pulsatile abdominal masses, no auscultated abdominal bruit : No CVAT Extremities: No edema Neuro: No focal neurological deficits, cranial nerves II through XII intact, 5/5strength in all extremities. Intact sensation to light touch in all extremities,2+ reflexes bilateral patella tendons. Normal gait. No ataxia. Skin: No rash or lesions noted MEDICAL DECISION MAKING: Chief Complaint: abdominal pain External records reviewed: Prior imaging reviewed, gallbladder ultrasound from 2015 shows normal right upper quadrant ultrasound, Factors affecting care: history of GERD, hysterectomy, hyperlipidemia, hypertension Social determinants of health:none History obtained from others: The patient's Consults: none [facility] Narrative: Patient was initially hemodynamically stable, afebrile, nontoxic-appearing. Abdominal exam with mild right upper quadrant tenderness, no peritoneal signs. Given the patient's age and location of pain is concerning for major diagnoses as listed below I considered the following differential diagnosis: AAA, small bowel obstruction,abdominal perforation, appendicitis, pancreatitis, hepatobiliary pathology (acute cholecystitis), mesenteric ischemia, abnormalities such as pyelonephritis, nephrolithiasis, ACS, arrhythmia ALL IMAGES (IF OBTAINED) HAVE BEEN PERSONALLY REVIEWED AND INTERPRETED BY MYSELF. CBC without leukocytosis, severe anemia, no thrombocytopenia. EKG with normal sinus rhythm, left axis deviation, normal intervals, no STEMI Urinalysis shows no evidence of urinary inflammation suggestive of UTI High-sensitivity troponin is negative, no evidence of myocardial ischemia Lipase is wnl indicating no pancreatic inflammation. LFTs show no evidence of hepatobiliary pathology. CT scan showed no evidence of mass obstruction or acute surgical pathology Right upper quad ultrasound showed no evidence hepatobiliary obstruction I see nothing that would suggest an acute abdomen at this time. Based on historyphysical exam, risk factors, I have a low for bowel obstruction, incarcerated hernia, acute pancreatitis, intra-abdominal abscess, perforated viscus, diverticulitis, cholecystitis, appendicitis is very low. There is no evidence ofperitonitis sepsis or toxicity at this time. I feel the patient can be managed as an outpatient with follow-up with her primary physician in the next 24 to 48 hours or soon as possible. Instructions have been given for the patient to return to the ED for worsening pain, anorexia, high fevers, intractable vomiting or bleeding. The patient and/or family, caregivers express understanding. The patient and/or family, caregivers agrees with the plan. Total critical care time today provided was at least 0 minutes. This excludes separately billable procedures. Critical care time (if documented) is secondary to the patient having high probability of clinically significant/life threatening deterioration in the patient's condition which required my urgent intervention. Shared decision making: I will have a discussion with the patient and or visitors regarding risk/benefits of further testing or admission. They will be made aware of of therisk/benefits inherent in this decision they will be given the opportunity to voice understanding. Impression: 1. Right Upper quadrant abdominal pain 2. Fatty infiltration of the liver Disposition: Discharge home Jonathan Santiago DO Lab Data Labs: Laboratory Results - last 24 hr 05/17/23 05/17/23 07:55 08:10 WBC 4.6 RBC 4.04 L Hgb 13.3 Hct 39.3 MCV 97.3 MCH 32.9 H MCHC 33.8 RDW Std Deviation 44.0 H RDW Coeff of Ace 12.3 Plt Count 282 MPV 9.9 Immature Gran % (Auto) 0.200 Neut % (Auto) 69.9 Lymph % (Auto) 20.7 Grayson % (Auto) 7.6 Eos % (Auto) 0.7 Baso % (Auto) 0.9 Absolute Neuts (auto) 3.2 Absolute Lymphs (auto) 0.95 Nucleated RBC % 0 Sodium 140 Potassium 4.5 Chloride 110 H Carbon Dioxide 27.0 Anion Gap 3 L BUN 14 Creatinine 0.70 Estim Creat Clear Calc 57.76 Est GFR (MDRD) Af Amer 105 Est GFR (MDRD) Non-Af 87 BUN/Creatinine Ratio 20.0 Glucose 122 H Calcium 9.6 Total Bilirubin 0.50 Direct Bilirubin 0.16 AST 20 ALT 31 Alkaline Phosphatase 87 Troponin I High Sens 5 Total Protein 7.3 Albumin 3.6 Globulin 3.7 Lipase 47 Urine Color Yellow Urine Clarity Clear Urine pH 7.0 Ur Specific [place] 1.005 Urine Protein Negative Urine Glucose (UA) Normal Urine Ketones Negative Urine Occult Blood 10 H Urine Nitrite Negative Urine Bilirubin Negative Urine Urobilinogen Normal Ur Leukocyte Esterase Negative Urine RBC 0 SEEN Urine WBC 0 SEEN Ur Squamous Epith Cells 0 SEEN Urine Bacteria 0 SEEN Urine Mucus 0 SEEN Radiography Diagnostic Testing: Clinical Impression(s) from Imaging Studies Abdomen/Pelvis CT 05/17/23 07:44 IMPRESSION: No mass or obstruction. Hepatomegaly. No biliary dilatation. Electronically Signed: Len Barajas MD at 9:11 EST Reading Location ID and State: [address] [place] [address] , Service support , Gallbladder Ultrasound 05/17/23 07:44 IMPRESSION: Fatty infiltration of the liver. Mild prominence of the common bile duct. No gallstones. Electronically Signed: Len Barajas MD at 9:16 EST , Discharge Plan Triage Chief Complaint: Abd Pain ED Provider: Jonathan Santiago Dx/Rx/DC Orders Clinical Impression: Abdominal pain Instructions: NAFLD Prescriptions: No Action aspirin [Adult Aspirin Regimen] 81 mg tablet,delayed release (DR/EC) 81 mg PO QMWF cholecalciferol (vitamin D3) 50 mcg (2,000 unit) tablet 50 mcg PO DAILY ascorbic acid (vitamin C) 500 mg tablet 500 mg PO DAILY nitroglycerin 0.4 mg tablet, sublingual 0.4 mg SUBLINGUAL Q5-15M PRN (Reason: chest pain) Qty: 25 3RF Rx Instructions: until response; do not exceed 3 doses per episode multivitamin 1 EACH tablet 1 ea PO DAILY Patient Comments: supplement calcium carbonate 600 mg calcium (1,500 mg) tablet 1,200 mg PO DAILY Patient Comments: supplement atorvastatin [Lipitor] 10 mg tablet 10 mg PO DAILY Qty: 90 3RF amlodipine [Norvasc] 5 mg tablet 5 mg PO DAILY Qty: 90 3RF Primary Care Provider: Scarlet Deleon Referrals: Scarlet Deleon DO [Primary Care Provider] - Friend,DO Odell [Med Staff - Active Staff] - Activity Restrictions/Additional Instructions: Thank you for trusting us with your care today! Please take Tylenol (2 pills, 650 mg), ibuprofen (2 pills, 400 mg) every 6 hoursas needed for pain and fever control. Please return to the emergency department if your symptoms change or worsen. Please follow with your primary care physician for further outpatient evaluationand management. Please also follow-up with outpatient Gastroenterology Dr. Jania Disposition Disposition: Home, Self Care What to do if you have Problems For any increased pain, shortness of breath, bleeding, nausea or vomiting, chestpain, or any unexpected problems, contact your Primary Care Provider. Call [facility] ([phone]) or report to the closest Emergency Room. Call 911 if necessary. 05/17/23 0952 <Electronically signed by Jonathan Santiago DO> Cosigner Signature (if applicable): CC: Dr. Scarlet Deleon DO ~ Signed [facility] Work Phone: [phone] NoteHNO ID: [id number] Author: Donna Lynn I, MD Service: ? Author Type: Physician Type: Progress Notes Filed: 02/10/2023 9:47 AM Note Text: NEUROSURGERY FOLLOW UP OFFICE NOTE Chair, Clinical Neurosciences Director, Spinal Neurosurgery [facility] Date of visit: February 10, 2023 Patient Name: Ms.JoAnn Eric Ortega Date of : 1950 Current Age: [age] year old Sex: female MRN/E# [id number] Last Office Visit: Visit date not found [...] start her on gabapenti (more content not included)...[facility]09-28-2023 NoteHNO ID: [id number] Author: Scarlet Flaherty RT(R) Service: ? Author Type: Technologist Type: Progress [...] Lumbar spine SIGNATURE: RT Octaviano(Alirio) PATIENT NAME: Angelina Ortega DATE: January 23, 2023 TIME: 8:42 [facility]09-28-2023 History of Present illness Narrative* Scarlet Flaherty RT(R) - 01/23/2023 8:40 AM EDT Radiology Service Progress Note DATE OF SERVICE: [...] Lumbar spine SIGNATURE: RT Octaviano(Alirio) PATIENT NAME: Angelina Ortega DATE: January 23, 2023 TIME: 8:42 AM [facility] Miscellaneous Notes* Telephone Encounter - Tyler Landeros RN - 06/26/2022 3:31 PM EST Called patient to clarify the reason for [...] that if she were to begin experiencing anynew symptoms such as new pain, weakness, incontinence, etc she should call our office to notify us.Patient verbalized understanding. Tyler Landeros RN documented in [facility] encounter[facility]10-20-2022 Miscellaneous Notes* Telephone Encounter - Viola Altamirano - 02/14/2022 8:38 AM EDT Received a referral from Dr Lynn for patient to be seen for Left foot pain/ history of lumbar surgery Please call and get patient scheduled Viola Altamirano Director Of Collections And Archives Spine and Pain [facility] [address] [place] [address] P: [phone] F: [phone] [email or web address] documented in this encounterUc [facility]10-19-2022 NoteHNO ID: [id number] Author: Donna Lynn I, MD Service: ? Author Type: Physician Type: Progress Notes Filed: 02/13/2022 8:59 AM Note Text: NEUROSURGERY FOLLOW UP OFFICE NOTE Chair, Clinical Neurosciences Director, Spinal Neurosurgery [facility] Date of visit: February 13, 2022 Patient Name: Ms.JoAnn Eric Ortega Date of : 1950 Current Age: [age] year old Sex: female MRN/E# [id number] Last Office Visit: 01/09/2022 Chief Complaint: Patient [...] gabapentin to help wit (more content not included)...[facility]10-19-20[facility] History of Present illness Narrative* Donna Lynn I, MD - 02/13/2022 8:45 AM EDT NEUROSURGERY FOLLOW UP OFFICE NOTE Chair, Clinical Neurosciences Director, Spinal Neurosurgery [facility] Date of visit: February 13, 2022 Patient Name: Ms.JoAnn Eric Ortega Date of : 1950 Current Age: [age] year old Sex: female MRN/E# [id number] Last Office Visit: 01/09/2022 Chief Complaint: Patient [...] left lower extremity had decreased. She still hadsome persistent numbness in the left lower extremity which was explained may continue to persist. She denied any fevers or drainage from the incision. It was recommended that she follow-up with neuros urgery due to the persistent numbness of the left lower extremity. The patient presented to the office 08/07/[address] Bhatia for a follow up visit. She followed upwith rad/onc who recommended surveillance and MRI brain but no radiation treatments or chemotherapy. Her post op course was uncomplicated with an incisional seroma, since resolved, w/ continued numbness along the dorsum of her right foot. MRI of the lumbar spine showed normal intrathecal contents. No intrathecal lesions. L2 laminectomy and 3.6 cm epidural fluid collection, possibly abscess versusseroma. Surgical attention advised. No neural compression. She [...] Dr. Ruiz and noted she was still experiencingnumbness to the top ofher left foot that [...] of a grade 2 ependymoma. She presented withworsening pain in the lower extremities. It was [...] is now traveling into the inner aspect ofleft foot PREVIOUS CONSERVATIVE TREATMENTS: PT postoperatively PREVIOUS [...] to see one of our practitioners in [place]. We will place referral. From a tumor perspective I like to see elif in 1 years time with repeat lumbar MRI imaging with and without contrast to follow-up. The following portions of the patient's history were reviewed, confirmed, and updated as necessary:allergies, current medications, past family history, past medical history, past social history, past surgical history, problem list, HPI, and ROS obtained by others. Some elements may be copied from a previous office note and have been reviewed/updated where appropriate. All portions reflect current medical decision making from today. The clinical and radiographic findings as well as the risks, benefits and alternatives of treatmenthave been reviewed in detail with the patient. Advised to call the office if symptoms worsen or new symptoms develop. Patient expressed understanding and is in agreement with plan. Donna Lynn MD Chair, Clinical Neurosciences Director, Spinal Neurosurgery [facility] This note was partially generated using [employer] voice recognition system, and there may be some incorrect words, spellings, and punctuation that were not noted in checking the note before saving. documented in this encounter[facility]09-30-[facility]22 History of Present illness Narrative* Scarlet Krystina, RT(R) - 01/25/2022 1:00 PM EDT Radiology Service Progress Note DATE OF SERVICE: [...] Lumbar spine SIGNATURE: RT Octaviano(R) PATIENT NAME: Angelina Ortega DATE: January 25, 2022 TIME: 1:11 PM documented in this encounterU[facility]09-14-2022 History of Present illness Narrative* Donna Lynn I, MD - 01/09/2022 8:45 AM EDT NEUROSURGERY CONSULT NOTE Donna Lynn MD Chair, Clinical Neurosciences Director, Spinal Neurosurgery [facility] Date of visit: January 09, 2022 Patient Name: Ms.Jo Anyi Ortega Date of : 1950 Current Age: [age] year old Sex: female MRN/E# [id number] Last Office Visit: 08/16/2021 Chief Complaint: Patient [...] left lower extremity had decreased. She still hadsome persistent numbness in the left lower extremity which was explained may continue to persist. She denied any fevers or drainage from the incision. It was recommended that she follow-up with neuros urgery due to the persistent numbness of the left lower extremity. The patient presented to the office 08/07/[address] Bhatia for a follow up visit. She followed upwith rad/onc who recommended surveillance and MRI brain but no radiation treatments or chemotherapy. Her post op course was uncomplicated with an incisional seroma, since resolved, w/ continued numbness along the dorsum of her right foot. MRI of the lumbar spine showed normal intrathecal contents. No intrathecal lesions. L2 laminectomy and 3.6 cm epidural fluid collection, possibly abscess versusseroma. Surgical attention advised. No neural compression. She [...] Dr. Ruiz and noted she was still experiencingnumbness to the top ofher left foot that [...] PT postoperatively that improved her back pain. Shepresents for evaluation and plan of care. Symptoms: numbness in the dorsal aspect of left foot that is now traveling into the inner aspect ofleft foot PREVIOUS CONSERVATIVE TREATMENTS: PT postoperatively PREVIOUS [...] lumbar spine taken in May which shows noevidence of recurrence of lesion. She does have [...] them quite debilitating when she changes position fromsitting to standing in particular. I am going [...] history were reviewed, confirmed, and updated as necessary:allergies, current medications, past family history, past medical history, past social history, past surgical history, problem list, HPI, and ROS obtained by others. Some elements may be copied from a previous office note and have been reviewed/updated where appropriate. All portions reflect current medical decision making from today. The clinical and radiographic findings as well as the risks, benefits and alternatives of treatmenthave been reviewed in detail with the patient. Advised to call the office if symptoms worsen or new symptoms develop. Patient expressed understanding and is in agreement with plan. Donna Lynn MD Chair, Clinical Neurosciences Director, Spinal Neurosurgery [facility] This note was partially generated using [employer] voice recognition system, and there may be some incorrect words, spellings, and punctuation that were not noted in checking the note before saving. documented in this encounterU[facility]07-12-2022 History of Present illness Narrative* Sai Ruiz DO - 11/06/2021 9:15 AM EDT Images from the original note were not included. Sai Ruiz DO [facility] Orthopedics - Orthopedic Spine Surgeon [address], [facility] [address] [place] [address] Phone: [phone] ([phone]) FAX: [phone] SPINE SURGERY OUTPATIENT CONSULT SERVICE DATE: 11/06/2021 Last Office Visit: 07/03/2021 REFERRING PROVIDER: Scarlet Deleon DO [address] [place] [address] CHIEF COMPLAINT: Left leg numbness HISTORY OF PRESENT ILLNESS Magi Ortega is a 71 year old female presenting alone. She was last seen on 07/03/2021 status postlumbar 2-3 laminectomy with intradural exploration and microdissection [...] top ofher left foot that radiates up theanterior aspect of her haddad stopping at her knee. She notes sharp pains at times. She notes her weakness to her left lower extremity has increased slightly. She denies any falls. She denies any bowelor bladder dysfunction. She has completed a course [...] Diabetic: denies Anticoagulants / Antiplatelets: aspirin Occupation: [employer] PAST MEDICAL HISTORY Diagnosis Date Asthma Coronary [...] 5/5 Biceps 5/5 5/5 Triceps 5/5 5/5 Register Of Wills 5/5 5/5 Interossei 5/5 5/5 Lower Extremity [...] that she feels like her legs are gettinglittle bit weaker. On my exam I do not see any weakness. States that the numbness is starting to ascend to the anterior haddad but does not go past the knee. Recommend follow-up with my partner Dr. Lynn for further neurosurgical evaluation. The following portions of the patient's history were reviewed, confirmed, and updated as necessary:allergies, current medications, past family history, past medical history, past social history, past surgical history, problem list, HPI, and ROS obtained by others. Some elements may be copied from a previous office note and have been reviewed/updated where appropriate. All portions reflect current medical decision making from today. The clinical and radiographic findings as well as the risks, benefits and alternatives of treatmenthave been reviewed in detail with the patient. Advised to call the office if symptoms worsen or new symptoms develop. Patient expressed understanding and is in agreement with plan. Sai Ruiz DO documented in this encounterUc [facility]04-21-2022 History of Present illness Narrative* Robin Bhatia MD - 08/16/2021 9:00 AM EDT Images from the original note were not included. NEUROSURGERY FOLLOW UP OFFICE NOTE Robin Bhatia MD PhD Date of visit: August 16, 2021 Patient Name: Ms.Jo Anyi Ortega Date of : 1950 Current Age: [age] year old Sex: female MRN/E# [id number] Last Office Visit: 07/05/2021 Chief Complaint: Patient [...] since resolved, w/ continued numbness along the dorsumof her right foot. Denies weakness, new or worsening pain symptoms. Denies headaches, nausea, vomiting, confusion, vision changes, hearing loss, lethargy, vertigo, lightheadedness, dysmetria, gait ins tability. States she continues to do home pt, and is at baseline state of health. At her last visit on 05/24/2021, the patient was recommended to obtain an MRI brain with and withoutcontrast. 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 Some elements may be copied from a previous office note and have been reviewed/updated where appropriate. All portions reflect current medical decision making from today. The clinical and radiographic findings as well as the risks, benefits and alternatives of treatmenthave been reviewed in detail with the patient. Advised to call the office if symptoms worsen or new symptoms develop. Patient expressed understanding and is in agreement with plan. 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 [facility]* Diagnosis Ependymoma, WHO grade II (HCC)- Primary [facility]* Diagnosis Ependymoma, WHO grade II (HCC) [facility]* Diagnosis Pain in left foot- Primary Pain in limb History of lumbar surgery Schwannoma Other benign neoplasm of connective and other soft tissue of unspecified site Ependymoma, WHO grade II (HCC) documented [facility] this encounter [facility]* Diagnosis Onset Date Resolution Status Palpitations acute Coronary vasospasm chronic Essential hypertension chron ic Pure hypercholesterolemia [facility] Work Phone: Evaluation note* Diagnosis Schwannoma- Primary Other benign neoplasm of connective and other soft tissue of unspecified site documented [facility] this [facility]* Diagnosis Schwannoma Other benign neoplasm of connective and other soft tissue of unspecified site Ependymoma, WHO grade II (HCC) documented [facility]* Diagnosis Onset Date Resolution Status Coronary vasospasm chronic Essential hypertension chron ic Palpitations chronic Pure hypercholesterolemia [facility] Work Phone: Evaluation noteNo assessment information available [facility] Work Phone: Evaluation note* Diagnosis Onset Date Resolution Status Admit Date Coronary vasospasm chronic Octobe r 2024 9:39am Essential hypertension chronic Oc tober 2024 9:39am Palpitations chronic January 9:39am Pure hypercholesterolemia chronic February 21, 2025 9:39am Chest pain, unspecified inactive O ctober 2024 9:39am [facility] Work Phone: Hospital Discharge instructions Additional Instructions Thank you for trusting us with your care today! Please take Tylenol (2 pills, 650 mg), ibuprofen (2 pills, 400 mg) every 6 hours as needed for pain and fever control. Please return to the emergency department if your symptoms change or worsen. Please follow with your primary care physician for further outpatient evaluation and management. Please also follow-up with outpatient Gastroenterology Dr. Lin [facility] Work Phone: Hospital Discharge instructionsAdditional Instructions - Continue taking your prescribed nighttime blood pressure medicine as directed and avoid missing doses. - Monitor and record your blood pressure at home; if your readings stay high or you have chest pressure, dizziness, weakness, or shortness of breath again, contact your doctor or seek prompt care in ER. - Follow up with your primary care doctor and/or Side Stitching Machine Operator for ongoing management of your blood pressure and coronary artery spasm (which may or may not have been related to your chest pain today). - Schedule an outpatient cardiology appointment for re-evaluation and discuss whether a repeat stress test is desired. - No new medications or immediate tests are required today, as your ECG, blood tests (including troponins), and chest X-ray were normal and your blood pressure has returned to baseline.[facility] Work Phone: Reason for referral (narrative)* Diagnostic Procedure Only (Routine) - Pending Review Specialty Diagnoses / Procedures Referred By Fili t Referred To Contact XR IMAGING Diagnoses Ependymoma, WHO grade II (HCC) Procedures XR LUMBAR MOTION 4V AP/LAT/ FLEX/EXT RADEX SPINE LUMBOSACRAL MINIMUM 4 VIEWS Donna Lynn I, MD [address] [place] [address] Xr Imaging Referral ID Status Reason Start Date Expiration Date Visits Requested Visits Authorized [id number] Pending Review Auto-Generat ed Referral 01/09/2022 02/08/2023 1 1 * MRI/CT (Routine) - Authorized Specialty Diagnoses / Procedures Referred By Contac t Referred To Contact MR IMAGING Diagnoses Ependymoma, WHO grade II (HCC) Procedures MRI LUMBAR SPINE WO/W IVCON MRI SPINAL CANAL LUMBAR W/O & W/CONTR MATRL Donna Lynn I, MD [address] [place] [address] Mr Imaging Referral ID Status Reason Start Date Expiration Date Visits Requested Visits Authorized [id number] Authorized Auto-Generat ed Referral 01/09/2022 02/08/2023 1 1 * Diagnostic Procedure Only (Routine) - Authorized Specialty Diagnoses / Procedures Referred By Contac t Referred To Contact XR IMAGING Diagnoses Schwannoma of spinal cord (HCC) Procedures XR LUMBAR MOTION 4V AP/LAT/ FLEX/EXT RADEX SPINE LUMBOSACRAL MINIMUM 4 VIEWS Donna Lynn I, MD [address] [place] [address] Xr Imaging Referral ID Status Reason Start Date Expiration Date Visits Requested Visits Authorized [id number] Authorized Auto-Generat ed Referral 12/20/2021 01/19/2023 1 1 [facility] for referral (narrative)* Diagnostic Procedure Only (Routine) - Closed Specialty Diagnoses / Procedures Referred By Contac t Referred To Contact XR IMAGING Diagnoses Schwannoma of spinal cord (HCC) Procedures XR LUMBAR MOTION 4V AP/LAT/ FLEX/EXT RADEX SPINE LUMBOSACRAL MINIMUM 4 VIEWS Donna Lynn I, MD [address] [place] [address] Xr Imaging Referral ID Status Reason Start Date Expiration Date V isits Requested Visits Authorized [id number] Closed Auto-Generate d Referral 12/20/2021 01/19/2023 1 1 [facility] for referral (narrative)No reason for referral information availableWRegency Hospital Company Work Phone: [facility] Narrative* Diagnostic Procedure Only (Routine) - Closed Specialty Diagnoses / Procedures Referred By Contac t Referred To Contact XR IMAGING Diagnoses Schwannoma of spinal cord (HCC) Procedures XR LUMBAR MOTION 4V AP/LAT/ FLEX/EXT RADEX SPINE LUMBOSACRAL MINIMUM 4 VIEWS Donna Lynn I, MD [address] [place] [address] Xr Imaging Referral ID Status Reason Start Date Expiration Date V isits Requested Visits Authorized [id number] Closed Auto-Generate d Referral 12/20/2021 01/19/2023 1 1 [facility] Reason for Referral Specialty Diagnoses / Procedures Referred By Contac t Referred To Contact MR IMAGING Diagnoses 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) Procedures MRI LUMBAR SPINE WO/W IVCON MRI SPINAL CANAL LUMBAR W/O & W/CONTR Robin Coronel MD [address] [place] [address] Mr Imaging Referral ID Status Reason Start Date Expiration Date Visits Requested Visits Authorized [id number] Pending Review Auto-Generat ed Referral 08/16/2021 09/15/2022 1 1 Specialty Diagnoses / Procedures Referred By Contac t Referred To Contact MR IMAGING Diagnoses Ependymoma, WHO grade II (HCC) Procedures MRI LUMBAR SPINE WO/W IVCON MRI SPINAL CANAL LUMBAR W/O & W/CONTR Donna Buckley I, MD [address] [place] [address] Mr Imaging Referral ID Status Reason Start Date Expiration Date V isits Requested Visits Authorized [id number] Closed Auto-Generate d Referral 01/09/2022 02/08/2023 1 1 Specialty Diagnoses / Procedures Referred By Contac t Referred To Contact MR IMAGING Diagnoses Schwannoma Ependymoma, WHO grade II (HCC) Procedures MRI LUMBAR SPINE WO/W IVCON MRI SPINAL CANAL LUMBAR W/O & W/CONTR Donna Buckley I, MD [address] [place] [address] Mr Imaging Referral ID Status Reason Start Date Expiration Date Visits Requested Visits Authorized [id number] Pending Review Auto-Generat ed Referral 03/15/2023 1 1 Specialty Diagnoses / Procedures Referred By Contac t Referred To Contact Pain Management Diagnoses Pain in left foot History of lumbar surgery Procedures CONSULT TO PAIN Donna Jimenes I, MD [address] [place] [address] Referral ID Status Reason Start Date Expiration Date Visits Requested Visits Authorized [id number] Ref Not Required PCP Requested Referral 2 02/13/2023 1 1 Specialty Diagnoses / Procedures Referred By Contac t Referred To Contact MR IMAGING Diagnoses Schwannoma Procedures MRI LUMBAR SPINE WO/W IVCON MRI LUMBAR SPINE WO/W IVCON MRI SPINAL CANAL LUMBAR W/O & W/CONTR Donna Buckley I, MD [address] [place] [address] [place] [address] Referral ID Status Reason Start Date Expiration Date Visits Requested Visits Authorized [id number] Pending Review Auto-Generat ed Referral 3 03/12/2024 1 1 Specialty Diagnoses / Procedures Referred By Contac t Referred To Contact MR IMAGING Diagnoses Schwannoma Ependymoma, WHO grade II (HCC) Procedures MRI LUMBAR SPINE WO/W IVCON MRI SPINAL CANAL LUMBAR W/O & W/CONTR Donna Buckley I, MD [address] [place] [address] [place] [address] Referral ID Status Reason Start Date Expiration Date V isits Requested Visits Authorized [id number] Closed Auto-Generate d Referral 02/13/2022 03/15/2023 1 1 Advance Directives No Advanced Directives Records FoundDocuments on File Type Date Recorded Patient Medical Historian Expl anation Advance Directive(s) 02/22/2021 8:22 AM Documents on File Type Date Recorded Patient Medical Historian Expl anation Advance Directive(s) 02/22/2021 8:22 AM Advance Directive Response Recorded Date/ Time Advance Directives No February 8:04am Living Will No May 12 2:10pm Power of Photo Finisher No May 12, 2018 2:10pm Advance Directive Response Recorded Date/ Time Name of Medical Power of Photo Finisher stacey/ abebe brewer May 17, 2023 7:31am Advance Directives No February 7:04am Living Will Yes May 17 7:31am Power of Photo Finisher Yes May 17, 2023 7:31am Advance Directive Response Recorded Date/ Time Advance Directives No May 20, 2024 4:30pm Advance Directive Response Recorded Date/ Time Do you have a Healthcare Power of Photo Finisher? No February 14, 2025 11:16am Advance Directives No May 20, 2024 3:30pm Chief Complaint and Reason for Visit Chief Complaint 1 Y FU/Prev PFM PT E ORDERS Reason for Visit Palpitations Coronary vasospasm Essential hypertension Pure hypercholesterolemia Chief Complaint 1 Y FU/Prev PFM PT E ORDERS SCREENING Reason for Visit Palpitations Coronary vasospasm Essential hypertension Pure hypercholesterolemia Chief Complaint 6 M FU 30 DAY HOLTER PALPITATIONS abd pain Reason for Visit Coronary vasospasm Essential hypertension Palpitations Pure hypercholesterolemia Chief Complaint Admit Date SCREENING December 29, 2024 8:02am Chief Complaint Admit Date SCREENING December 29, 2024 8:02am HTN February 14, 2025 1 1:57am S/P [facility] 02/14February 21, 2025 9 :39am history of ependymoma February 25, 2025 7:58am Reason for Visit Admit Date Coronary vasospasm February 21, 2025 9 :39am Essential hypertension February 21 9:39am Palpitations February 21, 2025 9 :39am Pure hypercholesterolemia February 21, 2025 9:39am Chest pain, unspecified February 21 9:39am Family History No Family History Records Found Relationship Condition Age at Onset Recorded Date/T crystal mother Malignant neoplasm of skin Unknown brother Hypertension Unknown sister Hypertension Unknown daughter Diabetes mellitus Unknown Summary Purpose Additional Source Comments Source Comments (unrecognize d section and content) In the event this informatio n is protected by the Federal Confidentiality of Alcohol and Drug Abuse Patient Records regulations: The Federal rules restrict any use of the information to criminally investigate or prosecute any alcohol or drug abuse patient.[facility] the event this information is protected by the Federal Confidentiality of Alcohol and Drug Abuse Patient Records regulations: The Federal rules restrict any use of the information to criminally investigate or prosecute any alcohol or drug abuse patient.[facility] the event this information is protected by the Federal Confidentiality of Alcohol and Drug Abuse Patient Records regulations: The Federal rules restrict any use of the information to criminally investigate or prosecute any alcohol or drug abuse patient.[facility] the event this information is protected by the Federal Confidentiality of Alcohol and Drug Abuse Patient Records regulations: The Federal rules restrict any use of the information to criminally investigate or prosecute any alcohol or drug abuse patient.[facility] the event this information is protected by the Federal Confidentiality of Alcohol and Drug Abuse Patient Records regulations: The Federal rules restrict any use of the information to criminally investigate or prosecute any alcohol or drug abuse patient.[facility] the event this information is protected by the Federal Confidentiality of Alcohol and Drug Abuse Patient Records regulations: The Federal rules restrict any use of the information to criminally investigate or prosecute any alcohol or drug abuse patient.[facility] the event this information is protected by the Federal Confidentiality of Alcohol and Drug Abuse Patient Records regulations: The Federal rules restrict any use of the information to criminally investigate or prosecute any alcohol or drug abuse patient.[facility] the event this information is protected by the Federal Confidentiality of Alcohol and Drug Abuse Patient Records regulations: The Federal rules restrict any use of the information to criminally investigate or prosecute any alcohol or drug abuse patient.[facility] the event this information is protected by the Federal Confidentiality of Alcohol and Drug Abuse Patient Records regulations: The Federal rules restrict any use of the information to criminally investigate or prosecute any alcohol or drug abuse patient.[facility] the event this information is protected by the Federal Confidentiality of Alcohol and Drug Abuse Patient Records regulations: The Federal rules restrict any use of the information to criminally investigate or prosecute any alcohol or drug abuse patient.[facility] Reason for Visit (unrecogniz ed section and content) Reason Comments Established Patient Reason Comments Established Patient Reason Comments Established Patient Specialty Diagnoses / Procedures Referred By Contac t Referred To Contact MR IMAGING Diagnoses Ependymoma, WHO grade II (HCC) Procedures MRI LUMBAR SPINE WO/W IVCON MRI SPINAL CANAL LUMBAR W/O & W/CONTR Donna Buckley I, MD [address] [facility] [place] [address] Mr Imaging Referral ID Status Reason Start Date Expiration Date V isits Requested Visits Authorized [id number] Closed Auto-Generate d Referral 01/09/2022 02/08/2023 1 1 Reason Comments Established Patient Reason Comments New Patient Reason Comments Appointment Patient Question Specialty Diagnoses / Procedures Referred By Contac t Referred To Contact MR IMAGING Diagnoses Schwannoma Ependymoma, WHO grade II (HCC) Procedures MRI LUMBAR SPINE WO/W IVCON MRI SPINAL CANAL LUMBAR W/O & W/CONTR Donna Buckley I, MD [address] [facility] [place] [address] [place] [id number] Referral ID Status Reason Start Date Expiration Date V isits Requested Visits Authorized [id number] Closed Auto-Generate d Referral 02/13/2022 03/15/2023 1 1 Care Teams (unrecognized sec tion and content) Supervisor Properties Relationship Specialty Start Date End Date Scarlet Deleon DO [address] [place] [address] PCP - General Family Practice 12/20/20 Lucina Erwin MD, [address] [place] [address] Physician Radiation Oncology 04/02/21 Supervisor Properties Relationship Specialty Start Date End Date Scarlet Deleon DO [address] [place] [address] PCP - General Family Practice 12/20/20 Lucina Erwin MD, [address] [place] [address] Physician Radiation Oncology 04/02/21 Supervisor Properties Relationship Specialty Start Date End Date Scarlet Deleon DO [address] [place] [address] PCP - General Family Practice 12/20/20 Lucina Erwin MD, [address] [place] [address] Physician Radiation Oncology 04/02/21 Supervisor Properties Relationship Specialty Start Date End Date Scarlet Deleon DO [address] [place] [address] PCP - General Family Medicine 12/20/20 Lucina Erwin MD, [address] [place] [address] Physician Radiation Oncology 04/02/21 Supervisor Properties Relationship Specialty Start Date End Date Scarlet Deleon DO [address] [place] [address] PCP - General Family Medicine 12/20/20 Lucina Erwin MD, [address] [place] [address] Physician Radiation Oncology 04/02/21 Supervisor Properties Relationship Specialty Start Date End Date Scarlet Deleon DO [address] [place] [place], [place] [address] PCP - General Family Medicine 12/20/20 Lucina Erwin MD, [address] [facility] [facility] [place], [place] [id number] Physician Radiation Oncology 04/02/21 Supervisor Properties Relationship Specialty Start Date End Date Scarlet Deleon DO [address] [place], [place] [id number] PCP - General Family Medicine 12/20/20 Lucina Erwin MD, [address] [place] [address] Physician Radiation Oncology 04/02/21 Team Status: Active Member Role Status Dates Dr. Scarlet Deleon DO Family Provider Active Dr. Scarlet Deleon DO Primary Care Provider Active Team Status: Inactive Member Role Status Dates Dr. Scarlet Deleon DO Primary Care Provider, Referring P rovider Active Shanta Hurst BLOOD BANK CREDIT CLERK, BLOOD BANK CREDIT CLERK-C Attending Provider Active Team Status: Inactive Member Role Status Dates Dr. Scarlet Deleon DO Primary Care Provider Active Shanta Hurst BLOOD BANK CREDIT CLERK, BLOOD BANK CREDIT CLERK-C Attending Provider, Referring P rovider Active Team Status: Inactive Member Role Status Dates Dr. Scarlet Deleon DO Primary Care Provide r, Attending Provider, Referring Provider Active Supervisor Properties Relationship Specialty Start Date End Date Scarlet Deleon DO [address] [place], [place] [id number] PCP - General Family Medicine 12/20/20 Lucina Erwin MD, MD [address] [place], [place] [id number] Physician Radiation Oncology 04/02/21 Supervisor Properties Relationship Specialty Start Date End Date Scarlet Deleon DO [address] [place] [address] PCP - General Family Medicine 12/20/20 Lucina Erwin MD, MD [address] [place], [place] [address] Physician Radiation Oncology 04/02/21 Team Status: Inactive Member Role Status Dates Dr. Scarlet Deleon DO Primary Care Provider, Referring P rovider Active Zhou Curry BLOOD BANK CREDIT CLERK, BLOOD BANK CREDIT CLERK-C Attending Provider Active Team Status: Active Member Role Status Dates Dr. Scarlet Deleon DO Primary Care Provider Active Dr. Rashad Schmitz MD Attending Provider Active Zhou Curry BLOOD BANK CREDIT CLERK, BLOOD BANK CREDIT CLERK-C Referring Provider Active Team Status: Active Member Role Status Dates Dr. Scarlet Deleon DO Primary Care Provider Active Zhou Curry BLOOD BANK CREDIT CLERK, BLOOD BANK CREDIT CLERK-C Attending Provider, Referring Pro vider Active Team Status: Inactive Member Role Status Dates Dr. Scarlet Deleon DO Primary Care Provider Active Dr. Jonathan Santiago , DO Emergency Provider Active Team Status: Inactive Member Role Status Dates Dr. Scarlet Deleon DO Primary Care Provider Active Dr. Jonathan Santiago , DO Attending Provider, Emergency P rovider Active Team Status: Active Member Role/Relationship Status Dates Dr. Scarlet Deleon DO Primary Care Provider Active Team Status: Inactive Member Role/Relationship Status Dates Dr. Scarlet Deleon DO Primary Care Provider Active Start: October 25, 2024 End: October 25, 2024 Dr. Scarlet Deleon DO Attending Provider Active St art: October 25, 2024 End: October 25, 2024 Team Status: Inactive Member Role/Relationship Status Dates Dr. Scarlet Deleon DO Primary Care Provider Active Start: December 29, 2024 End: December 29, 2024 Dr. Scarlet Deleon DO Attending Provider Active St art: December 29, 2024 End: December 29, 2024 Dr. Scarlet Deleon DO Referring Provider Active St art: December 29, 2024 End: December 29, 2024 Team Status: Active Member Role/Relationship Status Dates Dr. Scarlet Deleon DO Primary care physician Active Team Status: Inactive Member Role/Relationship Status Dates Dr. Scarlet Deleon DO Primary care physician Active Start: December 29, 2024 End: December 29, 2024 Dr. Scarlet Deleon DO Attending physician Active S tart: December 29, 2024 End: December 29, 2024 Dr. Scarlet Deleon DO Referring Provider Active St art: December 29, 2024 End: December 29, 2024 Team Status: Inactive Member Role/Relationship Status Dates Dr. Scarlet Deleon DO Primary care physician Active Start: February 14, 2025 End: February 14, 2025 Dr. Len Ahumada MD Attending physician Active Start: February 14, 2025 End: February 14, 2025 Dr. Len Ahumada MD Emergency Depart ment Physician Active Start: February 14, 2025 End: February 14, 2025 Team Status: Inactive Member Role/Relationship Status Dates Dr. Scarlet Deleon DO Primary care physician Active Start: February 21, 2025 End: February 21, 2025 Dr. Scarlet Deleon DO Referring Provider Active St art: February 21, 2025 End: February 21, 2025 Zhou Curry BLOOD BANK CREDIT CLERK, BLOOD BANK CREDIT CLERK-C Attending physician Active Start: February 21, 2025 End: February 21, 2025 Team Status: Active Member Role/Relationship Status Dates Dr. Scarlet Deleon DO Primary care physician Active Start: February 25, 2025 Dr. Scarlet Deleon DO Attending physician Active S tart: February 25, 2025 Dr. Scarlet Deleon DO Referring Provider Active St art: February 25, 2025 Goals (unrecognized section and content) Goals may be documented in a n alternate sectionGoals may be documented in an alternate sectionGoals may be documented in an alternate sectionGoals may be documented in an alternate sectionGoals may be documented in an alternate sectionGoals may be documented in an alternate sectionGoals may be documented in an alternate sectionGoals may be documented in an alternate section INFORMATION SOURCE (unrecogn ized section and content) DATE CREATED AUTHOR 01/30/2023 [facility] DATE CREATED AUTHOR 'S ORGANIZ ATION 02/10/2023 [facility] DATE CREATED AUTHOR AUTHOR'S ORGANIZ ATION 03/07/2025 [facility] FOR RECORDS PERTAINING TO PATIENTS WHO ARE [...] BE BASED ON THE PRIMARY CLINICAL RECORDS. [facility]. provides no warranty or guarantee of the accuracy or completeness of information in this document.
--- NOTE | 2025-03-17 16:52 | STRESSREP_ITS ---
Stress Test Report Exercise myocardial perfusion stress test. 74-year-old female with a history of chest pain. Stress protocol: Resting EKG demonstrates normal sinus rhythm with a rate of 60 bpm resting blood pressure is 108/72 mmHg. The patient exercised according to the regular Jonatan protocol for a total duration of 6 minutes attaining a maximum heart rate of 162 bpm which was 111% of maximum predicted heart rate; the maximum workload was 7 metabolic equivalents. At rest there were no ST or T wave changes noted to suggest ischemia and at peak exercise upsloping ST changes only were noted which did not meet the criteria for ischemia. No clinical angina was noted the test was terminated due to the target heart rate being achieved/fatigue. The peak b lood pressure was 162/70 mmHg. Rate-pressure product was 23,000. Myocardial perfusion protocol. 11 point mCi of technetium 99m sestamibi was injected at rest. The patient exercised according to regular Jonatan protocol for total duration of 6 minutes and at peak exercise 33.9 mCi of technetium 99m sestamibi was injected stress images were obtained stress and rest images were reconstructed in comparing the short axis vertical long and horizontal long axis. Gated images were also obtained. Perfusion SPECT analysis: Review of the stress images demonstrate normal uptake of tracer noted in all areas of the myocardium. The resting images similarly demonstrate normal uptake of tracer noted in all areas of the myocardium. No areas of reversibility are noted to suggest ischemia no previous infarct was noted. Gated SPECT analysis: The gated ejection fraction is 80%. Conclusion: Normal exercise myocardial perfusion stress test at a moderate workload.
== END | disposition home or self-care (01) ==
LOC: CVS 06:57
PROVIDERS: PCP Family Medicine; Referring Provider Nurse Practitioner Family; Visit Provider Nurse Practitioner Family
DX: R07.9 Chest pain, unspecified (principal)
CPT/HCPCS: 78452; 93017; A9500; A4216